=== PATIENT | female | born 1990 | race Caucasian/White ===

== ENCOUNTER → 2017-11-16 14:19 | Outpatient (CLI) | payer OTHER, SELFPAY ==
[2017-11-21 09:52] LABS: HPV Reflexed? NOT INDICATED
== END ==
PROVIDERS: Visit Provider Nurse Practitioner Women's Health
DX: Z12.4 Encounter for screening for malignant neoplasm of cervix (principal)
CPT/HCPCS: 88175; G0145

== ENCOUNTER → 2019-05-29 | Outpatient (CLI) | payer OTHER, SELFPAY ==
[2019-05-29 14:08] VITALS: BMI 25.9
[2019-05-29 20:10] LABS: Chlamydia Trachomatis by PCR Negative (Negative); Neisserai gonorrhoeae by PCR Negative (Negative); Probe Check PASS; Sample Adequacy Control PASS; Specimen Processing Control PASS
== END | disposition home or self-care (01) ==
LOC: LABSPEC 16:34
PROVIDERS: Referring Provider Obstetrics & Gynecology; Visit Provider Obstetrics & Gynecology
DX: Z34.90 Encounter for supervision of normal pregnancy, unspecified, unspecified trimester (principal)
CPT/HCPCS: 87491; 87591

== ENCOUNTER → 2019-06-27 11:08 | Outpatient (CLI) | payer OTHER, SELFPAY ==
[2019-06-27 10:37] VITALS: BMI 25.9
[2019-06-27 11:37] LABS: Absolute Lymphocyte Count 1.61 X10^3/uL (0.83-4.51); Absolute Neutrophil Count 4.5 X10^3/uL (2.0-7.7); Basophil# 0.01 X10^3/uL; Basophil% 0.2 % (0-1); Eosinophil# 0.03 X10^3/uL; Eosinophils% 0.5 % (0-5); Hematocrit 38.3 % (37-47); Hemoglobin 13.2 g/dL (12.0-15.0); Lymphocyte # 1.61 X10^3/ul (4.0); Lymphocyte % 24.3 % (19-41); Mean Corp Hgb Conc 34.5 g/dL (32-36); Mean Corpuscular Volume 95.8 fL (81-99); Mean Platelet Vol. 10.8 fl (6.2-12.0); Monocyte# 0.48 X10^3/uL; Monocyte% 7.2 % (0-10); NRBC Flagged by Analyzer 0 % (0-5); Neutrophil # 4.48 X10^3/uL (2.7-7.7); Neutrophil % 67.5 % (47-70); Platelet Count 212 K/mm3 (150-450); RBC Distribution Width CV 12.3 % (11.6-14.6); RBC Distribution Width SD 43.1 fl (35.1-43.9); White Blood Count 6.6 K/mm3 (4.4-11.0)
[2019-06-27 12:21] LABS: NATERA MAILED SPECIMEN
[2019-06-27 12:32] LABS: HIV - WCH Non-Reactive (Nonreactive); Hepatitis B Surface Antigen Non-Reactive (Nonreactive); Hepatitis C Antibody Non-Reactive (Nonreactive); Rubella IgG 92.7 IU/mL
[2019-07-03 02:09] LABS: Rapid Plasmin Reagin (RPR) NONREACTIVE (NONREACTIVE)
== END ==
PROVIDERS: Referring Provider Obstetrics & Gynecology; Visit Provider Obstetrics & Gynecology
DX: Z34.82 Encounter for supervision of other normal pregnancy, second trimester (principal); Z31.430 Encounter of female for testing for genetic disease carrier status for procreative management
CPT/HCPCS: 36415; 85025; 86592; 86703; 86762; 86803; 86850; 86900; 86901; 87340

== ENCOUNTER → 2019-09-19 08:02 | Outpatient (CLI) | payer OTHER, SELFPAY ==
[2019-08-22 08:29] VITALS: BMI 25.9
[2019-09-19 08:42] LABS: Absolute Lymphocyte Count 1.65 X10^3/uL (0.83-4.51); Absolute Neutrophil Count 6.8 X10^3/uL (2.0-7.7); Basophil# 0.04 X10^3/uL; Basophil% 0.4 % (0-1); Eosinophils% 1.1 % (0-5); Hemoglobin 12.2 g/dL (12.0-15.0); Lymphocyte # 1.65 X10^3/ul (4.0); Lymphocyte % 17.9 % (19-41); Mean Corp Hgb Conc 33.9 g/dL (32-36); Mean Corpuscular Hgb 33.7 pg (27.0-32.0); Mean Corpuscular Volume 99.4 fL (81-99); Mean Platelet Vol. 10.8 fl (6.2-12.0); Monocyte# 0.56 X10^3/uL; Monocyte% 6.1 % (0-10); NRBC Flagged by Analyzer 0 % (0-5); Neutrophil # 6.82 X10^3/uL (2.7-7.7); Neutrophil % 73.8 % (47-70); Platelet Count 214 K/mm3 (150-450); RBC Distribution Width CV 12.4 % (11.6-14.6); RBC Distribution Width SD 45.2 fl (35.1-43.9); Red Blood Count 3.62 M/mm3 (4.2-5.4); White Blood Count 9.2 K/mm3 (4.4-11.0)
[2019-09-19 08:48] LABS: Glucose Challenge Gest 1H 50g 119 mg/dL (70-140)
== END ==
PROVIDERS: Nurse Practitioner Women's Health; Referring Provider Obstetrics & Gynecology; Visit Provider Obstetrics & Gynecology
DX: Z34.90 Encounter for supervision of normal pregnancy, unspecified, unspecified trimester (principal)
CPT/HCPCS: 36415; 82950; 85025

== ENCOUNTER → 2019-12-05 14:00 | Outpatient (CLI) | payer OTHER, SELFPAY ==
[2019-12-05 09:18] VITALS: BMI 29.3
== END ==
PROVIDERS: Referring Provider Obstetrics & Gynecology; Visit Provider Obstetrics & Gynecology
DX: Z34.90 Encounter for supervision of normal pregnancy, unspecified, unspecified trimester (principal)
CPT/HCPCS: 87077; 87081; 87186

== ENCOUNTER → 2019-12-12 17:51 | Outpatient (CLI) | payer OTHER, SELFPAY ==
[2019-12-12 09:14] VITALS: BMI 29.3
== END ==
PROVIDERS: Referring Provider Obstetrics & Gynecology; Visit Provider Obstetrics & Gynecology
DX: Z20.828 Contact with and (suspected) exposure to other viral communicable diseases (principal)
CPT/HCPCS: 87635; 94799; U0003

== ENCOUNTER 2019-12-15 08:25 | Inpatient (IN) | payer OTHER, SELFPAY ==
[2019-12-12 09:14] VITALS: BMI 29.3
[2019-12-15] VITALS (14 sets, daily range): BP systolic 95–134; BP diastolic 60–84; PULSE 68–83; RESP 16; TEMP 36.4–36.9; O2SAT 95–98; BMI 32.8
[2019-12-15] MEDS: Lactated Ringers 1,000 ML 50 ML IV (08:50)
[2019-12-15 09:22] LABS: Absolute Lymphocyte Count 2.14 X10^3/uL (0.83-4.51); Absolute Neutrophil Count 6.3 X10^3/uL (2.0-7.7); Basophil# 0.03 X10^3/uL; Basophil% 0.3 % (0-1); Eosinophil# 0.04 X10^3/uL; Eosinophils% 0.4 % (0-5); Hematocrit 34.4 % (37-47); Hemoglobin 11.9 g/dL (12.0-15.0); Lymphocyte # 2.14 X10^3/ul (4.0); Lymphocyte % 22.3 % (19-41); Mean Corp Hgb Conc 34.6 g/dL (32-36); Mean Corpuscular Hgb 32.8 pg (27.0-32.0); Mean Corpuscular Volume 94.8 fL (81-99); Mean Platelet Vol. 12.5 fl (6.2-12.0); Monocyte% 9.4 % (0-10); NRBC Flagged by Analyzer 0 % (0-5); Neutrophil # 6.33 X10^3/uL (2.7-7.7); Platelet Count 178 K/mm3 (150-450); RBC Distribution Width CV 12.4 % (11.6-14.6); RBC Distribution Width SD 42.5 fl (35.1-43.9); Red Blood Count 3.63 M/mm3 (4.2-5.4); White Blood Count 9.6 K/mm3 (4.4-11.0)
--- NOTE | 2019-12-15 09:26 | HP.PCM_ITS ---
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 She has had contractions increasing in severity but still manageable and is wanting expectant management and minimal intervention. OB Visit ALPHONSO Calculator Estimated Delivery Date Method Current WG Current Estimate 12/24/19 LMP (Certain) 38w 2d Expected Delivery Route/Plan Labor Preferences- CB BF cl labor support person: Benjie pain management options preferred: trying for natural labor, but open to epidural epidural cut cord/dad catch: maybe : yes PP control planned: unsure discussed possible routes of delivery and associated risks: discussed possible delivery modalities and possible indications for each including R/B/A of , VAVD, and CS. questions answered. special requests: none Specific Issue/Plans flu vaccine: yes tdap vaccine: given rhogam: na LARC form signed: yes movement and labor precautions reviewed. Problem list reviewed and updated with the most current plan of care details and appropriate orders placed. Relevant counseling for the gestational age provided. Continue routine care and follow up unless otherwise noted in visit notes/problem list details Initial Weight: 163 lb Date EGA Weight BP Urine Prot Glucose FHR FuHt Pres Dilation Effaced St Visit Note 06/27/19 14w 2d 164 lb 4 oz (+1 lb 4 oz) 116/77 Negative Negative 150 SM- no vb cramping getting blood work today 08/22/19 22w 2d 175 lb (+12 lb) 104/72 Negative Negative 150 SM- no vb lof good fm no regular ctx 09/19/19 26w 2d 179 lb (+16 lb) 114/80 Negative Negative 156 26 Mh-good FM. NO Vb LOF. 28 wk labs and tdap today 10/03/19 28w 2d 180 lb (+17 lb) 124/78 Negative Negative 145 28 SM- no vb lof good fm planning CB and classes 10/20/19 30w 5d 186 lb 4 oz (+23 lb 4 oz) 110/78 Negative Negative 145 31 SM- no vb lof good fm no regular ctx 11/03/19 32w 5d 187 lb (+24 lb) 106/80 Negative Negative 135 33 Sm- no vb lof good fm no regular ctx 11/17/19 34w 5d 190 lb (+27 lb) 122/82 Negative Negative 12/05/19 37w 2d 196 lb 6 oz (+33 lb 6 oz) 98/60 Negative Negative 150 37 GP - no LOF/VB/DFM/Ctx. GBS done today. 12/12/19 38w 2d 199 lb 2 oz (+36 lb 2 oz) 128/88 Negative Negative 150 38 Cephalic 3 70 -1 SM- no vb lof good fm no regular ctx ACOG First Trimester First Trimester: Desire for , Alcohol, Tobacco Cessation, Illicit/Recreational Drug/Substance Use, Intimate Partner Violence, Barriers to care, Unstable Housing, Communication Barriers, Environmental/Work Hazards, Anticipated Course of Care, Toxoplasmosis Precations, Use of Any medications, Sexual activity, Exercise, Dental Care, Sauna/Hot tub use, Seat Belt use, Childbirth classes/Hospital facilities, , Travel, Indications for US and Screening for Aneuploidy Second Trimester Second Trimester: Signs and Symptoms of Labor, Selecting a care provider, Reproductive Life Planning, Care Planning, Tobacco Cessation, Depression/Anxiety and Intimate Partner Violence Third Trimester Third Trimester: Pain Management Plans, Labor support person(s), Immediate Larc, Movement Monitoring and Feeding Yes ; discussed Trial of Labor after Counseling or discussed Circumcision preference Diagnostics Diagnostics Diagnostics Blood Type O POSITIVE 06/27/19 Antibody Screen NEGATIVE 06/27/19 Glucose 1 Hr 50 gm 119 mg/dL (70-140) 09/19/19 HIV 1&2 Antibody Non-Reactive (Nonreactive) 06/27/19 Rubella IgG Antibody 92.7 IU/mL 06/27/19 Hgb 12.2 g/dL (12.0-15.0) 09/19/19 Hct 36.0 % (37-47) L 09/19/19 RPR NONREACTIVE (NONREACTIVE) 06/27/19 Details: HIV: Urine Culture: Sequential Screen: NIPT Screen: ROS Const Reports system reviewed and no additional complaints, except as docu Card Reports system reviewed and no additional complaints, except as docu Resp Reports system reviewed and no additional complaints, except as docu GI Reports system reviewed and no additional complaints, except as docu, Reports nausea Reports system reviewed and no additional complaints, except as docu Musc Reports system reviewed and no additional complaints, except as docu Exam Const General: cooperative, healthy appearing, comfortable, anxious HENMT Head: normal to inspection Nose: external nose normal Face and sinus: normal facial exam Neck Neck: normal visual inspection, full ROM, no lymphadenopathy Thyroid: thyroid normal Chest Chest palpation & inspection: normal inspection of the chest Resp Effort & Inspection: normal respiratory effort GI Inspection: normal to inspection Palpation: soft, other (gravid uterus) Other: vertex and appropriate size for gestational age Other: Cervical Exam: Extrem General: pedal edema Results POC Urinalysis 2 Dip (Clinic) Office Urine Glucose Negative Last Edit by Lalitha Willis on 12/12/19 09:22 Office Urine Protein Negative Last Edit by Lalitha Willis on 12/12/19 09:22 Assessment & Plan Problems 1. 38 weeks gestation of Z3A.38 nipt-low risk, carrier neg and declined ntd screening; normal anatomy 2. Supervision of normal Z34.90 PRR ALPHONSO 12/24/19 surprise Benjie 3. Positive GBS test B95.1 plan pcn in labor 29-year-old G1, P0 at 38 weeks presents in active labor with SROM clear fluid Patient presents IAL, plan expectant management for , Pitocin/AROM if needed. Pain management: First minimal intervention. GBS positive plan IV PCN. Management of any complications: None I have reviewed the [facility] and made any clinically relevant updates. Orders Orders: POC Urinalysis 2 Dip (Clinic) Today Coding Level of Care Code OB Routine Diagnoses 38 weeks gestation of Z3A.38 ??Weeks of gestation: 38 weeks Supervision of normal Z34.90 Positive GBS test B95.1
[2019-12-15] MEDS: 0.9% Saline Lock 10 ML Syringe IV (10:16)
--- NOTE | 2019-12-15 12:45 | PCM.OPRPT ---
Problem List (1) SROM (spontaneous rupture of membranes) Status: Acute (2) Positive GBS test Status: Acute Comment: plan pcn in labor (3) Status: Acute Qualifiers: Comment: nipt-low risk, carrier neg and declined ntd screening; normal anatomy (4) Supervision of normal Status: Acute Qualifiers: Comment: PRR ALPHONSO 12/24/19 surprise Benjie Vaginal Delivery Maternal Presentation: Active Labor 38 weeks Method of Induction: Pitocin Amniotic Membrane Rupture Type: Spontaneous at home Amniotic Fluid Description: Clear Final ALPHONSO: 12/24/19 Gestational age: 38 Weeks and 6 Days Date of Procedure: 12/15/19 Pre-Operative Diagnosis: ial srom Post-Operative Diagnosis: same Surgery/ Procedure Performed: Spontaneous Vaginal Delivery Type of Anesthesia: None Description of Procedure: Patient began pushing and delivered the head in the ADAM presentation. The head was delivered atraumatically. The anterior and posterior shoulders delivered without complication followed by the rest of the and the infant was placed on the maternal abdomen. Delayed cord clamping was employed for approximately 60 seconds. Cord was clamped and cut and gentle traction was applied to the cord and the placenta delivered spontaneously immediately following it was noted to be intact with three-vessel cord. The perineum and vagina were inspected and noted to have a second-degree perineal laceration and a left vaginal first-degree laceration that was injected with 1% lidocaine and repaired in the usual fashion with 3-0 Vicryl Rapide. EBL was 200 cc. Patient and infant tolerated delivery well. Presentation: HARDIK Placental Delivery Description: Spontaneous Placenta Disposition: [facility] Cord Vessel Description: 3 Vessels Cord Entanglement: None Estimated Blood Loss: 200 A gender: Male Episiotomy Description: None Laceration: Perineal Extension/lac, Vaginal Extension/lac, 1st degree, 2nd degree Medications given after delivery: IV Pitocin Complications: None Multi Select Codes - Urinary/Genital Urinary/Genital CPT Codes: 99068 Vaginal Delivery [facility]
[2019-12-15] MEDS: Oxytocin 30 units/NS 500 ml 30 UNITS/500 ML IV.SOLN 334 UNITS IV (13:08)
[2019-12-15] MEDS: Naproxen 250 MG Tablet 500 MG PO (15:54)
[2019-12-15] MEDS: Senna/Docusate Sodium 1 Tablet PO (20:34)
[2019-12-15] MEDS: Acetaminophen 500 MG Tablet 1000 MG PO (20:34)
[2019-12-16 00:16] VITALS: BP 114/63; PULSE 72; RESP 16; TEMP 36.6
[2019-12-16 04:07] VITALS: BP 101/61; PULSE 73; RESP 16; TEMP 36.6
[2019-12-16] MEDS: Naproxen 250 MG Tablet 500 MG PO ×3 (04:11→22:50)
--- NOTE | 2019-12-16 07:40 | PN.OBGYN_ITS ---
Patient Problems: Active and Suspected Problems (Last Reviewed 12/12/19 @ 09:12 by Lalitha Willis) SROM (spontaneous rupture of membranes) (Acute) Subjective: Patient doing well without complaints. Tolerating PO. Ambulating and voiding without difficulty. Feeding well. Denies chest pain, shortness of breath - Physical Exam Vitals/I&O's: Vital Signs Temp Pulse Resp BP Pulse Ox 98 F 73 16 101/61 95 12/16/19 04:07 12/16/19 04:07 12/16/19 04:07 12/16/19 04:07 12/15/19 20:11 Oxygen Delivery Method Room Air Weight: 197 lb 8.547 oz Body Mass Index (BMI) 32.8 Intake and Output for Last 24 Hours 12/14/19 12/15/19 12/16/19 23:59 23:59 23:59 Intake Total 1211.66 / 1211.66 Balance 1211.66 / 1211.66 General: Alert, Oriented x3 Abdomen: Non Tender, Non-Distended, - - FF below U Laboratory Results 12/15/19 08:50: WBC 9.6, RBC 3.63 L, Hgb 11.9 L, Hct 34.4 L, MCV 94.8, MCH 32.8 H, MCHC 34.6, RDW Std Deviation 42.5, RDW Coeff of Victor Manuel 12.4, Plt Count 178, MPV 12.5 H, Immature Gran % (Auto) 1.600 H, Neut % (Auto) 66.0, Lymph % (Auto) 22.3, [place] % (Auto) 9.4, Eos % (Auto) 0.4, Baso % (Auto) 0.3, Absolute Neuts (auto) 6.3, Absolute Lymphs (auto) 2.14, Nucleated RBC % 0 12/15/19 08:50: Blood Type O POSITIVE, Antibody Screen NEGATIVE Current Medications Acetaminophen (Tylenol) 1,000 mg PO Q8H PRN PRN PRN Reason: Pain Score 1-3/10 Last Admin: 12/15/19 20:34 Dose: 1,000 mg Documented by: Bisacodyl (Dulcolax) 10 mg RECTAL UD PRN PRN Reason: If no BM Dibucaine (Dibucaine) 1 applic TOPICAL TID PRN PRN; Protocol PRN Reason: Discomfort Hydrocortisone (Hytone) 1 applic TOPICAL TID PRN PRN; Protocol PRN Reason: Discomfort Methylergonovine Maleate (Methergine) 0.2 mg IM X1 PRN PRN Reason: Excess bleeding/uterine atony Naproxen (Naprosyn) 500 mg PO Q8H PRN PRN PRN Reason: Pain Score 1-3/10 Last Admin: 12/16/19 04:11 Dose: 500 mg Documented by: Ondansetron HCl (Zofran) 4 mg IV Q4H PRN PRN PRN Reason: Nausea Oxycodone HCl (Oxyir) 5 - 10 mg PO Q4H PRN PRN PRN Reason: Pain Score 4-10/10 Senna/Docusate Sodium (Senokot-S, Raquel-Colace) 1 - 2 tablet PO DAILY PRN PRN PRN Reason: Constipation Last Admin: 12/15/19 20:34 Dose: 1 tablet Documented by: Simethicone (Mylicon) 80 mg PO PCHS PRN PRN Reason: Indigestion/Stomach pain Sodium Chloride () 5 - 15 ml IV UD PRN PRN Reason: SALINE FLUSH Medical Necessity - Tobacco Use Smoking Status: Never smoker Assessment/Plan All Active Problems (Last Reviewed 12/12/19 @ 09:12 by Lalitha Willis) SROM (spontaneous rupture of membranes) (Acute) Positive GBS test (Acute) (Acute) Supervision of normal (Acute) s/p PPD # 1 1. routine post delivery care 2. breast feeding- support given 3. rh positive 4. rubella immune
[2019-12-16 08:00] VITALS: BP 107/68; PULSE 75; RESP 16; TEMP 36.7
[2019-12-16] MEDS: Senna/Docusate Sodium 1 Tablet PO (08:17)
[2019-12-16 11:38] VITALS: BP 113/64; PULSE 80; RESP 16; TEMP 36.7
[2019-12-16 16:00] VITALS: BP 119/72; PULSE 123; RESP 16; TEMP 36.8
[2019-12-16 20:20] VITALS: BP 111/74; PULSE 78; RESP 18; TEMP 36.3; O2SAT 96
[2019-12-17 02:00] VITALS: BP 112/67; PULSE 72; RESP 16; TEMP 36.3; O2SAT 95
--- NOTE | 2019-12-17 02:26 | DCINST_ITS ---
Discharge Diet: No Restrictions Discharge Activity: Return to Normal Activity, May not drive while taking narcotic pain medications., May Shower May resume sexual activity in: 4-6 weeks Call your doctor if your incision/area has: Continuous Slow Oozing, Sudden Increased Bleeding, Increased Pain/ Swelling, Increased Redness, Foul Smelling Discharge Additional Instructions: If you experience any of the following, contact your healthcare provider. * Bleeding that soaks a pad every hour for 2 hours * Fever 100.4 or higher * Unrelieved incision or abdominal pain * Swelling, redness, discharge or bleeding from your incision or episiotomy site * Your incision begins to separate * Problems urinating (including inability to urinate or burning while urinating). * Visual changes * Severe headache * Flu-like symptoms * Pain or redness in one of both of your breasts * Pain, warmth, tenderness or swelling in your legs, especially the calf area * Frequent nausea and vomiting * Symptoms of depression or anxiety If you experience any of the following, call 911 or go to the nearest Emergency Room. * Chest pain * Problems breathing * Seizure activity * Partial or complete paralysis of a body part, slurred speech, weakness or drooping of the face, or a sudden inability to walk or hold your balance Allergies/Adverse Reactions: Allergies Sulfa (Sulfonamide Antibiotics) Allergy (Mild, Verified 12/12/19 09:13) Other bees Allergy (Severe, Uncoded 12/05/19 09:10) rash, throat swells Medications to take at Discharge vitamin#30 30 mg iron-10 mg iron-folic acid 1 mg-omg3 capsule 1 cap PO DAILY 05/29/19 Please Follow Up With: Dominique Patten MD - [phone] When: Call to make an appointment with your doctor in 6 weeks. If you had elevated Blood pressure or 4th degree laceration you will need to be seen in 2 weeks. Primary Care Physician: Care Physician,No Primary [Primary Care Provider] - Test Results: Test results from this visit will be discussed in further detail at your follow- up appointment, if applicable.
--- NOTE | 2019-12-17 02:26 | PCM.DCVAG ---
Discharge Diet: No Restrictions Discharge Activity: Return to Normal Activity, May not drive while taking narcotic pain medications., May Shower May resume sexual activity in: 4-6 weeks Call your doctor if your incision/area has: Continuous Slow Oozing, Sudden Increased Bleeding, Increased Pain/ Swelling, Increased Redness, Foul Smelling Discharge Additional Instructions: If you experience any of the following, contact your healthcare provider. Bleeding that soaks a pad every hour for 2 hours Fever 100.4 or higher Unrelieved incision or abdominal pain Swelling, redness, discharge or bleeding from your incision or episiotomy site Your incision begins to separate Problems urinating (including inability to urinate or burning while urinating). Visual changes Severe headache Flu-like symptoms Pain or redness in one of both of your breasts Pain, warmth, tenderness or swelling in your legs, especially the calf area Frequent nausea and vomiting Symptoms of depression or anxiety If you experience any of the following, call 911 or go to the nearest Emergency Room. Chest pain Problems breathing Seizure activity Partial or complete paralysis of a body part, slurred speech, weakness or drooping of the face, or a sudden inability to walk or hold your balance Allergies/Adverse Reactions: Allergies Sulfa (Sulfonamide Antibiotics) Allergy (Mild, Verified 12/12/19 09:13) Other bees Allergy (Severe, Uncoded 12/05/19 09:10) rash, throat swells Medications to take at Discharge vitamin#30 30 mg iron-10 mg iron-folic acid 1 mg-omg3 capsule 1 cap PO DAILY 05/29/19 Please Follow Up With: Dominique Patten MD - [phone] When: Call to make an appointment with your doctor in 6 weeks. If you had elevated Blood pressure or 4th degree laceration you will need to be seen in 2 weeks. Primary Care Physician: Care Physician,No Primary [Primary Care Provider] - Test Results: Test results from this visit will be discussed in further detail at your follow-up appointment, if applicable.
--- NOTE | 2019-12-17 04:43 | PCM.PN.OB ---
Patient Problems: Active and Suspected Problems (Last Reviewed 12/12/19 @ 09:12 by Lalitha Willis) SROM (spontaneous rupture of membranes) (Acute) Subjective: Patient doing well without complaints. Tolerating PO. Ambulating and voiding without difficulty. Passing gas. Feeding without difficulty. Denies chest pain, shortness of breath, calf pain/swelling, fevers, chills, lightheadedness. - Physical Exam Vitals/I&O's: Vital Signs Temp Pulse Resp BP Pulse Ox 97.4 F L 72 16 112/67 95 12/17/19 02:00 12/17/19 02:00 12/17/19 02:00 12/17/19 02:00 12/17/19 02:00 Oxygen Delivery Method Room Air Weight: 197 lb 8.547 oz Body Mass Index (BMI) 32.8 Intake and Output for Last 24 Hours 12/15/19 12/16/19 12/17/19 23:59 23:59 23:59 Intake Total 1211.66 / 1211.66 Balance 1211.66 / 1211.66 General: Alert, Oriented x3 Current Medications Acetaminophen (Tylenol) 1,000 mg PO Q8H PRN PRN PRN Reason: Pain Score 1-3/10 Last Admin: 12/15/19 20:34 Dose: 1,000 mg Documented by: Bisacodyl (Dulcolax) 10 mg RECTAL UD PRN PRN Reason: If no BM Dibucaine (Dibucaine) 1 applic TOPICAL TID PRN PRN; Protocol PRN Reason: Discomfort Hydrocortisone (Hytone) 1 applic TOPICAL TID PRN PRN; Protocol PRN Reason: Discomfort Methylergonovine Maleate (Methergine) 0.2 mg IM X1 PRN PRN Reason: Excess bleeding/uterine atony Naproxen (Naprosyn) 500 mg PO Q8H PRN PRN PRN Reason: Pain Score 1-3/10 Last Admin: 12/16/19 22:50 Dose: 500 mg Documented by: Ondansetron HCl (Zofran) 4 mg IV Q4H PRN PRN PRN Reason: Nausea Oxycodone HCl (Oxyir) 5 - 10 mg PO Q4H PRN PRN PRN Reason: Pain Score 4-10/10 Senna/Docusate Sodium (Senokot-S, Raquel-Colace) 1 - 2 tablet PO DAILY PRN PRN PRN Reason: Constipation Last Admin: 12/16/19 08:17 Dose: 2 tablet Documented by: Simethicone (Mylicon) 80 mg PO PCHS PRN PRN Reason: Indigestion/Stomach pain Sodium Chloride () 5 - 15 ml IV UD PRN PRN Reason: SALINE FLUSH Medical Necessity - Tobacco Use Smoking Status: Never smoker Assessment/Plan All Active Problems (Last Reviewed 12/12/19 @ 09:12 by Lalitha Willis) SROM (spontaneous rupture of membranes) (Acute) Positive GBS test (Acute) (Acute) Supervision of normal (Acute) s/p PPD # 2 1. routine post delivery care 2. breast feeding- support given 3. rh positive 4. rubella immune
[2019-12-17 08:57] VITALS: BP 111/64; PULSE 87; RESP 16; TEMP 36.8
== END 2019-12-17 10:35 | disposition home or self-care (01) | DRG 807 ==
LOC: OBT 08:32 → WP 08:32
PROVIDERS: Admitting Provider Obstetrics & Gynecology; Referring Provider Obstetrics & Gynecology; Visit Provider Obstetrics & Gynecology
DX: O42.92 Full-term premature rupture of membranes, unspecified as to length of time between rupture and onset of labor (principal); Z37.0 Single live birth; O70.1 Second degree perineal laceration during delivery; O99.824 Streptococcus B carrier state complicating childbirth; Z3A.38 38 weeks gestation of pregnancy
CPT/HCPCS: 59050; 85025; 86850; 86900; 86901; 99218; J7120; A4216; G0378

== ENCOUNTER → 2020-01-26 16:51 | Outpatient (CLI) | payer OTHER, SELFPAY ==
[2020-01-26 11:47] VITALS: BMI 29.7
== END ==
PROVIDERS: Referring Provider Obstetrics & Gynecology; Visit Provider Obstetrics & Gynecology
DX: Z12.4 Encounter for screening for malignant neoplasm of cervix (principal)
CPT/HCPCS: 87624; 88175; G0145

== ENCOUNTER → 2021-04-04 14:16 | Outpatient (CLI) | payer OTHER, SELFPAY ==
[2021-04-04 14:37] LABS: Absolute Lymphocyte Count 2.02 X10^3/uL (0.83-4.51); Absolute Neutrophil Count 4.8 X10^3/uL (2.0-7.7); Basophil# 0.04 X10^3/uL; Basophil% 0.5 % (0-1); Eosinophil# 0.06 X10^3/uL; Eosinophils% 0.8 % (0-5); Hematocrit 38.7 % (37-47); Hemoglobin 13.7 g/dL (12.0-15.0); Lymphocyte # 2.02 X10^3/ul (0.83-4.51); Lymphocyte % 27.2 % (19-41); Mean Corp Hgb Conc 35.4 g/dL (32-36); Mean Corpuscular Volume 93.3 fL (81-99); Mean Platelet Vol. 10.7 fl (6.2-12.0); Monocyte# 0.51 X10^3/uL; Monocyte% 6.9 % (0-10); NRBC Flagged by Analyzer 0 % (0-5); Neutrophil # 4.79 X10^3/uL (2.7-7.7); Neutrophil % 64.3 % (47-70); Platelet Count 236 K/mm3 (150-450); RBC Distribution Width CV 12.4 % (11.6-14.6); RBC Distribution Width SD 42.6 fl (35.1-43.9); Red Blood Count 4.15 M/mm3 (4.2-5.4); White Blood Count 7.4 K/mm3 (4.4-11.0)
[2021-04-04 15:32] LABS: NATERA MAILED SPECIMEN
[2021-04-04 15:34] LABS: HIV - WCH Non-Reactive (Nonreactive); Hepatitis B Surface Antigen Non-Reactive (Nonreactive); Hepatitis C Antibody Non-Reactive (Nonreactive); Rubella IgG Reactive (Nonreactive); Syphilis Antibodies Non-reactive
[2021-04-04 17:34] LABS: Amphetamine Urine VISTA NEGATIVE (<1000 ng/mL); Barbiturate Urine VISTA NEGATIVE (< 200 ng/mL); Benzodiazepine Urine VISTA NEGATIVE (< 200 ng/mL); Cocaine Urine VISTA NEGATIVE (< 300 ng/mL); Ecstacy Urine VISTA NEGATIVE (< 500 ng/mL); Methadone Urine VISTA NEGATIVE (< 300 ng/mL); PCP Urine VISTA NEGATIVE (< 25 ng/mL); THC Urine VISTA NEGATIVE (< 50 ng/mL); Vista UDS pH Range 6
[2021-04-07 00:06] LABS: Chlamydia By Nucleic Acid AMP Negative (Negative)
[2021-04-07 07:27] LABS: Gonococcus By Nucleic Acid AMP Negative (Negative)
[2021-04-08 17:27] LABS: HPV APTIMA, High Risk Negative (Negative)
== END ==
PROVIDERS: Referring Provider Obstetrics & Gynecology; Visit Provider Obstetrics & Gynecology
DX: Z34.81 Encounter for supervision of other normal pregnancy, first trimester (principal)
CPT/HCPCS: 36415; 80307; 85025; 86703; 86762; 86780; 86803; 86850; 86900; 86901; 87086; 87340; 87491; 87591; 87624; 88175; G0145

== ENCOUNTER 2021-08-04 08:08 | Outpatient (CLI) | payer OTHER, SELFPAY ==
[2021-08-04 08:35] LABS: Absolute Lymphocyte Count 1.79 X10^3/uL (0.83-4.51); Basophil# 0.02 X10^3/uL; Basophil% 0.3 % (0-1); Eosinophil# 0.01 X10^3/uL; Eosinophils% 0.1 % (0-5); Hematocrit 36.2 % (37-47); Hemoglobin 12.4 g/dL (12.0-15.0); Lymphocyte # 1.79 X10^3/ul (0.83-4.51); Mean Corp Hgb Conc 34.3 g/dL (32-36); Mean Corpuscular Hgb 32.9 pg (27.0-32.0); Mean Platelet Vol. 10.7 fl (6.2-12.0); Monocyte# 0.33 X10^3/uL; Monocyte% 4.6 % (0-10); NRBC Flagged by Analyzer 0 % (0-5); Neutrophil # 4.98 X10^3/uL (2.7-7.7); Neutrophil % 69.4 % (47-70); Platelet Count 213 K/mm3 (150-450); RBC Distribution Width CV 12.8 % (11.6-14.6); RBC Distribution Width SD 45.3 fl (35.1-43.9); Red Blood Count 3.77 M/mm3 (4.2-5.4); White Blood Count 7.2 K/mm3 (4.4-11.0)
[2021-08-04 08:52] LABS: Glucose Challenge Gest 1H 50g 136 mg/dL (70-140)
== END 2021-08-04 23:59 | disposition home or self-care (01) ==
LOC: LAB 08:09
PROVIDERS: Referring Provider Nurse Practitioner Women's Health; Visit Provider Nurse Practitioner Women's Health
DX: Z34.90 Encounter for supervision of normal pregnancy, unspecified, unspecified trimester (principal); Z3A.22 22 weeks gestation of pregnancy
CPT/HCPCS: 36415; 82950; 85025

== ENCOUNTER → 2021-08-12 | Outpatient (CLI) | payer OTHER, SELFPAY ==
[2021-08-12 07:42] LABS: Glucose GTT-Gestation. Fasting 82 mg/dL (<105)
[2021-08-12 08:26] LABS: Glucose GTT-Gestational 1 Hr 140 mg/dL (<190)
[2021-08-12 09:19] LABS: Glucose GTT-Gestational 2 Hr 113 mg/dL (<165)
[2021-08-12 10:38] LABS: Glucose GTT-Gestational 3 Hr 86 L (<145)
== END | disposition home or self-care (01) ==
LOC: LAB 06:48
PROVIDERS: Referring Provider Nurse Practitioner Women's Health; Visit Provider Nurse Practitioner Women's Health
DX: Z13.1 Encounter for screening for diabetes mellitus (principal)
CPT/HCPCS: 36415; 82951; 82952

== ENCOUNTER → 2021-10-07 | Outpatient (CLI) | payer OTHER, SELFPAY | END | disposition home or self-care (01) | LOC: LABSPEC 09:07 | PROVIDERS: Visit Provider Obstetrics & Gynecology | DX: Z34.90 Encounter for supervision of normal pregnancy, unspecified, unspecified trimester (principal) | CPT/HCPCS: 87081 ==

== ENCOUNTER 2021-10-20 11:45 | Inpatient (IN) | payer OTHER, SELFPAY ==
[2021-10-20] VITALS (16 sets, daily range): BP systolic 99–128; BP diastolic 63–91; PULSE 64–86; RESP 16; TEMP 36.5–36.8; O2SAT 94–96; BMI 31.4
[2021-10-20] MEDS: Lactated Ringers 1,000 ML 200 ML IV (12:05)
[2021-10-20 12:16] LABS: Basophil# 0.03 X10^3/uL; Basophil% 0.3 % (0-1); Eosinophil# 0.03 X10^3/uL; Eosinophils% 0.3 % (0-5); Hematocrit 37.4 % (37-47); Hemoglobin 12.8 g/dL (12.0-15.0); Lymphocyte % 17.6 % (19-41); Mean Corp Hgb Conc 34.2 g/dL (32-36); Mean Corpuscular Hgb 32.6 pg (27.0-32.0); Mean Corpuscular Volume 95.2 fL (81-99); Mean Platelet Vol. 12.2 fl (6.2-12.0); Monocyte# 0.71 X10^3/uL; Monocyte% 6.6 % (0-10); NRBC Flagged by Analyzer 0 % (0-5); Neutrophil # 8.04 X10^3/uL (2.7-7.7); Neutrophil % 74.3 % (47-70); Platelet Count 179 K/mm3 (150-450); RBC Distribution Width CV 12.7 % (11.6-14.6); RBC Distribution Width SD 43.7 fl (35.1-43.9); Red Blood Count 3.93 M/mm3 (4.2-5.4); White Blood Count 10.8 K/mm3 (4.4-11.0)
--- NOTE | 2021-10-20 12:59 | HP.PCM.OB_ITS ---
HPI - General General Date of Admission: 10/20/21 HPI Narrative LALITHA MONTERO, is a 30y/o G2P who presents to L&D at 38 weeks 2 days with contractions and nursing reports that she is 5-6 cm upon admission. She denies loss of fluid, vaginal bleeding, or dec fm. Maternal Data Information ALPHONSO Calculator Estimated Delivery Date Method Current WG Current Estimate 11/01/21 LMP (Certain) 38w 2d PFSH PFS Medical History Abnormal glucose affecting COVID-19 vaccine series completed Home Medications vitamin#30 30 mg iron-10 mg iron-folic acid 1 mg-omg3 capsule 1 cap PO DAILY Check with primary doctor 05/29/19 [History Last Taken 10/19/21] Allergy/AdvReac Type Severity Reaction Status Date / Time Sulfa (Sulfonamide Allergy Mild Other Verified 10/14/21 13:18 Antibiotics) bees Allergy Severe rash, Uncoded 09/26/21 13:35 throat swells Family History Grandfather Diabetes Heart disease Surgical History History of tonsillectomy Social History Smoking Status: Never smoker alcohol intake: never substance use type: does not use caffeine: Yes what type of physical activity do you participate in: running and weight training frequency: daily seatbelt use: always do you feel safe at home: Yes 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 Date Name GA/Weeks Outcome Route Bth Weight Gen Labor Lgth Anesthesia Del Locatn Provider FOB 12/15/19 Phong 38 live - full term 7lbs 9oz Male 7 hours none [facility] Visit Details Expected Delivery Route/Plan Labor Preferences- CB/BF classes: no labor support person: Benjie labor intervention preferences: [] pain management options preferred: limited intervention, ok w epidural if needed cut cord/dad catch: cord : yes PP control planned: discussed discussed possible routes of delivery and associated risks: [] special requests: [] Plans Covid status: pfizer vaccine Flu vaccine: given Tdap vaccine: given Rhogam: na LARC form signed: yes Problem list reviewed and updated with the most current plan of care details and appropriate orders placed. Relevant counseling for the gestational age provided. Continue routine care and follow up unless otherwise noted in visit notes/problem list details OB Flowsheet Initial Weight: 170 lb Date -?-?-?-?-?-?-?-?-?-?-?-?- EGA Weight BP Urine Prot -?-?-?-?-?-?-?-?-?-?-?-?- Glucose FHR FuHt Pres Dilation -?-?-?-?-?-?-?-?-?-?-?-?- Effaced St Visit Note 04/04/21 -?-?-?-?-?-?-?-?-?-?-?-?- 9w 6d 172 lb (+2 lb) 128/72 -?-?-?-?-?-?-?-?-?-?-?-?- 170 -?-?-?-?-?-?-?-?-?-?-?-?- SM- CRL cons wit h LMP SM- CRL 3.6 cons with LMP 05/13/21 -?-?-?-?-?-?-?-?-?-?-?-?- 15w 3d 175 lb 4 oz (+5 lb 4 oz) 116/80 Negative -?-?-?-?-?-?-?-?-?-?-?-?- Negative 147 -?-?-?-?-?-?-?-?-?-?-?-?- JV- no lof, vagi nal bleeding, or cramping. Anatomy ultrasound with mfm ordered. 06/09/21 -?-?-?-?-?-?-?-?-?-?-?-?- 19w 2d 179 lb 8 oz (+9 lb 8 oz) 120/80 Negative -?-?-?-?-?--?-?-?-?-?-?-?- Negative 142 -?-?-?-?-?-?-?-?-?-?-?-?- JV- going back t o mfm for rpt scan of stomach. no complaints today 07/04/21 -?-?-?-?-?-?-?-?-?-?-?--?- 22w 6d 292 lb (+122 lb) 181 lb (+11 lb) 110/64 Negative -?-?-?-?-?-?-?-?-?-?-?-?- Negative 140 23 -?-?-?-?-?-?-?-?-?-?-?-?- SM- no vb lof go od fm no regular ctx 08/04/21 -?-?-?-?-?-?-?-?-?-?-?-?- 27w 2d 181 lb (+11 lb) 124/78 Negative -?-?-?-?-?-?-?-?-?-?-?-?- Negative 141 28 -?-?-?-?-?-?-?-?-?-?-?-?- Mh-No Vb, LOF. G ood FM. 28 wk labs, [facility] 08/26/21 -?-?-?-?-?-?--?-?-?-?-?-?- 30w 3d 184 lb (+14 lb) 120/78 Negative -?-?-?-?-?-?-?-?-?-?-?-?- Negative 152 30 -?-?-?-?-?-?-?-?-?-?-?-?- JV- normal 3 hr. Tdap today. 09/09/21 -?-?-?-?-?-?-?-?-?-?-?-?- 32w 3d 182 lb (+12 lb) 98/71 Negative -?-?-?-?-?-?-?-?-?-?-?-?- Negative 150 32 -?-?-?-?-?-?-?-?-?-?-?-?- SM- no vb lof go od fm no regular ctx 09/26/21 -?-?-?-?-?-?-?-?-?-?-?-?- 34w 6d 187 lb 2 oz (+17 lb 2 oz) 114/74 Negative -?-?-?-?-?-?-?-?-?-?-?-?- Negative 161 34 -?-?-?-?-?-?-?-?-?-?-?-?- JV- no lof, vagi nal bleeding, or dec fm. going to [place] a [place] this . pt encouraged to take frequent breaks and wear compression stockings. 10/06/21 -?-?-?-?-?-?-?-?-?-?-?-?- 36w 2d 189 lb (+19 lb) 104/68 Negative -?-?-?-?-?-?-?-?-?-?-?-?- Negative 145 35 Cephalic 3 -?-?-?-?-?-?-?-?-?-?-?-?- 60 -1 SM- n ovb lof good fm no regular ctx 10/14/21 -?-?-?-?-?-?-?-?-?-?-?-?- 37w 3d 192 lb (+22 lb) 102/72 Negative -?-?-?-?-?-?-?-?-?-?-?-?- Negative 150 37 Cephalic 3 -?-?-?-?-?-?-?-?-?-?-?-?- 60 -2 JV- no lof , vaginal bleeding, or dec fm. no complaints. labor precaution discussed. 10/20/21 -?-?-?-?-?-?-?-?-?-?-?-?- 38w 2d 189 lb 2.506 oz (+19 lb 2.506 oz) 114/78 -?-?-?-?-?-?-?-?-?-?-?-?- -?-?-?-?-?-?-?-?-?-?-?-?- ROS Constitutional Constitutional: Denies change in weight, fatigue, fever(s), headache(s), poor appetite or weakness Eyes Eyes: Denies blurry vision, change in vision, seeing flashes or spots in vision ENT HEENT: Denies dizziness, headache(s), loss taste/smell or sore throat Cardiovascular Cardiovascular: Denies chest pain, dizziness, dyspnea, irregular heart rhythm, leg edema, palpitations, rapid heart rate or vomiting Respiratory/Chest Respiratory/Chest: Denies chest tightness, cough, dyspnea or breast pain Gastrointestinal Gastrointestinal: Denies abdominal pain, anorexia, constipation, cramping, diarrhea, hemorrhoids, vomiting or weight changes Genitourinary Genitourinary: Denies dysuria, flank pain, genital lesions, genital pain, urinary frequency or urinary urgency Musculoskeletal Musculoskeletal: Denies back pain, difficulty walking, joint pain, limited range of motion, muscle cramps or numbness Integumentary Integumentary: Denies lesions or unusual bruising Neurologic Neurologic: Denies abnormal movements, abnormal speech, dizziness, numbness, seizure-like activity or syncope Psychiatric Psychiatric: Denies anxiety, behavioral changes, change in appetite, change in libido, cognitive impairment, confusion, depression, difficulty concentrating, hallucinations or suicidal thoughts Endocrine Endocrinology: Denies excessive sweating, polydipsia or polyuria Hematologic/Lymphatic Hematologic/Lymphatic: Denies easy bleeding, easy bruising or lymphadenopathy Allergic/Immunologic Allergic/Immunologic: Denies itchy eyes, lip swelling, seasonal rhinorrhea, rhinitis, throat swelling, tongue swelling, eczemia, wheezing or asthma Vital Signs Vital Signs Vital Signs: 10/20/21 11:48 10/20/21 11:48 10/20/21 11:48 Temperature Temperature Source Pulse Rate 76 Blood Pressure 114/78 BP Systolic 114 BP Diastolic 78 Pulse Ox 94 10/20/21 11:47 10/20/21 11:48 10/20/21 11:48 Temperature Temperature Source Temporal Pulse Rate 82 Blood Pressure BP Systolic BP Diastolic Pulse Ox 96 10/20/21 11:47 Temperature 97.7 F L Temperature Source Pulse Rate Blood Pressure BP Systolic BP Diastolic Pulse Ox Weight Weight: 189 lb 2.506 oz Body Mass Index (BMI) 31.4 Physical Exam Const alert, oriented x3, no apparent distress and healthy appearing General Appearance: cooperative; Negative for anxious HEENT normocephalic Face and Sinus: normal facial exam Eyes EOMs intact bilaterally and no scleral icterus General Eye: normal appearance of both eyes Neck full ROM and supple Lymph Lymphatic: no lymphadenopathy noted Chest Chest: abnormal inspection of the chest Resp normal respiratory effort Effort and Inspection: able to speak in complete sentences Cardio regular rate GI soft to palpation and non-tender Inspection: gravid Palpation: soft; Negative for tender external exam normal Speculum Exam - Cervix: other 8/100/0. Membranes ruptured artificially and clear fluid return. Back/Spine no CVA tenderness Extremity normal to inspection, full ROM and no clubbing, cyanosis or edema General Extremity: Negative for calf tenderness or edema Skin Lesions: no lesions Rashes: no rashes Psych mental status grossly normal Labs Labs Labs: Blood Type O POSITIVE Antibody Screen NEGATIVE Hct 37.4 % (37-47) Hgb 12.8 g/dL (12.0-15.0) Syphilis Total Ab Non-reactive Rubella IgG Antibody Reactive (Nonreactive) Hep Bs Antigen Non-Reactive (Nonreactive) Chlamydia DNA (NICOLAS) Negative (Negative) Neisseria gonorrhoeae DNA (NICOLAS) Negative (Negative) HIV 1&2 Antibody Non-Reactive (Nonreactive) Glucose 1 Hr 50 gm 136 mg/dL (70-140) Rhogam given: No Assessment & Plan (1) Abnormal glucose affecting : COMMENT: normal 3 hr GTT (2) Supervision of other normal : COMMENT: PRR ALPHONSO: 11/01/21, boy, (Jann) PC: Phong Spouse: Benjie (3) : QUALIFIERS: Weeks of gestation: 37 weeks Qualified Code(s): Z3A.37 - 37 weeks gestation of COMMENT: low risk genetics, already had carrier with previous , dec afp screen. nl anatomy, GBS Negative PLAN: Plan Patient presents IAL, plan expectant management for , pitocin PRN if needed. Pain management: plans no pain meds, ok for epidural if she changes her mind. GBS negative. Management of any complications: none I have reviewed the [facility] and made any clinically relevant updates.
[2021-10-20] MEDS: Oxytocin 30 units/NS 500 ml 30 UNITS/500 ML IV.SOLN 334 UNITS IV (13:26)
[2021-10-20] MEDS: Acetaminophen 500 MG Tablet PO (13:57)
--- NOTE | 2021-10-20 16:18 | OP.PCM_ITS ---
Assessment & Plan (1) Abnormal glucose affecting : COMMENT: normal 3 hr GTT (2) Supervision of other normal : COMMENT: PRR ALPHONSO: 11/01/21, boy, (Jann) PC: Phong Spouse: Benjie (3) : QUALIFIERS: Weeks of gestation: 37 weeks Qualified Code(s): Z3A.37 - 37 weeks gestation of COMMENT: low risk genetics, already had carrier with previous , dec afp screen. nl anatomy, GBS Negative Maternal Data Information ALPHONSO Calculator Estimated Delivery Date Method Current WG Current Estimate 11/01/21 LMP (Certain) 38w 2d Final ALPHONSO: 11/01/21 Final ALPHONSO Source: US <20 weeks Gestational age: 38 weeks 2 days Vaginal Delivery Maternal Presentation Maternal Presentation: Active Labor Type of Induction: Amniotomy Operative Information Date of Procedure: 10/20/21 Pre-Operative Diagnosis: @ 38 weeks 2 days active labor Post-Operative Diagnosis: @ 38 weeks 2 days active labor Type of Anesthesia: None Estimated Blood Loss: 300cc Findings Description of Procedure: Patient began pushing and delivered the head in the HARDIK presentation. The head was delivered atraumatically and a loose nuchal cord ?1 was identified and easily reduced over the infant's head. The anterior and posterior shoulders delivered without complication followed by the rest of the infant and the was placed on the maternal abdomen. Delayed cord clamping was employed for approximately 60 seconds. Cord was clamped and cut and gentle traction was applied to the cord and the placenta delivered spontaneously immediately following it was noted to be intact with three-vessel cord. The perineum and vagina were inspected and noted to have a 1st degree laceration repaired with a 3-0 vicryl rapide suture. EBL was 300cc. Patient and tolerated delivery well. Presentation: Vertex Amniotic Membrane Rupture Type: Artificial Amniotic Fluid Description: Clear Placental Delivery Description: Spontaneous Placenta Disposition: [facility] Cord Vessel Description: 3 Vessels Cord Entanglement: Around neck x 1, tight Nuchal Cord Compression: Without compression A Gender: Male (1 minute): 9 (5 minute): 9 Delayed Cord Clamping: Yes Post Vaginal Delivery Medications Given After Delivery: IV Pitocin Episiotomy Description: None Laceration: 1st degree Complication Complications: None Multi Select Codes Urinary/Genital Urinary/Genital CPT Codes: 59465 Vaginal Delivery [facility]
--- NOTE | 2021-10-20 16:21 | DCINST_ITS ---
Discharge Instructions Diet Discharge Diet: No restrictions Activity Discharge Activity: Return to Normal Activity, May Not Drive (while taking narcotic pain medications.) and May Shower May resume sexual activity in: 4-6 weeks Dressing / Incision Call your doctor if your incision/area has: Continuous Slow Oozing, Sudden Increased Bleeding, Increased Pain/ Swelling, Increased Redness and Foul Smelling Discharge Follow Up Care Please Follow Up With: Jenna Hartley DO When: Call [phone] to make an appointment with your doctor in 6 weeks. If you had elevated blood pressure or 4th degree laceration, you will need to be seen in 2 weeks. Test Results: Test results from this visit will be discussed in further detail at your follow- up appointment, if applicable. Discharge Plan Admission Admit Date/Time: 10/20/21 11:45 Primary Reason for Your Visit: vaginal delivery Attending Provider: Jenna Hartley Primary Care Provider: Gilberto Nath,Buffy Primary Discharge Orders/Prescriptions Prescriptions: New ibuprofen 600 mg tablet 600 mg PO Q6H PRN (Reason: pain (scale score 4-6)) 7 Days Qty: 28 0RF Rx Instructions: one tab every 6 hrs as needed for mild to moderate pain Continued vitamin#30 30 mg iron-10 mg iron-folic acid 1 mg-omg3 capsule 30 mg iron-10 mg iron-1 mg capsule 1 cap PO DAILY Referrals / Follow Up: Care Physician,No Primary [Primary Care Provider] - Disposition Disposition (needs filled in before D/C Order can be placed): Home, Self Care
[2021-10-20] MEDS: Ibuprofen 600 MG Tablet PO (18:13)
[2021-10-20] MEDS: Acetaminophen 500 MG Tablet 1000 MG PO (22:38)
[2021-10-21] VITALS (7 sets, daily range): BP systolic 101–116; BP diastolic 55–76; PULSE 68–90; RESP 14–16; TEMP 36.3–36.6; O2SAT 94–99
[2021-10-21] MEDS: Ibuprofen 600 MG Tablet PO (04:25)
--- NOTE | 2021-10-21 08:40 | PN.OBGYN_ITS ---
Subjective Subjective Patient doing well without complaints. Tolerating PO. Ambulating and voiding without difficulty. Feeding well. Denies chest pain, shortness of breath, calf pain/swelling, fevers, chills, lightheadedness. Objective Data Objective Data Vital Signs: Vital Signs Temp Pulse Resp BP Pulse Ox O2 Del Method 97.3 F L 77 16 114/69 97 Room Air 10/21/21 08:37 10/21/21 08:37 10/21/21 08:37 10/21/21 08:37 10/21/21 08:37 10/21/21 08:37 Oxygen Delivery Method Room Air Weight: 189 lb 2.506 oz Body Mass Index (BMI) 31.4 Intake & Output: Intake and Output for Last 24 Hours 10/19/21 10/20/21 10/21/21 23:59 23:59 23:59 Intake Total 970 / 970 Output Total 1000 / 1000 Balance - Lab / Micro Data Result Diagrams: 10/20/21 12:00 Labs: Laboratory Results - last 24 hr 10/20/21 12:00: WBC 10.8, RBC 3.93 L, Hgb 12.8, Hct 37.4, MCV 95.2, MCH 32.6 H, MCHC 34.2, RDW Std Deviation 43.7, RDW Coeff of Victor Manuel 12.7, Plt Count 179, MPV 12.2 H, Immature Gran % (Auto) 0.900, Neut % (Auto) 74.3 H, Lymph % (Auto) 17.6 L, [place] % (Auto) 6.6, Eos % (Auto) 0.3, Baso % (Auto) 0.3, Absolute Neuts (auto) 8.0 H, Absolute Lymphs (auto) 1.90, Nucleated RBC % 0 10/20/21 12:00: Blood Type O POSITIVE, Antibody Screen NEGATIVE Micro: Microbiology 10/20/21 12:05 Nasal Secretion SARS-CoV-2 Antigen (Rapid) - Final ROS Constitutional Constitutional: Denies chills, fatigue, fever(s), poor appetite or weakness Eyes Eyes: Denies blurry vision, change in vision, seeing flashes or spots in vision ENT HEENT: Denies dizziness, headache(s), loss taste/smell or sore throat Cardiovascular Cardiovascular: Denies chest pain, dizziness, dyspnea, irregular heart rhythm, palpitations or rapid heart rate Respiratory/Chest Respiratory/Chest: Denies chest tightness, cough, dyspnea or breast pain Gastrointestinal Gastrointestinal: Denies abdominal pain, constipation or vomiting Genitourinary Genitourinary: Denies dysuria or flank pain Musculoskeletal Musculoskeletal: Denies difficulty walking, joint pain, limited range of motion or numbness Neurologic Neurologic: Denies abnormal movements, abnormal speech, dizziness, numbness, seizure-like activity or syncope Psychiatric Psychiatric: Denies anxiety, behavioral changes, change in appetite, confusion, depression or suicidal thoughts Physical Exam Const alert, oriented x3 and no apparent distress General Appearance: cooperative and comfortable Resp normal respiratory effort Cardio regular rate GI normal to inspection, nondistended, normoactive bowel sounds GI Narrative: uterus is firm below umbilicus Palpation: soft Back/Spine no CVA tenderness and thoraco-lumbar ROM normal Extremity normal to inspection, no clubbing, cyanosis or edema, no calf tenderness and no pedal edema Psych mental status grossly normal, thought process normal, cooperative, affect normal, speech normal, activity/motor behavior normal, denies homicidal ideation and denies suicidal ideation Assessment & Plan (1) Status post vaginal delivery: (2) Supervision of other normal : COMMENT: PRR ALPHONSO: 11/01/21, boy, (Jann) PC: Phong Spouse: Benjie PLAN: Plan s/p PPD # 1 1. routine post delivery care 2. breast feeding- support given 3. rh positive 4. rubella immune 5.dc to home today
--- NOTE | 2021-10-26 15:44 | NURSING ---
follow phone call complete. mother and baby are doing well. No questions or concerns at this time
== END 2021-10-21 14:40 | disposition home or self-care (01) | DRG 807 ==
LOC: WPOUT 11:53 → WP 11:53
PROVIDERS: Admitting Provider Obstetrics & Gynecology; Referring Provider Obstetrics & Gynecology; Visit Provider Obstetrics & Gynecology
DX: O69.81X0 Labor and delivery complicated by cord around neck, without compression, not applicable or unspecified (principal); Z37.0 Single live birth; O70.0 First degree perineal laceration during delivery; Z3A.38 38 weeks gestation of pregnancy
CPT/HCPCS: 59025; 59050; 85025; 86850; 86900; 86901; 87426; 99218; J7120; G0378

== ENCOUNTER → 2023-03-11 | Outpatient (CLI) | payer OTHER, SELFPAY ==
[2023-03-11 10:13] LABS: hCG Titer Quant., Serum 15788 mIU/mL (1-3)
== END | disposition home or self-care (01) ==
LOC: LAB 09:07
PROVIDERS: PCP Registered Nurse; Referring Provider Registered Nurse; Visit Provider Registered Nurse
DX: O20.9 Hemorrhage in early pregnancy, unspecified (principal); Z3A.00 Weeks of gestation of pregnancy not specified
CPT/HCPCS: 36415; 84702

== ENCOUNTER → 2023-03-13 | Outpatient (CLI) | payer OTHER, SELFPAY ==
[2023-03-13 11:44] LABS: hCG Titer Quant., Serum 22394 mIU/mL (1-3)
== END | disposition home or self-care (01) ==
LOC: LAB 10:56
PROVIDERS: PCP Registered Nurse; Referring Provider Registered Nurse; Visit Provider Registered Nurse
DX: O20.9 Hemorrhage in early pregnancy, unspecified (principal); Z3A.00 Weeks of gestation of pregnancy not specified
CPT/HCPCS: 36415; 84702

== ENCOUNTER → 2023-03-19 | Outpatient (CLI) | payer OTHER, SELFPAY ==
--- NOTE | 2023-03-19 14:31 | US_ITS ---
STUDY: FIRST TRIMESTER OBSTETRICAL ULTRASOUND REASON FOR EXAM: Female, 32 years old early dating LMP: January 27, 2023 TECHNIQUE: Transvaginal TECHNICAL QUALITY: Adequate. PRIOR ULTRASOUND: None. FINDINGS: There is visualization of a single gestational sac in a normal intrauterine position. The mean sac diameter (MSD) measures 2.4 cm, indicating an estimated gestational age (EGA) of 7 weeks, 3 days. The gestational sac shape is within normal limits. Complex fluid collection noted adjacent to the gestational sac measuring 1.4 x 2.3 x 1.7 cm. Possible septate uterus. There is a visualized yolk sac. The yolk sac measures 0.4 cm. The placenta is non-visualized. There is visualization of a live embryo. The crown-rump length (CRL) measures 1.2 cm, indicating an estimated gestational age (EGA) of 7 weeks, 3 days. There is demonstrated cardiac activity with a heart rate of 154 bpm. The estimated gestation age (EGA) by LMP is 7 weeks, 2 days. The estimated date of delivery (ALPHONSO) by LMP is November 03, 2023. The estimated gestation age (EGA) by US is 7 weeks, 3 days. The estimated date of delivery (ALPHONSO) by US is November 02, 2023. The uterus measures 10.8 x 7.6 x 5.2 cm. There is no demonstrated uterine fibroid. The cervix is closed. The right ovary measures 3.2 x 2.5 x 2.3 cm. Heterogeneous cyst measures 2.1 x 2.6 x 2.1 cm. There is no visualized right adnexal mass or complex lesion. Left ovary not visualized. Trace fluid in the cul-de-sac. US/Transvaginal w/Preg US IMPRESSION: Probable septate uterus. Centimeters 3 day intrauterine . Possible subchorionic hemorrhage. Other etiologies not excluded. Close surveillance recommended. Electronically Signed: Rosalio Mariee MD at 16:48 EST ,
== END | disposition home or self-care (01) ==
PROVIDERS: PCP Registered Nurse; Referring Provider Registered Nurse; Visit Provider Registered Nurse
DX: O20.9 Hemorrhage in early pregnancy, unspecified (principal); Z3A.00 Weeks of gestation of pregnancy not specified
CPT/HCPCS: 76817

== ENCOUNTER → 2023-03-28 | Outpatient (CLI) | payer OTHER, SELFPAY ==
--- NOTE | 2023-03-28 12:16 | US_ITS ---
STUDY: FIRST TRIMESTER OBSTETRICAL ULTRASOUND REASON FOR EXAM: Female, 32 years old well cheyanne/possible septate uterus LMP: January 26, 2023. TECHNIQUE: Transvaginal TECHNICAL QUALITY: Adequate. PRIOR ULTRASOUND: Comparison is made with prior study March 19, 2023. FINDINGS: There is visualization of a single gestational sac in a normal intrauterine position. There is a visualized yolk sac. The yolk sac measures 3.2 mm. The placenta is non-visualized. There is visualization of a live embryo. The crown-rump length (CRL) measures 2.22 cm, indicating an estimated gestational age (EGA) of 8 weeks, 5 days. There is demonstrated cardiac activity with a heart rate of 173 bpm. The estimated gestation age (EGA) by LMP is 8 weeks, 5 days. The estimated date of delivery (ALPHONSO) by LMP is November 02, 2023. The estimated gestation age (EGA) by US is 8 weeks, 5 days. The estimated date of delivery (ALPHONSO) by US is November 02, 2023. The uterus measures 10.6 cm x 8.5 cm x 5.3 cm. There is no demonstrated uterine fibroid. The cervix is closed. Stable appearance of the septated uterus. Small residual subchorionic bleed although this has decreased in size since prior study. The right ovary measures 3 cm x 2.1 cm x 2.7 cm. There is no right ovarian cyst. There is no visualized right adnexal mass or complex lesion. The left ovary measures 2.1 cm x 1.2 cm x 1.1 cm. There is no left ovarian cyst. There is no visualized left adnexal mass or complex lesion. There is no fluid in the cul de sac. US/Transvaginal w/Preg US IMPRESSION: Single live uterine gestation with a mean gestational age of 8 weeks and 5 days. Small residual subchorionic bleed. Electronically Signed: Adam Clark MD at 13:10 EST ,
== END | disposition home or self-care (01) ==
LOC: OPUS 12:12
PROVIDERS: PCP Registered Nurse; Referring Provider Registered Nurse; Visit Provider Registered Nurse
DX: O20.9 Hemorrhage in early pregnancy, unspecified (principal); Z3A.00 Weeks of gestation of pregnancy not specified
CPT/HCPCS: 76817

== ENCOUNTER → 2023-03-30 | Outpatient (CLI) | payer OTHER, SELFPAY ==
[2023-04-03 10:09] LABS: Chlamydia By Nucleic Acid AMP Negative (Negative); Gonococcus By Nucleic Acid AMP Negative (Negative)
== END | disposition home or self-care (01) ==
LOC: LABSPEC 09:44
PROVIDERS: PCP Registered Nurse; Referring Provider Registered Nurse; Visit Provider Registered Nurse
DX: Z34.90 Encounter for supervision of normal pregnancy, unspecified, unspecified trimester (principal)
CPT/HCPCS: 87086; 87491; 87591

== ENCOUNTER → 2023-04-09 | Outpatient (CLI) | payer OTHER, SELFPAY ==
[2023-04-09 15:26] LABS: Absolute Lymphocyte Count 2.61 X10^3/uL (0.83-4.51); Absolute Neutrophil Count 4.7 X10^3/uL (2.0-7.7); Basophil# 0.03 X10^3/uL; Basophil% 0.4 % (0-1); Eosinophil# 0.04 X10^3/uL; Eosinophils% 0.5 % (0-5); Hematocrit 41.8 % (37-47); Hemoglobin 13.9 g/dL (12.0-15.0); Lymphocyte # 2.61 X10^3/ul (0.83-4.51); Lymphocyte % 32.8 % (19-41); Mean Corp Hgb Conc 33.3 g/dL (32-36); Mean Corpuscular Hgb 31.6 pg (27.0-32.0); Mean Platelet Vol. 10.9 fl (6.2-12.0); Monocyte# 0.53 X10^3/uL; Monocyte% 6.7 % (0-10); NRBC Flagged by Analyzer 0 % (0-5); Neutrophil # 4.72 X10^3/uL (2.7-7.7); Neutrophil % 59.3 % (47-70); Platelet Count 224 K/mm3 (150-450); RBC Distribution Width CV 12.2 % (11.6-14.6); RBC Distribution Width SD 42.9 fl (35.1-43.9)
[2023-04-09 16:09] LABS: NATERA MAILED SPECIMEN
[2023-04-09 16:58] LABS: HIV - WCH Non-Reactive (Nonreactive); Hepatitis B Surface Antigen Non-Reactive (Nonreactive); Hepatitis C Antibody Non-Reactive (Nonreactive); Rubella IgG Reactive (Nonreactive); Syphilis Antibodies Non-reactive
== END | disposition home or self-care (01) ==
LOC: PAVLAB 15:07
PROVIDERS: PCP Registered Nurse; Referring Provider Registered Nurse; Visit Provider Registered Nurse
DX: Z34.81 Encounter for supervision of other normal pregnancy, first trimester (principal)
CPT/HCPCS: 36415; 85025; 86703; 86762; 86780; 86803; 86850; 86900; 86901; 87340

== ENCOUNTER 2023-04-27 12:28 | Day surgery (SDC) | payer OTHER, SELFPAY ==
[2023-04-27] VITALS (7 sets, daily range): BP systolic 94–111; BP diastolic 67–71; PULSE 69–76; RESP 16–18; TEMP 36.7–37.1; O2SAT 92–100; BMI 29.2
--- OUTSIDE RECORDS SUMMARY | 2023-04-27 12:54 | XMS RPT_ITS | CCD ---
Author Name Unknown Address [address] [place] [address] Organization [facility] Care Team Providers Care Director Of Strategic Programs Name Role Phone Saloni ESPITIA.Suzanne TAPIA Primary Care Provider SUZANNE VICENTE Primary Care Unavailable SUZANNE VICENTE Primary Care Unavailable SUZANNE VICENTE Primary Care Unavailable SUZANNE VICENTE Referring Unavailable SUZANNE VICENTE Primary Care Unavailable Allergies Allergy Classification Reported Allergen(s) Allergy Type Date of Onset Reaction(s) Facility (4 sources) Sulfamethoxazole / Trimethoprim; Translations: [SULFAMETHOXAZOLE-TR IMETHOPRIM] Drug Allergy 5 Rash [facility] (4 sources) Bees; Translations: [BEES] Propensity to adverse reactions [facility] Work Phone: Medications Current Medications Medication Drug Class(es) Dates Sig (Normalized) Sig (Original) amoxicillin 500 mg oral capsule (1 source) Penicillin-class Antibacterial Start: 12-26-2022 End: 01-05-2023 take 1 capsule by mouth twice daily amoxicillin (AMOXIL) 500 mg capsule Take 1 capsule by mouth twice daily for 10 days. 20 capsule 0 12/26/2022 01/05/2023 Active Completed/Discontinued Medications Medication Drug Class(es) Dates Sig (Normalized) Sig (Original) [id number] 0.3 ml EPINEPHrine 1 mg/ml auto-injector (3 sources) alpha-Adrenergic Agonist, beta-Adrenergic Agonist, Catecholamine Start: 02-22-2016 EPINEPHrine (EPIPEN) 0.3 mg/0.3 mL auto-injector Indications: Bee sting allergy Give 1 injection into side of thigh for allergic reaction. Repeat dose in 5-15 min if not improving. 2 Each 1 02/22/2016 Active Problems Problem Classification Problem Date Documented Da te Episodic/Chronic Other upper respiratory infections (2 sources) Sore throat symptom; Translations: [Acute pharyngitis, unspecified] 12-26-2022 Episodic Results Test Name Value Interpretation Reference Range Facil ity Vital Signs Date Time Vital Sign Value Performing Clinician Setve conley 12-26-2022 08:35-0400 Body temperature 98.29 [degF] Justina Praisler-Wood ELECTRICAL SIGN WIRER.SYSTEMS ANALYST ENGINEER Work Phone: [facility] 12-26-2022 08:35-0400 Body weight 78.38 kg Justina Praisler-Wood ELECTRICAL SIGN WIRER.SYSTEMS ANALYST ENGINEER Work Phone: [facility] 12-26-2022 08:35-0400 Diastolic blood pressure 64 mm[Hg] Justina Praisler-Wood ELECTRICAL SIGN WIRER.SYSTEMS ANALYST ENGINEER Work Phone: [facility] 12-26-2022 08:35-0400 Heart rate 86 /min Justina Praisler-Wood ELECTRICAL SIGN WIRER.SYSTEMS ANALYST ENGINEER Work Phone: [facility] 12-26-2022 08:35-0400 Respiratory rate 18 /min Justina Praisler-Wood ELECTRICAL SIGN WIRER.SYSTEMS ANALYST ENGINEER Work Phone: [facility] 12-26-2022 08:35-0400 SaO2% (BldA) [Mass fraction] 98 % Justina Praisler-Wood ELECTRICAL SIGN WIRER.SYSTEMS ANALYST ENGINEER Work Phone: [facility] 12-26-2022 08:35-0400 Systolic blood pressure 112 mm[Hg] Justina Praisler-Wood ELECTRICAL SIGN WIRER.SYSTEMS ANALYST ENGINEER Work Phone: [facility] Encounters Encounter Date Encounter Type Care Provider Facility Start: 02-03-2023 End: 02-03-2023 ambulatory Immunization [facility] Nurse [facility] Work Phone: [facility] Start: 12-26-2022 End: 12-26-2022 ambulatory [facility] Facility:[facility] Start: 12-26-2022 End: 12-26-2022 Patient encounter procedure Justina Praisler-Wood ELECTRICAL SIGN WIRER.SYSTEMS ANALYST ENGINEER Work Phone: [facility] Procedures Date Procedure Procedure Detail Performing Clinician Start: 02-03-2023 INFLUENZA VACCINE, A GE 6 MO - 64 YR, QUADRIVALENT (AFLURIA, FLULAVAL, FLUZONE) Jsoe De Jesus Alicia MD Work Phone: Start: 12-26-2022 ANDRIA Hollins MOLECULAR (POC) Niecy Calle PA-C Work Phone: Start: 02-11-2022 INFLUENZA VACCINE QUADRIVALENT 6 MO - 64 YRS IM Mayank Ponce MD Work Phone: Plan of Treatment Date Care Activity Detail Author Start: 02-13-2026 Urine microalbumin profile [facility] Start: 2024 HPV TESTING HPV TESTING [facility] Start: 2024 PAP TESTING PAP TESTING [facility] Start: 12-22-2022 Covid-19 Vaccine ( season) Covid-19 Vaccine ( season) [facility] Start: 12-22-2022 Influenza vaccination INFLUENZA (#1) [facility] Start: 04-23-2022 DEPRESSION ASSESSMENT DEPRESSION ASS ESSMENT [facility] Start: 04-23-2021 DEPRESSION ASSESSMENT DEPRESSION ASS ESSMENT [facility] Start: 03-30-2021 COVID-19 VACCINE (4 - Booster for Pfizer series) COVID-19 VACCINE (4 - Booster for Pfizer series) [facility] Start: 03-30-2021 COVID-19 VACCINE (4 - Pfizer series) COVID-19 VACCINE (4 - Pfizer series) [facility] Immunizations Immunization Date Immunization Notes Care Provider Annamaria garcia 02-03-2023 influenza, injectabl e, quadrivalent, contains preservative Immunization [place] Work Phone: [facility] 02-11-2022 influenza, injectabl e, quadrivalent, contains preservative Immunization [facility] Work Phone: [facility] 02-14-2016 influenza, injectabl e, quadrivalent, contains preservative Immunization [facility] Work Phone: [facility] Work Phone: 02-14-2016 tetanus toxoid, reduced diphtheria toxoid, and acellular pertussis vaccine, adsorbed Immunization [place] Work Phone: [facility] Work Phone: 10-31-2007 hepatitis A vaccine, unspecified formulation Immunization [facility] Work Phone: [facility] Work Phone: 09-26-2007 human papilloma viru s vaccine, quadrivalent Immunization [place] Work Phone: [facility] Work Phone: 05-01-2007 human papilloma viru s vaccine, quadrivalent Immunization [facility] Work Phone: [facility] Work Phone: 02-23-2007 human papilloma viru s vaccine, quadrivalent Immunization [facility] Work Phone: [facility] Work Phone: 10-31-2006 hepatitis A vaccine, unspecified formulation Immunization [place] Work Phone: [facility] 11-02-2004 Meningococcal, MCV4, unspecified conjugate formulation(groups A, C, Y and W-135) Immunization [place] Work Phone: [facility] 10-29-2002 measles, mumps and rubella virus vaccine Immunization [place] Work Phone: [facility] Work Phone: 10-29-2002 tetanus and diphther ia toxoids, adsorbed, preservative free, for adult use (2 Lf of tetanus toxoid and 2 Lf of diphtheria toxoid) Immunization [place] Work Phone: [facility] 06-30-1998 hepatitis B vaccine, pediatric or pediatric/adolescent dosage Immunization [facility] Work Phone: [facility] Work Phone: 01-08-1998 hepatitis B vaccine, pediatric or pediatric/adolescent dosage Immunization [place] Work Phone: [facility] Work Phone: 12-09-1997 hepatitis B vaccine, pediatric or pediatric/adolescent dosage Immunization [facility] Work Phone: [facility] Work Phone: 11-30-1994 diphtheria, tetanus toxoids and acellular pertussis vaccine Immunization [place] Work Phone: [facility] Work Phone: 11-30-1994 trivalent poliovirus vaccine, live, oral Immunization [place] Work Phone: [facility] Work Phone: 05-26-1991 diphtheria, tetanus toxoids and pertussis vaccine Immunization [place] Work Phone: [facility] Work Phone: 05-26-1991 trivalent poliovirus vaccine, live, oral Immunization [place] Work Phone: [facility] Work Phone: 02-26-1991 haemophilus influenz ae type b vaccine, conjugate unspecified formulation Immunization [facility] Work Phone: [facility] Work Phone: 02-26-1991 measles, mumps and rubella virus vaccine Immunization [place] Work Phone: [facility] Work Phone: 05-09-1990 diphtheria, tetanus toxoids and pertussis vaccine Immunization [place] Work Phone: [facility] Work Phone: 05-09-1990 haemophilus influenz ae type b vaccine, conjugate unspecified formulation Immunization [place] Work Phone: [facility] Work Phone: 04-15-1990 Chicken Pox (disease) Immuni zation [facility] Work Phone: [facility] Work Phone: 03-11-1990 diphtheria, tetanus toxoids and pertussis vaccine Immunization [place] Work Phone: [facility] Work Phone: 03-11-1990 haemophilus influenz ae type b vaccine, conjugate unspecified formulation Immunization [place] Work Phone: [facility] Work Phone: 03-11-1990 trivalent poliovirus vaccine, live, oral Immunization [facility] Work Phone: [facility] Work Phone: 01-18-1990 diphtheria, tetanus toxoids and pertussis vaccine Immunization [facility] Work Phone: [facility] Work Phone: 01-18-1990 trivalent poliovirus vaccine, live, oral Immunization [place] Work Phone: [facility] Work Phone: Payers Date Payer Category Payer Private Health Insurance [facility] PLUS [id number] 2018-Present [phone] [address] [place] [address] HMO [id number] 2018 Unknown [id number] Social History Date Type Detail Facility Start: 11-29-2021 Tobacco smoking stat [facility] Never smoked tobacco [facility] Start: 11-29-2021 Tobacco use and exposure Smoke less tobacco non-user [facility] Start: 11-29-2021 End: 12-26-2022 Alcohol intake Current drinker of alcohol (finding) [facility] Start: 11-22-2021 History SDOH Alcohol Frequency 2 [facility] Start: 11-22-2021 History SDOH Alcohol Std Drinks 1 [facility] Start: 11-22-2021 History SDOH Social Connections Phone 5 [facility] Start: 11-22-2021 History SDOH Social Connections Meetings 3 [facility] Start: 02-14-2016 Alcohol Comment [facility] Start: 1989 Sex Assigned At Not on file [facility] Start: 11-22-2021 End: 05-19-2022 [facility] Start: 11-22-2021 End: 05-19-2022 Social connection and isolation panel [facility] Do you belong to any clubs or organizations such as latter-day groups, unions, fraternal or athletic groups, or school groups? Yes [facility] Are you now , , , , never or living with a partner? [facility] How often to you hav e a drink containing alcohol? Monthly or less [facility] How many standard dr inks containing alcohol do you have on a typical day? 1 or 2 [facility] How often do you hav e 6 or more drinks on 1 occasion? Less than monthly [facility] How hard is it for y ou to pay for the very basics like food, housing, medical care, and heating Not hard at all [facility] Do you feel stress - tense, restless, nervous, or anxious, or unable to sleep at night because your mind is troubled all the time - these days [OSQ] Not at all [facility] (I/We) worried wheth er (my/our) food would run out before (I/we) got money to buy more. Never true [facility] In the past 12 month s, was there a time when you were not able to pay the mortgage or rent on time? No [facility] Start: 02-19-2020 Gender identity Identifies as female gender (finding) [facility] Start: 11-22-2021 Sexual orientation Heterosexual (manuel hinds) [facility] Progress note 12-26-2022 Note Date & Type Note Facility 12-26-2022 Note HNO ID: [id number] Author: Justina Beach APRN.SYSTEMS ANALYST ENGINEER Service: ? Author Type: Nurse Practitioner Type: Progress Notes Filed: 12/26/2022 9:03 AM Note Text: This note was created using Viveve. Subjective Lalitha Montero is a 32 year old female. Patient presents with sore throat for three days. Ibuprofen provides relief. Patient denies any associated symptoms such as fever, nausea, headache, cough. She has two children that have URI symptoms at home. The history is provided by the patient. Sore Throat Pertinent negatives include no abdominal pain, congestion, coughing, ear pain, headaches, shortness of breath or vomiting. Review of Systems Constitutional: Negative for chills and fever. HENT: Positive for sore throat. Negative for congestion, ear pain, postnasal drip, rhinorrhea, sinus pressure and sinus pain. Respiratory: Negative for cough and shortness of breath. Cardiovascular: Negative for chest pain. Gastrointestinal: Negative for abdominal pain, nausea and vomiting. Neurological: Negative for headaches. All other systems reviewed and are negative. Objective BP 112/64 Pulse 86 Temp 36.8 ?C (98.3 ?F) (Tympanic) Resp 18 Wt 78.4 kg (172 lb 12.8 oz) LMP 01/25/2021 (Approximate) SpO2 98% BMI 27.94 kg/m? History reviewed. No pertinent past medical history. PAST SURGICAL HISTORY Procedure Laterality Date 2012 REMOVAL OF TONSILS; UNDER AGE 11 age 6 ALLERGIES Bactrim [Sulfamethoxazole-Trimethoprim] and Bees MEDICATIONS EPINEPHrine (EPIPEN) 0.3 mg/0.3 mL auto-injector Give 1 injection into side of thigh for allergic reaction. Repeat dose in 5-15 min if not improving. amoxicillin (AMOXIL) 500 mg capsule Take 1 capsule by mouth twice daily for 10 days. FAMILY HISTORY Problem Relation Age of Onset other (High Cholesterol [Other]) Father Ischemic Heart Disease Father stents No Known Problems Brother other (thyroid disease) Maternal Grandmother had surgery Ischemic Heart Disease Maternal Grandfather triple bypass Diabetes Maternal Grandfather Hypertension Paternal Grandmother Tx with medication Ischemic Heart Disease Paternal Grandmother Hypertension Paternal Grandfather Prostate Cancer Paternal Grandfather Social History Tobacco Use Smoking status: Never Smokeless tobacco: Never Substance Use Topics Alcohol use: Yes Comment: Sometimes Drug use: No Physical Exam Vitals reviewed. Constitutional: General: She is not in acute distress. Appearance: Normal appearance. She is normal weight. She is not ill-appearing or toxic-appearing. HENT: Right Ear: Tympanic membrane, ear canal and external ear normal. No swelling or tenderness. There is no impacted cerumen. Tympanic membrane is not perforated, erythematous, retracted or bulging. Left Ear: Tympanic membrane, ear canal and external ear normal. No swelling or tenderness. There is no impacted cerumen. Tympanic membrane is not perforated, erythematous, retracted or bulging. Nose: Nose normal. Right Sinus: No maxillary sinus tenderness or frontal sinus tenderness. Left Sinus: No maxillary sinus tenderness or frontal sinus tenderness. Mouth/Throat: Mouth: Mucous membranes are moist. Pharynx: Oropharynx is clear. Uvula midline. Posterior oropharyngeal erythema present. No pharyngeal swelling, oropharyngeal exudate or uvula swelling. Cardiovascular: Rate and Rhythm: Normal rate and regular rhythm. Pulmonary: Effort: Pulmonary effort is normal. No respiratory distress. Breath sounds: Normal breath sounds. Neurological: General: No focal deficit present. Mental Status: She is alert and oriented to person, place, and time. Mental status is at baseline. Psychiatric: Mood and Affect: Mood normal. Behavior: Behavior normal. Thought Content: Thought content normal. Judgment: Judgment normal. Office Visit on 12/26/2022 Component Date Value Ref Range Status Strep A (POCT) 12/26/2022 Positive (A) Negative Final Procedural Control 12/26/2022 Valid Final Assessment and Plan ASSESSMENT/PLAN: 1. Strep throat - ICD9: 034.0, ICD10: J02.0 (primary diagnosis) - suspect strep - Rapid Strep positive in the office today - Amoxicillin for 10 days. - Discussed supportive care treatment with fluids, rest and analgesia. - The patient may also use warm salt water gargles, throat lozenges and/or OTC throat spray as needed. - Contagious dz precautions discussed- including considered contagious until on antibiotics for 24 hours - The patient should follow up in 3-5 days if symptoms persist or worsen 2. Sore throat - ICD9: 462, ICD10: J02.9 - see above - STREP A MOLECULAR (POC) - COVID AND INFLUENZA A/B NAAT, ROUTINE E Satya [employer] BOTTLE [employer]ORTER Student TEACHING PROVIDER (Physician/PA/ELECTRICAL SIGN WIRER) NOTE OF PERSONAL INVOLVEMENT IN CARE: I have personally seen and examined the patient and performed the medical decision-making components. I have reviewed the A (more content not included)... [facility] Instructions 12-26-2022 Patient Instructions Note Date & Type Note Facility 12-26-2022 Instructions Justina Beach APRN.SYSTEMS ANALYST ENGINEER - 12/26/2022 9:03 AM EDT ASSESSMENT/PLAN: 1. Strep throat - ICD9: 034.0, ICD10: J02.0 (primary diagnosis) - suspect strep - Rapid Strep positive in the office today - Amoxicillin for 10 days. - Discussed supportive care treatment with fluids, rest and analgesia. - The patient may also use warm salt water gargles, throat lozenges and/or OTC throat spray as needed. - Contagious dz precautions discussed- including considered contagious until on antibiotics for 24 hours - The patient should follow up in 3-5 days if symptoms persist or worsen 2. Sore throat - ICD9: 462, ICD10: J02.9 - see above - STREP A MOLECULAR (POC) - COVID & INFLUENZA A/B NAAT, ROUTINE E Satya [employer] Student TEACHING PROVIDER (Physician/PA/ELECTRICAL SIGN WIRER) NOTE OF PERSONAL INVOLVEMENT IN CARE: I have personally seen and examined the patient and performed the medical decision-making components. I have reviewed the Advanced Practice Registered Nurse (ELECTRICAL SIGN WIRER) Student's documentation and verified the findings in the note as written. Any additions or changes are noted in bold/italics. Signature: Justina Beach Date: 12/26/2022 Time: 9:02 AM STREP INFECTIONS: Streptococcal bacteria can cause a sore throat, ear and sinus infections, and skin diseases. Strep throat is diagnosed by a special throat swab or culture test. These infections require either an antibiotic shot or an oral antibiotic medicine to get rid of all the bacteria and prevent rheumatic fever, a dangerous complication. The symptoms of Strep infection, however, usually get better after just 2-3 days of drug treatment. These infections are very contagious; any close contacts who have a fever, sore throat, or illness symptoms should see their doctor right away. Strep is no longer contagious after 24 hours of antibiotic treatment so you may return to school or work if your fever and pain are better in one day. Strep infections can cause serious complications including throat abscess, rheumatic fever and kidney disease, so be sure to take all your antibiotic medicine. See your doctor or return here if your symptoms worsen or are not improved in 3 days or for difficulty breathing or inability to swallow. documented in this encounter [facility] History of Present illness Narrative 12-26-2022 Justina Beach APRN.SYSTEMS ANALYST ENGINEER - 12/26/2022 8:55 AM EDT Note Date & Type Note Facility 12-26-2022 History of Presen t illness Narrative This note was created using Viveve. Subjective Lalitha Montero is a 32 year old female. Patient presents with sore throat for three days. Ibuprofen provides relief. Patient denies any associated symptoms such as fever, nausea, headache, cough. She has two children that have URI symptoms at home. The history is provided by the patient. Sore Throat Pertinent negatives include no abdominal pain, congestion, coughing, ear pain, headaches, shortness of breath or vomiting. Review of Systems Constitutional: Negative for chills and fever. HENT: Positive for sore throat. Negative for congestion, ear pain, postnasal drip, rhinorrhea, sinus pressure and sinus pain. Respiratory: Negative for cough and shortness of breath. Cardiovascular: Negative for chest pain. Gastrointestinal: Negative for abdominal pain, nausea and vomiting. Neurological: Negative for headaches. All other systems reviewed and are negative. Objective BP 112/64 Pulse 86 Temp 36.8 C (98.3 F) (Tympanic) Resp 18 Wt 78.4 kg (172 lb 12.8 oz) LMP 01/25/2021 (Approximate) SpO2 98% BMI 27.94 kg/m History reviewed. No pertinent past medical history. PAST SURGICAL HISTORY Procedure Laterality Date 2012 REMOVAL OF TONSILS; UNDER AGE 11 age 6 ALLERGIES Bactrim [Sulfamethoxazole-Trimethoprim] and Bees MEDICATIONS EPINEPHrine (EPIPEN) 0.3 mg/0.3 mL auto-injector Give 1 injection into side of thigh for allergic reaction. Repeat dose in 5-15 min if not improving. amoxicillin (AMOXIL) 500 mg capsule Take 1 capsule by mouth twice daily for 10 days. FAMILY HISTORY Problem Relation Age of Onset other (High Cholesterol [Other]) Father Ischemic Heart Disease Father stents No Known Problems Brother other (thyroid disease) Maternal Grandmother had surgery Ischemic Heart Disease Maternal Grandfather triple bypass Diabetes Maternal Grandfather Hypertension Paternal Grandmother Tx with medication Ischemic Heart Disease Paternal Grandmother Hypertension Paternal Grandfather Prostate Cancer Paternal Grandfather Social History Tobacco Use Smoking status: Never Smokeless tobacco: Never Substance Use Topics Alcohol use: Yes Comment: Sometimes Drug use: No Physical Exam Vitals reviewed. Constitutional: General: She is not in acute distress. Appearance: Normal appearance. She is normal weight. She is not ill-appearing or toxic-appearing. HENT: Right Ear: Tympanic membrane, ear canal and external ear normal. No swelling or tenderness. There is no impacted cerumen. Tympanic membrane is not perforated, erythematous, retracted or bulging. Left Ear: Tympanic membrane, ear canal and external ear normal. No swelling or tenderness. There is no impacted cerumen. Tympanic membrane is not perforated, erythematous, retracted or bulging. Nose: Nose normal. Right Sinus: No maxillary sinus tenderness or frontal sinus tenderness. Left Sinus: No maxillary sinus tenderness or frontal sinus tenderness. Mouth/Throat: Mouth: Mucous membranes are moist. Pharynx: Oropharynx is clear. Uvula midline. Posterior oropharyngeal erythema present. No pharyngeal swelling, oropharyngeal exudate or uvula swelling. Cardiovascular: Rate and Rhythm: Normal rate and regular rhythm. Pulmonary: Effort: Pulmonary effort is normal. No respiratory distress. Breath sounds: Normal breath sounds. Neurological: General: No focal deficit present. Mental Status: She is alert and oriented to person, place, and time. Mental status is at baseline. Psychiatric: Mood and Affect: Mood normal. Behavior: Behavior normal. Thought Content: Thought content normal. Judgment: Judgment normal. Office Visit on 12/26/2022 Component Date Value Ref Range Status Strep A (POCT) 12/26/2022 Positive (A) Negative Final Procedural Control 12/26/2022 Valid Final Assessment and Plan ASSESSMENT/PLAN: 1. Strep throat - ICD9: 034.0, ICD10: J02.0 (primary diagnosis) - suspect strep - Rapid Strep positive in the office today - Amoxicillin for 10 days. - Discussed supportive care treatment with fluids, rest and analgesia. - The patient may also use warm salt water gargles, throat lozenges and/or OTC throat spray as needed. - Contagious dz precautions discussed- including considered contagious until on antibiotics for 24 hours - The patient should follow up in 3-5 days if symptoms persist or worsen 2. Sore throat - ICD9: 462, ICD10: J02.9 - see above - STREP A MOLECULAR (POC) - COVID & INFLUENZA A/B NAAT, ROUTINE E Satya [employer] B[employer] Student TEACHING PROVIDER (Physician/PA/ELECTRICAL SIGN WIRER) NOTE OF PERSONAL INVOLVEMENT IN CARE: I have personally seen and examined the patient and performed the medical decision-making components. I have reviewed the Advanced Practice Registered Nurse (ELECTRICAL SIGN WIRER) Student's documentation and verified the findings in the note as written. Any additions or changes are noted in bold/italics. Signature: Justina [place] Date: 12/26/2022 Time: 9:02 AM documented in this encounter [facility] Progress note 10-16-2022 Note Date & Type Note Facility 10-16-2022 Note HNO ID: [id number] Author: Julieth Newell PA-C Service: ? Author Type: Physician Space Operations Officer Type: Progress Notes Filed: 10/16/2022 12:58 PM Note Text: 10/16/2022 Patient presents with: Sore Throat: LIRA x 1 day SUBJECTIVE: This is a 31 year old that is here today for Complaint(s) of sore throat and LIRA x yesterday. Patient's son currently being treated for strep throat. Denies fever/chills, cough, nasal congestion, SOB, wheezing, vomiting, diarrhea, rash. Myah fluid intake. No difficulty swallowing No past medical history on file. ALLERGIES Bactrim [Sulfamethoxazole-Trimethoprim] and Bees MEDICATIONS Current Outpatient Medications Medication Sig EPINEPHrine (EPIPEN) 0.3 mg/0.3 mL auto-injector Give 1 injection into side of thigh for allergic reaction. Repeat dose in 5-15 min if not improving. No current facility-administered medications for this visit. SOCIAL HISTORY Social History Tobacco Use Smoking status: Never Smokeless tobacco: Never Substance Use Topics Alcohol use: Yes Comment: Sometimes Drug use: No REVIEW OF SYSTEMS See HPI OBJECTIVE: BP 98/64 Pulse 75 Temp 36.7 ?C (98.1 ?F) Resp 18 Wt 74.8 kg (165 lb) LMP 01/25/2021 (Approximate) SpO2 98% BMI 26.68 kg/m? APPEARANCE Well appearing, alert, in no acute distress, well-hydrated, well nourished. EYES PERRLA, conjunctiva and sclera normal. EARS External ears normal, canals clear. TMs normal JOSE NOSE/SINUS Nares normal. Septum midline. Mucosa normal. No drainage or sinus tenderness. THROAT + erythema of posterior oropharynx. No exudate.uvula midline. NECK Supple, + JOSE anterior cervicial adenopathy; HEART RRR with normal S1 and S2, LUNG clear to auscultation, No wheezing, rhonchi, rales. ASSESSMENT/PLAN: 1. Sore throat - ICD9: 462, ICD10: J02.9 - Alere Strep Test positive, no culture pending - antibiotic as written - Discussed supportive care treatment with fluids, rest and analgesia. - The patient may also use warm salt water gargles, throat lozenges and/or OTC throat spray as needed and nasal saline gtts and suction prn. - Contagious dz precautions discussed- including considered contagious until on antibiotics for 24 hours - The patient should follow up in 3-5 days if symptoms persist or worsen - Call back if drooling, increased temperature, symptoms of dehydration and/or still sick in one week - STREP A MOLECULAR (POC) The patient indicates understanding of these issues and agrees with the plan. Reviewed red flags and when to seek care sooner. Julieth Newell PA-C [facility] Evaluation note Note Date & Type Note Facility documented in this encounter [facility] Summary Purpose Family History No Family History Records Found Advance Directives No Advanced Directives Records Found Additional Source Comments Source Comments (unrecognize d section and content) In the event this informatio n is protected by the Federal Confidentiality of Alcohol and Drug Abuse Patient Records regulations: The Federal rules restrict any use of the information to criminally investigate or prosecute any alcohol or drug abuse patient.[facility] the event this information is protected by the Federal Confidentiality of Alcohol and Drug Abuse Patient Records regulations: The Federal rules restrict any use of the information to criminally investigate or prosecute any alcohol or drug abuse patient.[facility] the event this information is protected by the Federal Confidentiality of Alcohol and Drug Abuse Patient Records regulations: The Federal rules restrict any use of the information to criminally investigate or prosecute any alcohol or drug abuse patient.[facility] Care Teams (unrecognized sec tion and content) Director Of Strategic Programs Relationship Specialty Start Date End Date Suzanne Vicente, NUPUR.SYSTEMS ANALYST ENGINEER [address] [place] [address] PCP - General Family Medicine 11/29/21 Director Of Strategic Programs Relationship Specialty Start Date End Date Suzanne Vicente, NUPUR.SYSTEMS ANALYST ENGINEER [address] [place] [address] PCP - General Family Medicine 11/29/21 Reason for Visit (unrecogniz ed section and content) INFORMATION SOURCE (unrecogn ized section and content) FOR RECORDS PERTAINING TO PATIENTS WHO ARE OR HAVE BEEN ENROLLED IN A CHEMICAL DEPENDENCY/SUBSTANCEABUSE PROGRAM, SOME INFORMATION MAY BE OMITTED. This clinical summary was aggregated from multiple sources. Caution should be exercised in using it in the provision of clinical care. This summary normalizes information from multiple sources, and as a consequence, information in this document may materially change the coding, format and clinical context of patient data. In addition, data may be omitted in some cases. CLINICAL DECISIONS SHOULD BE BASED ON THE PRIMARY CLINICAL RECORDS. [facility]. provides no warranty or guarantee of the accuracy or completeness of information in this document.
[2023-04-27] MEDS: Doxycycline 100 MG CAPSULE PO (13:09)
[2023-04-27] MEDS: Lactated Ringers 1,000 ML 15 ML IV (13:09)
[2023-04-27 13:22] LABS: Absolute Lymphocyte Count 2.14 X10^3/uL (0.83-4.51); Absolute Neutrophil Count 4.2 X10^3/uL (2.0-7.7); Basophil# 0.05 X10^3/uL; Basophil% 0.7 % (0-1); Eosinophil# 0.04 X10^3/uL; Eosinophils% 0.6 % (0-5); Hematocrit 41.9 % (37-47); Hemoglobin 13.9 g/dL (12.0-15.0); Lymphocyte # 2.14 X10^3/ul (0.83-4.51); Mean Corp Hgb Conc 33.2 g/dL (32-36); Mean Corpuscular Hgb 30.9 pg (27.0-32.0); Mean Corpuscular Volume 93.1 fL (81-99); Mean Platelet Vol. 11.2 fl (6.2-12.0); Monocyte# 0.49 X10^3/uL; Monocyte% 7.1 % (0-10); NRBC Flagged by Analyzer 0 % (0-5); Neutrophil # 4.18 X10^3/uL (2.7-7.7); Neutrophil % 60.5 % (47-70); Platelet Count 234 K/mm3 (150-450); RBC Distribution Width CV 11.9 % (11.6-14.6); RBC Distribution Width SD 40.7 fl (35.1-43.9); White Blood Count 6.9 K/mm3 (4.4-11.0)
[2023-04-27 13:50] LABS: Hemoglobin A1c 5.4 % (3.8-5.6)
--- NOTE | 2023-04-27 14:01 | PCM.HP.BLA ---
History and Physical Date of Admission: 04/27/23 [facility] [address] [place] [address] OFFICE VISIT Date of Service: 04/27/23 MR#: [id number] Acct: [id number] Name: AVIS MONTERO Rep #: [id number] : 1990 Provider: LUISANA Sierra Age/Sex: 32/F Location[place] [facility] [place] [facility] [place] Status: Signed Intake Vital Signs 03/30/2308:28 04/27/2407:33 Height 5 ft 5 in 5 ft 5 in Weight: 177 lb 2 oz BMI 29.5 BP 110/76 Intake Visit Reasons: 12 WK OB Site Safety Manager Required: No Is patient in pain?: No Allergies bee venom protein (honey bee) Allergy (Severe, Verified 04/27/23 08:33) SwellingSulfa (Sulfonamide Antibiotics) Allergy (Mild, Verified 04/27/23 08:33) Other Medications multivitamin no.47-iron fum 27 mg-folate no.1 1 mg-dha 300 mg capsule (PNV-DHA) cap PO 03/23/23 [History Confirmed 04/27/23] Last Menstrual Period: 01/27/23 Zika: Zika virus screening: Negative : No PFSH PFSH Medical History Abnormal glucose affecting COVID-19 vaccine series completed Surgical History History of tonsillectomy [place] teeth extracted Family History Grandfather Diabetes Heart disease Social History adopted: No household members: spouse and children number of children: 2 current occupational status: employed current occupation: [employer] current occupational exposures/hazards: No pets and animals: Yes (not managing litterbox) pets and animals: cat(s) and dog(s) history of recent travel: Yes ([facility]- Feb, [place]-Feb) out of state: Yes out of country: No sexually active: Yes Smoking Status: Never smoker alcohol intake: current alcohol intake frequency: holidays/special occasions only details: Not while substance use type: does not use well-balanced diet: daily or most days caffeine: Yes Type: other Number of servings: 1 eating out: 1-3 times/week during the past year weight has: remained stable what type of physical activity do you participate in: walking and weight training frequency: 3-4 times per week duration: 15-30 minutes/day kesha/protestant: Hinduism seatbelt use: always do you feel safe at home: Yes 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 Date Name GA/Weeks Outcome Route Bth Weight Gen Labor Lgth Anesthesia Del Locatn Provider FOB Unknown 2021 Jann live - full term Male [facility] SM 12/15/19 Phong 38 live - full term 7lbs 9oz Male 7 hours none [facility] Sandor HPI 12 WK OB Details: AVIS MONTERO is a 32 year old who presents for routine OB visit. upon evaluation there was no FHT seen and no color doppler flow, confirmed demise. she denies any bleeding or crmaping. OB Visit ALPHONSO Calculator Estimated Delivery Date Method Current WG Current Estimate 11/03/23 LMP (Certain) 12w 6d Expected Delivery Route/Plan Labor Preferences- CB/BF classes: [] labor support person: [] labor intervention preferences: [] pain management options preferred: [] cut cord/dad catch: [] : [] PP control planned: [] discussed possible routes of delivery and associated risks: [] special requests: [] Specific Issue/Plans Covid status: [] Flu vaccine: [] Tdap vaccine: [] Rhogam: [] LARC form signed: [] Problem list reviewed and updated with the most current plan of care details and appropriate orders placed. Relevant counseling for the gestational age provided. Continue routine care and follow up unless otherwise noted in visit notes/problem list details Initial Weight: 179 lb Date <del>?</del> EGA Weight BP Urine Prot <del>?</del> Glucose FHR FuHt Pres Dilation <del>?</del> Effaced St Visit Note 03/30/23<del>?</del> 8w 6d 179 lb(+0 oz) 114/78 <del>?</del> 175 <del>?</del> LC- CRL con with LMP. desires nipt. 04/27/23<del>?</del> 12w 6d 177 lb 2 oz(-1 lb 14 oz) 110/76 Negative <del>?</del> Negative <del>?</del> KW-no HB or movement seen on handheld. Moved for vaginal US done by Dr Patten. No FHT or color doppler noted. measuring 11.3 week ACOG First Trimester First Trimester: Desire for , Alcohol, Tobacco Cessation, Illicit/Recreational Drug/Substance Use, Intimate Partner Violence, Barriers to care, Unstable Housing, Communication Barriers, Environmental/Work Hazards, Anticipated Course of Care, Toxoplasmosis Precations, Use of Any medications, Sexual activity, Exercise, Dental Care, Sauna/Hot tub use, Seat Belt use, Childbirth classes/Hospital facilities, Travel, Indications for Ultrasound and Screening for Aneuploidy; Discussed Second Trimester Second Trimester: Signs and Symptoms of Labor, Selecting a care provider, Reproductive Life Planning & Contreception, Care Planning, Depression/Anxiety and Intimate Partner Violence; Discussed Tobacco Cessation Third Trimester Third Trimester: Pain Management Plans, Labor support person(s), Immediate Larc, Circumcision preference, Movement Monitoring, Infant Feeding No and Family Medical Leave or Disability Forms; Discussed Trial of Labor after Counseling ROS Const Reports system reviewed and no additional complaints, except as documented Resp Reports system reviewed and no additional complaints, except as documented GI Reports system reviewed and no additional complaints, except as documented, Denies nausea and Denies vomiting Denies dysuria, Denies urinary hesitancy and Denies urinary urgency Psych Reports system reviewed and no additional complaints, except as documented Exam Const General: cooperative, healthy appearing and no acute distress Orientation: alert, awake and oriented x3 Neck Neck: normal visual inspection Resp Effort & Inspection: normal respiratory effort and able to speak in complete sentences GI Inspection: normal to inspection Palpation: soft and other Other: gravid Neuro General: patient alert, patient awake and patient oriented x3 Psych Appearance: grossly normal Mental Status: mental status grossly normal Speech and Movement: speech and movement normal Attitude: cooperative Thought Process: normal Thought Content: normal Judgment: judgment good Results POC Urinalysis 2 Dip (Clinic) Office Urine Glucose Negative Last Edit by Jenni Blanton MA on 04/27/23 08:39 Office Urine Protein Negative Last Edit by Jenni Blanton MA on 04/27/23 08:39 Coding Level of Care Code OB Routine Diagnoses Supervision of high-risk O09.90 12 weeks gestation of Z3A.12 Weeks of gestation: 12 weeks Bleeding in early O20.9 Status post vaginal delivery Miscarriage at 8 to 28 weeks gestation O03.9 Assessment and Plan Assessment and Plan (1) Supervision of high-risk : Status: Acute Comment: PRR,, ALPHONSO 11/03/23, PC Jann Darling, Benjie (2) : Status: Acute Qualifiers: Weeks of gestation: 12 weeks Qualified Code(s): Z3A.12 - 12 weeks gestation of Comment: discussed genetic & carrier testing, accepts (3) Bleeding in early : Status: Acute (4) Status post vaginal delivery: Status: Acute (5) Miscarriage at 8 to 28 weeks gestation: Status: Acute Orders: Orders POC Urinalysis 2 Dip (Clinic) Today Beta-2 Glycoprot IgG, A, M Today N96 - Recurrent loss, O03.9 - Complete or unspecified spontaneous without complication Lupus Anticoagulant Comp Today N96 - Recurrent loss, O03.9 - Complete or unspecified spontaneous without complication Anticardiolipin IgA,G,M Today N96 - Recurrent loss, O03.9 - Complete or unspecified spontaneous without complication Anticardiolipin IgG, IgM Today N96 - Recurrent loss, O03.9 - Complete or unspecified spontaneous without complication CBC W/Diff, Automated Today O03.9 - Complete or unspecified spontaneous without complication Thyroid Stim Hormone (TSH) Today O03.9 - Complete or unspecified spontaneous without complication Plan Details Additional Comments: ACOG trimester education reviewed and updated. see problem list details for updated plan management information and see below for orders placed at this visit. GA appropriate handout given. After discussing the patient's diagnosis and treatment plan options, patient wishes to proceed with surgical management. I have discussed with the patient the risks, benefits, and alternatives of the procedure which include but are not limited to risks of anesthesia, bleeding, infection, possible damage to bowel, bladder, or surrounding vasculature which could lead to additional surgery to evaluate any complications. Patient agrees to procedure and wishes to proceed. ACOG/uptodate references given for additional information regarding procedure. UPDATE- I have seen the patient and performed any clinically relevant updates to the history and physical exam. Dominique Patten MD
[2023-04-27 14:08] LABS: Thyroid Stim Hormone (TSH) 1.07 uIU/mL (0.358-3.74)
--- NOTE | 2023-04-27 14:30 | POC_PTH ---
PATHOLOGY RESULTS PATIENT: AVIS MONTERO LOC: [facility] [place] U#:[id number] AGE/SX: 32/F ROOM: RE04/27/[address]: Dr. Dominique Patten MD : 1990 BED: DIS: 04/27/2023 SPEC #: [id number] RECD: 04/30/23 07:27 STATUS: RUDI KENIA #: [id number] LA: 04/27/23 14:[address]: Dominique Patten DEPT: SURGICAL PATHOLOGY RECD BY: Mae Tamez ENTERED: 04/30/23 07:27 SP TYPE: PROD CONC OTHR DR: FRANKI Moore Tissues: Product of conception, NOS Procedures: Surgery Specimen Level IV HEADER OPERATION: Suction dilation and curettage PRE-OP DIAGNOSIS: Miscarriage at 8-28 weeks gestation TISSUE SUBMITTED: Products of conception MICROSCOPIC DIAGNOSIS Products of conception, dilation and curettage: Immature placental tissue (52 gm). SJ:lore 05/01/2023 MICROSCOPIC DESCRIPTION Slides are reviewed. GROSS DESCRIPTION Received in fixative is one container labeled with the patient's name and designated products of conception. The specimen consists of an irregular piece of placental tissue measuring 6.0 x 4.0 x 1.0 cm and weighing 52 gm. Also present in the container are multiple pieces of hemorrhagic soft tissue and blood clot measuring in aggregate 8.0 x 7.0 x 2.0 cm. Placental tissue does not show any membranes or umbilical cord. No tissue is identified. Sections of placental tissue do not reveal any mass lesion. Dairy Management Specialist tissue is submitted in three cassettes. / ASIF:lore 04/30/2023 TC:5 CPT: 69782
[2023-04-27] MEDS: miSOPROStol 200 MCG Tablet (15:04)
--- NOTE | 2023-04-27 15:10 | PCM.OPRPT ---
Problems Associated Problem List Diagnoses (1) Miscarriage at 8 to 28 weeks gestation: Report of Operation Date of Procedure: 04/27/23 Pre-Operative Diagnosis: see problem list Post-Operative Diagnosis: same Surgery/Procedure Performed:: Suction dilation and curettage Description of Surgical Findings:: no FHT present, Nonviable 12 weeks Surgeon: Dominique Patten advertising production manager: None Type of Anesthesia: Local MAC Special Medications: none Specimen's removed: POC Drains: none Estimated Blood Loss (mL): 50 Fluids Replaced: crystalloid Description of Procedure: Patient was taken to the operating room and placed under MAC local anesthesia. She was prepped and draped in the normal sterile fashion the dorsal lithotomy position. Bladder was drained of clear urine and anterior lip of the cervix was grasped and the uterus sounded to 12cm. Cervix was progressively dilated to allow passage of a 12mm suction curette. Progressive passes were made removing the retained products of conception without complication. Sharp curettage confirmed complete removal of the retained products. All instruments were removed from the vagina and excellent hemostasis was noted and the patient was taken to recovery in stable condition. Grafts/Implants Used: none Complications none Admit VTE Documentation VTE Present on Admission: No VTE Mechan Device Prophylaxis: SCD's Procedures Urinary/Genital 52xxx-59xxx: [id number] Trmt of incomplete Ab, any TM
--- NOTE | 2023-04-27 15:18 | PCM.DC ---
Discharge Instructions Diet Discharge Diet: No restrictions Activity Discharge Activity: Return to Normal Activity, May Shower and May Take a Tub Bath (after 1 week) May resume sexual activity in: 1-2 weeks Weight Bearing Status: Weight bearing as tolerated Lifting Restrictions: none Dressing / Incision Call your doctor if you observe: Fever of 101 or Higher, Using more than 1 pad per hour, Shortness of breath and Uncontrolled pain Follow Up Care Please Follow Up With: Dominique Patten MD When: Call [phone] to schedule appointment. Test Results: Test results from this visit will be discussed in further detail at your follow-up appointment, if applicable. Discharge Plan Admission Attending Provider: Dominique Patten Primary Care Provider: Suzanne Guallpa NP Discharge Orders/Prescriptions Prescriptions: No Action PNV-DHA 27 mg iron-1 mg -300 mg capsule PO Referrals / Follow Up: Suzanne Guallpa NP, [employer]-C [Primary Care Provider] - Disposition Disposition (needs filled in before D/C Order can be placed): Home, Self Care
[2023-05-04 14:09] LABS: Anti-Cardiolipin Ab, IgA, Qn < 9 APL U/mL (0-11); Anti-Cardiolipin Ab, IgG, Qn < 9 GPL U/mL (0-14); Anti-Cardiolipin Ab, IgM, Qn 16 MPL U/mL (0-12); Beta-2-Glycoprotein I IgA <9 (0-25); Beta-2-Glycoprotein I IgG <9 (0-20); Beta-2-Glycoprotein I IgM <9 (0-32); Dilute Prothrombin Time (dPT) 59.8 sec (0.0-47.6); Dilute Russell Viper Venom 48.3 sec (0.0-47.0); Dilute Russell Viper Venom Mix 42.4 sec (0.0-40.4); Hexagonal Phase Phospholipid 2 26 sec (0-11); Interpretation Comment: (.); PTT-LA 57.2 sec (0.0-43.5); PTT-LA Mix 59.3 sec (0.0-40.5); Thrombin Time 17.6 sec (0.0-23.0); dPT Confirm Ratio 1.53 Ratio (0.00-1.34)
== END 2023-04-27 16:52 | disposition home or self-care (01) ==
LOC: SDC 12:29 → AC 12:30
PROVIDERS: Advanced Practice Midwife; PCP Registered Nurse; Referring Provider Obstetrics & Gynecology; Visit Provider Obstetrics & Gynecology
PROC: (CPT 59812; principal; 2023-04-27 14:15)
DX: O03.9 Complete or unspecified spontaneous abortion without complication (principal)
CPT/HCPCS: 59812; 01965; 83036; 84443; 85025; 86146; 86147; 86850; 86900; 86901; 88305; J7120; J2405

== ENCOUNTER → 2023-05-18 | Outpatient (CLI) | payer OTHER, SELFPAY ==
--- NOTE | 2023-05-18 14:29 | US_ITS ---
EXAM: US PELVIS TRANSABDOMINAL AND TRANSVAGINAL, COMPLETE CLINICAL INDICATION: miscarriage TECHNIQUE: Transabdominal and transvaginal pelvic ultrasound was performed with grayscale and color Doppler imaging. Transvaginal imaging was used for better evaluation of the endometrium and adnexa. COMPARISON: No relevant prior studies available. FINDINGS: UTERUS/CERVIX: Presumed right endometrial complex measures 1.3 cm and the left measures up to 1.2 cm. Anteverted retroflexed uterus measuring 8.9 x 7 x 0.3 cm, heterogeneous and appearance. A uterine septation is identified. Cervix is normal. No uterine fibroids. No IUD in place. RIGHT OVARY: Involuting 2.9 cm right ovarian cyst. The right ovary measures about 3.7 x 2.1 x 2.5 cm with normal blood flow to it. No other ovarian or any adnexal masses. LEFT OVARY: Left ovary measures 2.8 x 1.8 x 1.5 cm. FREE FLUID: A small amount of free fluid is in the pelvic cul-de-sac. BLADDER: Urinary bladder has a volume of 770 mL with no wall thickening or intraluminal masses or calculi. US/Pelvic w/ Transvaginal IMPRESSION: 1. Uterine septum identified which can be seen with septate uterus or bicornuate uterus. MRI would be more definitive. 2. Involuting right ovarian cyst suspected, measuring up to 2.9 cm. 3. No ovarian torsion. No other significant abnormality. Electronically Signed: Fortunato Green MD at 1:43 EST ,
--- OUTSIDE RECORDS SUMMARY | 2023-05-18 15:02 | XMS RPT_ITS | CCD ---
Author Name Unknown Address [address] [place] [address] Organization [facility] Care Team Providers Care Traffic Operations Engineer Name Role Phone Saloni ESPITIA.Suzanne TAPIA Primary Care Provider SUZANNE VICENTE Primary Care Unavailable SUZANNE VICENTE Primary Care Unavailable SUZANNE VICENTE Primary Care Unavailable SUZANNE VICENTE Referring Unavailable SUZANNE VICENTE Primary Care Unavailable Allergies Allergy Classification Reported Allergen(s) Allergy Type Date of Onset Reaction(s) Facility (4 sources) Sulfamethoxazole / Trimethoprim; Translations: [SULFAMETHOXAZOLE-TR IMETHOPRIM] Drug Allergy 5 Rash [facility] (4 sources) Bees; Translations: [BEES] Propensity to adverse reactions [facility] Work Phone: Medications Current Medications Medication Drug [...] Drug Class(es) Dates Sig (Normalized) Sig (Original) [id number] 0.3 ml EPINEPHrine 1 mg/ml auto-injector (3 [...] Date Time Vital Sign Value Performing Clinician Steve conley 12-26-2022 08:35-0400 Body temperature 98.29 [degF] Justina Praisler-Wood NURSERYPERSON.MEAT CLERK Work Phone: [facility] 12-26-2022 08:35-0400 Body weight 78.38 kg Justina Praisler-Wood NURSERYPERSON.MEAT CLERK Work Phone: [facility] 12-26-2022 08:35-0400 Diastolic blood pressure 64 mm[Hg] Justina Praisler-Wood NURSERYPERSON.MEAT CLERK Work Phone: [facility] 12-26-2022 08:35-0400 Heart rate 86 /min Justina Praisler-Wood NURSERYPERSON.MEAT CLERK Work Phone: [facility] 12-26-2022 08:35-0400 Respiratory rate 18 /min Justina Praisler-Wood NURSERYPERSON.MEAT CLERK Work Phone: [facility] 12-26-2022 08:35-0400 SaO2% (BldA) [Mass fraction] 98 % Justina Praisler-Wood NURSERYPERSON.MEAT CLERK Work Phone: [facility] 12-26-2022 08:35-0400 Systolic blood pressure 112 mm[Hg] Justina Praisler-Wood NURSERYPERSON.MEAT CLERK Work Phone: [facility] Encounters Encounter Date Encounter Type Care Provider Facility Start: 02-03-2023 End: 02-03-2023 ambulatory Immunization [facility] Nurse [facility] Work Phone: [facility] Start: 12-26-2022 End: 12-26-2022 ambulatory [facility] Facility:[facility] Start: 12-26-2022 End: 12-26-2022 Patient encounter procedure Justina Praisler-Wood NURSERYPERSON.MEAT CLERK Work Phone: [facility] Procedures Date Procedure Procedure Detail Performing Clinician Start: 02-03-2023 INFLUENZA VACCINE, A GE 6 MO - 64 YR, QUADRIVALENT (AFLURIA, FLULAVAL, FLUZONE) Jose De Jesus Alicia MD Work Phone: Start: 12-26-2022 ANDRIA Hollins MOLECULAR (POC) Niecy Calle PA-C Work Phone: Start: 02-11-2022 INFLUENZA VACCINE QUADRIVALENT 6 MO - 64 YRS IM Mayank Ponce MD Work Phone: Plan of Treatment Date Care Activity Detail Author Start: 02-13-2026 Urine microalbumin profile [facility] Start: 2024 HPV TESTING HPV TESTING [facility] Start: 2024 PAP TESTING PAP TESTING [facility] Start: 12-22-2022 Covid-19 Vaccine ( season) Covid-19 Vaccine ( season) [facility] Start: 12-22-2022 Influenza vaccination INFLUENZA (#1) [facility] Start: 04-23-2022 DEPRESSION ASSESSMENT DEPRESSION ASS ESSMENT [facility] Start: 04-23-2021 DEPRESSION ASSESSMENT DEPRESSION ASS ESSMENT [facility] Start: 03-30-2021 COVID-19 VACCINE (4 - Booster for Pfizer series) COVID-19 VACCINE (4 - Booster for Pfizer series) [facility] Start: 03-30-2021 COVID-19 VACCINE (4 - Pfizer series) COVID-19 VACCINE (4 - Pfizer series) [facility] Immunizations Immunization Date Immunization Notes Care Provider Annamaria garcia 02-03-2023 influenza, injectabl e, quadrivalent, contains preservative Immunization Antony Work Phone: [facility] 02-11-2022 influenza, injectabl e, quadrivalent, contains preservative Immunization Morris Work Phone: [facility] 02-14-2016 influenza, injectabl e, quadrivalent, contains preservative Immunization Antony Work Phone: [facility] Work Phone: 02-14-2016 tetanus toxoid, reduced diphtheria toxoid, and acellular pertussis vaccine, adsorbed Immunization Antony Work Phone: [facility] Work Phone: 10-31-2007 hepatitis A vaccine, unspecified formulation Immunization Morris Work Phone: [facility] Work Phone: 09-26-2007 human papilloma viru s vaccine, quadrivalent Immunization Morris Work Phone: [facility] Work Phone: 05-01-2007 human papilloma viru s vaccine, quadrivalent Immunization Antony Work Phone: [facility] Work Phone: 02-23-2007 human papilloma viru s vaccine, quadrivalent Immunization Antony Work Phone: [facility] Work Phone: 10-31-2006 hepatitis A vaccine, unspecified formulation Immunization Morris Work Phone: [facility] 11-02-2004 Meningococcal, MCV4, unspecified conjugate formulation(groups A, C, Y and W-135) Immunization Antony Work Phone: [facility] 10-29-2002 measles, mumps and rubella virus vaccine Immunization Morris Work Phone: [facility] Work Phone: 10-29-2002 tetanus and diphther ia toxoids, adsorbed, preservative free, for adult use (2 Lf of tetanus toxoid and 2 Lf of diphtheria toxoid) Immunization Morris Work Phone: [facility] 06-30-1998 hepatitis B vaccine, pediatric or pediatric/adolescent dosage Immunization Antony Work Phone: [facility] Work Phone: 01-08-1998 hepatitis B vaccine, pediatric or pediatric/adolescent dosage Immunization Morris Work Phone: [facility] Work Phone: 12-09-1997 hepatitis B vaccine, pediatric or pediatric/adolescent dosage Immunization Morris Work Phone: [facility] Work Phone: 11-30-1994 diphtheria, tetanus toxoids and acellular pertussis vaccine Immunization Morris Work Phone: [facility] Work Phone: 11-30-1994 trivalent poliovirus vaccine, live, oral Immunization Morris Work Phone: [facility] Work Phone: 05-26-1991 diphtheria, tetanus toxoids and pertussis vaccine Immunization Antony Work Phone: [facility] Work Phone: 05-26-1991 trivalent poliovirus vaccine, live, oral Immunization Antony Work Phone: [facility] Work Phone: 02-26-1991 haemophilus influenz ae type b vaccine, conjugate unspecified formulation Immunization Morris Work Phone: [facility] Work Phone: 02-26-1991 measles, mumps and rubella virus vaccine Immunization Morris Work Phone: [facility] Work Phone: 05-09-1990 diphtheria, tetanus toxoids and pertussis vaccine Immunization Antony Work Phone: [facility] Work Phone: 05-09-1990 haemophilus influenz ae type b vaccine, conjugate unspecified formulation Immunization Morris Work Phone: [facility] Work Phone: 04-15-1990 Chicken Pox (disease) Immuni zation Antony Work Phone: [facility] Work Phone: 03-11-1990 diphtheria, tetanus toxoids and pertussis vaccine Immunization Morris Work Phone: [facility] Work Phone: 03-11-1990 haemophilus influenz ae type b vaccine, conjugate unspecified formulation Immunization Morris Work Phone: [facility] Work Phone: 03-11-1990 trivalent poliovirus vaccine, live, oral Immunization Antony Work Phone: [facility] Work Phone: 01-18-1990 diphtheria, tetanus toxoids and pertussis vaccine Immunization Antony Work Phone: [facility] Work Phone: 01-18-1990 trivalent poliovirus vaccine, live, oral Immunization Morris Work Phone: [facility] Work Phone: Payers Date Payer Category Payer Private Health Insurance [facility] [employer] [id number] 2018-Present [phone] [address] [place] [address] HMO [id number] 2018 Unknown [id number] Social History Date Type Detail Facility Start: 11-29-2021 Tobacco smoking stat [facility] Never smoked tobacco [facility] Start: 11-29-2021 Tobacco use and exposure Smoke less tobacco non-user [facility] Start: 11-29-2021 End: 12-26-2022 Alcohol intake Current drinker of alcohol (finding) [facility] Start: 11-22-2021 History SDOH Alcohol Frequency 2 [facility] Start: 11-22-2021 History SDOH Alcohol Std Drinks 1 [facility] Start: 11-22-2021 History SDOH Social Connections Phone 5 [facility] Start: 11-22-2021 History SDOH Social Connections Meetings 3 [facility] Start: 02-14-[address] [facility] Start: 1989 Sex Assigned At Not on file [facility] Start: 11-22-2021 End: 05-19-2022 History of Social function [facility] Start: 11-22-2021 End: 05-19-2022 Social connection and isolation panel [facility] Do you belong to any clubs or organizations such as catholic groups, unions, fraternal or athletic groups, or school groups? Yes [facility] Are you now , , , , never or living with a partner? [facility] How often to you hav e a drink containing alcohol? Monthly or less [facility] How many standard dr inks containing alcohol do you have on a typical day? 1 or 2 [facility] How often do you hav e 6 or more drinks on 1 occasion? Less than monthly [facility] How hard is it for y ou to pay for the very basics like food, housing, medical care, and heating Not hard at all [facility] Do you feel stress - tense, restless, nervous, or anxious, or unable to sleep at night because your mind is troubled all the time - these days [OSQ] Not at all [facility] (I/We) worried wheth er (my/our) food would run out before (I/we) got money to buy more. Never true [facility] In the past 12 month s, was there a time when you were not able to pay the mortgage or rent on time? No [facility] Start: 02-19-2020 Gender identity Identifies as female gender (finding) [facility] Start: 11-22-2021 Sexual orientation Heterosexual (manuel hinds) [facility] Progress note 12-26-2022 Note Date & Type Note Facility 12-26-2022 Note HNO ID: [id number] Author: Justina Beach APRN.MEAT CLERK Service: ? Author Type: Nurse Practitioner Type: Progress Notes Filed: 12/26/2022 9:03 AM Note Text: This note was created using [employer]. Subjective Lalitha Montero is a 32 year [...] INFLUENZA A/B NAAT, ROUTINE E Satya [employer] Student TEACHING PROVIDER (Physician/PA/NURSERYPERSON) NOTE OF PERSONAL INVOLVEMENT IN CARE: I have personally seen and examined the patient and performed the medical decision-making components. I have reviewed the A (more content not included)... [facility] Instructions 12-26-2022 Patient Instructions Note Date & Type Note Facility 12-26-2022 Instructions Justina Beach APRN.MEAT CLERK - 12/26/2022 9:03 AM EDT ASSESSMENT/PLAN: 1. [...] INFLUENZA A/B NAAT, ROUTINE E Satya [employer] Student TEACHING PROVIDER (Physician/PA/NURSERYPERSON) NOTE OF PERSONAL INVOLVEMENT IN CARE: I have personally seen and examined the patient and performed the medical decision-making components. I have reviewed the Advanced Practice Registered Nurse (NURSERYPERSON) Student's documentation and verified the findings in [...] inability to swallow. documented in this encounter [facility] History of Present illness Narrative 12-26-2022 Justina Beach APRN.MEAT CLERK - 12/26/2022 8:55 AM EDT Note Date & Type Note Facility 12-26-2022 History of Presen t illness Narrative This note was created using [employer]. Subjective Lalitha Montero is a 32 year [...] INFLUENZA A/B NAAT, ROUTINE E Satya [employer] Student TEACHING PROVIDER (Physician/PA/NURSERYPERSON) NOTE OF PERSONAL INVOLVEMENT IN CARE: I have personally seen and examined the patient and performed the medical decision-making components. I have reviewed the Advanced Practice Registered Nurse (NURSERYPERSON) Student's documentation and verified the findings in the note as written. Any additions or changes are noted in bold/italics. Signature: Justina Beach Date: 12/26/2022 Time: 9:02 AM documented in this encounter [facility] Progress note 10-16-2022 Note Date & Type Note Facility 10-16-2022 Note HNO ID: [id number] Author: Julieth Newell PA-C Service: ? Author Type: Physician [employer] Knock Out Worker Type: Progress Notes Filed: 10/16/2022 12:58 PM [...] to seek care sooner. Julieth Newell PA-C [facility] Evaluation note Note Date & Type Note Facility documented in this encounter [facility] Summary Purpose Family History No Family History [...] or prosecute any alcohol or drug abuse patient.[facility] the event this information is protected by the Federal Confidentiality of Alcohol and Drug Abuse Patient Records regulations: The Federal rules restrict any use of the information to criminally investigate or prosecute any alcohol or drug abuse patient.[facility] the event this information is protected by the Federal Confidentiality of Alcohol and Drug Abuse Patient Records regulations: The Federal rules restrict any use of the information to criminally investigate or prosecute any alcohol or drug abuse patient.[facility] Care Teams (unrecognized sec tion and content) Traffic Operations Engineer Relationship Specialty Start Date End Date Suzanne Vicente, NUPUR.MEAT CLERK [address] [place] [address] PCP - General Family Medicine 11/29/21 Traffic Operations Engineer Relationship Specialty Start Date End Date Suzanne Vicente, NUPUR.MEAT CLERK [address] [place] [address] PCP - General Family Medicine 11/29/21 Reason [...] BE BASED ON THE PRIMARY CLINICAL RECORDS. [facility] [employer] [facility]. provides no warranty or guarantee of the accuracy or completeness of information in this document.
== END | disposition home or self-care (01) ==
PROVIDERS: PCP Registered Nurse; Referring Provider Obstetrics & Gynecology; Visit Provider Obstetrics & Gynecology
DX: O03.9 Complete or unspecified spontaneous abortion without complication (principal)
CPT/HCPCS: 76830; 76856

== ENCOUNTER → 2023-07-30 | Outpatient (CLI) | payer OTHER, SELFPAY ==
--- NOTE | 2023-07-30 12:05 | RAD_ITS ---
INDICATION: workup. Hx 12 week miscarriage. EXAMINATION/TECHNIQUE: Routine hysterosalpingography was performed. Total Fluoroscopic Time: 27 seconds AND number of Fluoroscopic Images: 2 OR Radiation dosage index: 12.58 mGy. COMPARISON: No relevant prior comparison study available FINDINGS: The uterine cavity contour is unremarkable. There are no filling defects or abnormalities. Both fallopian tubes are patent with free peritoneal spillage bilaterally. RAD/Salpingogram IMPRESSION: Negative hysterosalpingogram. Electronically Signed: Adam Clark MD at 15:51 EDT ,
--- NOTE | 2023-07-31 17:46 | OP.PCM_ITS ---
Operative Report Preop diagnosis: Miscarriage Postop diagnosis: Same plus bilateral tubal patency Procedure: Hysterosalpingogram Surgeon: Dominique Patten Implantable devices: None Complications: None Findings: Bilateral tubal patency and normal uterine cavity Operative details: Patient was taken to the x-ray room and was placed on the x- ray table and was in the dorsal lithotomy position. Speculum was placed in the vagina and the cervix prepped with Betadine and the HSG catheter was easily introduced into the uterus and speculum removed. Radiologist was brought in and while pushing radiopaque dye into the uterus via the HSG catheter the radiologist took multiple images and views and confirmed bilateral tubal patency seen. No gross uterine filling defects or abnormalities were seen. All instruments removed from the vagina and the uterus without complication. Patient tolerated the procedure well. Multi Select Codes Urinary/Genital Urinary/Genital CPT Codes: 03702 HSG/SIS
[2023-08-01 17:07] LABS: Anti-Cardiolipin Ab, IgA, Qn < 9 APL U/mL (0-11); Anti-Cardiolipin Ab, IgG, Qn < 9 GPL U/mL (0-14); Anti-Cardiolipin Ab, IgM, Qn < 9 MPL U/mL (0-12); Beta-2-Glycoprotein I IgA <9 (0-25); Beta-2-Glycoprotein I IgG <9 (0-20); Beta-2-Glycoprotein I IgM <9 (0-32); Dilute Prothrombin Time (dPT) 38.7 sec (0.0-47.6); Dilute Russell Viper Venom 35.1 sec (0.0-47.0); Interpretation Comment: (.); Thrombin Time 18.2 sec (0.0-23.0); dPT Confirm Ratio 0.94 Ratio (0.00-1.34)
== END | disposition home or self-care (01) ==
LOC: RAD 11:30
PROVIDERS: PCP Registered Nurse; Referring Provider Obstetrics & Gynecology; Visit Provider Obstetrics & Gynecology
DX: O03.9 Complete or unspecified spontaneous abortion without complication (principal); N96 Recurrent pregnancy loss
CPT/HCPCS: 36415; 58340; 74740; 86146; 86147

== ENCOUNTER → 2024-08-27 | Outpatient (CLI) | payer OTHER, SELFPAY ==
[2024-08-27 11:15] LABS: hCG Titer Quant., Serum 27042 mIU/mL (<9 non-preg)
== END | disposition home or self-care (01) ==
PROVIDERS: PCP Registered Nurse; Referring Provider Nurse Practitioner Family; Visit Provider Nurse Practitioner Family
DX: O26.859 Spotting complicating pregnancy, unspecified trimester (principal); Z3A.00 Weeks of gestation of pregnancy not specified
CPT/HCPCS: 36415; 84702

== ENCOUNTER → 2024-08-29 | Outpatient (CLI) | payer OTHER, SELFPAY ==
[2024-08-29 13:30] LABS: hCG Titer Quant., Serum 38228 mIU/mL (<9 non-preg)
== END | disposition home or self-care (01) ==
PROVIDERS: Nurse Practitioner Family; PCP Registered Nurse; Referring Provider Obstetrics & Gynecology; Visit Provider Obstetrics & Gynecology
DX: O26.859 Spotting complicating pregnancy, unspecified trimester (principal); Z3A.00 Weeks of gestation of pregnancy not specified
CPT/HCPCS: 36415; 84702

== ENCOUNTER → 2024-09-01 | Outpatient (CLI) | payer OTHER, SELFPAY ==
[2024-09-01 12:04] LABS: hCG Titer Quant., Serum 54477 mIU/mL (<9 non-preg)
== END | disposition home or self-care (01) ==
PROVIDERS: PCP Registered Nurse; Referring Provider Advanced Practice Midwife; Visit Provider Advanced Practice Midwife
DX: O26.859 Spotting complicating pregnancy, unspecified trimester (principal); O09.299 Supervision of pregnancy with other poor reproductive or obstetric history, unspecified trimester; Z3A.00 Weeks of gestation of pregnancy not specified
CPT/HCPCS: 36415; 84702

== ENCOUNTER → 2024-09-02 | Outpatient (CLI) | payer OTHER, SELFPAY ==
--- NOTE | 2024-09-02 14:24 | US_ITS ---
PROCEDURE: TRANSVAGINAL W/PREG US 09/02/2024 REASON FOR EXAM: VIABILITY, EARLY SPOTTING IN TECHNIQUE: Transvaginal. COMPARISON: None FINDINGS: Comments: LMP: July 12, 2024 Number of Gestational Sacs: 1 Gestational Sac Shape: Normal Number of Fetuses: 1 Heart Rate: (average) Yolk Sac: Present and unremarkable. Placenta: Presently not well-visualized Amniotic Fluid Volume: Subjectively normal for gestational age. Uterine Abnormalities: Maternal uterus is unremarkable. Ovaries / Adnexa: 2 cm by 2 cm x 1.9 cm corpus luteum cyst in the left ovary. DIMENSIONS: Parameter Measurement / EGA [place] Rump Length: 1 cm/7 weeks and 1 day Gestational Sac: 2.5 cm/7 weeks and 4 days Yolk Sac: 4 mm/ ESTIMATED GESTATIONAL AGE: By Ultrasound: 7 weeks and 3 days By LMP: 7 weeks and 3 days ESTIMATED DATE OF DELIVERY: By Ultrasound: April 18, 2025 By LMP: April 18, 2025. US/Transvaginal w/Preg US IMPRESSION: UNREMARKABLE FIRST TRIMESTER ULTRASOUND. Reading Location: [id number]
== END | disposition home or self-care (01) ==
LOC: US 14:23
PROVIDERS: PCP Registered Nurse; Referring Provider Advanced Practice Midwife; Visit Provider Advanced Practice Midwife
DX: O26.859 Spotting complicating pregnancy, unspecified trimester (principal); Z3A.00 Weeks of gestation of pregnancy not specified
CPT/HCPCS: 76817

== ENCOUNTER → 2024-09-04 | Outpatient (CLI) | payer OTHER, SELFPAY ==
[2024-09-08 22:07] LABS: Chlamydia By Nucleic Acid AMP Negative (Negative); Gonococcus By Nucleic Acid AMP Negative (Negative)
== END | disposition home or self-care (01) ==
LOC: LABSPEC 16:19
PROVIDERS: PCP Registered Nurse; Referring Provider Obstetrics & Gynecology; Visit Provider Obstetrics & Gynecology
DX: O09.90 Supervision of high risk pregnancy, unspecified, unspecified trimester (principal); Z3A.00 Weeks of gestation of pregnancy not specified
CPT/HCPCS: 87086; 87491; 87591

== ENCOUNTER → 2024-10-01 | Outpatient (CLI) | payer OTHER, SELFPAY ==
[2024-10-01 12:12] LABS: Absolute Lymphocyte Count 1.62 X10^3/uL (0.83-4.51); Absolute Neutrophil Count 5.2 X10^3/uL (2.0-7.7); Basophil# 0.03 X10^3/uL; Basophil% 0.4 % (0-1); Eosinophil# 0.04 X10^3/uL; Eosinophils% 0.5 % (0-5); Hematocrit 38.8 % (37-47); Hemoglobin 13.6 g/dL (12.0-15.0); Lymphocyte # 1.62 X10^3/ul (0.83-4.51); Lymphocyte % 21.9 % (19-41); Mean Corp Hgb Conc 35.1 g/dL (32-36); Mean Corpuscular Hgb 33.3 pg (27.0-32.0); Mean Corpuscular Volume 95.1 fL (81-99); Mean Platelet Vol. 11.3 fl (6.2-12.0); Monocyte# 0.45 X10^3/uL; Monocyte% 6.1 % (0-10); NRBC Flagged by Analyzer 0 % (0-5); Neutrophil # 5.24 X10^3/uL (2.7-7.7); Neutrophil % 70.8 % (47-70); Platelet Count 239 K/mm3 (150-450); RBC Distribution Width CV 12.2 % (11.6-14.6); RBC Distribution Width SD 42.5 fl (35.1-43.9); Red Blood Count 4.08 M/mm3 (4.2-5.4); White Blood Count 7.4 K/mm3 (4.4-11.0)
[2024-10-01 13:46] LABS: HIV Nonreactive (Nonreactive); Hepatitis B Surface Antigen Nonreactive (Nonreactive); Hepatitis C Antibody Nonreactive (Nonreactive); Rubella IgG REAC (Nonreactive); Syphilis Antibodies Nonreactive (Nonreactive)
== END | disposition home or self-care (01) ==
PROVIDERS: Obstetrics & Gynecology; PCP Registered Nurse; Referring Provider Obstetrics & Gynecology; Visit Provider Obstetrics & Gynecology
DX: O09.90 Supervision of high risk pregnancy, unspecified, unspecified trimester (principal); Z3A.00 Weeks of gestation of pregnancy not specified
CPT/HCPCS: 36415; 85025; 86703; 86762; 86780; 86803; 86850; 86900; 86901; 87340

== ENCOUNTER → 2025-01-23 | Outpatient (CLI) | payer OTHER, SELFPAY ==
[2025-01-23 12:24] LABS: Hematocrit 34.5 % (37-47); Hemoglobin 11.9 g/dL (12.0-15.0); Immature Granulocytes Count 0.050 X10^3/uL (0.0-0.0); Mean Corp Hgb Conc 34.5 g/dL (32-36); Mean Corpuscular Volume 98.0 fL (81-99); Mean Platelet Vol. 11.2 fl (6.2-12.0); NRBC Flagged by Analyzer 0 % (0-5); Platelet Count 204 K/mm3 (150-450); RBC Distribution Width CV 13.2 % (11.6-14.6); RBC Distribution Width SD 46.8 fl (35.1-43.9); Red Blood Count 3.52 M/mm3 (4.2-5.4); White Blood Count 8.2 K/mm3 (4.4-11.0)
[2025-01-23 13:07] LABS: HIV Nonreactive (Nonreactive); Syphilis Antibodies Nonreactive (Nonreactive)
[2025-01-23 13:18] LABS: Glucose Challenge Gest 1H 50g 95 mg/dL (70-140)
== END | disposition home or self-care (01) ==
PROVIDERS: Referring Provider Obstetrics & Gynecology; Visit Provider Obstetrics & Gynecology
DX: O09.92 Supervision of high risk pregnancy, unspecified, second trimester (principal); Z3A.00 Weeks of gestation of pregnancy not specified; Z13.1 Encounter for screening for diabetes mellitus
CPT/HCPCS: 36415; 82950; 85025; 86703; 86780

== ENCOUNTER → 2025-03-23 | Outpatient (CLI) | payer OTHER, SELFPAY ==
--- NOTE | 2025-03-23 08:56 | US_ITS ---
PROCEDURE: OB LIMITED WITH BIOMETRICS 03/23/2025 REASON FOR EXAM: AMA TECHNIQUE: Procedure Code: [id number] Modality: US Procedure: OB LIMITED WITH BIOMETRICS COMPARISON: 30 March 2023. FINDINGS Number: 1 Position: cephalic Placental Position: anterior Placental grade: 1 DIMENSIONS: Biparietal Diameter: 8.9 cm / 36 weeks and 0 days Head Circumference: 32.2 cm / 36 weeks and 3 days Abdominal Circumference: 32.6 cm / 36 weeks and 4 days Femur Length: 7.2 cm / 36 weeks and 5 days ESTIMATED WEIGHT: 2980 grams ESTIMATED WEIGHT PERCENTILE (24+ weeks): 60th ESTIMATED GESTATIONAL AGE: Baseline: 36 weeks and 2 days By Ultrasound: 36 weeks and 2 days ESTIMATED DATE OF DELIVERY: Baseline: April 18, 2025 By Ultrasound: April 18, 2025 BIOPHYSICAL ASSESSMENT: Amniotic Fluid Volume: Adequate Amniotic Fluid Index: 10 cm (8-24 cm normal range) Cardiac Motion: 127 beats per minute (average) Trunk and Limb Motion: Present. US/OB Limited With Biometrics IMPRESSION: 1. Single living intrauterine gestation at 36 weeks and 2 days in the cephalic presentation. 2. heart rate of 127 bpm. 3. Anterior placenta. 4. Estimated weight of 2980 grams, 60th percentile. Reading Location: [id number]
== END | disposition home or self-care (01) ==
PROVIDERS: PCP Registered Nurse; Referring Provider Nurse Practitioner Women's Health; Visit Provider Nurse Practitioner Women's Health
DX: O09.523 Supervision of elderly multigravida, third trimester (principal); Z3A.36 36 weeks gestation of pregnancy
CPT/HCPCS: 76816

== ENCOUNTER → 2025-03-27 | Outpatient (CLI) | payer OTHER, SELFPAY ==
--- OUTSIDE RECORDS SUMMARY | 2025-03-27 15:57 | XMS RPT_ITS | CCD ---
Author Organization [facility] Providers Care Furniture And Bedding Inspector Name Role Phone Care Physician, No Primary Primary Care Provider Unavailable Care Physician, No Primary Referring Provider Un available Dr. Jenna Hartley Attending Provider [phone] Dr. Dominique Patten Attending Provider [phone] Xiang COMMERCIAL ROOFER, COMMERCIAL ROOFER-C Fidelia Attending Provider [phone] Care Physician, No Primary Primary Care Provider Unavailable Care Physician, No Primary Referring Provider Un available Dr. Jenna Hartley Attending Provider [phone] Dr. Jenna Hartley Admit Provider Dr. Jenna Hartley Referring Provider [phone] Dr. Jenna Hartley Other Provider Haagen SALES PLANNING COORDINATOR.THERMOPLASTIC TECHNICIAN, Suzanne Primary Care Provider Haagen SALES PLANNING COORDINATOR.THERMOPLASTIC TECHNICIAN, Suzanne Primary Care Provider Care Physician, No Primary Referring Provider Un available Dr. Dominique Patten Attending Provider [phone] LUISANA Sexton Attending Provider Haagen COMMERCIAL ROOFER, COMMERCIAL ROOFER-C Suzanne Primary Care Provider Haagen COMMERCIAL ROOFER, COMMERCIAL ROOFER-C Suzanne Referring Provider LUISANA Sierra Attending Provider [phone] Dr. Dominique Patten Attending Provider [phone] Dr. Dominique Patten Referring Provider [phone] Dr. Dominique Patten Other Provider Haagen COMMERCIAL ROOFER, COMMERCIAL ROOFER-C Suzanne Primary Care Provider Haagen COMMERCIAL ROOFER, COMMERCIAL ROOFER-C Suzanne Referring Provider LUISANA Sierra Attending Provider [phone] Dr. Dominique Patten Attending Provider [phone] Dr. Dominique Patten Referring Provider [phone] Dr. Dominique Patten Other Provider Haagen SALES PLANNING COORDINATOR.THERMOPLASTIC TECHNICIAN, [facility] [place] Primary Care Provider Haagen COMMERCIAL ROOFER-C, [facility] [place] Primary Care Provider Mesfin COMMERCIAL ROOFER-C, Jessica Attending Provider [phone] Mesfin COMMERCIAL ROOFER-C, Jessica Referring Provider Dr. Jenna Hartley DO Attending Provider Dr. Jenna Hartley DO Referring Provider Carmita Sierra CNM Attending Provider [phone] Carmita Sierra CNM Referring Provider [phone] Haagen COMMERCIAL ROOFER-C, Suzanne Referring Provider Dr. Dominique Patten MD Attending Provider Dr. Dominique Patten MD Referring Provider [phone] Haagen SALES PLANNING COORDINATOR.THERMOPLASTIC TECHNICIAN, [facility] [place] Primary Care Provider LILLI LEDBETTER Attending Unavailable HAAGEN, SUZANNE Primary Care Unavailable HAAGEN, SUZANNE Primary Care Unavailable HAAGEN, SUZANNE Attending Unavailable HAAGEN, SUZANNE Primary Care Unavailable Xiang COMMERCIAL ROOFER-C, Fidelia Attending Provider [phone] JENNA VARMA Referring Unavailab le HAAGEN, SUZANNE L Primary Care Unavailable AMADA MONTERO Attending Unavailable Haagen COMMERCIAL ROOFER-C, [facility] [place] Primary Care Provider Haagen COMMERCIAL ROOFER-C, [facility] [place] Primary Care Physician Haagen COMMERCIAL ROOFER-C, Suzanne Referring Provider Dr. Jenna Hartley DO Attending Physician Dr. Jenna Hartley DO Referring Provider [place] COMMERCIAL ROOFER-C, Fidelia Attending Physician [phone] Carmita Sierra CNM Attending Physician [phone] Sandor CARL, Dr. Fox Attending Physician Sandor CARL, Dr. Fox Referring Provider [phone] Haagen COMMERCIAL ROOFER-C, Suzanne Primary Care Physician Haagen COMMERCIAL ROOFER-C, Suzanne Referring Provider Dr. Jenna Hartley DO Attending Physician Haagen COMMERCIAL ROOFER, Suzanne Primary Care Unavailable Haagen COMMERCIAL ROOFER, Suzanne Referring Unavailable Dominique Patten Attending Unavailable Haagen COMMERCIAL ROOFER, Suzanne Primary Care Unavailable Haagen COMMERCIAL ROOFER, Suzanne Referring Unavailable Dominique Patten Attending Unavailable Haagen COMMERCIAL ROOFER, Suzanne Referring Unavailable Carmita Sierra Attending Unavailable Haagen COMMERCIAL ROOFER, Suzanne Primary Care Unavailable Haagen COMMERCIAL ROOFER, Suzanne Referring Unavailable Jenna Hartley Attending Unavailabl e Haagen COMMERCIAL ROOFER, Suzanne Primary Care Unavailable Haagen COMMERCIAL ROOFER, Suzanne Referring Unavailable Xiang COMMERCIAL ROOFER, Fidelia Attending Unavailable Haagen COMMERCIAL ROOFER, Suzanne Primary Care Unavailable Haagen COMMERCIAL ROOFER, Suzanne Referring Unavailable Carmita Sierra Attending Unavailable Haagen COMMERCIAL ROOFER, Suzanne Primary Care Unavailable Haagen COMMERCIAL ROOFER, Suzanne Referring Unavailable Dominique Patten Attending Unavailable Jessica Toure Referring Unavailable Jessica Toure Attending Unavailable Haagen COMMERCIAL ROOFER, Suzanne Primary Care Unavailable Jenna Hartley Attending Unavailabl e Haagen COMMERCIAL ROOFER, Suzanne Referring Unavailable Haagen COMMERCIAL ROOFER, Suzanne Primary Care Unavailable Carmita Sierra Attending Unavailable Haagen COMMERCIAL ROOFER, Suzanne Primary Care Unavailable Dominique Patten Referring Unavailable Dominique Patten Attending Unavailable Haagen COMMERCIAL ROOFER, Suzanne Primary Care Unavailable Jenna Hartley Referring Unavailabl Jenna Pulido Attending Unavailabl e Haagen COMMERCIAL ROOFER, Suzanne Primary Care Unavailable Carmita Sierra Referring Unavailable Carmita Sierra Attending Unavailable Jenna Hartley Attending Unavailabl e Haagen COMMERCIAL ROOFER, Suzanne Primary Care Unavailable Jenna Hartley Referring UnavailDominique Reeder Referring Unavailable Dominique Patten Attending Unavailable Haagen COMMERCIAL ROOFER, Suzanne Primary Care Unavailable [place] COMMERCIAL ROOFER, Fidelia Referring Unavailable [place] COMMERCIAL ROOFER, Fidelia Attending Unavailable Suzanne Guallpa NP Primary Care Unavailable Carmita Sierra Referring Unavailable Carmita Sierra Attending Unavailable Fidelia Otoole NP Attending Unavailable Allergies Allergy Classification Reported Allergen(s) Allergy Type Date of Onset Reaction(s) Facility (20 sources) Sulfonamides (Antibiotic); Translations: [Sulfa (Sulfonamide Antibiotics)] Allergy to substance 2 Other, Rash [facility] (12 sources) bees; Translations: [BEES] Allergy to substance 8 Hives [facility] Work Phone: (9 sources) Sulfamethoxazole / Trimethoprim; Translations: [SULFAMETHOXAZOLE-TR IMETHOPRIM] Drug Allergy 5 Rash [facility] (20 sources) bee venom protein (honey bee) Allergy to substance 3 Swelling [facility] Comment on above: THROAT SWELLING AND RASH (1 source) bee venom protein (honey bee) Drug allergy (disorder) 5 [facility] Repository Medications Current Medications Medication Drug Class(es) Dates Sig (Normalized) Sig (Original) amoxicillin 500 mg oral capsule (1 source) Penicillin-class Antibacterial Start: 12-26-2022 End: 01-05-2023 take 1 capsule by mouth twice daily amoxicillin (AMOXIL) 500 mg capsule Take 1 capsule by mouth twice daily for 10 days. 20 capsule 0 12/26/2022 01/05/2023 Active Comment on above: Take 1 capsule by [facility] twice daily for 10 days. [id number] 0.3 ml EPINEPHrine 1 mg/ml auto-injector (9 sources) alpha-Adrenergic Agonist, beta-Adrenergic Agonist, Catecholamine Start: 02-22-2016 End: 11-30-2023 EPINEPHrine (EPIPEN) 0.3 mg/0.3 mL auto-injector Indications: Bee sting allergy Give 1 injection into side of thigh for allergic reaction. Repeat dose in 5-15 min if not improving. 2 Each 1 11/30/2023 Active Comment on above: Give 1 injection int o side of thigh for allergic reaction. Repeat dose in 5-15 min if not improving. famotidine 20 mg oral tablet (4 sources) Histamine-2 Receptor Antagonist Start: 12-26-2024 take 1 tablet by mouth twice daily Famotidine (Pepcid) 20 mg tablet Active 20 mg PO TWICE A DAY 60 6 December 26, 2024 12:00am Complies with drug therapy Multivit 67-Hjcj-Szgili 1-Dha (Pnv-Dha) 27 mg iron-1 mg -300 mg capsule (20 sources) Start: 03-23-2023 Multivit 95-Cdmm-Rfwciy 1-Dha (Pnv-Dha) 27 mg iron-1 mg -300 mg capsule Active NMA PO March 23, 2023 1:00am Complies with drug therapy Start: 03-23-2023 Start: 03-23-2023 Multivit 47-Ir on-Folate 1-Dha (Pnv-Dha) 27 mg iron-1 mg -300 mg capsule Active NMA PO March 23, 2023 1:00am Start: 03-23-2023 Multivit 47-Ir on-Folate 1-Dha (Pnv-Dha) 27 mg iron-1 mg -300 mg capsule Active CAP PO March 23, 2023 1:00am Start: 03-23-2023 Multivit 47-Ir on-Folate 1-Dha (Pnv-Dha) 27 mg iron-1 mg -300 mg capsule Active CAP PO March 23, 2023 12:00am MULTIVITAMIN ORAL (4 sources) MULTIVITAMIN ORA L Take by mouth. Active MULTIVITAMIN ORA L Take by mouth. 0 Active vitamin#30 30 mg iron-10 mg iron-folic acid 1 mg-omg3 capsule (12 sources) Start: 05-29-2019 take 1 capsule by mouth once daily vitamin#30 30 mg iron-10 mg iron-folic acid 1 mg-omg3 capsule Active 1 CAP PO DAILY May 29, 2019 2:56pm Start: 05-29-2019 End: 11-30-2022 take 1 capsule by mouth once daily vitamin#30 30 mg iron-10 mg iron-folic acid 1 mg-omg3 capsule Discontinued 1 CAP PO DAILY May 29, 2019 1:00am November 30, 2022 11:30am Start: 05-29-2019 End: 11-30-2022 take 1 capsule by mouth once daily vitamin#30 30 mg iron-10 mg iron-folic acid 1 mg-omg3 capsule Discontinued 1 CAP PO DAILY May 29, 2019 12:00am November 30, 2022 10:30am Start: 05-29-2019 take 1 capsule by mo [facility] once daily vitamin#30 30 mg iron-10 mg iron-folic acid 1 mg-omg3 capsule Active 1 CAP PO DAILY May 29, 2019 1:00am Completed/Discontinued Medications Medication Drug Class(es) Dates Sig (Normalized) Sig (Original) Desog-E.Estradiol/ E.Estradiol (20 sources) Progestin, Estrogen Start: 11-19-2018 End: 05-29-2019 take 0.15 tablet by mouth once daily Desog-E.Estradiol/E .Estradiol (Kariva (28)) 0.15-0.02 mgx21 /0.01 mg x 5 tablet Discontinued 1 {tbl} PO daily 84 3 November 19, 2018 9:08am May 29, 2019 2:56pm Start: 11-19-2018 End: 05-29-2019 take 0.15 tablet by mouth once daily Desog-E.Estradiol/E.Estradiol (Kariva (2 8)) 0.15-0.02 mgx21 /0.01 mg x 5 tablet Discontinued 1 {tbl} PO daily November 19, 2018 9:08am May 29, 2019 2:56pm Start: 11-19-2018 End: 05-29-2019 take 0.15 tablet by mouth once daily Desog-E.Estradiol/E.Estradiol (Kariva (2 8)) 0.15-0.02 mgx21 /0.01 mg x 5 tablet Discontinued 1 TABLET PO daily November 19, 2018 8:08am May 29, 2019 1:56pm Start: 11-19-2018 End: 05-29-2019 take 0.15 tablet by mouth once daily Desog-E.Estradiol/E.Estradiol (Kariva (2 8)) 0.15-0.02 mgx21 /0.01 mg x 5 tablet Discontinued 1 TABLET PO daily November 19, 2018 9:08am May 29, 2019 2:56pm Start: 09-19-2018 End: 11-19-2018 take 0.15 tablet by mouth once daily Desog-E.Estradiol/E.Estradiol (Kariva (2 8)) 0.15-0.02 mgx21 /0.01 mg x 5 tablet Discontinued 1 {tbl} PO daily 84 September 19, 2018 7:38am November 19, 2018 9:13am Start: 09-19-2018 End: 11-19-2018 take 0.15 tablet by mouth once daily Desog-E.Estradiol/E.Estradiol (Kariva (2 8)) 0.15-0.02 mgx21 /0.01 mg x 5 tablet Discontinued 1 {tbl} PO daily September 19, 2018 7:38am November 19, 2018 9:13am Start: 09-19-2018 End: 11-19-2018 take 0.15 tablet by mouth once daily Desog-E.Estradiol/E.Estradiol (Kariva (2 8)) 0.15-0.02 mgx21 /0.01 mg x 5 tablet Discontinued 1 TABLET PO daily September 19, 2018 6:38am November 19, 2018 8:13am Start: 09-19-2018 End: 11-19-2018 take 0.15 tablet by mouth once daily Desog-E.Estradiol/E.Estradiol (Kariva (2 8)) 0.15-0.02 mgx21 /0.01 mg x 5 tablet Discontinued 1 TABLET PO daily September 19, 2018 7:38am November 19, 2018 9:13am Start: 01-22-2018 End: 09-19-2018 take 0.15 tablet by mouth once daily Desog-E.Estradiol/E.Estradiol (Kariva (2 8)) 0.15-0.02 mgx21 /0.01 mg x 5 tablet Discontinued 1 {tbl} PO daily January 22, 2018 4:21pm September 19, 2018 7:38am Start: 01-22-2018 End: 09-19-2018 take 0.15 tablet by mouth once daily Desog-E.Estradiol/E.Estradiol (Kariva (2 8)) 0.15-0.02 mgx21 /0.01 mg x 5 tablet Discontinued 1 {tbl} PO daily January 22, 2018 4:21pm September 19, 2018 7:38am Start: 01-22-2018 End: 09-19-2018 take 0.15 tablet by mouth once daily Desog-E.Estradiol/E.Estradiol (Kariva (2 8)) 0.15-0.02 mgx21 /0.01 mg x 5 tablet Discontinued 1 TABLET PO daily January 22, 2018 3:21pm September 19, 2018 6:38am Start: 01-22-2018 End: 09-19-2018 take 0.15 tablet by mouth once daily Desog-E.Estradiol/E.Estradiol (Kariva (2 8)) 0.15-0.02 mgx21 /0.01 mg x 5 tablet Discontinued 1 TABLET PO daily January 22, 2018 4:21pm September 19, 2018 7:38am Start: 11-16-2017 End: 01-22-2018 take 0.15 tablet by mouth once daily Desog-E.Estradiol/E.Estradiol (Kariva (2 8)) 0.15-0.02 mgx21 /0.01 mg x 5 tablet Discontinued 1 {tbl} PO daily November 16, 2017 8:31am January 22, 2018 4:22pm Start: 11-16-2017 End: 01-22-2018 take 0.15 tablet by mouth once daily Desog-E.Estradiol/E.Estradiol (Kariva (2 8)) 0.15-0.02 mgx21 /0.01 mg x 5 tablet Discontinued 1 {tbl} PO daily November 16, 2017 8:31am January 22, 2018 4:22pm Start: 11-16-2017 End: 01-22-2018 take 0.15 tablet by mouth once daily Desog-E.Estradiol/E.Estradiol (Kariva (2 8)) 0.15-0.02 mgx21 /0.01 mg x 5 tablet Discontinued 1 TABLET PO daily November 16, 2017 7:31am January 22, 2018 3:22pm Start: 11-16-2017 End: 01-22-2018 take 0.15 tablet by mouth once daily Desog-E.Estradiol/E.Estradiol (Kariva (2 8)) 0.15-0.02 mgx21 /0.01 mg x 5 tablet Discontinued 1 TABLET PO daily November 16, 2017 8:31am January 22, 2018 4:22pm Start: 11-16-2017 End: 11-16-2017 take 0.15 tablet by mouth once daily Desog-E.Estradiol/E.Estradiol (Kariva (2 8)) 0.15-0.02 mgx21 /0.01 mg x 5 tablet Discontinued 1 TABLET PO daily November 16, 2017 8:29am November 16, 2017 8:33am Start: 11-16-2017 End: 11-16-2017 take 0.15 tablet by mouth once daily Desog-E.Estradiol/E.Estradiol (Kariva (2 8)) 0.15-0.02 mgx21 /0.01 mg x 5 tablet Discontinued 1 {tbl} PO daily November 16, 2017 12:00am November 16, 2017 8:33am Start: 11-16-2017 End: 11-16-2017 take 0.15 tablet by mouth once daily Desog-E.Estradiol/E.Estradiol (Kariva (2 8)) 0.15-0.02 mgx21 /0.01 mg x 5 tablet Discontinued 1 {tbl} PO daily November 16, 2017 12:00am November 16, 2017 8:33am Start: 11-16-2017 End: 11-16-2017 take 0.15 tablet by mouth once daily Desog-E.Estradiol/E.Estradiol (Kariva (2 8)) 0.15-0.02 mgx21 /0.01 mg x 5 tablet Discontinued 1 TABLET PO daily November 15, 2017 11:00pm November 16, 2017 7:33am Start: 11-16-2017 End: 11-16-2017 take 0.15 tablet by mouth once daily Desog-E.Estradiol/E.Estradiol (Kariva (2 8)) 0.15-0.02 mgx21 /0.01 mg x 5 tablet Discontinued 1 TABLET PO daily November 16, 2017 12:00am November 16, 2017 8:33am Norethindrone-E.Estradiol-Ir on (20 sources) Estrogen Start: 11-16-2017 End: 11-16-2017 take 1 tablet by mouth once daily Norethindrone-E.Estradiol-Iron (Loestrin Fe 1/20 (28-Day)) 1 mg-20 mcg (21)/75 mg (7) tablet Discontinued 1 TABLET PO daily November 16, 2017 8:20am November 16, 2017 8:29am Start: 11-16-2017 End: 11-16-2017 Norethindrone-E.Estradiol-Ir on (Loestrin Fe 1/20 (28-Day)) 1 mg-20 mcg (21)/75 mg (7) tablet Discontinued 1 {tbl} PO daily November 16, 2017 12:00am November 16, 2017 8:29am Start: 11-16-2017 End: 11-16-2017 take 1 tablet by mouth once daily Norethindrone-E.Estradiol-Iron (Loestrin Fe 1/20 (28-Day)) 1 mg-20 mcg (21)/75 mg (7) tablet Discontinued 1 TABLET PO daily November 15, 2017 11:00pm November 16, 2017 7:29am Start: 11-16-2017 End: 11-16-2017 take 1 tablet by mouth once daily Norethindrone-E.Estradiol-Iron (Loestrin Fe 1/20 (28-Day)) 1 mg-20 mcg (21)/75 mg (7) tablet Discontinued 1 TABLET PO daily November 16, 2017 12:00am November 16, 2017 8:29am Flucelvax Quad [id number] (flu vac qs 2020-(6 ms up) CD) 60 mcg (15 mcg x (1 source) Start: 04-04-2021 End: 04-04-2021 inject 15 ug by intramuscular injection once Flucelvax Quad (flu vac qs 2020-(6 ms up) CD) 60 mcg (15 mcg x Discontinued 60 MCG IM ONCE 0.5 April 04, 2021 2:20pm April 04, 2021 3:22pm ibuprofen 600 mg oral tablet (20 sources) Nonsteroidal Anti-inflammatory Drug Start: 10-20-2021 End: 11-29-2021 take 1 tablet by mouth every six hours as needed for pain Ibuprofen 600 mg tablet Discontinued 600 mg PO EVERY 6 HOURS as needed for pain (scale score 4-6) 28 7 0 October 20, 2021 12:00am November 29, 2021 3:20pm one tab every 6 hrs as needed for mild to moderate pain Lidocaine (2 sources) Antiarrhythmic, Amide Local Anesthetic Start: 09-29-2024 End: 09-29-2024 lidocaine 10 mg/mL (1 %) 30 mg injection (XYLOCAINE) Start: 09-29-2024 End: 09-29-2024 30 mg (3 mL), INTRADERMAL, O NCE, 1 dose, On Sun09/29/24 at 1000 Pnv #99-Iiap-Ohiaq Acid-Omeg a3 30 mg iron-10 mg iron-1 mg capsule (10 sources) Start: 05-29-2019 End: 11-30-2022 Pnv #61-Ldjf-Uiwuv Acid-Omeg a3 30 mg iron-10 mg iron-1 mg capsule Discontinued 1 NMA PO DAILY May 29, 2019 1:00am November 30, 2022 11:30am Check with primary doctor Start: 05-29-2019 End: 11-30-2022 Pnv #27-Obem-Dyxnr Acid-Omeg a3 30 mg iron-10 mg iron-1 mg capsule Discontinued 1 NMA PO DAILY May 29, 2019 1:00am November 30, 2022 11:30am Pnv 53-Yovk-Rksku Acid-Eudora -3 30 mg iron-10 mg iron-1 mg capsule (4 sources) Start: 05-29-2019 End: 11-30-2022 Pnv 27-Vytz-Stvjh Acid-Eudora -3 30 mg iron-10 mg iron-1 mg capsule Discontinued 1 NMA PO DAILY May 29, 2019 1:00am November 30, 2022 11:30am Check with primary doctor Problems Active Problems Problem Classification Problem Date Documented Date Episodic/Chronic Allergic reactions (1 source) Allergy to bee venom; Translations: [Bee allergy status] 11-30-2023 Episodic Bacterial infection; unspecified site (20 sources) Bacteria present; Translations: [Streptococcus, group B, as the cause of diseases classified elsewhere] 01-26-2020 Episodic Comment on above: plan pcn in labor Contraceptive and procreative management (14 sources) Patient encounter status; Translations: [Encounter for contraceptive management, unspecified] 08-29-2024 Episodic Comment on above: discussed if desires may start, doesn't want at present. may call back to start in future. Diabetes or abnormal glucose tolerance complicating ; childbirth; or the puerperium (20 sources) Abnormal glucose level; Translations: [Abnormal glucose complicating ] Episodic Comment on above: normal 3 hr GTT Hemorrhage during ; abruptio placenta; placenta previa (20 sources) Antepartum hemorrhage; Translations: [Hemorrhage in early , unspecified] 03-11-2023 Episodic Immunizations and screening for infectious disease (20 sources) Requires diphtheria, tetanus and pertussis vaccination; Translations: [Encounter for immunization] Onset: 02-16-2025 2 Episodic Comment on above: Given 08/26/21 Rpt labs in 3 months Neoplasms of unspecified nature or uncertain behavior (2 sources) Neoplastic disease; Translations: [Neoplasm of unspecified behavior of bone, soft tissue, and skin] Onset: 09-29-2024 09-29-2024 Episodic Other and unspecified benign neoplasm (2 sources) Benign neoplasm of skin; Translations: [Melanocytic nevi of unspecified upper limb, including shoulder] 09-28-2023 Episodic Other and unspecified benign neoplasm (3 sources) Melanocytic nevi of unspecified part of face; Translations: [Benign neoplasm of skin of other and unspecified parts of face] Onset: 09-29-2024 09-28-2023 Episodic Other and unspecified benign neoplasm (2 sources) Senile angioma; Translations: [Hemangioma of skin and subcutaneous tissue] 09-28-2023 Episodic Other and unspecified benign neoplasm (1 source) Melanocytic nevi of unspecified upper limb, including shoulder; Translations: [Multiple benign nevi of upper extremity, lower extremity, and trunk] Onset: 09-29-2024 Episodic Other and unspecified benign neoplasm (1 source) Melanocytic nevi of trunk; Translations: [Multiple benign nevi of upper extremity, lower extremity, and trunk] Onset: 09-29-2024 Episodic Other and unspecified benign neoplasm (1 source) Melanocytic nevi of unspecified lower limb, including hip; Translations: [Multiple benign nevi of upper extremity, lower extremity, and trunk] Onset: 09-29-2024 Episodic Other and unspecified benign neoplasm (1 source) Hemangioma of skin and subcutaneous tissue; Translations: [Holt angioma] Onset: 09-29-2024 Episodic Other complications of (20 sources) High risk ; Translations: [Supervision of high risk , unspecified, unspecified trimester] 03-23-2023 Episodic Comment on above: , ALPHONSO 04/18/25, Phong Nesbitt, Benjie PRR,, ALPHONSO 4, Jann Melgoza, Benjie [id number], ALPHONSO 5, Phong Nesbitt, Benjie Other complications of (14 sources) Spotting per vagina in ; Translations: [Spotting complicating , unspecified trimester] 08-27-2024 Episodic Comment on above: HCGx2 Other complications of (14 sources) H/O: miscarriage; Translations: [Supervision of with other poor reproductive or obstetric history, unspecified trimester] 08-29-2024 Episodic Other complications of (20 sources) Advanced maternal age ; Translations: [Elderly multigravida, unspecified as to episode of care or not applicable] 08-29-2024 Episodic Comment on above: 36 week growth US an d delivery by 39-40 weeks Other complications of (1 source) Supervision of elderly multigravida, unspecified trimester; Translations: [Supervision of elderly multigravida, unspecified trimester] Onset: 02-18-2025 Episodic Other complications of (1 source) Supervision of high risk , unspecified, second trimester; Translations: [Supervision of high risk , unspecified, second trimester] Onset: 02-06-2025 Episodic Other female genital disorders (20 sources) History of past delivery; Translations: [Status post vaginal delivery] Episodic Other screening for suspected conditions (not mental disorders or infectious disease) (18 sources) Coag./bleeding tests abnormal; Translations: [Abnormal coagulation profile] 05-14-2023 Episodic Comment on above: Repeat in 3 months, repeat bleeding panel sooner if wants to conceive Other skin disorders (2 sources) Lentiginosis; Translations: [Other melanin hyperpigmentation] 09-28-2023 Episodic Other skin disorders (2 sources) Seborrheic keratosis; Translations: [Other seborrheic keratosis] 09-28-2023 Episodic Other skin disorders (1 source) Other melanin hyperpigmentation; Translations: [Lentigines] Onset: 09-29-2024 Episodic Other skin disorders (1 source) Other seborrheic keratosis; Translations: [Seborrheic keratoses] Onset: 09-29-2024 Episodic Other upper respiratory infections (2 sources) Sore throat symptom; Translations: [Acute pharyngitis, unspecified] 12-26-2022 Episodic Polyhydramnios and other problems of amniotic cavity (14 sources) Spontaneous rupture of membranes 01-26-2020 Episodic Residual codes; unclassified (20 sources) History of vaccination; Translations: [Personal history of other drug therapy] 04-04-2021 Episodic Comment on above: Pfizer 05/2020 and b ooster was administered Residual codes; unclassified (1 source) 29 weeks gestation of ; Translations: [29 weeks gestation of ] Onset: 02-06-2025 Episodic Residual codes; unclassified (1 source) 27 weeks gestation of ; Translations: [27 weeks gestation of ] Onset: 01-23-2025 Episodic Residual codes; unclassified (1 source) 23 weeks gestation of ; Translations: [23 weeks gestation of ] Onset: 12-26-2024 Episodic Spontaneous (20 sources) Miscarriage at 8 to 28 weeks; Translations: [Complete or unspecified spontaneous without complication] 04-27-2023 Episodic Comment on above: discussed and plan H SG and pelvic US, pelvis MRI Past or Other Problems Problem Classification Problem Date Documented Da te Episodic/Chronic Other complications of (9 sources) Supervision of high risk , unspecified, unspecified trimester; Translations: [Supervision of unspecified high-risk ] Onset: 10-07-2024 03-30-2023 Episodic Other complications of (1 source) Spotting complicating , unspecified trimester; Translations: [Spotting complicating , unspecified trimester] Onset: 09-11-2024 Episodic Other and delivery including normal (20 sources) Normal ; Translations: [Encounter for supervision of normal , unspecified, unspecified trimester] Onset: 09-04-2024 Episodic Comment on above: PRR ALPHONSO 12/24/19 surprise Benjie PRR ALPHONSO: 2, boy, (Jann) PC: Phong Spouse: Benjie elects NIPT with Gen abimael nipt-low risk, bladimir er neg and declined ntd screening; normal anatomy low risk genetics, a lready had carrier with previous , dec afp screen. nl anatomy, GBS Negative discussed genetic & carrier testing, accepts NIPT low risk,male Residual codes; unclassified (1 source) 19 weeks gestation of ; Translations: [19 weeks gestation of ] Onset: 11-28-2024 Episodic Residual codes; unclassified (1 source) 11 weeks gestation of ; Translations: [11 weeks gestation of ] Onset: 10-01-2024 Episodic Unclassified (12 sources) Spontaneous rupture of membranes; Translations: [Spontaneous rupture of amniotic membranes] 01-26-2020 Results Test Name Value Interpretation Reference Range Facility Laboratory - Chemistry and C hemistry - challengeOrdered By: Fidelia Otoole on 02-16-2025 Glucose Ql (U) Negative [facility] Laboratory - UrinalysisOrder ed By: Fidelia Otoole on 02-16-2025 Protein Ql (U) Negative [facility] Quality Lab Technician Office Visit Reporton 02-16-2025 Quality Lab Technician Office Visit Report [facility]'s [address], [address] [place] [address] OFFICE VISIT Date of Service: 02/16/25 MR#: [id number] Acct: [id number] Name: LALITHA MONTERO Rep #: [id number] : 1990 Provider: FRANKI saldana Age/Sex: 34/F Location: [facility] Status: Signed Intake Vital Signs 12/26/24 13:59 02/06/25 10:12 02/16/25 15:40 Height 5 ft 5 in 5 ft 5 in 5 ft 5 in Weight: 192 lb 2 oz BMI 31.9 BP 109/72 Intake Visit Reasons: 31W 6D OB Margarine Maker Required: No Is patient in pain?: No Allergies bee venom protein (honey bee) Allergy (Severe, Verified 02/16/25 15:40) Swelling Sulfa (Sulfonamide Antibiotics) Allergy (Mild, Verified 02/16/25 15:40) Rash Medications ???Medication ???Instructions ???Recorded ???Confirmed ???Type multivitamin no.47-iron fum 27 cap PO 03/23/23 02/16/25 History mg-folate no.1 1 mg-dha 300 mg capsule (PNV-DHA) famotidine 20 mg tablet (Pepcid) 20 mg PO BID #60 tabs 12/26/24 Rx Last Menstrual Period: 07/12/24 Zika: Zika virus screening: Negative : Yes PFSH PFSH Medical History COVID-19 vaccine series completed Surgical History S/P dilation and curettage [place] teeth extracted History of tonsillectomy Family History Grandfather Diabetes Maternal Heart disease Maternal Dementia Maternal Father Heart disease Social History adopted: No household members: spouse and children housing: house number of children: 2 current occupational status: employed current occupation: [employer] current occupational exposures/hazards: No pets and animals: Yes (not managing litterbox) pets and animals: cat(s) and dog(s) history of recent travel: No sexually active: Yes Smoking Status: Never smoker alcohol intake: current alcohol intake frequency: holidays/special occasions only details: Not while substance use type: does not use well-balanced diet: daily or most days caffeine: Yes Type: other Number of servings: 2 eating out: 1-3 times/week during the past year weight has: remained stable what type of physical activity do you participate in: walking and weight training frequency: 5-6 times per week duration: 15-30 minutes/day kesha/yarsani: Synagogue seatbelt use: always do you feel safe at home: Yes 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 Date Name GA/Weeks Outcome Route Bth Weight Infant Gen Labor Lgth Anesthesia Del Locatn Provider FOB Unknown 2021 Jann 38 live - full term 7#4oz Male none [facility] NONA [place] 12/15/19 Phong 38 live - full term 7lbs 9oz Male 7 hours none [facility] Eddie jeronimo 05/01/23 12 spontaneous Delivery Date: 05/01/23 Last Updated by: Trista Kimble, MED HPI 31W 6D OB Details: LALITHA MONTERO is a 34 year old who presents for routine OB visit. OB Visit ALPHONSO Calculator Estimated Delivery Date Method Current WG Current Estimate 04/18/25 LMP (Certain) 31w 2d Other Estimates 04/20/25 Ultrasound #1 31w 0d Expected Delivery Route/Plan Labor Preferences- CB/BF classes: no labor support person: Benjie labor intervention preferences: [] pain management options preferred: limited cut cord/dad catch: cord : yes PP control planned: discussed discussed possible routes of delivery and associated risks: [] special requests: [] Specific Issue/Plans Covid status: [] Flu vaccine: given Tdap vaccine: given Rhogam: NA LARC form signed: yes Problem list reviewed and updated with the most current plan of care details and appropriate orders placed. Relevant counseling for the gestational age provided. Continue routine care and follow up unless otherwise noted in visit notes/problem list details Initial Weight: Not Recorded Date -???-???-???-???-???-??? -???-???-???-???-???-??? - EGA Weight BP Urine Prot -???-???-???-???-???-??? -???-???-???-???-???-??? - Glucose FHR FuHt Pres Dilation -???-???-???-???-???-??? -???-???-???-???-???-??? - Effaced St Visit Note 09/04/24 -???-???-???-???-???-??? -???-???-???-???-???-??? - 7w 5d 169 lb 115/74 -???-???-???-???-???-??? -???-???-???-???-???-??? - 145 -???-???-???-???-???-??? -???-???-???-???-???-??? - SM- CRL 1.2c m cons with LMP SM (more content not included)... Normal [facility] Laboratory - Chemistry and C hemistry - challengeOrdered By: Jenna Hummel on 02-06-2025 Glucose Ql (U) Negative [facility] Laboratory - UrinalysisOrder ed By: Jenna Hummel on 02-06-2025 Protein Ql (U) Trace [facility] Quality Lab Technician Office Visit Reporton 02-06-2025 Quality Lab Technician Office Visit Report [facility] [address], [address] [place] [address] OFFICE VISIT Date of Service: 02/06/25 MR#: [id number] Acct: [id number] Name: LALITHA MONTERO Rep #: [id number] : 1990 Provider: Dr. Jenna Ulloa, Age/Sex: 34/F Location: [facility] Status: Signed Intake Vital Signs 11/28/24 14:39 01/23/25 08:03 02/06/25 10:12 02/06/25 10:12 Height 5 ft 5 in 5 ft 5 in 5 ft 5 in 5 ft 5 in Weight: 189 lb BMI 31.4 BP 114/75 Intake Visit Reasons: 29wk 6D ob Margarine Maker Required: No Is patient in pain?: No Allergies bee venom protein (honey bee) Allergy (Severe, Verified 02/06/25 10:12) Swelling Sulfa (Sulfonamide Antibiotics) Allergy (Mild, Verified 02/06/25 10:12) Rash Medications ???Medication ???Instructions ???Recorded ???Confirmed ???Type multivitamin no.47-iron fum 27 cap PO 03/23/23 02/06/25 History mg-folate no.1 1 mg-dha 300 mg capsule (PNV-DHA) famotidine 20 mg tablet (Pepcid) 20 mg PO BID #60 tabs 12/26/24 Rx Last Menstrual Period: 07/12/24 Zika: Zika virus screening: Negative : No PFSH PFSH Medical History COVID-19 vaccine series completed Surgical History S/P dilation and curettage [place] teeth extracted History of tonsillectomy Family History Grandfather Diabetes Maternal Heart disease Maternal Dementia Maternal Father Heart disease Social History adopted: No household members: spouse and children housing: house number of children: 2 current occupational status: employed current occupation: [employer] current occupational exposures/hazards: No pets and animals: Yes (not managing litterbox) pets and animals: cat(s) and dog(s) history of recent travel: No sexually active: Yes Smoking Status: Never smoker alcohol intake: current alcohol intake frequency: holidays/special occasions only details: Not while substance use type: does not use well-balanced diet: daily or most days caffeine: Yes Type: other Number of servings: 2 eating out: 1-3 times/week during the past year weight has: remained stable what type of physical activity do you participate in: walking and weight training frequency: 5-6 times per week duration: 15-30 minutes/day kesha/yarsani: Synagogue seatbelt use: always do you feel safe at home: Yes 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 Date Name GA/Weeks Outcome Route Bth Weight Infant Gen Labor Lgth Anesthesia Del Locatn Provider FOB Unknown 2021 Jann 38 live - full term 7#4oz Male none [facility] NONA [place] 12/15/19 Phong 38 live - full term 7lbs 9oz Male 7 hours none [facility] Eddie gauthierhoalexander 05/01/23 12 spontaneous Delivery Date: 05/01/23 Last Updated by: Trista Kimble, SM HPI 29wk 6D ob Details: LALITHA MONTERO is a 34 year old who presents for routine OB visit. OB Visit ALPHONSO Calculator Estimated Delivery Date Method Current WG Current Estimate 04/18/25 LMP (Certain) 29w 6d Other Estimates 04/20/25 Ultrasound #1 29w 4d Expected Delivery Route/Plan Labor Preferences- CB/BF classes: [] labor support person: [] labor intervention preferences: [] pain management options preferred: [] cut cord/dad catch: [] : [] PP control planned: [] discussed possible routes of delivery and associated risks: [] special requests: [] Specific Issue/Plans Covid status: [] Flu vaccine: [] Tdap vaccine: [] Rhogam: [] LARC form signed: [] Problem list reviewed and updated with the most current plan of care details and appropriate orders placed. Relevant counseling for the gestational age provided. Continue routine care and follow up unless otherwise noted in visit notes/problem list details Initial Weight: Not Recorded Date -???-???-???-???-???-??? -???-???-???-???-???-??? - EGA Weight BP Urine Prot -???-???-???-???-???-??? -???-???-???-???-???-??? - Glucose FHR FuHt Pres Dilation -???-???-???-???-???-??? -???-???-???-???-???-??? - Effaced St Visit Note 09/04/24 -???-???-???-???-???-??? -???-???-???-???-???-??? - 7w 5d 169 lb 115/74 -???-???-???-???-???-??? -???-???-???-???-???-??? - 145 -???-???-???-???-???-??? -???-???-???-???-???-??? - SM- CRL 1.2c m cons with LMP (more content not included)... Normal [facility] Absolute lymphocyte countOrd ered By: Dominique Patten on 01-23-2025 Lymphocytes Auto (Unsp spec) [#/Vol] 1.79 10*3/uL 0.83-4.51 [facility] Absolute neutrophil countOrd ered By: Dominique Patten on 01-23-2025 Neutrophils (Bld) [#/Vol] 5.9 10*3/uL 2.0-7.7 [facility] Automated lymphocyte count a s percentage of total leukocytesOrdered By: Dominique Patten on 01-23-2025 Lymphocytes/100 WBC Auto (Unsp spec) 21.8 % 19-41 [facility] Basophil percentageOrdered B y: Dominique Patten on 01-23-2025 Basophils/100 WBC (Bld) 0.4 % 0-1 [facility] CBC W/Diff, Automatedon Absolute Lymph 1.79 X10 3/uL Normal 0.83-4.51 [facility] Comment on above: Performed By: #### L 700.8000 #### [facility] Laboratory [address] [place], [address] Absolute Neut 5.9 X10 3/uL Normal 2.0-7.7 [facility] Comment on above: Performed By: #### L 700.8000 #### [facility] [address] [place], [address] Basophils/100 WBC (Bld) 0.4 % Normal 0-1 [facility] Comment on above: Performed By: #### L 700.8000 #### [facility] [address] [place], [address] Eosinophils/100 WBC (Bld) 0.7 % Normal 0-5 [facility] Comment on above: Performed By: #### L 700.8000 #### [facility] [address] [place], [address] Erythrocyte distribution width (RBC) [Ratio] 13.2 % Normal 11.6-14.6 [facility] Comment on above: Performed By: #### L 700.8000 #### [facility] [address] [place], [address] Hematocrit (Bld) [Volume fraction] 34.5 % Low 37-47 [facility] Comment on above: Performed By: #### L 700.8000 #### [facility] [address] [place], [address] Hemoglobin (Bld) [Mass/Vol] 11.9 g/dL Low 12.0-15.0 [facility] Comment on above: Performed By: #### L 700.8000 #### [facility] [address] [place], [address] IG% 0.600 Normal 0.0-0.9 [facility] Comment on above: Result Comment: IG% - Immature Granulocytes (promyelocytes, myelocytes and metamyelocytes) > 1% indicates that a LEFT SHIFT is Present. Performed By: #### L 700.8000 #### [facility] [address] [place], [address] Lymphocytes/100 WBC (Bld) 21.8 % Normal 19-41 [facility] Comment on above: Performed By: #### L 700.8000 #### [facility] [address] [place], [address] MCH (RBC) [Entitic mass] 33.8 pg High 27.0-32.0 [facility] Comment on above: Performed By: #### L 700.8000 #### [facility] [address] [place], [address] MCHC (RBC) [Mass/Vol] 34.5 g/dL Normal 32-36 [facility] Comment on above: Performed By: #### L 700.8000 #### [facility] [address] [place], [address] MCV (RBC) [Entitic vol] 98.0 fL Normal 81-99 [facility] Comment on above: Performed By: #### L 700.8000 #### [facility] [address] [place], [address] Monocytes/100 WBC (Bld) 5.0 % Normal 0-10 [facility] Comment on above: Performed By: #### L 700.8000 #### [facility] [address] [place], [address] Neutrophils/100 WBC (Bld) 71.5 % High 47-70 [facility] Comment on above: Performed By: #### L 700.8000 #### [facility] [address] [place], [address] Nucleated RBC (Bld) [#/Vol] 0 10*3/uL Normal 0-5 [facility] Comment on above: Performed By: #### L 700.8000 #### [facility] [address] [place], [address] Platelet mean volume (Bld) [Entitic vol] 11.2 fL Normal 6.2-12.0 [facility] Comment on above: Performed By: #### L 700.8000 #### [facility] [address] [place], [address] Platelets (Bld) [#/Vol] 204 10*3/uL Normal 150-450 [facility] Comment on above: Performed By: #### L 700.8000 #### [facility] [address] [place], [address] RBC (Bld) [#/Vol] 3.52 10*6/uL Low 4.2-5.4 [facility] Comment on above: Performed By: #### L 700.8000 #### [facility] [address] [place], [address] RDW SD 46.8 fl High 35.1-43.9 [facility] Comment on above: Performed By: #### L 700.8000 #### [facility] [address] [place], [address] WBC (Bld) [#/Vol] 8.2 10*3/uL Normal 4.4-11.0 [facility] Comment on above: Performed By: #### L 700.8000 #### [facility] [address] [place], [place], [id number] Eosinophil percentageOrdered By: Dominique Patten on 01-23-2025 Eosinophils/100 WBC (Bld) 0.7 % 0-5 [facility] Erythrocyte distribution wid th ratioOrdered By: Dominique Sandor on 01-23-2025 Erythrocyte distribution width (RBC) [Ratio] 13.2 % 11.6-14.6 [facility] Erythrocyte distribution wid th standard deviationOrdered By: Dominiquecesilia Patten on 01-23-2025 Erythrocyte distribution width (RBC) [Ratio] 46.8 fl High 35.1-43.9 [facility] Glucose Challenge Gest 1H 50 caity 01-23-2025 GLU GEST 50g 1H 95 mg/dL Normal 70-140 [facility] Comment on above: Result Comment: AMENDED REPORT 01/23/25 1318 GLU GEST 50g 1H previously reported as: 99 mg/dL Performed By: #### L 700.8000 #### [facility] [address] [facility] [place], [place], [id number] Glucose measurement at 2 karime rs post-dose gestational glucose tolerance testOrdered By: Dominique Patten on 01-23-2025 Glucose [Mass/Vol] 95 mg/dL 70-140 [facility] Comment on above: Previous reported re sult: 99 mg/dLEdited by: AUTOINS on 01/23/25:1318 AMENDED REPORT 01/23/25 1318 GLU GEST 50g 1H previously reported as: 99 mg/dL HIVon 01-23-2025 HIV Non-Reactive Normal Nonreactive [facility] Comment on above: Result Comment: Non- Reactive Reactive Repeatedly reactive samples must be confirmed according to CDC recommended confirmatory algorithms. The subresults for either HIVAG or AHIV can be used as an aid in the selection of the confirmation algorithm for reactive samples. Send out specimens with Reactive results to [facility] for confirmation. Order the HIV antibody detection and differentiation: lc#[id number] Performed By: #### L 700.8000 #### [facility] [address] [place], [address] Hematocrit Auto (Bld) [Volum e fraction]Ordered By: Dominique Patten on 01-23-2025 Hematocrit (Bld) [Volume fraction] 34.5 % Low 37-47 [facility] Hemoglobin measurementOrdere d By: Dominique Patten on 01-23-2025 Hemoglobin (Bld) [Mass/Vol] 11.9 g/dL Low 12.0-15.0 [facility] Immature granulocytes/100 WB C Auto (Bld)Ordered By: Dominique Patten on 01-23-2025 Immature granulocytes/100 WBC (Bld) 0.600 % 0.0-0.9 [facility] Comment on above: IG% - Immature Granu locytes (promyelocytes, myelocytes and metamyelocytes) > 1% indicates that a LEFT SHIFT is Present. Laboratory - Chemistry and C hemistry - challengeOrdered By: Carmita Sierra on 01-23-2025 Glucose Ql (U) Negative [facility] Laboratory - UrinalysisOrder ed By: Carmita Sierra on 01-23-2025 Protein Ql (U) Negative [facility] MCV (mean corpuscular volume ) determinationOrdered By: Dominique Patten on 01-23-2025 MCV (RBC) [Entitic vol] 98.0 fL 81-99 [facility] Mean corpuscular hemoglobin (MCH) determinationOrdered By: Dominique Patten on 01-23-2025 MCH (RBC) [Entitic mass] 33.8 pg High 27.0-32.0 [facility] Mean corpuscular hemoglobin concentration (MCHC) determinationOrdered By: Dominique Patten on 01-23-2025 MCHC (RBC) [Mass/Vol] 34.5 g/dL 32-36 [facility] Mean platelet volume determi nationOrdered By: Dominique Patten on 01-23-2025 Platelet mean volume (Bld) [Entitic vol] 11.2 fL 6.2-12.0 [facility] Monocyte percentageOrdered B y: Dominique Patten on 01-23-2025 Monocytes/100 WBC (Bld) 5.0 % 0-10 [facility] Neutrophil percentageOrdered By: Dominique Patten on 01-23-2025 Neutrophils/100 WBC (Bld) 71.5 % High 47-70 [facility] No Panel InformationOrdered By: Dominique Winchesternikolay on 01-23-2025 HIV (1&2) Antibody Non-Reactive Nonreactive [facility] Comment on above: Non-ReactiveReactive Repeatedly reactive samples must be confirmed according to CDC recommended confirmatory algorithms. The subresults for either HIVAG or AHIV can be used as an aid in the selection of the confirmation algorithm for reactive samples.Send out specimens with Reactive results to [facility] for confirmation.Order the HIV antibody detection and differentiation: #[id number] Nucleated red blood cell per centageOrdered By: Dominique Winchesterjenniferannia on 01-23-2025 Nucleated RBC/100 WBC (Bld) [Ratio] 0 % 0-5 [facility] Quality Lab Technician Office Visit Reporton 01-23-2025 Quality Lab Technician Office Visit Report [facility] [address], [address] [place] [address] OFFICE VISIT Date of Service: 01/23/25 MR#: [id number] Acct: [id number] Name: LALITHA MONTERO Rep #: [id number] : 1990 Provider: LUISANA Rao ams Age/Sex: 34/F Location: [facility] Status: Signed Intake Vital Signs 11/28/24 14:39 12/26/24 13:59 01/23/25 08:03 Height 5 ft 5 in 5 ft 5 in 5 ft 5 in Weight: 182 lb 6 oz BMI 30.3 BP 110/74 Intake Visit Reasons: 27wk 6D ob/glucose Margarine Maker Required: No Is patient in pain?: No Allergies bee venom protein (honey bee) Allergy (Severe, Verified 01/23/25 08:05) Swelling Sulfa (Sulfonamide Antibiotics) Allergy (Mild, Verified 01/23/25 08:05) Rash Medications ???Medication ???Instructions ???Recorded ???Confirmed ???Type multivitamin no.47-iron fum 27 cap PO 03/23/23 01/23/25 History mg-folate no.1 1 mg-dha 300 mg capsule (PNV-DHA) famotidine 20 mg tablet (Pepcid) 20 mg PO BID #60 tabs 12/26/2407/15 Rx Last Menstrual Period: 07/12/24 Zika: Zika virus screening: Negative : No Have you fallen in the past year?: No PFSH PFSH Medical History COVID-19 vaccine series completed Surgical History S/P dilation and curettage [place] teeth extracted History of tonsillectomy Family History Grandfather Diabetes Maternal Heart disease Maternal Dementia Maternal Father Heart disease Social History adopted: No household members: spouse and children housing: house number of children: 2 current occupational status: employed current occupation: [employer] current occupational exposures/hazards: No pets and animals: Yes (not managing litterbox) pets and animals: cat(s) and dog(s) history of recent travel: No sexually active: Yes Smoking Status: Never smoker alcohol intake: current alcohol intake frequency: holidays/special occasions only details: Not while substance use type: does not use well-balanced diet: daily or most days caffeine: Yes Type: other Number of servings: 2 eating out: 1-3 times/week during the past year weight has: remained stable what type of physical activity do you participate in: walking and weight training frequency: 5-6 times per week duration: 15-30 minutes/day kesha/yarsani: Syn[employer] seatbelt use: always do you feel safe at home: Yes 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 Date Name GA/Weeks Outcome Route Bth Weight Gen Labor Lgth Anesthesia Del Locatn Provider FOB Unknown 2021 Jann 38 live - full term 7#4oz Male none [facility]A [place] 12/15/19 Phong 38 live - full term 7lbs 9oz Male 7 hours none [facility] Ma rcanthoalexander 05/01/23 12 spontaneous Delivery Date: 05/01/23 Last Updated by: Trista Kimble, MED HPI 27wk 6D ob/glucose Details: LALITHA MONTERO is a 34 year old who presents for routine OB visit. OB Visit ALPHONSO Calculator Estimated Delivery Date Method Current WG Current Estimate 04/18/25 LMP (Certain) 27w 6d Other Estimates 04/20/25 Ultrasound #1 27w 4d Expected Delivery Route/Plan Labor Preferences- CB/BF classes: [] labor support person: [] labor intervention preferences: [] pain management options preferred: [] cut cord/dad catch: [] : [] PP control planned: [] discussed possible routes of delivery and associated risks: [] special requests: [] Specific Issue/Plans Covid status: [] Flu vaccine: [] Tdap vaccine: [] Rhogam: [] LARC form signed: [] Problem list reviewed and updated with the most current plan of care details and appropriate orders placed. Relevant counseling for the gestational age provided. Continue routine care and follow up unless otherwise noted in visit notes/problem list details Initial Weight: Not Recorded Date -???-???-???-???-???-??? -???-???-???-???-???-??? - EGA Weight BP Urine Prot -???-???-???-???-???-??? -???-???-???-???-???-??? - Glucose FHR FuHt Pres Dilation -???-???-???-???-???-??? -???-???-???-???-???-??? - Effaced St Visit Note 09/04/24 -???-???-???-???-???-??? -???-???-???-???-???-??? - 7w 5d 169 lb 115/74 -???-???-???-???-???-??? -???-???-???-???-???-??? - 145 -???-???-???-???-???-??? -???-???-???-???-???-??? - SM- CRL 1.2c m cons w (more content not included)... Normal [facility] Platelet countOrdered By: Brian Patten on 01-23-2025 Platelets (Bld) [#/Vol] 204 10*3/uL 150-450 [facility] RBC Auto (Bld) [#/Vol]Ordere d By: Dominique Patten on 01-23-2025 RBC (Bld) [#/Vol] 3.52 10*6/uL Low 4.2-5.4 [facility] Syphilis Antibodieson 2024 Syphilis Abs Non-Reactive Normal Nonreactive [facility] Comment on above: Performed By: #### L 700.8000 #### [facility] Laboratory [address] [place], [place], [id number] White blood cell (WBC) count Ordered By: Dominique Patten on 01-23-2025 WBC (Bld) [#/Vol] 8.2 10*3/uL 4.4-11.0 [facility] - Chemistry and C hemistry - challengeOrdered By: Dominique Patten on 12-26-2024 Glucose Ql (U) Negative [facility] Laboratory - UrinalysisOrder ed By: Dominique Patten on 12-26-2024 Protein Ql (U) Negative [facility] Quality Lab Technician Office Visit Reporton 12-26-2024 Quality Lab Technician Office Visit Report [facility], [address] [place] [address] OFFICE VISIT Date of Service: 12/26/24 MR#: [id number] Acct: [id number] Name: LALITHA MONTERON Rep #: [id number] : 1990 Provider: Dr. Dominique pittman MD Age/Sex: 34/F Location: [facility] Status: Signed Intake Vital Signs 10/27/24 08:32 11/28/24 14:39 12/26/24 13:59 Height 5 ft 5 in 5 ft 5 in 5 ft 5 in Weight: 178 lb 9 oz BMI 29.7 BP 106/70 Intake Visit Reasons: 24wk ob Margarine Maker Required: No Is patient in pain?: No Allergies bee venom protein (honey bee) Allergy (Severe, Verified 12/26/24 14:05) Swelling Sulfa (Sulfonamide Antibiotics) Allergy (Mild, Verified 12/26/24 14:05) Rash Medications ???Medication ???Instructions ???Recorded ???Confirmed ???Type multivitamin no.47-iron fum 27 cap PO 03/23/23 12/26/24 History mg-folate no.1 1 mg-dha 300 mg capsule (PNV-DHA) famotidine 20 mg tablet (Pepcid) 20 mg PO BID #60 tabs 12/26/2409/14 Rx Last Menstrual Period: 07/12/24 Zika: Zika virus screening: Negative : No PFSH PFSH Medical History COVID-19 vaccine series completed Surgical History S/P dilation and curettage [place] teeth extracted History of tonsillectomy Family History Grandfather Diabetes Maternal Heart disease Maternal Dementia Maternal Father Heart disease Social History adopted: No household members: spouse and children housing: house number of children: 2 current occupational status: employed current occupation: [employer] current occupational exposures/hazards: No pets and animals: Yes (not managing litterbox) pets and animals: cat(s) and dog(s) history of recent travel: No sexually active: Yes Smoking Status: Never smoker alcohol intake: current alcohol intake frequency: holidays/special occasions only details: Not while substance use type: does not use well-balanced diet: daily or most days caffeine: Yes Type: other Number of servings: 2 eating out: 1-3 times/week during the past year weight has: remained stable what type of physical activity do you participate in: walking and weight training frequency: 5-6 times per week duration: 15-30 minutes/day kesha/yarsani: Syn[employer] seatbelt use: always do you feel safe at home: Yes 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 Date Name GA/Weeks Outcome Route Bth Weight Gen Labor Lgth Anesthesia Del Locatn Provider FOB Unknown 2021 Jann 38 live - full term 7#4oz Male none [facility] NONA [place] 12/15/19 Phong 38 live - full term 7lbs 9oz Male 7 hours none [facility] Eddie jeronimo 05/01/23 12 spontaneous Delivery Date: 05/01/23 Last Updated by: Trista Kimble, SM HPI 24wk ob Details: LALITHA MONTERO is a 34 year old who presents for routine OB visit. OB Visit ALPHONSO Calculator Estimated Delivery Date Method Current WG Current Estimate 04/18/25 LMP (Certain) 23w 6d Other Estimates 04/20/25 Ultrasound #1 23w 4d Expected Delivery Route/Plan Labor Preferences- CB/BF classes: [] labor support person: [] labor intervention preferences: [] pain management options preferred: [] cut cord/dad catch: [] : [] PP control planned: [] discussed possible routes of delivery and associated risks: [] special requests: [] Specific Issue/Plans Covid status: [] Flu vaccine: [] Tdap vaccine: [] Rhogam: [] LARC form signed: [] Problem list reviewed and updated with the most current plan of care details and appropriate orders placed. Relevant counseling for the gestational age provided. Continue routine care and follow up unless otherwise noted in visit notes/problem list details Initial Weight: Not Recorded Date -???-???-???-???-???-??? -???-???-???-???-???-??? - EGA Weight BP Urine Prot -???-???-???-???-???-??? -???-???-???-???-???-??? - Glucose FHR FuHt Pres Dilation -???-???-???-???-???-??? -???-???-???-???-???-??? - Effaced St Visit Note 09/04/24 -???-???-???-???-???-??? -???-???-???-???-???-??? - 7w 5d 169 lb 115/74 -???-???-???-???-???-??? -???-???-???-???-???-??? - 145 -???-???-???-???-???-??? -???-???-???-???-???-??? - SM- CRL 1.2c m cons with LMP SM- CRL 1.2cm cons with LMP 6 mm s (more content not included)... Normal [facility] Laboratory - Chemistry and C hemistry - challengeOrdered By: Carmita Sierra on 11-28-2024 Glucose Ql (U) Negative [facility] Laboratory - UrinalysisOrder ed By: Carmita Sierra on 11-28-2024 Protein Ql (U) Negative [facility] Quality Lab Technician Office Visit Reporton 11-28-2024 Quality Lab Technician Office Visit Report [facility]'s [address], [address] [place] [address] OFFICE VISIT Date of Service: 11/28/24 MR#: [id number] Acct: [id number] Name: LALITHA MONTERO Rep #: [id number] : 1990 Provider: LUISANA Rao ams Age/Sex: 34/F [place] [facility] [place] Status: Signed Intake Vital Signs 09/18/24 08:53 10/01/24 10:20 10/27/24 08:32 11/28/24 14:39 Height 5 ft 5 in 5 ft 5 in 5 ft 5 in 5 ft 5 in Weight: 174 lb 3 oz BMI 29.0 BP 109/71 Intake Visit Reasons: 19wk ob Chief Complaint: 19wk ob Margarine Maker Required: No Is patient in pain?: No Allergies bee venom protein (honey bee) Allergy (Severe, Verified 11/28/24 14:43) Swelling Sulfa (Sulfonamide Antibiotics) Allergy (Mild, Verified 11/28/24 14:43) Rash Medications ???Medication ???Instructions ???Recorded ???Confirmed ???Type multivitamin no.47-iron fum 27 cap PO 03/23/23 11/28/24 History mg-folate no.1 1 mg-dha 300 mg capsule (PNV-DHA) Last Menstrual Period: 07/12/24 : No PFSH PFSH Medical History COVID-19 vaccine series completed Surgical History S/P dilation and curettage [place] teeth extracted History of tonsillectomy Family History Grandfather Diabetes Maternal Heart disease Maternal Dementia Maternal Father Heart disease Social History adopted: No household members: spouse and children housing: house number of children: 2 current occupational status: employed current occupation: [employer] current occupational exposures/hazards: No pets and animals: Yes (not managing litterbox) pets and animals: cat(s) and dog(s) history of recent travel: No sexually active: Yes Smoking Status: Never smoker alcohol intake: current alcohol intake frequency: holidays/special occasions only details: Not while substance use type: does not use well-balanced diet: daily or most days caffeine: Yes Type: other Number of servings: 2 eating out: 1-3 times/week during the past year weight has: remained stable what type of physical activity do you participate in: walking and weight training frequency: 5-6 times per week duration: 15-30 minutes/day kesha/yarsani: Syn[employer] seatbelt use: always do you feel safe at home: Yes 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 Date Name GA/Weeks Outcome Route Bth Weight Gen Labor Lgth Anesthesia Del Locatn Provider FOB Unknown 2021 Jann 38 live - full term 7#4oz Male none [facility] JCaron Benjie 12/15/19 Phong 38 live - full term 7lbs 9oz Male 7 hours none [facility] Eddie gauthiermarilualexander 05/01/23 12 spontaneous Delivery Date: 05/01/23 Last Updated by: Trista Kimble, SM HPI 19wk ob Details: LALITHA MONTERO is a 34 year old who presents for routine OB visit. OB Visit ALPHONSO Calculator Estimated Delivery Date Method Current WG Current Estimate 04/18/25 LMP (Certain) 19w 6d Other Estimates 04/20/25 Ultrasound #1 19w 4d Expected Delivery Route/Plan Labor Preferences- CB/BF classes: [] labor support person: [] labor intervention preferences: [] pain management options preferred: [] cut cord/dad catch: [] : [] PP control planned: [] discussed possible routes of delivery and associated risks: [] special requests: [] Specific Issue/Plans Covid status: [] Flu vaccine: [] Tdap vaccine: [] Rhogam: [] LARC form signed: [] Problem list reviewed and updated with the most current plan of care details and appropriate orders placed. Relevant counseling for the gestational age provided. Continue routine care and follow up unless otherwise noted in visit notes/problem list details Initial Weight: Not Recorded Date -???-???-???-???-???-??? -???-???-???-???-???-??? - EGA Weight BP Urine Prot -???-???-???-???-???-??? -???-???-???-???-???-??? - Glucose FHR FuHt Pres Dilation -???-???-???-???-???-??? -???-???-???-???-???-??? - Effaced St Visit Note 09/04/24 -???-???-???-???-???-??? -???-???-???-???-???-??? - 7w 5d 169 lb 115/74 -???-???-???-???-???-??? -???-???-???-???-???-??? - 145 -???-???-???-???-???-??? -???-???-???-???-???-??? - SM- CRL 1.2c m cons with LMP SM- CRL 1.2cm cons with LMP 6 mm s ubchorionic hematoma 09/18/24 -???-???-???-???-???-??? -???-???-???-???-???-??? - 9w 5d (more content not included)... Normal [facility] Laboratory - Chemistry and C hemistry - challengeOrdered By: Fidelia Otoole on 10-27-2024 Glucose Ql (U) Negative [facility] Laboratory - UrinalysisOrder ed By: Fidelia Otoole on 10-27-2024 Protein Ql (U) Negative [facility] Quality Lab Technician Office Visit Reporton 10-27-2024 Quality Lab Technician Office Visit Report [facility]'s [address], [address] [place] [address] OFFICE VISIT Date of Service: 10/27/24 MR#: [id number] Acct: [id number] Name: LALITHA MONTERO Rep #: [id number] : 1990 Provider: FRANKI saldana Age/Sex: 33/F [place] [facility] [place] Status: Signed Intake Vital Signs 09/18/24 08:53 10/01/24 10:20 10/27/24 08:28 10/27/24 08:32 Height 5 ft 5 in 5 ft 5 in 5 ft 5 in 5 ft 5 in Weight: 168 lb 8 oz BMI 28.0 BP 108/70 Intake Visit Reasons: 15wk ob Chief Complaint: 15 Week OB Margarine Maker Required: No Is patient in pain?: No Allergies bee venom protein (honey bee) Allergy (Severe, Verified 10/27/24 08:28) Swelling Sulfa (Sulfonamide Antibiotics) Allergy (Mild, Verified 10/27/24 08:28) Rash Medications ???Medication ???Instructions ???Recorded ???Confirmed ???Type multivitamin no.47-iron fum 27 cap PO 03/23/23 10/27/24 History mg-folate no.1 1 mg-dha 300 mg capsule (PNV-DHA) Last Menstrual Period: 07/12/24 Zika: Zika virus screening: Negative : No PFSH PFSH Medical History COVID-19 vaccine series completed Surgical History S/P dilation and curettage [place] teeth extracted History of tonsillectomy Family History Grandfather Diabetes Maternal Heart disease Maternal Dementia Maternal Father Heart disease Social History adopted: No household members: spouse and children housing: house number of children: 2 current occupational status: employed current occupation: [employer] current occupational exposures/hazards: No pets and animals: Yes (not managing litterbox) pets and animals: cat(s) and dog(s) history of recent travel: No sexually active: Yes Smoking Status: Never smoker alcohol intake: current alcohol intake frequency: holidays/special occasions only details: Not while substance use type: does not use well-balanced diet: daily or most days caffeine: Yes Type: other Number of servings: 2 eating out: 1-3 times/week during the past year weight has: remained stable what type of physical activity do you participate in: walking and weight training frequency: 5-6 times per week duration: 15-30 minutes/day kesha/yarsani: Synagogue seatbelt use: always do you feel safe at home: Yes 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 Date Name GA/Weeks Outcome Route Bth Weight Infant Gen Labor Lgth Anesthesia Del Locatn Provider FOB Unknown 2021 Jann 38 live - full term 7#4oz Male none [facility] JCaron Benjie 12/15/19 Phong 38 live - full term 7lbs 9oz Male 7 hours none [facility] Eddie jeronimo 05/01/23 12 spontaneous Delivery Date: 05/01/23 Last Updated by: Trista Kimble, SM HPI 15wk ob Details: LALITHA MONTERO is a 33 year old who presents for routine OB visit. OB Visit ALPHONSO Calculator Estimated Delivery Date Method Current WG Current Estimate 04/18/25 LMP (Certain) 15w 2d Other Estimates 04/20/25 Ultrasound #1 15w 0d Expected Delivery Route/Plan Labor Preferences- CB/BF classes: [] labor support person: [] labor intervention preferences: [] pain management options preferred: [] cut cord/dad catch: [] : [] PP control planned: [] discussed possible routes of delivery and associated risks: [] special requests: [] Specific Issue/Plans Covid status: [] Flu vaccine: [] Tdap vaccine: [] Rhogam: [] LARC form signed: [] Problem list reviewed and updated with the most current plan of care details and appropriate orders placed. Relevant counseling for the gestational age provided. Continue routine care and follow up unless otherwise noted in visit notes/problem list details Initial Weight: Not Recorded Date -???-???-???-???-???-??? -???-???-???-???-???-??? - EGA Weight BP Urine Prot -???-???-???-???-???-??? -???-???-???-???-???-??? - Glucose FHR FuHt Pres Dilation -???-???-???-???-???-??? -???-???-???-???-???-??? - Effaced St Visit Note 09/04/24 -???-???-???-???-???-??? -???-???-???-???-???-??? - 7w 5d 169 lb 115/74 -???-???-???-???-???-??? -???-???-???-???-???-??? - 145 -???-???-???-???-???-??? -???-???-???-???-???-??? - SM- CRL 1.2c m cons with LMP SM- CRL 1.2cm cons with LMP 6 mm s ubchorionic hematoma 0 (more content not included)... Normal [facility] Absolute lymphocyte countOrd ered By: Dominique Patten on 10-01-2024 Lymphocytes Auto (Unsp spec) [#/Vol] 1.62 10*3/uL 0.83-4.51 [facility] Absolute neutrophil countOrd ered By: Dominique Patten on 10-01-2024 Neutrophils (Bld) [#/Vol] 5.2 10*3/uL 2.0-7.7 [facility] Automated lymphocyte count a s percentage of total leukocytesOrdered By: Dominique Patten on 10-01-2024 Lymphocytes/100 WBC Auto (Unsp spec) 21.9 % 19-41 [facility] Basophil percentageOrdered B y: Dominique Patten on 10-01-2024 Basophils/100 WBC (Bld) 0.4 % 0-1 [facility] CBC W/Diff, Automatedon 09-21 Absolute Lymph 1.62 X10 3/uL Normal 0.83-4.51 [facility] Comment on above: Performed By: #### L 3890.6006, L509.8002, BTS, L3890.6301, L3890.6102, L509.4006, L100.0100, L900.0098 #### [facility] [address] [place], [address] Absolute Neut 5.2 X10 3/uL Normal 2.0-7.7 [facility] Comment on above: Performed By: #### L 3890.6006, L509.8002, BTS, L3890.6301, L3890.6102, L509.4006, L100.0100, L900.0098 #### [facility] [address] [place], [address] Basophils/100 WBC (Bld) 0.4 % Normal 0-1 [facility] Comment on above: Performed By: #### L 3890.6006, L509.8002, BTS, L3890.6301, L3890.6102, L509.4006, L100.0100, L900.0098 #### [facility] [address] [facility] [place], [address] Eosinophils/100 WBC (Bld) 0.5 % Normal 0-5 [facility] Comment on above: Performed By: #### L 3890.6006, L509.8002, BTS, L3890.6301, L3890.6102, L509.4006, L100.0100, L900.0098 #### [facility] [address] [place], [address] Erythrocyte distribution width (RBC) [Ratio] 12.2 % Normal 11.6-14.6 [facility] Comment on above: Performed By: #### L 3890.6006, L509.8002, BTS, L3890.6301, L3890.6102, L509.4006, L100.0100, L900.0098 #### [facility] [address] [place], [address] Hematocrit (Bld) [Volume fraction] 38.8 % Normal 37-47 [facility] Comment on above: Performed By: #### L 3890.6006, L509.8002, BTS, L3890.6301, L3890.6102, L509.4006, L100.0100, L900.0098 #### [facility] [address] [place], [address] Hemoglobin (Bld) [Mass/Vol] 13.6 g/dL Normal 12.0-15.0 [facility] Comment on above: Performed By: #### L 3890.6006, L509.8002, BTS, L3890.6301, L3890.6102, L509.4006, L100.0100, L900.0098 #### [facility] [address] [place], [address] IG% 0.300 Normal 0.0-0.9 [facility] Comment on above: Result Comment: IG% - Immature Granulocytes (promyelocytes, myelocytes and metamyelocytes) > 1% indicates that a LEFT SHIFT is Present. Performed By: #### L 3890.6006, L509.8002, BTS, L3890.6301, L3890.6102, L509.4006, L100.0100, L900.0098 #### [facility] [address] [place], [address] Lymphocytes/100 WBC (Bld) 21.9 % Normal 19-41 [facility] Comment on above: Performed By: #### L 3890.6006, L509.8002, BTS, L3890.6301, L3890.6102, L509.4006, L100.0100, L900.0098 #### [facility] [address] [place], [address] MCH (RBC) [Entitic mass] 33.3 pg High 27.0-32.0 [facility] Comment on above: Performed By: #### L 3890.6006, L509.8002, BTS, L3890.6301, L3890.6102, L509.4006, L100.0100, L900.0098 #### [facility] [address] [place], [address] MCHC (RBC) [Mass/Vol] 35.1 g/dL Normal 32-36 [facility] Comment on above: Performed By: #### L 3890.6006, L509.8002, BTS, L3890.6301, L3890.6102, L509.4006, L100.0100, L900.0098 #### [facility] [address] [place], [address] MCV (RBC) [Entitic vol] 95.1 fL Normal 81-99 [facility] Comment on above: Performed By: #### L 3890.6006, L509.8002, BTS, L3890.6301, L3890.6102, L509.4006, L100.0100, L900.0098 #### [facility] [address] [place], [address] Monocytes/100 WBC (Bld) 6.1 % Normal 0-10 [facility] Comment on above: Performed By: #### L 3890.6006, L509.8002, BTS, L3890.6301, L3890.6102, L509.4006, L100.0100, L900.0098 #### [facility] [address] [place], [address] Neutrophils/100 WBC (Bld) 70.8 % High 47-70 [facility] Comment on above: Performed By: #### L 3890.6006, L509.8002, BTS, L3890.6301, L3890.6102, L509.4006, L100.0100, L900.0098 #### [facility] [address] [place], [address] Nucleated RBC (Bld) [#/Vol] 0 10*3/uL Normal 0-5 [facility] Comment on above: Performed By: #### L 3890.6006, L509.8002, BTS, L3890.6301, L3890.6102, L509.4006, L100.0100, L900.0098 #### [facility] [address] [place], [address] Platelet mean volume (Bld) [Entitic vol] 11.3 fL Normal 6.2-12.0 [facility] Comment on above: Performed By: #### L 3890.6006, L509.8002, BTS, L3890.6301, L3890.6102, L509.4006, L100.0100, L900.0098 #### [facility] [address] [place], [address] Platelets (Bld) [#/Vol] 239 10*3/uL Normal 150-450 [facility] Comment on above: Performed By: #### L 3890.6006, L509.8002, BTS, L3890.6301, L3890.6102, L509.4006, L100.0100, L900.0098 #### [facility] [address] [place], [address] RBC (Bld) [#/Vol] 4.08 10*6/uL Low 4.2-5.4 [facility] Comment on above: Performed By: #### L 3890.6006, L509.8002, BTS, L3890.6301, L3890.6102, L509.4006, L100.0100, L900.0098 #### [facility] [address] [place], [address] RDW SD 42.5 fl Normal 35.1-43.9 [facility] Comment on above: Performed By: #### L 3890.6006, L509.8002, BTS, L3890.6301, L3890.6102, L509.4006, L100.0100, L900.0098 #### [facility] [address] [place], [address] WBC (Bld) [#/Vol] 7.4 10*3/uL Normal 4.4-11.0 [facility] Comment on above: Performed By: #### L 3890.6006, L509.8002, BTS, L3890.6301, L3890.6102, L509.4006, L100.0100, L900.0098 #### [facility] [address] [place], [address] Eosinophil percentageOrdered By: Dominique Sandor on 10-01-2024 Eosinophils/100 WBC (Bld) 0.5 % 0-5 [facility] Erythrocyte distribution wid th ratioOrdered By: Dominique Patten on 10-01-2024 Erythrocyte distribution width (RBC) [Ratio] 12.2 % 11.6-14.6 [facility] Erythrocyte distribution wid th standard deviationOrdered By: Dominique Patten on 10-01-2024 Erythrocyte distribution width (RBC) [Ratio] 42.5 fl 35.1-43.9 [facility] HIVon 10-01-2024 HIV Non-Reactive Normal Nonreactive [facility] [facility] Comment on above: Result Comment: Non- Reactive Reactive Repeatedly reactive samples must be confirmed according to CDC recommended confirmatory algorithms. The subresults for either HIVAG or AHIV can be used as an aid in the selection of the confirmation algorithm for reactive samples. Send out specimens with Reactive results to [facility] for confirmation. Order the HIV antibody detection and differentiation: lc#[id number] Performed By: #### L 3890.6006, L509.8002, BTS, L3890.6301, L3890.6102, L509.4006, L100.0100, L900.0098 #### [facility] [address] [place], [place], [id number] Hematocrit Auto (Bld) [Volum e fraction]Ordered By: Dominique Patten on 10-01-2024 Hematocrit (Bld) [Volume fraction] 38.8 % 37-47 [facility] Hemoglobin measurementOrdere d By: Dominique Patten on 10-01-2024 Hemoglobin (Bld) [Mass/Vol] 13.6 g/dL 12.0-15.0 [facility] Hepatitis C Antibodyon 10-01 Hepatitis C Ab Non-Reactive Normal Nonreactive [facility] Comment on above: Result Comment: Reac tive: Presumptive evidence of antibodies to HCV. Follow CDC recommendations for supplemental testing. Non-Reactive: Antibodies to HCV were not detected; does not exclude the possibility of exposure to HCV Reactive Results are presumptive evidence of antibodies to HCV. Follow CDC recommendations for supplemental testing. Order confirmation testing: HCV Quant by PCR testing - HCVPCR #[id number] Non Reactive: < 0.8 Equivocal: >/= 0.8 to < 1.0 Reactive: >/= 1.0 The CDC requires that a reactive/equivocal HCV antibody result be sent out for confirmation. HCV Quant by PCR testing. Performed By: #### L 700.8000 #### [facility] [address], [place], [id number] Immature granulocytes/100 WB C Auto (Bld)Ordered By: Dominique Patten on 10-01-2024 Immature granulocytes/100 WBC (Bld) 0.300 % 0.0-0.9 [facility] Comment on above: IG% - Immature Granu locytes (promyelocytes, myelocytes and metamyelocytes) > 1% indicates that a LEFT SHIFT is Present. L3890.6102on 10-01-2024 HEP B Surf Ag Non-Reactive Normal Nonreactive [facility] Comment on above: Result Comment: Reac tive: Presumptive evidence of HBV. Repeatedly reactive samples must be confirmed using a neutralization test ([employer] HBsAg Confirmatory Test) Non-Reactive: HBsAg not detected; does not exclude the possibility of exposure to HBV Performed By: #### L 3890.6006, L509.8002, BTS, L3890.6301, L3890.6102, L509.4006, L100.0100, L900.0098 #### [facility] [address] [place], [address] L509.4006on 10-01-2024 Rubella IgG REAC Normal Nonreactive [facility] Comment on above: Result Comment: Anti body Result: Interpretation Non-Reactive: Non-Immune Reactive: Immune The following results were obtained with the [employer] Rubella IgG assay. Results from assays of other manufacturers cannot be used interchangeably. Performed By: #### L 3890.6006, L509.8002, BTS, L3890.6301, L3890.6102, L509.4006, L100.0100, L900.0098 #### [facility] [address] [place], [place], [address] Laboratory - Microbiology an d Antimicrobial susceptibilityOrdered By: Dominique Patten on 10-01-2024 HBV surface Ag Ql (S) Non-Reactive Nonreactive [facility] Comment on above: Reactive: Presumptiv e evidence of HBV. Repeatedly reactive samples must be confirmed using a neutralization test ([employer] HBsAg Confirmatory Test)Non-Reactive: HBsAg not detected; does not exclude the possibility of exposure to HBV MCV (mean corpuscular volume ) determinationOrdered By: Dominique Patten on 10-01-2024 MCV (RBC) [Entitic vol] 95.1 fL 81-99 [facility] Mean corpuscular hemoglobin (MCH) determinationOrdered By: Dominique Patten on 10-01-2024 MCH (RBC) [Entitic mass] 33.3 pg High 27.0-32.0 [facility] Mean corpuscular hemoglobin concentration (MCHC) determinationOrdered By: Dominique Patten on 10-01-2024 MCHC (RBC) [Mass/Vol] 35.1 g/dL 32-36 [facility] Mean platelet volume determi nationOrdered By: Dominique Montoyaannia on 10-01-2024 Platelet mean volume (Bld) [Entitic vol] 11.3 fL 6.2-12.0 [facility] Monocyte percentageOrdered B y: Dominique Patten on 10-01-2024 Monocytes/100 WBC (Bld) 6.1 % 0-10 [facility] NATERAon 10-01-2024 NATURA SEE SCANNED REPORT Normal [facility] Comment on above: Order Comment: Comme nts: NIPT with Gender Performed By: #### L 3890.6006, L509.8002, BTS, L3890.6301, L3890.6102, L509.4006, L100.0100, L900.0098 #### [facility] [address] [place], [address] Neutrophil percentageOrdered By: Dominique Sandor on 10-01-2024 Neutrophils/100 WBC (Bld) 70.8 % High 47-70 [facility] No Panel InformationOrdered By: Dominique Winchesternikolay on 10-01-2024 HIV (1&2) Antibody Non-Reactive Nonreactive [facility] Comment on above: Non-ReactiveReactive Repeatedly reactive samples must be confirmed according to CDC recommended confirmatory algorithms. The subresults for either HIVAG or AHIV can be used as an aid in the selection of the confirmation algorithm for reactive samples.Send out specimens with Reactive results to [facility] for confirmation.Order the HIV antibody detection and differentiation: #[id number] Nucleated red blood cell per centageOrdered By: Dominique Sandor on 10-01-2024 Nucleated RBC/100 WBC (Bld) [Ratio] 0 % 0-5 [facility] Quality Lab Technician Office Visit Reporton 10-01-2024 Quality Lab Technician Office Visit Report [facility] [address], [address] [place] [address] OFFICE VISIT Date of Service: 10/01/24 MR#: [id number] Acct: [id number] Name: LALITHA MONTERO Rep #: [id number] : 1990 Provider: Dr. Jenna Ulloa, DO Age/Sex: 33/F Location: [facility] Status: Signed Intake Vital Signs 12/03/23 08:53 09/18/24 08:53 10/01/24 10:18 10/01/24 10:20 Height 5 ft 5 in 5 ft 5 in 5 ft 5 in 5 ft 5 in Weight: 167 lb BMI 27.8 BP 110/78 Intake Visit Reasons: 11wk OB Margarine Maker Required: No Is patient in pain?: No Allergies bee venom protein (honey bee) Allergy (Severe, Verified 10/01/24 10:18) Swelling Sulfa (Sulfonamide Antibiotics) Allergy (Mild, Verified 10/01/24 10:18) Rash Medications ???Medication ???Instructions ???Recorded ???Confirmed ???Type multivitamin no.47-iron fum 27 cap PO 03/23/23 10/01/24 History mg-folate no.1 1 mg-dha 300 mg capsule (PNV-DHA) Last Menstrual Period: 07/12/24 Zika: Zika virus screening: Negative : No PFSH PFSH Medical History Contraception management Abnormal glucose affecting COVID-19 vaccine series completed Surgical History S/P dilation and curettage [place] teeth extracted History of tonsillectomy Family History Grandfather Diabetes Maternal Heart disease Maternal Dementia Maternal Father Heart disease Social History adopted: No household members: spouse and children housing: house number of children: 2 current occupational status: employed current occupation: [employer] current occupational exposures/hazards: No pets and animals: Yes (not managing litterbox) pets and animals: cat(s) and dog(s) history of recent travel: No sexually active: Yes Smoking Status: Never smoker alcohol intake: current alcohol intake frequency: holidays/special occasions only details: Not while substance use type: does not use well-balanced diet: daily or most days caffeine: Yes Type: other Number of servings: 2 eating out: 1-3 times/week during the past year weight has: remained stable what type of physical activity do you participate in: walking and weight training frequency: 5-6 times per week duration: 15-30 minutes/day kesha/yarsani: Synagogue seatbelt use: always do you feel safe at home: Yes 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 Date Name GA/Weeks Outcome Route Bth Weight Gen Labor Lgth Anesthesia Del Locatn Provider FOB Unknown 2021 Jann 38 live - full term 7#4oz Male none [facility] JCaron Waldrop 12/15/19 Phong 38 live - full term 7lbs 9oz Male 7 hours none [facility] Eddie jeronimo 05/01/23 12 spontaneous Delivery Date: 05/01/23 Last Updated by: Trista Kimble, SM HPI 11wk OB Details: LALITHA MONTERO is a 33 year old who presents for routine OB visit. OB Visit ALPHONSO Calculator Estimated Delivery Date Method Current WG Current Estimate 04/18/25 LMP (Certain) 11w 4d Other Estimates 04/20/25 Ultrasound #1 11w 2d Expected Delivery Route/Plan Labor Preferences- CB/BF classes: [] labor support person: [] labor intervention preferences: [] pain management options preferred: [] cut cord/dad catch: [] : [] PP control planned: [] discussed possible routes of delivery and associated risks: [] special requests: [] Specific Issue/Plans Covid status: [] Flu vaccine: [] Tdap vaccine: [] Rhogam: [] LARC form signed: [] Problem list reviewed and updated with the most current plan of care details and appropriate orders placed. Relevant counseling for the gestational age provided. Continue routine care and follow up unless otherwise noted in visit notes/problem list details Initial Weight: Not Recorded Date -???-???-???-???-???-??? -???-???-???-???-???-??? - EGA Weight BP Urine Prot -???-???-???-???-???-??? -???-???-???-???-???-??? - Glucose FHR FuHt Pres Dilation -???-???-???-???-???-??? -???-???-???-???-???-??? - Effaced St Visit Note 09/04/24 -???-???-???-???-???-??? -???-???-???-???-???-??? - 7w 5d 169 lb 115/74 -???-???-???-???-???-??? -???-???-???-???-???-??? - 145 -???-???-???-???-???-??? -???-???-???-???-???-??? - SM- CRL 1.2c m cons with LMP SM- CRL 1.2cm cons with LMP (more content not included)... Normal [facility] Platelet countOrdered By: Brian Patten on 10-01-2024 Platelets (Bld) [#/Vol] 239 10*3/uL 150-450 [facility] RBC Auto (Bld) [#/Vol]Ordere d By: Dominique Patten on 10-01-2024 RBC (Bld) [#/Vol] 4.08 10*6/uL Low 4.2-5.4 [facility] Syphilis Antibodieson 2024 Syphilis Abs Non-Reactive Normal Nonreactive [facility] Comment on above: Performed By: #### L 3890.6006, L509.8002, BTS, L3890.6301, L3890.6102, L509.4006, L100.0100, L900.0098 #### [facility] [place], [address] Type AND Screenon 10-01-2024 Ab SCREEN GEL Negative Normal [facility] Comment on above: Order Comment: PN Performed By: #### L 3890.6006, L509.8002, BTS, L3890.6301, L3890.6102, L509.4006, L100.0100, L900.0098 #### [facility] [address] [place], [address] White blood cell (WBC) count Ordered By: Dominique Patten on 10-01-2024 WBC (Bld) [#/Vol] 7.4 10*3/uL 4.4-11.0 [facility] CNOVon 09-29-2024 CNOV Office Visit (DERMTW ) -------- LALITHA MONTERO ([id number]) 1990 F Date Time Provider Department 09/29/24 9:00 AM LILLI LEDBETTER DERMTW During your visit today, we recorded the following information about you: Lilli eLdbetter PA-C 09/29/2024 9:56 AM Signed Lalitha Montero is a 33 year old female who presents today for Patient presents with: Full Body Skin Check Current Treatment: Skin exam Past Treatment: As above History of nonmelanoma skin cancer: denies History of Melanoma: denies Family history of skin cancer: denies Dermatology History: Specialty Problems None Allergies: Bactrim [Sulfamethoxazole-Trimet hoprim] and Bees Past Medical History: No past medical history on file. MEDS: Current Outpatient Medications on File Prior to Visit Medication Sig MULTIVITAMIN ORAL Take by mouth. EPINEPHrine (EPIPEN) 0.3 mg/0.3 mL auto-injector Give 1 injection into side of thigh for allergic reaction. Repeat dose in 5-15 min if not improving. No current facility-administered medications on file prior to visit. Review of systems Yes Has pacemaker / defibrillator No Takes aspirin / anticoagulant daily No Has valve disorders No Other problems elsewhere on skin No Melly Darnell RN The above was entered by the nursing staff. I have reviewed the documentation and I concur. Lilli FELIX HPI: Chief Complaint Skin exam Location Full body Duration 1 years Timing constant Severity mild Quality Skin tag upper left thigh Modifying Factors: Multiple moles Currently Physical Exam - Area(s) Examined: No images are attached to the encounter. The pt is alert and oriented, in NAD. Skin examination of head/scalp, face, neck, chest, back, abdomen, bilateral upper, lower extremities, groin/buttocks, hands, feet, digits, and nails. 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; Exam of feet deferred, shoes in place) was significant for: Items identified on Diagram above Brown stuck on papules and plaques throughout Light [place] macules on sun exposed areas Bright holt red papules throughout Regular and symmetric hyperpigmented macules/papules throughout face, trunk and b/l upper and lower extremities Left Groin A) 1cm skin colored fleshy pedunculated plaque Assessment / Plan: (D22.70, D22.5, D22.60) Multiple benign nevi of upper extremity, lower extremity, and trunk (primary encounter diagnosis) (D22.30) Melanocytic nevi of face Comment: stable, regular and symmetric on exam Plan: Continue to monitor for growth/change Monitor with monthly self-skin exams/serial photography Patient counseled on ABCDEs of melanoma Sunscreen and photoprotection advised, broad spectrum, at least SPF 30 or greater Patient to contact office for any new or changing lesions or other concerns (L81.4) Lentigines Comment:scattered throughout sun exposed surfaces Plan: continue to monitor/observe (D18.01) Holt angioma Comment: scattered throughout Plan: discussed benign nature, continue to monitor/observe (L82.1) Seborrheic keratoses Comment: scattered throughout Plan: discussed benign nature, continue to monitor/observe (D49.2) Neoplasm of unspecified behavior of bone, soft tissue, and skin Comment: exam as above Plan: SURGICAL PATHOLOGY, lidocaine 10 mg/mL (1 %) 30 mg injection (XYLOCAINE), SKIN / NAIL BIOPSY Shave of lesion to establish and confirm diagnosis: Photo taken: Yes Risks, benefits, alternatives and personnel required for shave biopsy reviewed with patient. Patient and provider agree as to site(s) to be biopsied. Patient verbalizes understanding and wishes to proceed. Site(s) prepped with alcohol and anesthetized with 1% lidocaine plain. Shave of lesion(s) performed to the level of the dermis. 1 specimen(s) from see below sent for pathology to r/o see below. Hyfrecator used and bandaging applied. Written and verbal wound care instructions provided to patient, understanding verbalized. OK to call with results. EBL: scant SURGICAL PATHOLOGY Ordered at: 09/29/24 0920 Source of specimen(s): Skin, Shave Biopsy Clinical History: A) left groin r/o FEP vs other UNIVERSAL PROTOCOL / SAFETY CHECKLIST Procedure to be Performed: shave biopsy Sign In: A Moment of CARE was completed. Appropriate PPE (Personal Protective Equipment) worn by all providers involved with the procedure. Special equipment not required. Patient/Surrogate Stated/Verified: Patient name, Date of , Relevant allergies, and The intended procedure Time Out: Relevant labs, photos, and/or imaging studies have been reviewed. Intended patient and procedure match the source document(s) (e.g. consent, HANDP, associated studies [imaging, pathology]) match the intended patient and procedure. Consent obtained and matches the intended procedure. Yes. Correct side/site has been marked an (more content not included)... Normal [facility] Pathology biopsy report Sam (Tiss)on 09-29-2024 AP DISCLAIMER Normal [facility] Comment on above: Order Comment: Speci men Type: TISSUE SPECIMEN Ordering Facility: [facility] Address: [address] [place] [address] Result Comment: Bety conde Developed Test (LDT) Disclaimer: Performance characteristics of immunohistochemical, immunofluorescent, and chromogenic in-situ hybridization tests have been determined by the performing laboratory within [facility]'s [facility] ([facility], [facility], [facility], [facility], [facility], [facility], or [facility]) in a manner consistent with CLIA requirements. One or more of these tests may not have been cleared or approved by the FDA. RT-PLM is regulated under CLIA as qualified to perform high-complexity testing. These tests are used for clinical purposes. These should not be regarded as investigational or for research. Positive and negative controls stain appropriately. Performed By: #### 6 6121-5 #### [facility] CLIA [id number] [address] [place] [address] [place] CASE REPORT Normal [facility] Comment on above: Order Comment: Speci men Type: TISSUE SPECIMEN Ordering Facility: [facility] Address: [address] [place] [address] Result Comment: Surg [facility] Pathology Report Case: [id number] Authorizing Provider: Lilli Ledbetter PA-C Collected: 09/29/2024 09:39 AM Ordering Location: Dermatology Received: 09/29/2024 12:56 PM Pathologist: Guicho Jeff MD Specimen: Skin, Shave Biopsy, A) left groin Performed By: #### 6 6121-5 #### [facility] CLIA [id number] [address] [place] [address] [place] CLINICAL HISTORY A) left groin r/o FE P vs other Normal [facility] Comment on above: Order Comment: Gracei men Type: TISSUE SPECIMEN Ordering Facility: [facility] Address: [address] [place] [address] Performed By: #### 6 6121-5 #### [facility] CLIA [id number] [address] [place] [address] [place] FINAL DIAGNOSIS Normal [facility] Comment on above: Order Comment: Speci men Type: TISSUE SPECIMEN Ordering Facility: [facility] Address: [address] [place] [address] Result Comment: A. S kin, left groin, shave biopsy: - Fibroepithelial polyp. SDB/NS/bs 09/30/2024 at 1551 EDT Performed By: #### 6 6121-5 #### [facility] CLIA [id number] [address] [place] [address] [place] FINAL PERFORMING LAB Normal [facility] Comment on above: Order Comment: Speci men Type: TISSUE SPECIMEN Ordering Facility: [facility] Address: [address] [place] [address] Result Comment: Diag nostic interpretation performed at: [facility], [address] [place] [address] CLIA# [id number] Engineer Systems: Calos Valera MD Performed By: #### 6 6121-5 #### [facility] CLIA [id number] [address] [place] [address] [place] GROSS DESCRIPTION Normal [facility] Comment on above: Order Comment: Speci men Type: TISSUE SPECIMEN Ordering Facility: [facility] Address: [address] [place] [address] Result Comment: A. S kin, Shave Biopsy Received in formalin is an irregular shaped segment of [place]-pink, rubbery and wrinkled skin measuring 1.1 x 0.7 x 0.9 cm. The specimen is bisected. Totally submitted in one cassette. Gross examination performed at [facility], [address] [place] [address] September 29, 2024 5:45 PM Performed By: #### 6 6121-5 #### [facility] CLIA [id number] [address] [place] [address] [place] SKIN / NAIL BIOPSYon 025 Type of biopsy: tangential [facility] - Chemistry and C hemistry - challengeOrdered By: Dominique Patten on 09-18-2024 Glucose Ql (U) Negative [facility] Laboratory - UrinalysisOrder ed By: Dominique Patten on 09-18-2024 Protein Ql (U) Negative [facility] Quality Lab Technician Office Visit Reporton 09-18-2024 Quality Lab Technician Office Visit Report [address], [address] [place] [address] OFFICE VISIT Date of Service: 09/18/24 MR#: [id number] Acct: [id number] Name: LALITHA MONTERO Rep #: [id number] : 1990 Provider: Dr. Dominique pittman MD Age/Sex: 33/F Location: [facility] Status: Signed Intake Vital Signs 09/04/24 13:13 09/18/24 08:53 Height 5 ft 5 in 5 ft 5 in Weight: 169 lb 168 lb BMI 28.1 27.9 BP 115/74 112/68 Intake Visit Reasons: 9 wk ob Margarine Maker Required: No Is patient in pain?: No Allergies bee venom protein (honey bee) Allergy (Severe, Verified 09/18/24 08:54) Swelling Sulfa (Sulfonamide Antibiotics) Allergy (Mild, Verified 09/18/24 08:54) Rash Medications ???Medication ???Instructions ???Recorded ???Confirmed ???Type multivitamin no.47-iron fum 27 cap PO 03/23/23 09/18/24 History mg-folate no.1 1 mg-dha 300 mg capsule (PNV-DHA) Last Menstrual Period: 07/12/24 Zika: Zika virus screening: Negative : No PFSH PFSH Medical History Contraception management Abnormal glucose affecting COVID-19 vaccine series completed Surgical History S/P dilation and curettage [place] teeth extracted History of tonsillectomy Family History Grandfather Diabetes Maternal Heart disease Maternal Dementia Maternal Father Heart disease Social History adopted: No household members: spouse and children housing: house number of children: 2 current occupational status: employed current occupation: [employer] current occupational exposures/hazards: No pets and animals: Yes (not managing litterbox) pets and animals: cat(s) and dog(s) history of recent travel: No sexually active: Yes Smoking Status: Never smoker alcohol intake: current alcohol intake frequency: holidays/special occasions only details: Not while substance use type: does not use well-balanced diet: daily or most days caffeine: Yes Type: other Number of servings: 2 eating out: 1-3 times/week during the past year weight has: remained stable what type of physical activity do you participate in: walking and weight training frequency: 5-6 times per week duration: 15-30 minutes/day kesha/yarsani: Synagogue seatbelt use: always do you feel safe at home: Yes 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 Date Name GA/Weeks Outcome Route Bth Weight Gen Labor Lgth Anesthesia Del Locatn Provider FOB Unknown 2021 Jann 38 live - full term 7#4oz Male none [facility] NONA Waldrop 12/15/19 Phong 38 live - full term 7lbs 9oz Male 7 hours none [facility] Eddie jeronimo 05/01/23 12 spontaneous Delivery Date: 05/01/23 Last Updated by: Trista Kimble, MED HPI 9 wk ob Details: LALITHA MONTERO is a 33 year old who presents for routine OB visit. OB Visit ALPHONSO Calculator Estimated Delivery Date Method Current WG Current Estimate 04/18/25 LMP (Certain) 9w 5d Other Estimates 04/20/25 Ultrasound #1 9w 3d Expected Delivery Route/Plan Labor Preferences- CB/BF classes: [] labor support person: [] labor intervention preferences: [] pain management options preferred: [] cut cord/dad catch: [] : [] PP control planned: [] discussed possible routes of delivery and associated risks: [] special requests: [] Specific Issue/Plans Covid status: [] Flu vaccine: [] Tdap vaccine: [] Rhogam: [] LARC form signed: [] Problem list reviewed and updated with the most current plan of care details and appropriate orders placed. Relevant counseling for the gestational age provided. Continue routine care and follow up unless otherwise noted in visit notes/problem list details Initial Weight: Not Recorded Date -???-???-???-???-???-??? -???-???-???-???-???-??? - EGA Weight BP Urine Prot -???-???-???-???-???-??? -???-???-???-???-???-??? - Glucose FHR FuHt Pres Dilation -???-???-???-???-???-??? -???-???-???-???-???-??? - Effaced St Visit Note 09/04/24 -???-???-???-???-???-??? -???-???-???-???-???-??? - 7w 5d 169 lb 115/74 -???-???-???-???-???-??? -???-???-???-???-???-??? - 145 -???-???-???-???-???-??? -???-???-???-???-???-??? - SM- CRL 1.2c m cons with LMP SM- CRL 1.2cm cons with LMP 6 mm s ubchorionic hematoma 09/18/24 - (more content not included)... Normal [facility] Chlamydia/GC NICOLAS aptimaon CHLAMY,NUC ACID Negative Normal Negative [facility] Comment on above: Performed By: #### L 7000.1800 #### [facility] Laboratory [address] [place], [place], [address] GC BY NUC ACID Negative Normal Negative [facility] Comment on above: Result Comment: Perf ormed at: =G - [facility] [address] [place] [id number] Flag Signalman: Julia Storm MD, Phone: [phone] Performed By: #### L 0620.1800 #### [facility] [address] [place], [place], [id number] Urine Cultureon 09-05-2024 URC Culture exhibits no growth. Normal [facility] Comment on above: Performed By: #### L 7000.1800 #### [facility] Laboratory [address] [place], [address] Chlamydia trachomatis rRNA d etection by probe and target amplification methodOrdered By: Dominique Patten on 09-04-2024 C. trachomatis rRNA NICOLAS+probe Ql (Unsp spec) Negative Negative [facility] Neisseria gonorrhoeae nuclei c acid detection by amplified probe techniqueOrdered By: Dominique Patten on 09-04-2024 N. gonorrhoeae DNA NICOLAS+probe Ql (Unsp spec) Negative Negative [facility] Comment on above: Performed at: =[address] [id number] Director: Julia Storm MD, Phone: [phone] Quality Lab Technician Office Visit Reporton 09-04-2024 Quality Lab Technician Office Visit Report [facility] [address], [address] [place] [address] OFFICE VISIT Date of Service: 09/04/24 MR#: [id number] Acct: [id number] Name: LALITHA MONTERO Rep #: [id number] : 1990 Provider: Dr. Dominique pittman MD Age/Sex: 33/F Location: [facility] Status: Signed Intake Vital Signs 12/03/23 08:53 09/04/24 13:13 Height 5 ft 5 in 5 ft 5 in Weight: 169 lb BMI 28.1 BP 115/74 Intake Visit Reasons: New OB, LMP 07/12, ALPHONSO 04/18 Chief Complaint: NOB Margarine Maker Required: No Is patient in pain?: No Allergies bee venom protein (honey bee) Allergy (Severe, Verified 09/04/24 13:14) Swelling Sulfa (Sulfonamide Antibiotics) Allergy (Mild, Verified 09/04/24 13:14) Rash Medications ???Medication ???Instructions ???Recorded ???Confirmed ???Type multivitamin no.47-iron fum 27 cap PO 03/23/23 08/29/24 History mg-folate no.1 1 mg-dha 300 mg capsule (PNV-DHA) Last Menstrual Period: 07/12/24 Zika: Zika virus screening: Negative : No PFSH [facility] Medical History Contraception management Abnormal glucose affecting COVID-19 vaccine series completed Surgical History S/P dilation and curettage [place] teeth extracted History of tonsillectomy Family History Grandfather Diabetes Maternal Heart disease Maternal Dementia Maternal Father Heart disease Social History adopted: No household members: spouse and children housing: house number of children: 2 current occupational status: employed current occupation: [employer] current occupational exposures/hazards: No pets and animals: Yes (not managing litterbox) pets and animals: cat(s) and dog(s) history of recent travel: No sexually active: Yes Smoking Status: Never smoker alcohol intake: current alcohol intake frequency: holidays/special occasions only details: Not while substance use type: does not use well-balanced diet: daily or most days caffeine: Yes Type: other Number of servings: 2 eating out: 1-3 times/week during the past year weight has: remained stable what type of physical activity do you participate in: walking and weight training frequency: 5-6 times per week duration: 15-30 minutes/day kesha/yarsani: Synagogue seatbelt use: always do you feel safe at home: Yes 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 Date Name GA/Weeks Outcome Route Bth Weight Gen Labor Lgth Anesthesia Del Locatn Provider FOB Unknown 2021 Jann 38 live - full term 7#4oz Male none [facility] NONA [place] 12/15/19 Phong 38 live - full term 7lbs 9oz Male 7 hours none [facility] Eddie jeronimo 05/01/23 12 spontaneous Delivery Date: 05/01/23 Last Updated by: MED Draper HPI New OB, LMP 07/12, ALPHONSO 04/18 Details: LALITHA MONTERO is a 33 year old who presents for New OB visit. OB Visit ALPHONSO Calculator Estimated Delivery Date Method Current WG Current Estimate 04/18/25 LMP (Certain) 7w 5d Other Estimates 04/20/25 Ultrasound #1 7w 3d Comments: HIV: Urine Culture: Sequential Screen: NIPT Screen: Estimated Due Date: 04/18/25 Expected Delivery Route/Plan Labor Preferences- CB/BF classes: [] labor support person: [] labor intervention preferences: [] pain management options preferred: [] cut cord/dad catch: [] : [] PP control planned: [] discussed possible routes of delivery and associated risks: [] special requests: [] Specific Issue/Plans Covid status: [] Flu vaccine: [] Tdap vaccine: [] Rhogam: [] LARC form signed: [] Problem list reviewed and updated with the most current plan of care details and appropriate orders placed. Relevant counseling for the gestational age provided. Continue routine care and follow up unless otherwise noted in visit notes/problem list details Initial Weight: Not Recorded Date -???-???-???-???-???-??? -???-???-???-???-???-??? - EGA Weight BP Urine Prot -???-???-???-???-???-??? -???-???-???-???-???-??? - Glucose FHR FuHt Pres Dilation -???-???-???-???-???-??? -???-???-???-???-???-??? - Effaced St Visit Note 09/04/24 -???-???-???-???-???-??? -???-???-???-???-???-??? - 7w 5d 169 lb 115/74 -???-???-???-???-???-??? -???-???-???-???-???-??? - 145 -? (more content not included)... Normal [facility] Urine cultureOrdered By: Hector Montoyaannia on 09-04-2024 Bacteria identified Cx Nom (U) Culture exhibits no growth. [facility] Transvaginal w/Preg USon Transvaginal w/Preg US [facility] Imaging Services [address] [place], [place] [address] Transvaginal w/Preg US MR#: [id number] Acct: [id number] Name: LALITHA MONTERO Rep #: [id number] : 1990 F 33 From: Adam melgar MD PCP: FRANKI Moore Status: REG CLI Study: Transvaginal w/Preg US Date of Exam: 09/02/24 Exam# [id number] Ordering Dr: Carmita Sierra CNM PROCEDURE: TRANSVAGINAL W/PREG US 09/02/2024 REASON FOR EXAM: VIABILITY, EARLY SPOTTING IN TECHNIQUE: Transvaginal. COMPARISON: None FINDINGS: Comments: LMP: July 12, 2024 Number of Gestational Sacs: 1 Gestational Sac Shape: Normal Number of Fetuses: 1 Heart Rate: (average) Yolk Sac: Present and unremarkable. Placenta: Presently not well-visualized Amniotic Fluid Volume: Subjectively normal for gestational age. Uterine Abnormalities: Maternal uterus is unremarkable. Ovaries / Adnexa: 2 cm by 2 cm x 1.9 cm corpus luteum cyst in the left ovary. DIMENSIONS: Parameter Measurement / EGA [place] Rump Length: 1 cm/7 weeks and 1 day Gestational Sac: 2.5 cm/7 weeks and 4 days Yolk Sac: 4 mm/ ESTIMATED GESTATIONAL AGE: By Ultrasound: 7 weeks and 3 days By LMP: 7 weeks and 3 days ESTIMATED DATE OF DELIVERY: By Ultrasound: April 18, 2025 By LMP: April 18, 2025. US/Transvaginal w/Preg US IMPRESSION: UNREMARKABLE FIRST TRIMESTER ULTRASOUND. Reading Location: [facility] CC: LUISANA Sierra; FRANKI Guallpa Director Of Fundraising: Signed Normal [facility] Serum human chorionic gonado tropin detection for pregnancyOrdered By: Carmita Sierra on 09-01-2024 HCG ( [place]) [place]l [address] mIU/mL High <9 [facility] Comment on above: Gestational Age0.2-1 Week: 5-50 mIU/mL1-2 Weeks: 50-500 mIU/mL2-3 Weeks: 100-5000 mIU/mL3-4 Weeks: 500-10,000 mIU/mL4-5 Weeks:1000-50,000 mIU/mL5-6 Weeks: 10,000-100,000 mIU/mL6-8 Weeks: 15,000-200,000 mIU/mL2-3 Months:10,000-100,000 mIU/mL hCG Titer Quant., Serumon HCG QUANT. 28188 mIU/mL High <9 non-preg [facility] Comment on above: Result Comment: Gest ational Age 0.2-1 Week: 5-50 mIU/mL 1-2 Weeks: 50-500 mIU/mL 2-3 Weeks: 100-5000 mIU/mL 3-4 Weeks: 500-10,000 mIU/mL 4-5 Weeks:1000-50,000 mIU/mL 5-6 Weeks: 10,000-100,000 mIU/mL 6-8 Weeks: 15,000-200,000 mIU/mL 2-3 Months:10,000-100,000 mIU/mL Performed By: #### L 700.8000 #### [facility] Laboratory [address] [place] [address], [id number] Serum human chorionic gonado tropin detection for pregnancyOrdered By: Jessica Toure on 08-29-2024 HCG ( test) Ql [address] mIU/mL High <9 [facility] Comment on above: Gestational Age0.2-1 Week: 5-50 mIU/mL1-2 Weeks: 50-500 mIU/mL2-3 Weeks: 100-5000 mIU/mL3-4 Weeks: 500-10,000 mIU/mL4-5 Weeks:1000-50,000 mIU/mL5-6 Weeks: 10,000-100,000 mIU/mL6-8 Weeks: 15,000-200,000 mIU/mL2-3 Months:10,000-100,000 mIU/mL hCG Titer Quant., Serumon HCG QUANT. 40315 mIU/mL High <9 non-[facility] Comment on above: Result Comment: Gest ational Age 0.2-1 Week: 5-50 mIU/mL 1-2 Weeks: 50-500 mIU/mL 2-3 Weeks: 100-5000 mIU/mL 3-4 Weeks: 500-10,000 mIU/mL 4-5 Weeks:1000-50,000 mIU/mL 5-6 Weeks: 10,000-100,000 mIU/mL 6-8 Weeks: 15,000-200,000 mIU/mL 2-3 Months:10,000-100,000 mIU/mL Performed By: #### L 700.8000 #### [facility] Laboratory [address] [place], [place] [address], [address] Serum human chorionic gonado tropin detection for pregnancyOrdered By: Jessica Toure on 08-27-2024 HCG ( test) Ql [address] mIU/mL High <9 [facility] Comment on above: Gestational Age0.2-1 Week: 5-50 mIU/mL1-2 Weeks: 50-500 mIU/mL2-3 Weeks: 100-5000 mIU/mL3-4 Weeks: 500-10,000 mIU/mL4-5 Weeks:1000-50,000 mIU/mL5-6 Weeks: 10,000-100,000 mIU/mL6-8 Weeks: 15,000-200,000 mIU/mL2-3 Months:10,000-100,000 mIU/mL hCG Titer Quant., Serumon HCG QUANT. 19427 mIU/mL High <9 non-preg [facility] Comment on above: Result Comment: Gest ational Age 0.2-1 Week: 5-50 mIU/mL 1-2 Weeks: 50-500 mIU/mL 2-3 Weeks: 100-5000 mIU/mL 3-4 Weeks: 500-10,000 mIU/mL 4-5 Weeks:1000-50,000 mIU/mL 5-6 Weeks: 10,000-100,000 mIU/mL 6-8 Weeks: 15,000-200,000 mIU/mL 2-3 Months:10,000-100,000 mIU/mL Performed By: #### L 7000.1800 #### [facility] [place], [address] CNOVon 11-30-2023 CNOV Office Visit (FAMPWS ) -------- MANUELA MONTEROЕлена Carter ([id number]) 1990 F Date Time Provider Department 11/30/23 1:00 PM [facility] During your visit today, we recorded the following information about you: Pulse Respiration Blood pressure Weight 72/minute 16/minute 118/74 78.5 kg Height Last Period 1.664 m 11/08/23 Suzanne Guallpa APRN.THERMOPLASTIC TECHNICIAN 11/30/2023 1:31 PM Signed Chief Complaint Patient presents with: Physical HPI Lalitha Carter Álvaro is a 33 year old female who presents here today for Physical Pt presents today for physical exam. No problems/concerns. REVIEW OF SYSTEMS GENERAL: No weight loss, malaise or fevers/chills HEENT: Negative for frequent or significant headaches, No changes in hearing or vision. NECK: Negative for lumps, goiter, pain and significant neck swelling RESPIRATORY: Negative for cough, hemoptysis, wheezing, dyspnea or shortness of breath CARDIOVASCULAR: Negative for chest pain, leg swelling, orthopnea, or palpitations GI: No nausea, vomiting, or diarrhea/constipation. No hematochezia/melena. No heartburn or reflux symptoms. : No history of dysuria, frequency or incontinence. Miscarriage w/ [facility] earlier this year. MUSCULOSKELETAL: Negative for joint pain or swelling. SKIN: Negative for lesions, rash, and itching ENDOCRINE: Negative for cold or heat intolerance, polyuria, polydipsia and goiter NEURO: No history of headaches, syncope, paralysis, seizures or tremors Mood: Denies depression/anxiety. Past medical history, appointments, medications, allergies reviewed. Previous Medical History No past medical history on file. Previous Surgical History PAST SURGICAL HISTORY 2013: LASIK No date: REMOVAL OF TONSILS; UNDER AGE 11 Comment: age 6 Family History FAMILY HISTORY Problem Relation Age of Onset other (High Cholesterol [Other]) Father Ischemic Heart Disease Father stents No Known Problems Brother other (thyroid disease) Maternal Grandmother had surgery Ischemic Heart Disease Maternal Grandfather triple bypass Diabetes Maternal Grandfather Hypertension Paternal Grandmother Tx with medication Ischemic Heart Disease Paternal Grandmother Hypertension Paternal Grandfather Prostate Cancer Paternal Grandfather Patient Allergies ALLERGIES Allergen Reactions Bactrim [Sulfametho* Rash Rash all over Bees Hives Current Medications Current Outpatient Medications on File Prior to Visit Medication Sig EPINEPHrine (EPIPEN) 0.3 mg/0.3 mL auto-injector Give 1 injection into side of thigh for allergic reaction. Repeat dose in 5-15 min if not improving. No current facility-administered medications on file prior to visit. Social History Social History Tobacco Use Smoking status: Never Smokeless tobacco: Never Substance Use Topics Alcohol use: Yes Comment: Sometimes Drug use: No EXAM: BP 118/74 (BP Site: Left Arm, BP Position: Sitting, BP Cuff Size: Regular Adult) Pulse 72 Resp 16 Ht 166.4 cm (5' 5.5) Wt 78.5 kg (173 lb) LMP 11/08/2023 BMI 28.35 kg/m? General Appearance: Well appearing, alert, in no acute distress, well-hydrated, well nourished.. Skin: Skin color, texture, turgor normal, no suspicious rashes or lesions. Head: Normocephalic, no masses, lesions, tenderness or abnormalities. Eyes: Anicteric sclera. Pupils are equally round and reactive to light. Extraocular movements are intact. . Ears: External ears normal, canals clear. Normal TMs bilaterally. Oropharynx: Lips, mucosa, and tongue normal, teeth and gums normal, oropharynx normal. Neck: Supple, no adenopathy; thyroid symmetric, normal size, no bruits. Lungs: Lungs clear to auscultation. No wheezing, rhonchi, rales.. Heart: RRR without murmur, gallop, or rubs. No ectopy. Abdomen: Abdomen soft, non-tender. Bowel sounds normal. No masses, organomegaly. Extremities: No deformities, edema, skin discoloration, clubbing or cyanosis. Good capillary refill. . Neurologic: Gait normal. Reflexes normal and symmetric. Sensation grossly intact.. ASSESSMENT/PLAN: 1. Wellness examination - ICD9: V70.0, ICD10: Z00.00 (primary diagnosis) - Follow up for annual exam in one year Health Promotion: - Eat healthy -- go to [employer] to get started - Have a yearly physical - Mammogram yearly after age 40 - Get at least 30 minutes of physical activity daily - Get at least 7 to 8 hours of sleep each night - Reach and maintain a healthy weight - Get help to quit or don't start smoking - Limit alcohol use to one drink or less - Do not use illegal drugs or misuse prescription drugs - Wear a helmet when riding a bike and wear protective gear for sports - Wear a seatbelt in cars and not text and drive - Wear sunscreen 2. 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 Normal [facility] Dilute Arnold's viper venom timeOrdered By: Dominique Patten on 07-30-2023 dRVVT Coag (PPP) [Time] 35.1 s 0.0-47.0 [facility] No Panel InformationOrdered By: Dominique Patten on 07-30-2023 Anti-Cardiolipin IgM Antibody < 9 MPL U/mL 0-12 [facility] Comment on above: Negative: <13 Indete rminate: 13 - 20 Low-Med Positive: >20 - 80 High Positive: >80 Serum beta 2 glycoprotein 1 IgA antibody detectionOrdered By: Dominique Patten on 07-30-2023 Beta 2 glycoprotein 1 IgA Ql (S) <9 0-25 [facility] Comment on above: Result Units: GPI Ig A unitsThe reference interval reflects a 3SD or 99th percentileinterval, which is thought to represent a potentiallyclinically significant result in accordance with theInternational Consensus Statement on the classificationcriteria for definitive antiphospholipid syndrome (APS). JThromb Haem 2006;4:295-306. Serum beta 2 glycoprotein 1 IgG antibody detectionOrdered By: Dominique Patten on 07-30-2023 Beta 2 glycoprotein 1 IgG Ql (S) <9 0-20 [facility] Comment on above: Result Units: GPI Ig G unitsThe reference interval reflects a 3SD or 99th percentileinterval, which is thought to represent a potentiallyclinically significant result in accordance with theInternational Consensus Statement on the classificationcriteria for definitive antiphospholipid syndrome (APS). JThromb Haem 2006;4:295-306. Serum beta 2 glycoprotein 1 IgM antibody detectionOrdered By: Dominique Patten on 07-30-2023 Beta 2 glycoprotein 1 IgM Ql (S) <9 0-32 [facility] Comment on above: Result Units: GPI Ig M unitsThe reference interval reflects a 3SD or 99th percentileinterval, which is thought to represent a potentiallyclinically significant result in accordance with theInternational Consensus Statement on the classificationcriteria for definitive antiphospholipid syndrome (APS). JThromb Haem 2006;4:295-306.Performed at: - [facility] [id number] Director: Anuradha Davsi MD, Phone: [phone] at: [facility] [id number] Director: Adin Jeffers PhD, Phone: [phone] Serum cardiolipin IgG antibo dy assay by immunoassay (units/volume)Ordered By: Dominique Patten on 07-30-2023 Cardiolipin IgG IA Qn (S) < 9 GPL U/mL 0-14 [facility] Comment on above: Negative: <15 Indete rminate: 15 - 20 Low-Med Positive: >20 - 80 High Positive: >80 Serum or plasma cardiolipin IgA antibody assay (units/volume)Ordered By: Dominique Patten on 07-30-2023 Cardiolipin IgA Qn < 9 APL U/mL 0-11 [facility] Comment on above: Negative: <12 Indete rminate: 12 - 20 Low-Med Positive: >20 - 80 High Positive: >80 Thin prep Papanicolaou smear with manual screeningOrdered By: Dominique Patten on 07-30-2023 Thin prep Papanicolaou smear with manual screening 38.7 sec 0.0-47.6 [facility] Thin prep Papanicolaou smear with manual screening 0.94 Ratio 0.00-1.34 [facility] Thin prep Papanicolaou smear with manual screening 39.0 sec 0.0-43.5 [facility] Thin prep Papanicolaou smear with manual screening Comment: . [facility] Comment on above: No lupus anticoagula nt was detected. Thrombin time in platelet po or plasmaOrdered By: Dominique Patten on 07-30-2023 Thrombin time Coag (PPP) [Time] 18.2 sec 0.0-23.0 [facility] Absolute lymphocyte countOrd ered By: Carmita Sierra on 04-27-2023 Lymphocytes Auto (Unsp spec) [#/Vol] 2.14 10*3/uL 0.83-4.51 [facility] Basophil percentageOrdered B y: Carmita Sierra on 04-27-2023 Basophils/100 WBC (Bld) 0.7 % 0-1 [facility] Eosinophils/100 WBC (Bld) 0.6 % 0-5 [facility] Neutrophils (Bld) [#/Vol] 4.2 10*3/uL 2.0-7.7 [facility] Neutrophils/100 WBC (Bld) 60.5 % 47-70 [facility] WBC (Bld) [#/Vol] 6.9 10*3/uL 4.4-11.0 [facility] Blood erythrocytes count (nu mber/volume)Ordered By: Carmita Sierra on 04-27-2023 RBC (Bld) [#/Vol] 4.50 10*6/uL 4.2-5.4 [facility] Blood hemoglobin measurement (mass/volume)Ordered By: Carmita Sierra on 04-27-2023 Hemoglobin (Bld) [Mass/Vol] 13.9 g/dL 12.0-15.0 [facility] Blood lymphocytes/100 leukoc ytesOrdered By: Carmita Sierra on 04-27-2023 Lymphocytes/100 WBC (Bld) 31.0 % 19-41 [facility] Blood monocytes/100 leukocyt esOrdered By: Carmita Sierra on 04-27-2023 Monocytes/100 WBC (Bld) 7.1 % 0-10 [facility] Blood platelet mean volumeOr dered By: Carmita Sierra on 04-27-2023 Platelet mean volume (Bld) [Entitic vol] 11.2 fL 6.2-12.0 [facility] Confirmatory dilute Arnold' s viper venom time (DRVVT) testOrdered By: Carmita Sierra on 04-27-2023 dRVVT actual/normal Coag (PPP) [Relative time] 1.4 ratio 0.8-1.2 [facility] Determination of erythrocyte mean corpuscular volume (MCV)Ordered By: Carmita Sierra on 04-27-2023 MCV (RBC) [Entitic vol] 93.1 fL 81-99 [facility] Dilute Arnold's viper venom timeOrdered By: Carmita Sierra on 04-27-2023 dRVVT Coag (PPP) [Time] 48.3 s 0.0-47.0 [facility] dRVVT Coag (PPP) [Time] 42.4 s 0.0-40.4 [facility] Hematocrit Auto (Bld) [Volum e fraction]Ordered By: Carmita Sierra on 04-27-2023 Hematocrit (Bld) [Volume fraction] 41.9 % 37-47 [facility] Laboratory - Chemistry and C hemistry - challengeon 04-27-2023 Glucose Ql (U) Negative [facility] Laboratory - Hematology and Cell countsOrdered By: Carmita Sierra on 04-27-2023 Erythrocyte distribution width (RBC) [Entitic vol] 40.7 fL 35.1-43.9 [facility] Erythrocyte distribution width (RBC) [Ratio] 11.9 % 11.6-14.6 [facility] Immature granulocytes/100 WBC (Bld) 0.100 % 0.0-0.9 [facility] Comment on above: IG% - Immature Granu locytes (promyelocytes, myelocytes and metamyelocytes) > 1% indicates that a LEFT SHIFT is Present. MCH (RBC) [Entitic mass] 30.9 pg 27.0-32.0 [facility] Nucleated RBC/100 WBC (Bld) [Ratio] 0 % 0-5 [facility] Laboratory - Urinalysison Protein Ql (U) Negative [facility] MCHC Auto (RBC) [Mass/Vol]Or dered By: Carmita Sierra on 04-27-2023 MCHC (RBC) [Mass/Vol] 33.2 g/dL 32-36 [facility] No Panel InformationOrdered By: Carmita Sierra on 04-27-2023 Anti-Cardiolipin IgM Antibody 16 MPL U/mL 0-12 [facility] Comment on above: Please Note: Specime n is hemolyzed. Negative: <13 Indeterminate: 13 - 20 Low-Med Positive: >20 - 80 High Positive: >80 Hexagonal Phase Phospholipid 26 sec 0-11 [facility] - [place] Thyroid Stimulating Hormone (TSH) 1.07 uIU/mL 0.358-3.74 [facility] [place] Platelets bldOrdered By: Rinku Sierra on 04-27-2023 Platelets (Bld) [#/Vol] 234 10*3/uL 150-450 [facility] [place] Serum beta 2 glycoprotein 1 IgA antibody detectionOrdered By: Carmita Sierra on 04-27-2023 Beta 2 glycoprotein 1 IgA Ql (S) <9 0-25 [facility] [place] Comment on above: Result Units: GPI Ig A unitsThe reference interval reflects a 3SD or 99th percentileinterval, which is thought to represent a potentiallyclinically significant result in accordance with theInternational Consensus Statement on the classificationcriteria for definitive antiphospholipid syndrome (APS). JThromb Haem 2006;4:295-306. Serum beta 2 glycoprotein 1 IgG antibody detectionOrdered By: Carmita Sierra on 04-27-2023 Beta 2 glycoprotein 1 IgG Ql (S) <9 0-20 [facility] [place] Comment on above: Result Units: GPI Ig G unitsThe reference interval reflects a 3SD or 99th percentileinterval, which is thought to represent a potentiallyclinically significant result in accordance with theInternational Consensus Statement on the classificationcriteria for definitive antiphospholipid syndrome (APS). JThromb Haem 2006;4:295-306. Serum beta 2 glycoprotein 1 IgM antibody detectionOrdered By: Carmita Sierra on 04-27-2023 Beta 2 glycoprotein 1 IgM Ql (S) <9 0-32 [facility] [place] Comment on above: Result Units: GPI Ig M unitsThe reference interval reflects a 3SD or 99th percentileinterval, which is thought to represent a potentiallyclinically significant result in accordance with theInternational Consensus Statement on the classificationcriteria for definitive antiphospholipid syndrome (APS). JThromb Haem 2006;4:295-306.Performed at: - [facility] [id number] Director: Anuradha Davis MD, Phone: [phone] at: [facility] [id number] Director: Adin Jeffers PhD, Phone: [phone] Serum cardiolipin IgG antibo dy assay by immunoassay (units/volume)Ordered By: Carmita Sierra on 04-27-2023 Cardiolipin IgG IA Qn (S) < 9 GPL U/mL 0-14 [facility] [place] Comment on above: Please Note: Specime n is hemolyzed. Negative: <15 Indeterminate: 15 - 20 Low-Med Positive: >20 - 80 High Positive: >80 Serum or plasma cardiolipin IgA antibody assay (units/volume)Ordered By: Carmita Sierra on 04-27-2023 Cardiolipin IgA Qn < 9 APL U/mL 0-11 [facility] Comment on above: Please Note: Specime n is hemolyzed. Negative: <12 Indeterminate: 12 - 20 Low-Med Positive: >20 - 80 High Positive: >80 Thin prep Papanicolaou smear with manual screeningOrdered By: Carmita Sierra on 04-27-2023 Thin prep Papanicolaou smear with manual screening 59.8 sec 0.0-47.6 [facility] [place] Thin prep Papanicolaou smear with manual screening 1.53 Ratio 0.00-1.34 [facility] [place] Thin prep Papanicolaou smear with manual screening 57.2 sec 0.0-43.5 [facility] [place] Thin prep Papanicolaou smear with manual screening 59.3 sec 0.0-40.5 [facility] [place] Thin prep Papanicolaou smear with manual screening Comment: . [facility] [place] Comment on above: Results are consiste nt with the presence of a lupus anticoagulant. As onlypersistent lupus anticoagulant (LA) positivity meets laboratory diagnosticcriteria for antiphospholipid syndrome, repeat testing in 12 or more weeksis recommended, ideally in the absence of anticoagulant therapy.Important Note: The results of LA testing are not valid for patientsreceiving heparin, direct Xa inhibitor (e.g., rivaroxaban, apixaban) ordirect thrombin inhibitor (e.g., dabigatran) therapy. These drugs may causefalse positive LA results but will not interfere with anticardiolipin andbeta-2 glycoprotein 1 antibody testing. Thrombin time in platelet po or plasmaOrdered By: Carmita Sierra on 04-27-2023 Thrombin time Coag (PPP) [Time] 17.6 sec 0.0-23.0 [facility] [place] Whole blood hemoglobin A1c/t otal hemoglobin ratio (mass fraction)Ordered By: Carmita Sierra on 04-27-2023 HbA1c (Bld) [Mass fraction] 5.4 % 3.8-5.6 [facility] [place] Comment on above: Normal < 5.7 % Predi abetic 5.7 - 6.4 % Diabetic >or= 6.5 % Please note range changes. Absolute lymphocyte countOrd ered By: Noelle Sexton on 04-09-2023 Lymphocytes Auto (Unsp spec) [#/Vol] 2.61 10*3/uL 0.83-4.51 [facility] [place] Basophil percentageOrdered B y: Noelle Sexton on 04-09-2023 Basophils/100 WBC (Bld) 0.4 % 0-1 [facility] Eosinophils/100 WBC (Bld) 0.5 % 0-5 [facility] [place] Neutrophils (Bld) [#/Vol] 4.7 10*3/uL 2.0-7.7 [facility] [place] Neutrophils/100 WBC (Bld) 59.3 % 47-70 [facility] [place] WBC (Bld) [#/Vol] 8.0 10*3/uL 4.4-11.0 [facility] Blood erythrocytes count (nu mber/volume)Ordered By: Noelle Sexton on 04-09-2023 RBC (Bld) [#/Vol] 4.40 10*6/uL 4.2-5.4 [facility] Blood hemoglobin measurement (mass/volume)Ordered By: Noelle Sexton on 04-09-2023 Hemoglobin (Bld) [Mass/Vol] 13.9 g/dL 12.0-15.0 [facility] [place] Blood lymphocytes/100 leukoc ytesOrdered By: Noelle Sexton on 04-09-2023 Lymphocytes/100 WBC (Bld) 32.8 % 19-41 [facility] [place] Blood monocytes/100 leukocyt esOrdered By: Noelle Sexton on 04-09-2023 Monocytes/100 WBC (Bld) 6.7 % 0-10 [facility] Blood platelet mean volumeOr dered By: Noelle Sexton on 04-09-2023 Platelet mean volume (Bld) [Entitic vol] 10.9 fL 6.2-12.0 [facility] [place] Determination of erythrocyte mean corpuscular volume (MCV)Ordered By: Noelle Sexton on 04-09-2023 MCV (RBC) [Entitic vol] 95.0 fL 81-99 [facility] HIV 1 and HIV-2 antibody ass ay with HIV-1 p24 antigen detectionOrdered By: Noelle Sexton on 04-09-2023 HIV 1+2 Ab+HIV1 p24 Ag IA Ql Non-Reactive Nonreactive [facility] [place] Hematocrit Auto (Bld) [Volum e fraction]Ordered By: Noelle Sexton on 04-09-2023 Hematocrit (Bld) [Volume fraction] 41.8 % 37-47 [facility] [place] Laboratory - Hematology and Cell countsOrdered By: Noelle Sexton on 04-09-2023 Erythrocyte distribution width (RBC) [Entitic vol] 42.9 fL 35.1-43.9 [facility] [place] Erythrocyte distribution width (RBC) [Ratio] 12.2 % 11.6-14.6 [facility] [place] Immature granulocytes/100 WBC (Bld) 0.300 % 0.0-0.9 [facility] [place] Comment on above: IG% - Immature Granu locytes (promyelocytes, myelocytes and metamyelocytes) > 1% indicates that a LEFT SHIFT is Present. MCH (RBC) [Entitic mass] 31.6 pg 27.0-32.0 [facility] [place] Nucleated RBC/100 WBC (Bld) [Ratio] 0 % 0-5 [facility] [place] MCHC Auto (RBC) [Mass/Vol]Or dered By: Noelle Sexton on 04-09-2023 MCHC (RBC) [Mass/Vol] 33.3 g/dL 32-36 [facility] No Panel InformationOrdered By: Noelle Sexton on 04-09-2023 Hepatitis B Surface Antigen Non-Reactive Nonreactive [facility] [place] Hepatitis C Antibody Non-Reactive Nonreactive [facility] Comment on above: Non Reactive: < 0.8 Equivocal: >/= 0.8 to < 1.0 Reactive: >/= 1.0The CDC recommends that a reactive/equivocal HCV antibody result be followed up by the HCV Nucleic Acid Amplificationtest (233237) Rubella IgG Antibody Reactive Nonreactive [facility] Comment on above: Antibody Results Int erpretation of Immune Status Non Reactive Presumed Non-Immune Equivocal Equivocal Reactive Presumed Immune Miscellaneous Test Comment MAILED SPECIMEN [facility] [place] Platelets bldOrdered By: Shayy Sexton on 04-09-2023 Platelets (Bld) [#/Vol] 224 10*3/uL 150-450 [facility] [place] Serum Treponema species anti body detectionOrdered By: Noelle Sexton on 04-09-2023 Treponema sp Ab Ql (S) Non-Reactive [facility] [place] Chlamydia trachomatis rRNA d etection by probe and target amplification methodOrdered By: Noelle Sexton on 03-30-2023 C. trachomatis rRNA NICOLAS+probe Ql (Unsp spec) Negative Negative [facility] [place] Culture, urineOrdered By: Carlie Sexton on 03-30-2023 Bacteria identified Cx Nom (U) Culture exhibits no growth. [facility] [place] Laboratory - Microbiology an d Antimicrobial susceptibilityOrdered By: Noelle Sexton on 03-30-2023 N. gonorrhoeae DNA NICOLAS+probe Ql (Unsp spec) Negative Negative [facility] [place] Comment on above: Performed at: =[address], [place] [id number] Director: Julia Storm MD, Phone: [phone] Serum or plasma choriogonado tropin detectionOrdered By: Noelle Sexton on 03-13-2023 HCG ( [place] [address] mIU/mL <4 [facility] [place] Comment on above: hCG levels with Gest ational AgeGestational Age hCG mIU/mL (IU/L)0.2 - 1 week 5 - 501-2 weeks 50 - 5002-3 weeks 100 - 35036-3 weeks 500 - 229950-6 weeks 1000 - 847002-9 weeks 81502 - 100,0006-8 weeks 61331 - 200,0002-3 months 85908 - 100,000 Serum or plasma choriogonado tropin detectionOrdered By: Noelle Sexton on 03-11-2023 HCG ( [place]) [place] [address] mIU/mL <4 [facility] [place] Comment on above: hCG levels with Gest ational AgeGestational Age hCG mIU/mL (IU/L)0.2 - 1 week 5 - 501-2 weeks 50 - 5002-3 weeks 100 - 73607-2 weeks 500 - 503828-7 weeks 1000 - 454035-8 weeks 84173 - 100,0006-8 weeks 21633 - 200,0002-3 months 85436 - 100,000 STREP A MOLECULAR (POC)on Procedural Control Valid [facility] Strep A (POCT) Positive Abnormal Negative [facility] Absolute lymphocyte counton 10-20-2021 Lymphocytes Auto (Unsp spec) [#/Vol] 1.90 10*3/uL 0.83-4.51 [facility] [place] Work Phone: Basophil percentageon 2021 Basophils/100 WBC (Bld) 0.3 % 0-1 [facility] Work Phone: Eosinophils/100 WBC (Bld) 0.3 % 0-5 [facility] [place] Work Phone: Neutrophils (Bld) [#/Vol] 8.0 10*3/uL 2.0-7.7 [facility] [place] Work Phone: Neutrophils/100 WBC (Bld) 74.3 % 47-70 [facility] [place] Work Phone: WBC (Bld) [#/Vol] 10.8 10*3/uL 4.4-11.0 [facility] Work Phone: Blood erythrocytes count (nu mber/volume)on 10-20-2021 RBC (Bld) [#/Vol] 3.93 10*6/uL 4.2-5.4 [facility] Work Phone: [phone] Blood hemoglobin measurement (mass/volume)on 10-20-2021 Hemoglobin (Bld) [Mass/Vol] 12.8 g/dL 12.0-15.0 [facility] [place] Work Phone: Blood lymphocytes/100 leukoc yteson 10-20-2021 Lymphocytes/100 WBC (Bld) 17.6 % 19-41 [facility] [place] Work Phone: Blood monocytes/100 leukocyt eson 10-20-2021 Monocytes/100 WBC (Bld) 6.6 % 0-10 [facility] Work Phone: Blood platelet mean volumeon 10-20-2021 Platelet mean volume (Bld) [Entitic vol] 12.2 fL 6.2-12.0 [facility] [place] Work Phone: [phone] Determination of erythrocyte mean corpuscular volume (MCV)on 10-20-2021 MCV (RBC) [Entitic vol] 95.2 fL 81-99 [facility] Work Phone: Hematocrit Auto (Bld) [Volum e fraction]on 10-20-2021 Hematocrit (Bld) [Volume fraction] 37.4 % 37-47 [facility] [place] Work Phone: Laboratory - Hematology and Cell countson 10-20-2021 Erythrocyte distribution width (RBC) [Entitic vol] 43.7 fL 35.1-43.9 [facility] [place] Work Phone: [phone] Erythrocyte distribution width (RBC) [Ratio] 12.7 % 11.6-14.6 [facility] [place] Work Phone: Immature granulocytes/100 WBC (Bld) 0.900 % 0.0-0.9 [facility] [place] Work Phone: [phone] Comment on above: IG% - Immature Granu locytes (promyelocytes, myelocytes and metamyelocytes) > 1% indicates that a LEFT SHIFT is Present. MCH (RBC) [Entitic mass] 32.6 pg 27.0-32.0 [facility] [place] Work Phone: Nucleated RBC/100 WBC (Bld) [Ratio] 0 % 0-5 [facility] [place] Work Phone: [phone] MCHC Auto (RBC) [Mass/Vol]on 10-20-2021 MCHC (RBC) [Mass/Vol] 34.2 g/dL 32-36 [facility] Work Phone: [phone] Platelets bldon 10-20-2021 Platelets (Bld) [#/Vol] 179 10*3/uL 150-450 [facility] [place] Work Phone: Laboratory - Chemistry and C hemistry - challengeon 10-14-2021 Glucose Ql (U) Negative [facility] [place] Work Phone: [phone] Laboratory - Urinalysison Protein Ql (U) Negative [facility] [place] Work Phone: [phone] Laboratory - Chemistry and C hemistry - challengeon 10-06-2021 Glucose Ql (U) Negative [facility] [place] Work Phone: [phone] Laboratory - Urinalysison Protein Ql (U) Negative [facility] [place] Work Phone: [phone] Laboratory - Chemistry and C hemistry - challengeon 09-26-2021 Glucose Ql (U) Negative [facility] [place] Work Phone: [phone] Laboratory - Urinalysison Protein Ql (U) Negative [facility] [place] Work Phone: [phone] Laboratory - Chemistry and C hemistry - challengeon 09-09-2021 Glucose Ql (U) Negative [facility] [place] Work Phone: [phone] Laboratory - Urinalysison Protein Ql (U) Negative [facility] [place] Work Phone: [phone] Laboratory - Chemistry and C hemistry - challengeon 08-26-2021 Glucose Ql (U) Negative [facility] [place] Work Phone: [phone] Laboratory - Urinalysison Protein Ql (U) Negative [facility] [place] Work Phone: [phone] Quantitative serum or plasma 3 hour gestational glucose tolerance panelon 08-12-2021 Glucose tolerance 3 hours gestational panel See comment [facility] [place] Work Phone: [phone] Comment on above: FASTING 82 Col: 07/23 06/14 0650GLUCOSE TOLERANCE TEST FOR Reference Interval GESTATIONAL DIABETES Fasting <105 mg/dL 1 hour <190 mg/dl 2 hour <165 mg/dl 3 hour <145 mg/dl 1 HR GLU 140 Col: 08/12/21 0755 2 HR GLU 113 Col: 08/12/21 0854 3 HR GLU 86 Col: 08/12/21 0955 Absolute lymphocyte counton 08-04-2021 Lymphocytes Auto (Unsp spec) [#/Vol] 1.79 10*3/uL 0.83-4.51 [facility] [place] Work Phone: Basophil percentageon 2021 Basophils/100 WBC (Bld) 0.3 % 0-1 [facility] Work Phone: Eosinophils/100 WBC (Bld) 0.1 % 0-5 [facility] [place] Work Phone: Neutrophils (Bld) [#/Vol] 5.0 10*3/uL 2.0-7.7 [facility] [place] Work Phone: Neutrophils/100 WBC (Bld) 69.4 % 47-70 [facility] [place] Work Phone: WBC (Bld) [#/Vol] 7.2 10*3/uL 4.4-11.0 [facility] Work Phone: Blood erythrocytes count (nu mber/volume)on 08-04-2021 RBC (Bld) [#/Vol] 3.77 10*6/uL 4.2-5.4 [facility] Work Phone: Blood hemoglobin measurement (mass/volume)on 08-04-2021 Hemoglobin (Bld) [Mass/Vol] 12.4 g/dL 12.0-15.0 [facility] [place] Work Phone: Blood lymphocytes/100 leukoc yteson 08-04-2021 Lymphocytes/100 WBC (Bld) 25.0 % 19-41 [facility] [place] Work Phone: Blood monocytes/100 leukocyt eson 08-04-2021 Monocytes/100 WBC (Bld) 4.6 % 0-10 [facility] Work Phone: [phone] Blood platelet mean volumeon 08-04-2021 Platelet mean volume (Bld) [Entitic vol] 10.7 fL 6.2-12.0 [facility] [place] Work Phone: Determination of erythrocyte mean corpuscular volume (MCV)on 08-04-2021 MCV (RBC) [Entitic vol] 96.0 fL 81-99 [facility] Work Phone: [phone] Gestational diabetes screen 1-hour screen with 50g oral glucose loadon 08-04-2021 Glucose 1 Hr post 50 g glucose PO [Mass/Vol] 136 mg/dL 70-140 [facility] [place] Work Phone: Hematocrit Auto (Bld) [Volum e fraction]on 08-04-2021 Hematocrit (Bld) [Volume fraction] 36.2 % 37-47 [facility] [place] Work Phone: Laboratory - Chemistry and C hemistry - challengeon 08-04-2021 Glucose Ql (U) Negative [facility] [place] Work Phone: Laboratory - Hematology and Cell countson 08-04-2021 Erythrocyte distribution width (RBC) [Entitic vol] 45.3 fL 35.1-43.9 [facility] [place] Work Phone: Erythrocyte distribution width (RBC) [Ratio] 12.8 % 11.6-14.6 [facility] [place] Work Phone: [phone] Immature granulocytes/100 WBC (Bld) 0.600 % 0.0-0.9 [facility] [place] Work Phone: Comment on above: IG% - Immature Granu locytes (promyelocytes, myelocytes and metamyelocytes) > 1% indicates that a LEFT SHIFT is Present. MCH (RBC) [Entitic mass] 32.9 pg 27.0-32.0 [facility] [place] Work Phone: [phone] Nucleated RBC/100 WBC (Bld) [Ratio] 0 % 0-5 [facility] [place] Work Phone: Laboratory - Urinalysison Protein Ql (U) Negative [facility] [place] Work Phone: MCHC Auto (RBC) [Mass/Vol]on 08-04-2021 MCHC (RBC) [Mass/Vol] 34.3 g/dL 32-36 [facility] Work Phone: Platelets bldon 08-04-2021 Platelets (Bld) [#/Vol] 213 10*3/uL 150-450 [facility] [place] Work Phone: Laboratory - Chemistry and C hemistry - challengeon 07-04-2021 Glucose Ql (U) Negative [facility] [place] Work Phone: Laboratory - Urinalysison Protein Ql (U) Negative [facility] [place] Work Phone: Laboratory - Chemistry and C hemistry - challengeon 06-09-2021 Glucose Ql (U) Negative [facility] [place] Work Phone: Laboratory - Urinalysison Protein Ql (U) Negative [facility] [place] Work Phone: Laboratory - Chemistry and C hemistry - challengeon 05-13-2021 Glucose Ql (U) Negative [facility] [place] Work Phone: Laboratory - Urinalysison Protein Ql (U) Negative [facility] [place] Work Phone: No Panel Information Group B Streptococcus Culture Group B Beta Streptococcus is not isolated. [facility] [place] Work Phone: Vital Signs Date Time Vital Sign Value Performing Clinician Facility 02-16-2025 15:40-0400 Body height 165.1 cm Suzanne DOAN Work Phone: [facility] [place] 02-16-2025 15:40-0400 Body mass index (BMI) [Ratio] 31.9 kg/m2 Suzanne DOAN Work Phone: [facility] [place] 02-16-2025 15:40-0400 Body weight 87.14 kg Suzanne Haagen [employer] Work Phone: [phone] [place] [address] 02-16-2025 15:40-0400 Diastolic blood pressure 72 mm[Hg] Suzanne Haagen [employer] Work Phone: [phone] [place] [address] 02-16-2025 15:40-0400 Systolic blood pressure 109 mm[Hg] Suzanne Haagen [employer] Work Phone: [phone] [place] [address] 02-06-2025 10:12-0400 Body mass index (BMI) [Ratio] 31.4 kg/m2 Suzanne Haagen [employer] Work Phone: [phone] [place] [address] 02-06-2025 10:12-0400 Body weight 85.72 kg Suzanne Haagen [employer] Work Phone: [phone] [place] [address] 02-06-2025 10:12-0400 Diastolic blood pressure 75 mm[Hg] Suzanne Haagen [employer] Work Phone: [phone] [place] [address] 02-06-2025 10:12-0400 Systolic blood pressure 114 mm[Hg] Suzanne Haagen [employer] Work Phone: [phone] [place] [address] 01-23-2025 08:03-0400 Body height 165.1 cm Suzanne Haagen [employer] Work Phone: [phone] [place] [address] 01-23-2025 08:03-0400 Body mass index (BMI) [Ratio] 30.3 kg/m2 Suzanne Haagen [employer] Work Phone: [phone] [place] [address] 01-23-2025 08:03-0400 Body weight 82.72 kg Suzanne Haagen [employer] Work Phone: [phone] [place] [address] 01-23-2025 08:03-0400 Diastolic blood pressure 74 mm[Hg] Suzanne Haagen [employer] Work Phone: [phone] [place] [address] 01-23-2025 08:03-0400 Systolic blood pressure 110 mm[Hg] Suzanne Haagen [employer] Work Phone: [phone] [place] [address] 12-26-2024 13:59-0400 Body height 165.1 cm Suzanne Haagen [employer] Work Phone: [phone] [place] [address] 12-26-2024 13:59-0400 Body mass index (BMI) [Ratio] 29.7 kg/m2 Suzanne Haagen [employer] Work Phone: [phone] [place] [address] 12-26-2024 13:59-0400 Body weight 80.99 kg Suzanne Haagen [employer] Work Phone: [phone] [place] [address] 12-26-2024 13:59-0400 Diastolic blood pressure 70 mm[Hg] Suzanne Haagen [employer] Work Phone: [phone] [place] [address] 12-26-2024 13:59-0400 Systolic blood pressure 106 mm[Hg] Suzanne Haagen [employer] Work Phone: [phone] [place] [address] 11-28-2024 14:39-0400 Body height 165.1 cm Suzanne Haagen [employer] Work Phone: [phone] [place] [address] 11-28-2024 14:39-0400 Body mass index (BMI) [Ratio] 29 kg/m2 Suzanne Haagen [employer] Work Phone: [phone] [place] [address] 11-28-2024 14:39-0400 Body weight 79.01 kg Suzanne Haagen [employer] Work Phone: [phone] [place] [address] 11-28-2024 14:39-0400 Diastolic blood pressure 71 mm[Hg] Suzanne Haagen [employer] Work Phone: [phone] [place] [address] 11-28-2024 14:39-0400 Systolic blood pressure 109 mm[Hg] Suzanne Haagen [employer] Work Phone: [phone] [place] [address] 10-27-2024 08:32-0400 Body height 165.1 cm Suzanne Haagen [employer] Work Phone: [phone] [place] [address] 10-27-2024 08:28-0400 Body mass index (BMI) [Ratio] 28 kg/m2 Suzanne Haagen [employer] Work Phone: [phone] [place] [address] 10-27-2024 08:28-0400 Body weight 76.43 kg Suzanne Haagen [employer] Work Phone: [phone] [place] [address] 10-27-2024 08:28-0400 Diastolic blood pressure 70 mm[Hg] Suzanne Haagen [employer] Work Phone: [phone] [place] [address] 10-27-2024 08:28-0400 Systolic blood pressure 108 mm[Hg] Suzanne Haagen [employer] Work Phone: [phone] [place] [address] 10-01-2024 10:20-0400 Body height 165.1 cm Suzanne Haagen [employer] Work Phone: [phone] [place] [address] 10-01-2024 10:18-0400 Body mass index (BMI) [Ratio] 27.8 kg/m2 Suzanne Haagen [employer] Work Phone: [phone])312-075772 [place] [address] 10-01-2024 10:18-0400 Body weight 75.74 kg Suznane Haagen [employer] Work Phone: [phone] [address] [place] [place] [address] 10-01-2024 10:18-0400 Diastolic blood pressure 78 mm[Hg] Suzanne Haagen COMMERCIAL ROOFER-C Work Phone: 5(574)384-518872 [place] [address] 10-01-2024 10:18-0400 Systolic blood pressure 110 mm[Hg] Suzanne Haagen COMMERCIAL ROOFER-C Work Phone: 3(223)[phone] [place] [address] 09-18-2024 08:53-0400 Body height 165.1 cm Suzanne Haagen [employer]ERCIAL [employer]OOFER-C Work Phone: 0(833)626-899372 [place] [address] 09-18-2024 08:53-0400 Body mass index (BMI) [Ratio] 27.9 kg/m2 Suzanne Haagen COMMERCIAL ROOFER-C Work Phone: 4(661)666-259072 [place] [address] 09-18-2024 08:53-0400 Body weight 76.2 kg Suzanne Haagen [employer]ERCIAL [employer]OOFER-C Work Phone: 5(701)920-962772 [place] [address] 09-18-2024 08:53-0400 Diastolic blood pressure 68 mm[Hg] Suzanne Haagen COMMERCIAL ROOFER-C Work Phone: [facility] 09-18-2024 08:53-0400 Systolic blood pressure 112 mm[Hg] Suzanne Haagen COMMERCIAL ROOFER-C Work Phone: [facility] 09-04-2024 13:13-0400 Body height 165.1 cm Suzanne Haagen COMMERCIAL ROOFER-C Work Phone: [facility] 09-04-2024 13:13-0400 Body mass index (BMI) [Ratio] 28.1 kg/m2 Suzanne Haagen COMMERCIAL ROOFER-C Work Phone: 7(296)233-971823 [place] [address] 09-04-2024 13:13-0400 Body weight 76.65 kg Suzanne Haagen COMMERCIAL ROOFER-C Work Phone: 9(765)753-130772 [place] [address] 09-04-2024 13:13-0400 Diastolic blood pressure 74 mm[Hg] Suzanne Haagen COMMERCIAL ROOFER-C Work Phone: 8(353)996-119572 [place] [address] 09-04-2024 13:13-0400 Systolic blood pressure 115 mm[Hg] Suzanne Haagen COMMERCIAL ROOFER-C Work Phone: [facility] 11-30-2023 13:00-0400 Body height 166.4 cm Suzanne Haagen SALES PLANNING COORDINATOR.THERMOPLASTIC TECHNICIAN Work Phone: [facility] 11-30-2023 13:00-0400 Body mass index (BMI) [Ratio] 28.35 kg/m2 Suzanne Haagen SALES PLANNING COORDINATOR.THERMOPLASTIC TECHNICIAN Work Phone: [facility] 11-30-2023 13:00-0400 Body weight 78.47 kg Suzanne Haagen SALES PLANNING COORDINATOR.THERMOPLASTIC TECHNICIAN Work Phone: [facility] 11-30-2023 13:00-0400 Diastolic blood pressure 74 mm[Hg] Suzanne Haagen SALES PLANNING COORDINATOR.THERMOPLASTIC TECHNICIAN Work Phone: [facility] 11-30-2023 13:00-0400 Heart rate 72 /min Suzanne Haagen SALES PLANNING COORDINATOR.THERMOPLASTIC TECHNICIAN Work Phone: [facility] 11-30-2023 13:00-0400 Respiratory rate 16 /min Suzanne Haagen SALES PLANNING COORDINATOR.THERMOPLASTIC TECHNICIAN Work Phone: [facility] 11-30-2023 13:00-0400 Systolic blood pressure 118 mm[Hg] Suzanne Guallpa SALES PLANNING COORDINATOR.THERMOPLASTIC TECHNICIAN Work Phone: [facility] 05-14-2023 16:00-0500 Body height 165.1 cm [employer]CIAL [employer] Suzanne Guallpa COMMERCIAL ROOFER Work Phone: 4(049)739-484372 [place] [address] 05-14-2023 16:00-0500 Body mass index (BMI) [Ratio] 29.1 kg/m2 [employer]CIAL [employer]C Suzanne Guallpa COMMERCIAL ROOFER Work Phone: 8(285)676-090172 [place] [address] 05-14-2023 16:00-0500 Body weight 79.37 kg COMMERCIAL ROOFER-C Suzanne Guallpa COMMERCIAL ROOFER Work Phone: 6(451)580-381872 [place] [address] 05-14-2023 16:00-0500 Diastolic blood pressure 81 mm[Hg] COMMERCIAL [employer]OOFER-C Suzanne Guallpa COMMERCIAL ROOFER Work Phone: 0(323)822-902372 [place] [address] 05-14-2023 16:00-0500 Systolic blood pressure 137 mm[Hg] COMMERCIAL ROOFER-C Suzanne Guallpa COMMERCIAL ROOFER Work Phone: 5(780)546-568872 [place] [address] 04-27-2023 15:40-0500 Body temperature 98.5 [degF] COMM[employer]CIAL [employer]OO[employer]-C Suzanne Guallpa COMMERCIAL ROOFER Work Phone: 0(407)729-710772 [place] [address] 04-27-2023 15:40-0500 Diastolic blood pressure 69 mm[Hg] COMMERCIAL [employer]OOFER-C Suzanne Guallpa COMMERCIAL ROOFER Work Phone: 1(473)302-781772 [place] [address] 04-27-2023 15:40-0500 Heart rate 72 /min [employer]CIAL [employer]OOFER-C Suzanne Guallpa COMMERCIAL ROOFER Work Phone: 8(828)425-793472 [place] [address] 04-27-2023 15:40-0500 Respiratory rate 16 /min [employer]ERCIAL [employer]OOFER-C Suzanne Guallpa COMMERCIAL ROOFER Work Phone: 2(085)088-752372 [place] [address] 04-27-2023 15:40-0500 SaO2% (BldA) [Mass fraction] 96 % [employer]CIAL [employer]OO[employer]-C Suzanne Guallpa COMMERCIAL ROOFER Work Phone: 5(794)738-041272 [place] [address] 04-27-2023 15:40-0500 Systolic blood pressure 97 mm[Hg] COMMERCIAL ROOFER-C Suzanne Guerreroagen COMMERCIAL ROOFER Work Phone: 6(267)053-610272 [place] [address] 04-27-2023 12:56-0500 Body height 165.1 cm COMMERCIAL [employer]OOFER-C Suzanne Haagen COMMERCIAL ROOFER Work Phone: 5(194)803-356872 [place] [address] 04-27-2023 12:56-0500 Body mass index (BMI) [Ratio] 29.2 kg/m2 [employer]C Suzanne Guerreroagen COMMERCIAL ROOFER Work Phone: 0(636)535-205072 [place] [address] 04-27-2023 12:56-0500 Body weight 79.7 kg [employer]ERCIAL [employer]OOFER-C Suzanne Haagen COMMERCIAL ROOFER Work Phone: 3(989)383-559772 [place] [address] 04-27-2023 08:33-0500 Body mass index (BMI) [Ratio] 29.5 kg/m2 [employer]CIAL [employer] Suzanne Guerreroagen COMMERCIAL ROOFER Work Phone: 7(036)366-256072 [place] [address] 04-27-2023 08:33-0500 Body weight 80.34 kg COMMERCIAL [employer]OOFER-C Suzanne Guerreroagen COMMERCIAL ROOFER Work Phone: 0(032)325-394772 [place] [address] 04-27-2023 08:33-0500 Diastolic blood pressure 76 mm[Hg] COMMERCIAL ROOFER-C Suzanne Haagen COMMERCIAL ROOFER Work Phone: 1(689)064-989372 [place] [address] 04-27-2023 08:33-0500 Systolic blood pressure 110 mm[Hg] COMMERCIAL ROOFER-C Suzanne Guerreroagen COMMERCIAL ROOFER Work Phone: 0(232)956-032672 [place] [address] 03-30-2023 08:28-0500 Body height 165.1 cm COMMERCIAL [employer]OOFER-C Suzanne Haagen COMMERCIAL ROOFER Work Phone: 9(594)550-242972 [place] [address] 03-30-2023 08:25-0500 Body mass index (BMI) [Ratio] 29.7 kg/m2 [employer]ERCIAL [employer]-C Suzanne Haagen COMMERCIAL ROOFER Work Phone: 9(153)935-730472 [place] [address] 03-30-2023 08:25-0500 Body weight 81.19 kg COMMERCIAL ROOFER-C Suzanne Haagen COMMERCIAL ROOFER Work Phone: 2(090)189-443272 [place] [address] 03-30-2023 08:25-0500 Diastolic blood pressure 78 mm[Hg] COMMERCIAL ROOFER-C Suzanne Haagen COMMERCIAL ROOFER Work Phone: [facility] 03-30-2023 08:25-0500 Systolic blood pressure 114 mm[Hg] FRANKI Guallpa COMMERCIAL ROOFER Work Phone: [facility] 12-26-2022 08:35-0400 Body temperature 98.29 [degF] Justina Praisler-Wood SALES PLANNING COORDINATOR.THERMOPLASTIC TECHNICIAN Work Phone: [facility] 12-26-2022 08:35-0400 Body weight 78.38 kg Justina Praisler-Wood SALES PLANNING COORDINATOR.THERMOPLASTIC TECHNICIAN Work Phone: [facility] 12-26-2022 08:35-0400 Diastolic blood pressure 64 mm[Hg] Justina Praisler-Wood SALES PLANNING COORDINATOR.THERMOPLASTIC TECHNICIAN Work Phone: [facility] 12-26-2022 08:35-0400 Heart rate 86 /min Justina Praisler-Wood SALES PLANNING COORDINATOR.THERMOPLASTIC TECHNICIAN Work Phone: [facility] 12-26-2022 08:35-0400 Respiratory rate 18 /min Justina Praisler-Wood SALES PLANNING COORDINATOR.THERMOPLASTIC TECHNICIAN Work Phone: [facility] 12-26-2022 08:35-0400 SaO2% (BldA) [Mass fraction] 98 % Justina Praisler-Wood SALES PLANNING COORDINATOR.THERMOPLASTIC TECHNICIAN Work Phone: [facility] 12-26-2022 08:35-0400 Systolic blood pressure 112 mm[Hg] Justina Praisler-Wood SALES PLANNING COORDINATOR.THERMOPLASTIC TECHNICIAN Work Phone: [facility] 11-30-2022 11:31-0400 Body height 165.1 cm No Primary Care Physician [facility] 11-30-2022 11:28-0400 Body mass index (BMI) [Ratio] 28.5 kg/m2 No Primary Care Physician [facility] 11-30-2022 11:28-0400 Body weight 77.62 kg No Primary Care Physician [facility] 11-30-2022 11:28-0400 Diastolic blood pressure 87 mm[Hg] No Primary Care Physician [facility] 11-30-2022 11:28-0400 Systolic blood pressure 125 mm[Hg] No Primary Care Physician [facility] 10-21-2021 12:58-0400 Diastolic blood pressure 76 mm[Hg] No Primary Care Physician [facility] Work Phone: 10-21-2021 12:58-0400 Heart rate 73 /min No Primary Care Physician [facility] Work Phone: 10-21-2021 12:58-0400 SaO2% (BldA) [Mass fraction] 98 % No Primary Care Physician [facility] Work Phone: 10-21-2021 12:58-0400 Systolic blood pressure 112 mm[Hg] No Primary Care Physician [facility] Work Phone: 10-21-2021 12:57-0400 Body temperature 97.3 [degF] No Primary Care Physician [facility] Work Phone: 10-21-2021 12:57-0400 Respiratory rate 14 /min No Primary Care Physician [facility] Work Phone: 10-20-2021 11:51-0400 Body height 165.1 cm No Primary Care Physician [facility] Work Phone: 10-20-2021 11:51-0400 Body mass index (BMI) [Ratio] 31.4 kg/m2 No Primary Care Physician [facility] Work Phone: 10-20-2021 11:51-0400 Body weight 85.8 kg No Primary Care Physician [facility] Work Phone: 10-14-2021 13:18-0400 Body mass index (BMI) [Ratio] 31.9 kg/m2 No Primary Care Physician [facility] Work Phone: 10-14-2021 13:18-0400 Body weight 87.08 kg No Primary Care Physician [facility] Work Phone: 10-14-2021 13:18-0400 Diastolic blood pressure 72 mm[Hg] No Primary Care Physician [facility] Work Phone: 10-14-2021 13:18-0400 Systolic blood pressure 102 mm[Hg] No Primary Care Physician [facility] Work Phone: 10-06-2021 09:18-0400 Body height 165.1 cm No Primary Care Physician [facility] Work Phone: 10-06-2021 09:18-0400 Body mass index (BMI) [Ratio] 31.4 kg/m2 No Primary Care Physician [facility] Work Phone: 10-06-2021 09:18-0400 Body weight 85.72 kg No Primary Care Physician [facility] Work Phone: 10-06-2021 09:18-0400 Diastolic blood pressure 68 mm[Hg] No Primary Care Physician [facility] Work Phone: 10-06-2021 09:18-0400 Systolic blood pressure 104 mm[Hg] No Primary Care Physician [facility] Work Phone: 09-26-2021 13:35-0400 Body mass index (BMI) [Ratio] 31.1 kg/m2 No Primary Care Physician [facility] Work Phone: 09-26-2021 13:35-0400 Body weight 84.87 kg No Primary Care Physician [facility] Work Phone: 09-26-2021 13:35-0400 Diastolic blood pressure 74 mm[Hg] No Primary Care Physician [facility] Work Phone: 09-26-2021 13:35-0400 Systolic blood pressure 114 mm[Hg] No Primary Care Physician [facility] Work Phone: 09-09-2021 10:41-0400 Body mass index (BMI) [Ratio] 30.2 kg/m2 No Primary Care Physician [facility] Work Phone: 09-09-2021 10:41-0400 Body weight 82.55 kg No Primary Care Physician [facility] Work Phone: 09-09-2021 10:41-0400 Diastolic blood pressure 71 mm[Hg] No Primary Care Physician [facility] Work Phone: 09-09-2021 10:41-0400 Systolic blood pressure 98 mm[Hg] No Primary Care Physician [facility] Work Phone: 08-26-2021 09:04-0400 Body mass index (BMI) [Ratio] 30.1 kg/m2 No Primary Care Physician [facility] Work Phone: 08-26-2021 09:04-0400 Body weight 83.46 kg No Primary Care Physician [facility] Work Phone: 08-26-2021 09:04-0400 Diastolic blood pressure 78 mm[Hg] No Primary Care Physician [facility] Work Phone: 08-26-2021 09:04-0400 Systolic blood pressure 120 mm[Hg] No Primary Care Physician [facility] Work Phone: 08-04-2021 08:27-0400 Body mass index (BMI) [Ratio] 29.6 kg/m2 No Primary Care Physician [facility] Work Phone: 08-04-2021 08:27-0400 Body weight 82.1 kg No Primary Care Physician [facility] Work Phone: 08-04-2021 08:27-0400 Diastolic blood pressure 78 mm[Hg] No Primary Care Physician [facility] Work Phone: 08-04-2021 08:27-0400 Systolic blood pressure 124 mm[Hg] No Primary Care Physician [facility] Work Phone: 08-04-2021 08:27-0400 Body height 166.37 cm No Primary Care Physician [facility] Work Phone: 08-04-2021 08:27-0400 Body mass index (BMI) [Ratio] 29.6 kg/m2 No Primary Care Physician [facility] Work Phone: 08-04-2021 08:27-0400 Body weight 82.1 kg No Primary Care Physician [facility] Work Phone: 08-04-2021 08:27-0400 Diastolic blood pressure 78 mm[Hg] No Primary Care Physician [facility] Work Phone: 08-04-2021 08:27-0400 Systolic blood pressure 124 mm[Hg] No Primary Care Physician [facility] Work Phone: 07-04-2021 10:21-0400 Body weight 82.1 kg No Primary Care Physician [facility] Work Phone: 07-04-2021 10:21-0400 Body weight 82.1 kg No Primary Care Physician [facility] Work Phone: 07-04-2021 09:42-0400 Body mass index (BMI) [Ratio] 47.8 kg/m2 No Primary Care Physician [facility] Work Phone: 07-04-2021 09:42-0400 Diastolic blood pressure 64 mm[Hg] No Primary Care Physician [facility] Work Phone: 07-04-2021 09:42-0400 Systolic blood pressure 110 mm[Hg] No Primary Care Physician [facility] Work Phone: 07-04-2021 09:42-0400 Body mass index (BMI) [Ratio] 47.8 kg/m2 No Primary Care Physician [facility] Work Phone: 07-04-2021 09:42-0400 Diastolic blood pressure 64 mm[Hg] No Primary Care Physician [facility] Work Phone: 07-04-2021 09:42-0400 Systolic blood pressure 110 mm[Hg] No Primary Care Physician [facility] Work Phone: 06-09-2021 08:02-0500 Body mass index (BMI) [Ratio] 29.4 kg/m2 No Primary Care Physician [facility] Work Phone: 06-09-2021 08:02-0500 Body weight 81.41 kg No Primary Care Physician [facility] Work Phone: 06-09-2021 08:02-0500 Diastolic blood pressure 80 mm[Hg] No Primary Care Physician [facility] Work Phone: 06-09-2021 08:02-0500 Systolic blood pressure 120 mm[Hg] No Primary Care Physician [facility] Work Phone: 05-13-2021 08:42-0500 Body mass index (BMI) [Ratio] 28.7 kg/m2 No Primary Care Physician [facility] Work Phone: 05-13-2021 08:42-0500 Body weight 79.49 kg No Primary Care Physician [facility] Work Phone: 05-13-2021 08:42-0500 Diastolic blood pressure 80 mm[Hg] No Primary Care Physician [facility] Work Phone: 05-13-2021 08:42-0500 Systolic blood pressure 116 mm[Hg] No Primary Care Physician [facility] Work Phone: Encounters Encounter Date Encounter Type Care Provider Facility Start: 03-23-2025 ambulatory Suzanne Guallpa NP Facil ity:[facility] Start: 03-06-2025 ambulatory Suzanne Guallpa COMMERCIAL ROOFER Facil ity:[facility] Start: 02-16-2025 End: 02-16-2025 ambulatory Fidelia Otoole [place] [place] Start: 02-06-2025 End: 02-06-[address] Jenna Hartley DO -[facility] Work Phone: Start: 02-06-2025 End: 02-06-2025 ambulatory Suzanne Guallpa COMMERCIAL ROOFER-C Work Phone: -[facility] Start: 01-23-2025 End: 01-23-2025 Patient encounter procedure Carmita Sierra CNM -[facility] Work Phone: Start: 01-23-2025 End: 01-23-2025 ambulatory Suzanne Guallpa COMMERCIAL ROOFER-C Work Phone: -[facility] Start: 01-23-2025 End: 01-23-2025 ambulatory Dominique Patten Facility:[facility] Start: 12-26-2024 End: 12-26-[address] Dominique Patten MD -[facility] Work Phone: Start: 12-26-2024 End: 12-26-2024 ambulatory Suzanne Guallpa COMMERCIAL ROOFER-C Work Phone: -[facility] Start: 11-28-2024 End: 11-28-2024 Patient encounter procedure Carmita Sierra CNM -[facility] Work Phone: Start: 11-28-2024 End: 11-28-2024 ambulatory Suzanne Guallpa COMMERCIAL ROOFER-C Work Phone: -[facility] Start: 11-24-2024 End: 11-24-2024 ambulatory JENNA VARMA [facility] Start: 10-27-2024 End: 10-27-2024 Patient encounter procedure Fidelia Otoole COMMERCIAL ROOFER-C -[facility] Work Phone: Start: 10-27-2024 End: 10-27-2024 ambulatory Suzanne Guallpa COMMERCIAL ROOFER-C Work Phone: [facility] Start: 10-02-2024 End: 12-02-2024 Follow-up encounter Lilli Ledbetter PA-C Work Phone: Dermatology Start: 10-01-2024 End: 10-01-[address] Jenna Hartley DO -[facility] Work Phone: Start: 10-01-2024 End: 10-01-2024 ambulatory Suzanne Guallpa COMMERCIAL ROOFER-C Work Phone: [facility] Work Phone: Start: 10-01-2024 End: 10-01-2024 ambulatory Jenna Hartley Facility:[facility] Start: 09-29-2024 End: 09-29-2024 Patient encounter procedure Lilli FELIX-Lamin Work Phone: Dermatology Comment on above: Multiple benign nevi of upper extremity, lower extremity, and trunk (Primary Dx); Melanocytic nevi of face; Lentigines; Holt angioma; Seborrheic keratoses; Neoplasm of unspecified behavior of bone, soft tissue, and skin Start: 09-29-2024 End: 09-29-2024 ambulatory [facility] Facility:[facility] Start: 09-18-2024 End: 09-18-[address] Dominique Patten MD -[facility] Work Phone: Start: 09-18-2024 End: 09-18-2024 ambulatory Suzanne Guallpa COMMERCIAL ROOFER-C Work Phone: [facility] Work Phone: Start: 09-04-2024 End: 09-04-2024 ambulatory Suzanne Guallpa COMMERCIAL ROOFER-C Work Phone: [facility] Work Phone: Start: 09-04-2024 End: 09-04-[address] Dominique Patten MD -Laboratory Specimen Work Phone: Start: 09-04-2024 End: 09-04-[address] Dominique Patten MD -[facility] Work Phone: Start: 09-04-2024 End: 09-04-2024 ambulatory Suzanne Hakayla COMMERCIAL ROOFER-C Work Phone: [facility] Work Phone: Start: 09-04-2024 End: 09-04-2024 ambulatory Suzanne Guallpa COMMERCIAL ROOFER Facility:[facility] Start: 09-02-2024 End: 09-02-2024 Patient encounter procedure Carmita Sierra CNM -Ultrasound, [facility] Work Phone: Start: 09-01-2024 End: 09-02-2024 ambulatory Suzanne Guallpa COMMERCIAL ROOFER-C Work Phone: [facility] Work Phone: Start: 09-01-2024 End: 09-01-2024 Patient encounter procedure Carmita Sierra CNM -Lab, [facility] Start: 09-01-2024 End: 09-01-2024 ambulatory Suzanne Guallpa COMMERCIAL ROOFER Facility:[facility] Start: 08-29-2024 End: 08-29-2024 ambulatory Suzanne Guallpa COMMERCIAL ROOFER-C Work Phone: [facility] Work Phone: Start: 08-29-2024 End: 08-29-[address] Jenna Hartley DO -Lab, [facility] Start: 08-29-2024 End: 08-29-2024 ambulatory Suzanne Guallpa COMMERCIAL ROOFER Facility:[facility] Start: 08-27-2024 End: 08-27-2024 ambulatory Suzanne Guallpa COMMERCIAL ROOFER-C Work Phone: [facility] Work Phone: Start: 08-27-2024 End: 08-27-2024 Patient encounter procedure Jessica Toure COMMERCIAL ROOFER-C -Laboratory, [place] Start: 08-27-2024 End: 08-27-2024 ambulatory Jessica Toure Facility:[facility] Start: 02-02-2024 End: 02-02-2024 Patient encounter procedure [facility] Nurse Antony Work Phone: [facility] Start: 02-02-2024 End: 02-02-2024 ambulatory [facility]ization [facility] Nurse Antony Work Phone: [facility] [place] Start: 11-30-2023 End: 11-30-2023 ambulatory SUZANNE GUALLPA Facility:[facility] Start: 11-30-2023 End: 11-30-2023 Patient encounter procedure Suzanne Guallpa SALES PLANNING COORDINATOR.THERMOPLASTIC TECHNICIAN Work Phone: [facility] Comment on above: Wellness examination (Primary Dx); Bee sting allergy Start: 11-30-2023 End: 11-30-2023 Patient encounter status Suzanne Guallpa APRN.THERMOPLASTIC TECHNICIAN Work Phone: [facility] Start: 09-28-2023 End: 09-28-2023 Patient encounter procedure Lilli Ledbetter PA-C Work Phone: Dermatology Comment on above: Multiple benign nevi of upper extremity, lower extremity, and trunk (Primary Dx); Melanocytic nevi of face; Lentigines; Holt angioma; Seborrheic keratoses Start: 07-31-2023 Non-patient / Non-visit COMM[employer]CIAL ROOFER-Lamin Guallpa COMMERCIAL ROOFER Work Phone: [facility] Start: 07-30-2023 End: 07-30-2023 ambulatory COMMERCIAL ROOFER-Lamin Guallpa COMMERCIAL ROOFER Work Phone: [facility] Work Phone: Start: 07-30-2023 End: 07-30-2023 Patient encounter procedure COMMERCIAL ROOFER-Lamin Guallpa COMMERCIAL ROOFER Work Phone: [facility] Work Phone: Start: 05-18-2023 End: 05-18-2023 ambulatory COMMERCIAL ROOFER-Lamin Guallpa COMMERCIAL ROOFER Work Phone: [facility] Work Phone: Start: 05-18-2023 End: 05-18-2023 Patient encounter procedure COMMERCIAL ROOFER-Lamin Guallpa COMMERCIAL ROOFER Work Phone: [facility]-Ultrasound, [facility] Work Phone: Start: 05-14-2023 End: 05-14-2023 Patient encounter procedure COMMERCIAL ROOFER-Lamin Guallpa COMMERCIAL ROOFER Work Phone: [facility] Work Phone: Start: 04-27-2023 Non-patient / Non-visit COMMERCIAL ROOFER-Lamin Guallpa COMMERCIAL ROOFER Work Phone: [facility] Start: 04-27-2023 End: 04-27-2023 Admission to same day surgery center COMMERCIAL ROOFER-Lamin Guallpa COMMERCIAL ROOFER Work Phone: [facility] [facility] Start: 04-27-2023 End: 04-27-2023 ambulatory COMMERCIAL ROOFER-Lamin Guallpa COMMERCIAL ROOFER Work Phone: [facility] Work Phone: Start: 04-27-2023 End: 04-27-2023 Patient encounter procedure COMMERCIAL ROOFER-C Suzanne Guallpa COMMERCIAL ROOFER Work Phone: [facility] Work Phone: Start: 04-09-2023 End: 04-09-2023 ambulatory COMMERCIAL ROOFER-C Suzanne Guallpa COMMERCIAL ROOFER Work Phone: [facility] Work Phone: Start: 04-09-2023 End: 04-09-2023 Patient encounter procedure COMMERCIAL ROOFER-C Suzanne Guallpa COMMERCIAL ROOFER Work Phone: [facility] Start: 03-30-2023 End: 03-30-2023 ambulatory COMMERCIAL ROOFER-C Suzanne Guallpa COMMERCIAL ROOFER Work Phone: [facility] Work Phone: Start: 03-30-2023 End: 03-30-2023 Patient encounter procedure COMMERCIAL ROOFER-C Suzanne Guallpa COMMERCIAL ROOFER Work Phone: [facility] Specimen Work Phone: Start: 03-30-2023 End: 03-30-2023 Patient encounter procedure COMMERCIAL ROOFER-C Suzanne Guallpa COMMERCIAL ROOFER Work Phone: [facility] Work Phone: Start: 03-28-2023 End: 03-28-2023 ambulatory COMMERCIAL ROOFER-C Suzanne Guallpa COMMERCIAL ROOFER Work Phone: [facility] Work Phone: Start: 03-28-2023 End: 03-28-2023 Patient encounter procedure COMMERCIAL ROOFER-C Suzanne Guallpa COMMERCIAL ROOFER Work Phone: [facility] Ultrasound Work Phone: Start: 03-19-2023 End: 03-19-2023 ambulatory No Primary Care Physician [facility] Work Phone: Start: 03-19-2023 End: 03-19-2023 Patient encounter procedure No Primary Care Physician [facility] Ultrasound Work Phone: Start: 03-13-2023 End: 03-13-2023 ambulatory No Primary Care Physician [facility] Work Phone: Start: 03-13-2023 End: 03-13-2023 Patient encounter procedure No Primary Care Physician [facility] Work Phone: Start: 03-11-2023 End: 03-11-2023 ambulatory No Primary Care Physician [facility] Work Phone: Start: 03-11-2023 End: 03-11-2023 Patient encounter procedure No Primary Care Physician [facility] Work Phone: Start: 02-03-2023 End: 02-03-2023 ambulatory Immunization [facility] Nurse [place] Work Phone: [facility] Start: 12-26-2022 End: 12-26-2022 Patient encounter procedure Justina [place] APRN.CNP Work Phone: [facility] Comment on above: Strep throat (Primar y Dx); Sore throat Start: 11-30-2022 End: 11-30-2022 Patient encounter procedure No Primary Care Physician [facility] Work Phone: Start: 02-11-2022 End: 02-11-2022 ambulatory Immunization Clinic Nurse [place] Work Phone: [facility] Comment on above: Arrived Start: 10-21-2021 Non-patient / Non-visit No Primary Care Physician [place] Start: 10-20-2021 Non-patient / Non-visit No Primary Care Physician [place] Start: 10-20-2021 End: 10-21-2021 Evaluation and management of inpatient No Primary Care Physician [facility] Start: 10-14-2021 End: 10-14-2021 Patient encounter procedure No Primary Care Physician [facility] Start: 10-07-2021 End: 10-07-2021 Patient encounter procedure No Primary Care Physician [facility] Specimen Start: 10-06-2021 End: 10-06-2021 Patient encounter procedure No Primary Care Physician [facility] Start: 09-26-2021 End: 09-26-2021 Patient encounter procedure No Primary Care Physician [facility] Start: 09-09-2021 End: 09-09-2021 Patient encounter procedure No Primary Care Physician [facility] Start: 08-26-2021 End: 08-26-2021 Patient encounter procedure No Primary Care Physician [facility] Start: 08-12-2021 End: 08-12-2021 Patient encounter procedure No Primary Care Physician [facility] Start: 08-04-2021 End: 08-04-2021 Patient encounter procedure No Primary Care Physician [facility] Start: 07-04-2021 End: 07-04-2021 Patient encounter procedure No Primary Care Physician [facility] Start: 06-09-2021 End: 06-09-2021 Patient encounter procedure No Primary Care Physician [facility] Start: 05-13-2021 End: 05-13-2021 Patient encounter procedure No Primary Care Physician [facility] Procedures Date Procedure Procedure Detail Performing Clinician Start: 01-23-2025 Serologic test for syphilis Suzanne Guallpa COMMERCIAL ROOFER-C Work Phone: Start: 10-01-2024 Hepatitis C antibody measurement Suzanne [employer] COMMERCIAL ROOFER-C Work Phone: Comment on above: Reactive: Presumptiv e evidence of antibodies to HCV. Follow CDC recommendations for supplemental testing.Non-Reactive: Antibodies to HCV were not detected; does not exclude the possibility of exposure to HCVReactive Results are presumptive evidence of antibodies to HCV. Follow CDC recommendations for supplemental testing.Order confirmation testing: HCV Quant by PCR testing - HCVPCR #[id number] Non Reactive: < 0.8 Equivocal: >/= 0.8 to < 1.0 Reactive: >/= 1.0The CDC requires that a reactive/equivocal HCV antibody result be sent out for confirmation. HCV Quant by PCR testing. Start: 10-01-2024 Procedure Suzanne garza COMMERCIAL ROOFER-C Work Phone: Start: 10-01-2024 Rubella IgG measurement Suzanne Guallpa COMMERCIAL ROOFER-C Work Phone: Comment on above: Antibody Result: Int erpretationNon-Reactive: Non- ImmuneReactive: ImmuneThe following results were obtained with the [employer] Rubella IgG assay. Results from assays of other manufacturers cannot be used interchangeably. Start: 10-01-2024 Serologic test for syphilis Suzanne Guallpa COMMERCIAL ROOFER-C Work Phone: Start: 09-29-2024 SKIN / NAIL BIOPSY Lilli Ledbetter PA-C Work Phone: Start: 09-04-2024 Urine culture Suzanne conn COMMERCIAL ROOFER-C Work Phone: Start: 09-02-2024 Transvaginal obstetr ic ultrasonography Suzanne Guallpa COMMERCIAL ROOFER-C Work Phone: Start: 07-30-2023 Salpingography COMMERCIAL ROOFER-C Chr isty Saloni COMMERCIAL ROOFER Work Phone: Start: 05-18-2023 Pelvic echography COMMERCIAL ROOFER-C Suzanne Guallpa COMMERCIAL ROOFER Work Phone: Start: 04-27-2023 Dilation and curetta ge of uterus COMMERCIAL ROOFER-C Suzanne Guallpa COMMERCIAL ROOFER Work Phone: Start: 03-30-2023 Urine culture COMMERCIAL ROOFER-C Chri starmida Guallpa COMMERCIAL ROOFER Work Phone: Start: 03-28-2023 Transvaginal obstetr ic ultrasonography COMMERCIAL ROOFER-C Suzanne Guallpa COMMERCIAL ROOFER Work Phone: Start: 03-19-2023 Transvaginal obstetr ic ultrasonography No Primary Care Physician Start: 02-03-2023 INFLUENZA VACCINE, A GE 6 MO - 64 YR, QUADRIVALENT (AFLURIA, FLULAVAL, FLUZONE) Jose De Jesus Alicia MD Work Phone: Start: 12-26-2022 STREP A MOLECULAR (POC) Niecy Calle PA-C Work Phone: Start: 02-11-2022 INFLUENZA VACCINE QUADRIVALENT 6 MO - 64 YRS IM Mayank Ponce MD Work Phone: [facility] Streptococcu s Culture No Primary Care Physician H/O: surgery S/P dilation and curettage LADONNA-C Suzanne Guallpa NP Work Phone: Comment on above: SM 12 weeks Viral antigen assay No Prima ry Care Physician Plan of Treatment Date Care Activity Detail Author Start: 08-27-2031 Urine microalbumin profile DTa P,Tdap,Td Vaccine (11 - Td or Tdap) [facility] Start: 02-13-2026 Urine microalbumin profile [facility] Start: 10-02-2025 End: 10-02-2025 Patient encounter procedure 10/02/2025 8:15 AM EDT Office Visit Dermatology [address] [place] [address] Lilli Ledbetter PA-C [id number] [place] [address] Annual FBSE Dermatology Comment on above: Annual FBSE Start: 02-16-2025 End: 02-16-2025 Patient encounter procedure Advanced maternal age (AMA) in -[facility] Work Phone: Start: 01-23-2025 CBC W Auto Different ial panel - Blood [facility] Start: 01-23-2025 Measurement of gluco se 2 hours after glucose challenge for glucose tolerance test [facility] Start: 01-23-2025 Serologic test for syphilis [facility] Start: 01-23-2025 [facility] Start: 12-22-2024 Influenza vaccination Influenz a Vaccine (#1) [facility] Start: 11-29-2024 Anxiety Screening Anxiety Screening [facility] Comment on above: Postponed from 11/23 (Declined at this time) Start: 11-29-2024 Covid-19 Vaccine () Covid-19 Vaccine () [facility] Comment on above: Postponed from 12/22 (Declined at this time) Start: 2024 HPV TESTING HPV TESTING [facility] Start: 2024 PAP TESTING PAP TESTING [facility] Start: 2024 Screening for malign ant neoplasm of cervix [facility] Start: 11-21-2024 Screening for malign ant neoplasm of cervix Cervical Cancer Screening [facility] Comment on above: Postponed from 11/23 (Currently Scheduled) Start: 10-01-2024 CBC W Auto Different ial panel - Blood [facility] Start: 10-01-2024 Hepatitis C antibody measurement [facility] Start: 10-01-2024 Procedure [facility] Start: 10-01-2024 Rubella IgG measurement [facility] Start: 10-01-2024 Serologic test for syphilis [facility] Start: 10-01-2024 End: 10-01-2024 [facility] Start: 09-29-2024 End: 09-29-2024 Patient encounter procedure 09/29/2024 9:00 AM EDT Office Visit Dermatology [address] [place], [place] [id number] Lilli Ledbetter PA-C [id number] [place] [address] yearly full body skin check Dermatology Comment on above: yearly full body ski n check Start: 09-04-2024 Bacteria identified in Urine by Culture Urine Culture [facility] Start: 09-04-2024 Chlamydia deoxyribon ucleic acid detection [facility] Start: 09-04-2024 [facility] Start: 12-23-2023 Covid-19 Vaccine ( season) Covid-19 Vaccine ( season) [facility] Start: 12-23-2023 Influenza vaccination Influenz a Vaccine (#1) [facility] Start: 11-30-2023 Depression Screening Depression Scre ening [facility] Comment on above: Postponed from 11/23 (Declined at this time) Start: 04-27-2023 Patient discharge [facility] Start: 04-27-2023 Ambulation without limitation [facility] Start: 04-27-2023 Medical regimen orde rs management [facility] Start: 04-27-2023 Medication education [facility] Start: 04-27-2023 Procedure discontinued [facility] Start: 04-27-2023 Taking patient vital signs [facility] Start: 04-27-2023 Vital signs measurements [facility] Start: 04-27-2023 [facility] Start: 04-27-2023 Anesthesia incomplete/missed ANES INCOMPL/MISSED AB PX [facility] Start: 04-27-2023 Tx incomplete aborti on any trimester surgical TREATMENT OF MISCARRIAGE [facility] Start: 04-27-2023 Beta 2 glycoprotein 1 Ab IgA and IgG and IgM panel - Serum [facility] Start: 04-27-2023 Cardiolipin IgA and IgG and IgM panel - Serum [facility] Start: 04-27-2023 Cardiolipin IgG and IgM panel - Serum [facility] Start: 04-27-2023 Lupus anticoagulant assay [facility] Start: 04-23-2023 Behavioral Health Screening Behavioral Health Screening [facility] Start: 03-30-2023 Chlamydia deoxyribon ucleic acid detection [facility] Start: 12-22-2022 Covid-19 Vaccine ( season) Covid-19 Vaccine () [facility] Start: 12-22-2022 Influenza vaccination INFLUENZA (#1) [facility] Start: 2022 Screening for malign ant neoplasm of cervix Cervical Cancer Screening [facility] Start: 04-23-2022 DEPRESSION ASSESSMENT DEPRESSION ASS ESSMENT [facility] Start: 10-21-2021 Patient discharge [facility] Work Phone: Start: 10-20-2021 Administration of medication [facility] Work Phone: Start: 10-20-2021 Application of ice c ollar, cap or bag [facility] Work Phone: Start: 10-20-2021 Catheterization of vein [facility] Work Phone: Start: 10-20-2021 Introduction of urin chuck catheter [facility] Work Phone: Start: 10-20-2021 Measuring intake and output [facility] Work Phone: Start: 10-20-2021 Notification of physician [facility] Work Phone: Start: 10-20-2021 Procedure discontinued [facility] Work Phone: Start: 10-20-2021 Provision of activit y privileges [facility] Work Phone: Start: 10-20-2021 Vital signs measurements [facility] Work Phone: Start: 10-20-2021 [facility] Work Phone: Start: 10-20-2021 [facility] Work [facility]: Start: 10-20-2021 Verification routine [facility] Work Phone: Start: 04-23-2021 DEPRESSION ASSESSMENT DEPRESSION ASS ESSMENT [facility] Start: 03-30-2021 COVID-19 VACCINE (4 - Booster for Pfizer series) COVID-19 VACCINE (4 - Booster for Pfizer series) [facility] Start: 03-30-2021 COVID-19 VACCINE (4 - Pfizer series) COVID-19 VACCINE (4 - Pfizer series) [facility] Start: 11-24-2007 Anxiety Screening Anxiety Screening [facility] Start: 11-24-2007 Depression Screening Depression Scre ening [facility] Beta 2 glycoprotein 1 Ab IgA and IgG and IgM panel - Serum [facility] Beta 2 glycoprotein 1 IgA Ab [Presence] in Serum [facility] Beta 2 glycoprotein 1 IgG Ab [Presence] in Serum [facility] Beta 2 glycoprotein 1 IgM Ab [Presence] in Serum [facility] Cardiolipin IgA Ab [Units/volume] in Serum by Immunoassay [facility] Cardiolipin IgA and IgG and IgM panel - Serum [facility] Cardiolipin IgG Ab [Units/volume] in Serum or Plasma [facility] Cardiolipin IgG and IgM panel - Serum [facility] Cardiolipin IgM Ab [Units/volume] in Serum or Plasma [facility] CBC W Auto Different ial panel - Blood [facility] CBC W Auto Different ial panel - Blood [facility] CBC W Auto Different ial panel - Blood [facility] Chlamydia deoxyribon ucleic acid detection [facility] Erythrocyte mean corpuscular volume determination [facility] Erythrocyte mean corpuscular volume determination [facility] Hematocrit [Volume Fraction] of Blood [facility] Hematocrit [Volume Fraction] of Blood [facility] Hemoglobin [Mass/vol ume] in Blood [facility] Hemoglobin [Mass/vol ume] in Blood [facility] Hepatitis B surface antigen measurement [facility] Hepatitis B virus tenorio rface Ag [Presence] in Serum [facility] Hepatitis C antibody measurement [facility] Hepatitis C antibody measurement [facility] HIV 1+2 Ab+HIV1 p24 Ag [Presence] in Serum or Plasma by Immunoassay [facility] Leukocytes [#/volume ] in Blood [facility] Leukocytes [#/volume ] in Blood [facility] Lupus anticoagulant assay [facility] Lupus anticoagulant neutralization platelet [Time] in Platelet poor plasma by Coagulation assay [facility] Mean corpuscular hemoglobin concentration determination [facility] Mean corpuscular hemoglobin concentration determination [facility] Mean corpuscular hemoglobin determination [facility] Mean corpuscular hemoglobin determination [facility] Measurement of gluco se 2 hours after glucose challenge for glucose tolerance test [facility] Neisseria gonorrhoea e rRNA [Presence] in Unspecified specimen by NICOLAS with probe detection [facility] Neisseria gonorrhoea e rRNA [Presence] in Unspecified specimen by NICOLAS with probe detection [facility] Neutrophil count [facility] Neutrophil count [facility] Neutrophil percent differential count [facility] Neutrophil percent differential count [facility] Partial thromboplast in time ratio [facility] Patient Education After a Vaginal [facility] Work Phone: Patient referral [facility] Work Phone: PCR test for Chlamyd ia trachomatis [facility] PCR test for Chlamyd ia trachomatis [facility] Platelets [#/volume] in Blood [facility] Platelets [#/volume] in Blood [facility] Procedure [facility] Red blood cell count [facility] Red blood cell count [facility] Red cell distributio n width determination [facility] Red cell distributio n width determination [facility] Rubella IgG measurement [facility] Rubella IgG measurement [facility] Serologic test for syphilis [facility] Serologic test for syphilis [facility] Thrombin time [facility] Tissue Pathology bio psy report SURGICAL PATHOLOGY Lab Routine Neoplasm of unspecified behavior of bone, soft tissue, and skin 09/29/2024 9:39 AM EDT [facility] Work Phone: Treponema sp Ab [Pre sence] in Serum [facility] Ultrasound scan for growth [facility] Urine culture [facility] Immunizations Immunization Date Immunization Notes Care Provider Annamaria garcia 02-16-2025 influenza, injectabl e, madin austin canine kidney, preservative free Suzanne Haagen COMMERCIAL ROOFER-C Work Phone: [facility] 02-16-2025 tetanus toxoid, reduced diphtheria toxoid, and acellular pertussis vaccine, adsorbed Suzanne Haagen COMMERCIAL ROOFER-C Work Phone: [facility] 02-02-2024 influenza, seasonal, injectable Immunization [place] Work Phone: [facility] 02-02-2024 influenza virus vaccine, unspecified formulation Lilli Ledbetter PA-C Work Phone: [facility] 02-03-2023 influenza, injectabl e, quadrivalent, contains preservative Immunization [place] Work Phone: [facility] 02-03-2023 influenza virus vaccine, unspecified formulation Suzanne Haagen SALES PLANNING COORDINATOR.THERMOPLASTIC TECHNICIAN Work Phone: [facility] 02-11-2022 influenza, injectabl e, quadrivalent, contains preservative Immunization [place] Work Phone: [facility] 08-26-2021 tetanus toxoid, reduced diphtheria toxoid, and acellular pertussis vaccine, adsorbed No Primary Care Physician [facility] 06-06-2020 Covid (Pfizer) No Primary Ca re Physician [facility] 09-19-2019 tetanus toxoid, reduced diphtheria toxoid, and acellular pertussis vaccine, adsorbed No Primary Care Physician [facility] 09-19-2019 diphtheria, tetanus toxoids and acellular pertussis vaccine, unspecified formulation No Primary Care Physician [facility] Work Phone: 05-29-2019 Flucelvax Quad [id number] (PF) (flu vac qs 2019(4 yr up)CD(PF)) 60 mcg (15 mcg x No Primary Care Physician [facility] Work Phone: 02-14-2016 influenza, injectabl e, quadrivalent, contains preservative Immunization [place] Work Phone: [facility] Work Phone: 02-14-2016 tetanus toxoid, reduced diphtheria toxoid, and acellular pertussis vaccine, adsorbed Immunization [place] Work Phone: [facility] Work Phone: 10-31-2007 hepatitis A vaccine, unspecified formulation Immunization [place] Work Phone: [facility] Work Phone: 09-26-2007 human papilloma viru s vaccine, quadrivalent Immunization [place] Work Phone: [facility] Work Phone: 05-01-2007 human papilloma viru s vaccine, quadrivalent Immunization [place] Work Phone: [facility] Work Phone: 02-23-2007 human papilloma viru s vaccine, quadrivalent Immunization [place] Work Phone: [facility] Work Phone: 10-31-2006 hepatitis A vaccine, unspecified formulation Immunization [place] Work Phone: [facility] 11-02-2004 Meningococcal, MCV4, unspecified conjugate formulation(groups A, C, Y and W-135) Immunization [place] Work Phone: [facility] 10-29-2002 measles, mumps and rubella virus vaccine Immunization [place] Work Phone: [facility] Work Phone: 10-29-2002 tetanus and diphther ia toxoids, adsorbed, preservative free, for adult use (2 Lf of tetanus toxoid and 2 Lf of diphtheria toxoid) Immunization [place] Work Phone: [facility] 06-30-1998 hepatitis B vaccine, pediatric or pediatric/adolescent dosage Immunization [place] Work Phone: [facility] Work Phone: 01-08-1998 hepatitis B vaccine, pediatric or pediatric/adolescent dosage Immunization [place] Work Phone: [facility] Work Phone: 12-09-1997 hepatitis B vaccine, pediatric or pediatric/adolescent dosage Immunization [place] Work Phone: [facility] Work Phone: 06-23-1995 tuberculin skin test ; purified protein derivative solution, intradermal Immunization [place] Work Phone: [facility] 11-30-1994 diphtheria, tetanus toxoids and acellular pertussis vaccine Immunization [place] Work Phone: [facility] Work Phone: 11-30-1994 trivalent poliovirus vaccine, live, oral Immunization [place] Work Phone: [facility] Work Phone: 05-26-1991 diphtheria, tetanus toxoids and pertussis vaccine Immunization [place] Work Phone: [facility] Work Phone: 05-26-1991 trivalent poliovirus vaccine, live, oral Immunization [place] Work Phone: [facility] Work Phone: 02-26-1991 haemophilus influenz ae type b vaccine, conjugate unspecified formulation Immunization [place] Work Phone: [facility] Work Phone: 02-26-1991 measles, mumps and rubella virus vaccine Immunization [place] Work Phone: [facility] Work Phone: 11-27-1990 tuberculin skin test ; purified protein derivative solution, intradermal Immunization [place] Work Phone: [facility] 05-09-1990 diphtheria, tetanus toxoids and pertussis vaccine Immunization [place] Work Phone: [facility] Work Phone: 05-09-1990 haemophilus influenz ae type b vaccine, conjugate unspecified formulation Immunization [place] Work Phone: [facility] Work Phone: 04-15-1990 Chicken Pox (disease) Immuni zation [place] Work Phone: [facility] Work Phone: 03-11-1990 diphtheria, tetanus toxoids and pertussis vaccine Immunization [place] Work Phone: [facility] Work Phone: 03-11-1990 haemophilus influenz ae type b vaccine, conjugate unspecified formulation Immunization [place] Work Phone: [facility] Work Phone: 03-11-1990 trivalent poliovirus vaccine, live, oral Immunization [place] Work Phone: [facility] Work Phone: 01-18-1990 diphtheria, tetanus toxoids and pertussis vaccine Immunization [place] Work Phone: [facility] Work Phone: 01-18-1990 trivalent poliovirus vaccine, live, oral Immunization [place] Work Phone: [facility] Work Phone: Payers Date Payer Category Payer Self-pay [id number] 2018 Private Health Insurance [id number] 2018 Private Health Insurance [id number] 1989 Unknown [id number] Unknown [id number] Unknown [facility] PACKAGE PLAN [id number] Unknown [id number] Unknown [id number] Unknown [id number] Unknown [id number] Unknown [id number] Unknown [id number] Unknown [id number] Unknown [id number] Unknown [id number] Unknown [id number] Unknown [id number] Unknown [id number] Unknown [id number] Unknown [id number] Unknown [id number] .[id number] Unknown [id number] Unknown [id number] Unknown [id number] Social History Date Type Detail Facility Start: 08-04-2021 End: 05-14-2023 Tobacco smoking status NHIS Unknown if ever smoked [facility] Start: 1990 Sex Assigned At Female [facility] Start: 11-29-2021 End: 08-29-2024 Tobacco smoking status NHIS Never smoked tobacco [facility] Start: 11-29-2021 Tobacco use and exposure Smokeless tobacco non-user [facility] Start: 11-29-2021 End: 11-30-2023 Alcohol intake Current drinker of alcohol (finding) [facility] Start: 11-22-2021 History SDOH Alcohol Frequency 2 [facility] Start: 11-22-2021 History SDOH Alcohol Std Drinks 1 [facility] Start: 11-22-2021 History SDOH Social Connections Phone 5 [facility] Start: 11-22-2021 History SDOH Social Connections Meetings 3 [facility] Start: 02-14-2016 Alcohol Comment Sometimes [facility] Start: 1990 Sex Assigned At Not on file [facility] Start: 11-22-2021 End: 02-02-2024 History of Social function [facility] Start: 11-22-2021 End: 02-02-2024 Social connection and isolation panel [facility] Do you belong to any clubs or organizations such as bahai groups, unions, fraternal or athletic groups, or school groups? Yes [facility] Are you now , , , , never or living with a partner? [facility] How often to you hav e a drink containing alcohol? Monthly or less [facility] How many standard dr inks containing alcohol do you have on a typical day? 1 or 2 [facility] How often do you hav e 6 or more drinks on 1 occasion? Less than monthly [facility] Start: 03-24-2012 How hard is it for you to pay for the very basics like food, housing, medical care, and heating Not hard at all [facility] Do you feel stress - tense, restless, nervous, or anxious, or unable to sleep at night because your mind is troubled all the time - these days [OSQ] Not at all [facility] (I/We) worried mario er (my/our) food would run out before (I/we) got money to buy more. Never true [facility] In the past 12 month s, was there a time when you were not able to pay the mortgage or rent on time? No [facility] Start: 02-19-2020 Gender identity Identifies as female gender (finding) [facility] Start: 11-22-2021 Sexual orientation Heterosexual (finding) [facility] Goals Date Patient Goal Desired Activity /State Functional Status Date Assessment Result Facility 10-19-2014 Are you deaf, or do you have serious difficulty hearing No 10/19/2014 3:38 PM EDT Camilo Das LPN No [facility] 10-19-2014 Are you blind, or do you have serious difficulty seeing, even when wearing glasses No 10/19/2014 3:38 PM ARACELIST Camilo Das LPN No [facility] 10-19-2014 Do you have serious difficulty walking or climbing stairs No 10/19/2014 3:38 PM EDT Camilo Das LPN No [facility] 10-19-2014 Do you have difficul ty dressing or bathing No 10/19/2014 3:38 PM EDT Camilo Das LPN No [facility] 10-19-2014 Because of a physica l, mental, or emotional condition, do you have difficulty doing errands alone such as visiting a physician's office or shopping No 10/19/2014 3:38 PM EDT Camilo Das LPN No [facility] Mental Status Date Assessment Result Facility 04-27-2023 Cognitive function Voice/Name;[facility]Elyssa newell [facility] Work Phone: 10-19-2014 Because of a physica l, mental, or emotional condition, do you have serious difficulty concentrating, remembering, or making decisions No 10/19/2014 3:38 PM EDT Camilo Das LPN No [facility] Clinical Notes 12-26-2022 to 02-06-2025 Note Date & Type Note Facility 02-06-[address] [facility] 01-23-[address] [facility] 12-26-[address] [facility] 12-26-2024 Progress note Note Date/Time December 26, 2024 2:23pm [facility] [address], [address] [place] [address] OFFICE VISIT Date of Service: 12/26/24 MR#: [id number] Acct: [id number] Name: LALITHA MONTERO Rep #: [id number] : 1990 Provider: Dr. Damaso Patten MD Age/Sex: 34/F Location: [facility] Status: Signed Intake Vital Signs 10/27/24 08:32 11/28/24 14:39 12/26/24 13:59 Height 5 ft 5 in 5 ft 5 in 5 ft 5 in Weight: 178 lb 9 oz BMI 29.7 BP 106/70 Intake Visit Reasons: 24wk ob Margarine Maker Required: No Is patient in pain?: No Allergies bee venom protein (honey bee) Allergy (Severe, Verified 12/26/24 14:05) Swelling Sulfa (Sulfonamide Antibiotics) Allergy (Mild, Verified 12/26/24 14:05) Rash Medications ?Medication ?Instructions ?Recorded ?Confirmed ?Type multivitamin no.47-iron fum 27 cap PO 03/23/23 5 History mg-folate no.1 1 mg-dha 300 mg capsule (PNV-DHA) famotidine 20 mg tablet (Pepcid) 20 mg PO BID #60 tabs 12/26/24 12/26/24 Rx Last Menstrual Period: 07/12/24 Zika: Zika virus screening: Negative : No PFSH PFSH Medical History COVID-19 vaccine series completed Surgical History S/P dilation and curettage [place] teeth extracted History of tonsillectomy Family History Grandfather Diabetes Maternal Heart disease Maternal Dementia Maternal Father Heart disease Social History adopted: No household members: spouse and children housing: house number of children: 2 current occupational status: employed current occupation: [employer] current occupational exposures/hazards: No pets and animals: Yes (not managing litterbox) pets and animals: cat(s) and dog(s) history of recent travel: No sexually active: Yes Smoking Status: Never smoker alcohol intake: current alcohol intake frequency: holidays/special occasions only details: Not while substance use type: does not use well-balanced diet: daily or most days caffeine: Yes Type: other Number of servings: 2 eating out: 1-3 times/week during the past year weight has: remained stable what type of physical activity do you participate in: walking and weight training frequency: 5-6 times per week duration: 15-30 minutes/day kesha/yarsani: Syn[employer] seatbelt use: always do you feel safe at home: Yes 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 Date Name GA/Weeks Outcome Route Bth Weight Infant Gen Labor Lgth Anesthesia Del Locatn Provider FOB Unknown 2021 Jann 38 live - full term 7#4oz Male non e [facility] NONA [place] 12/15/19 Phong 38 live - full term 7lbs 9oz Male 7 hours none [facility] Sandor 05/01/23 12 spontaneous Delivery Date: 05/01/23 Last Updated by: Trista Gudino D&C, HPI 24wk ob Details: LALITHA MONTERO is a 34 year old who presents for routine OB visit. OB Visit ALPHONSO Calculator Estimated Delivery Date Method Current WG Current Estimate 04/18/25 LMP (Certain) 23w 6d Other Estimates 04/20/25 Ultrasound #1 23w 4d Expected Delivery Route/Plan Labor Preferences- CB/BF classes: [] labor support person: [] labor intervention preferences: [] pain management options preferred: [] cut cord/dad catch: [] : [] PP control planned: [] discussed possible routes of delivery and associated risks: [] special requests: [] Specific Issue/Plans Covid status: [] Flu vaccine: [] Tdap vaccine: [] Rhogam: [] LARC form signed: [] Problem list reviewed and updated with the most current plan of care details and appropriate orders placed. Relevant counseling for the gestational age provided. Continue routine care and follow up unless otherwise noted in visit notes/problem list details Initial Weight: Not Recorded Date -?-?-?-?-?-?-?-?-?-?-?-?- EGA Weight BP Urine Prot -?-?-?-?-?-?-?-?-?-?-?-?- Glucose FHR FuHt Pres Dilation -?-?-?-?-?-?-?-?-?-?-?-?- Effaced St Visit Note 09/04/24 -?-?-?-?-?-?-?-?-?-?-?-?- 7w 5d 169 lb 115/74 -?-?-?-?-?-?-?-?-?-?-?-?- 145 -?-?-?-?-?-?-?-?-?-?-?-?- SM- CRL 1.2cm co ns with LMP SM- CRL 1.2cm cons with LMP 6 mm subchorionic hematoma 09/18/24 -?-?-?-?-?-?-?-?-?-?-?-?- 9w 5d 168 lb 112/68 Negative -?-?-?-?-?-?-?-?-?-?-?-?- Negative 160 -?-?-?-?-?-?-?-?-?-?-?-?- SM- had brown lyssa story sunday, no clots. no cramping fatigue improving some nausea. 10/01/24 -?-?-?-?-?-?-?-?-?-?-?-?- 11w 4d 167 lb 110/78 -?-?-?-?-?-?-?-?-?-?-?-?- 160 -?-?-?-?-?-?-?-?-?-?-?-?- JV- CRL measurin g appropriately. desires NIPT today. no complaints. small JI seen vs placental goodson. 10/27/24 -?-?-?-?-?-?-?-?-?-?-?-?- 15w 2d 168 lb 8 oz 108/70 Nega tive -?-?-?-?-?-?-?-?-?-?-?-?- Negative 150 -?-?-?-?-?-?-?-?-?-?-?-?- MH-No VB. Brief US confirm FHT. Nausea resolved. 11/28/24 -?-?-?-?-?-?-?-?-?-?-?-?- 19w 6d 174 lb 3 oz 109/71 Nega tive -?-?-?-?-?-?-?-?-?-?-?-?- Negative 145 -?-?-?-?-?-?-?-?-?-?-?-?- KW- no vb/crampi ng. +flutters. had US on sunday. 12/26/24 -?-?-?-?-?-?-?-?-?-?--?-?- 23w 6d 178 lb 9 oz 106/70 Nega tive -?-?-?-?-?-?-?-?-?-?-?-?- Negative 140 -?-?-?-?-?-?-?-?-?-?-?-?- Sm- no vb lof go od fm no reuglar ctx ACOG First Trimester First Trimester: Desire for , Alcohol, Tobacco Cessation, Illicit/Recreational Drug/Substance Use, Intimate Partner Violence, Barriers to care, Unstable Housing, Communication Barriers, Environmental/Work Hazards, Anticipated Course of Care, Toxoplasmosis Precations, Use of Any medications, Sexual activity, Exercise, Dental Care, Sauna/Hot tub use, Seat Belt use, Childbirth classes/Hospital facilities, Travel, Indications for Ultrasound and Screening for Aneuploidy; Discussed Second Trimester Second Trimester: Signs and Symptoms of Labor, Selecting a care provider, Reproductive Life Planning & Contreception, Care Planning, Depression/Anxiety and Intimate Partner Violence; Discussed Tobacco Cessation Third Trimester Third Trimester: Pain Management Plans, Labor support person(s), Immediate Larc, Circumcision preference, Movement Monitoring, Feeding No and Family Medical Leave or Disability Forms; Discussed Trial of Labor after Counseling Results POC Urinalysis 2 Dip (Clinic) Office Urine Glucose Negative Last Edit by Fidelia Ventura on 12/26/24 14:08 Office Urine Protein Negative Last Edit by Fidelia Ventura on 12/26/24 14:08 Coding Level of Care Code OB Routine Diagnoses Advanced maternal age (AMA) in Supervision of high risk in second trimester O09. Trimester: second trimester 23 weeks gestation of Z3A.23 Weeks of gestation: 23 weeks Assessment and Plan Assessment and Plan (1) Advanced maternal age (AMA) in : Status: Acute Comment: 36 week growth US and delivery by 39-40 weeks (2) Supervision of high-risk : Status: Acute Qualifiers: Trimester: second trimester Qualified Code(s): O09.92 - Supervision of high risk , unspecified, second trimester Comment: [id number], ALPHONSO 04/18/25, Phong Nesbitt, Benjie (3) : Status: Acute Qualifiers: Weeks of gestation: 23 weeks Qualified Code(s): Z3A.23 - 23 weeks gestation of Comment: NIPT low risk,male Orders: Orders POC Urinalysis 2 Dip (Clinic) Today CBC W/Diff, Automated Today O09.92 - Supervision of high risk , unspecified, second trimester Glucose Challenge Gest 1H 50g Today O09.92 - Supervision of high risk , unspecified, second trimester, Z13.1 - Encounter for screening for diabetes mellitus HIV Today O09.92 - Supervision of high risk , unspecified, second trimester Syphilis Antibodies Today O09.92 - Supervision of high risk , unspecified, second trimester Medications: New famotidine (Pepcid) 20 mg PO BID 60 tabs 6RF 12/26/24 5533 <Electronically signed by Dominique freeman MD> Date _ Dominique Patten MD [facility] Signature: Date (if applicable) CC: ~ [employer] Work Phone: [phone]) 678-419708-08-2025 [facility] [address] [place] [address], [address] [place] [id number] OFFICE VISIT Date of Service: 11/28/24 MR#: [id number] Acct: [id number] Name: LALITHA MONTERO Rep #: [id number] : 1990 Provider: LUISANA Sierra Age/Sex: 34/F Location: [facility] Status: Signed Intake Vital Signs 09/18/24 08:53 10/01/24 10:20 10/27/24 08:32 11/28/24 14:39 Height 5 ft 5 in 5 ft 5 in 5 ft 5 in 5 ft 5 in Weight: 174 lb 3 oz BMI 29.0 BP 109/71 Intake Visit Reasons: 19wk ob Chief Complaint: 19wk ob Margarine Maker Required: No Is patient in pain?: No Allergies bee venom protein (honey bee) Allergy (Severe, Verified 11/28/24 14:43) Swelling Sulfa (Sulfonamide Antibiotics) Allergy (Mild, Verified 11/28/24 14:43) Rash Medications ?Medication ?Instructions ?Recorded ?Confirmed ?Type multivitamin no.47-iron fum 27 cap PO 03/23/23 5 History mg-folate no.1 1 mg-dha 300 mg capsule (PNV-DHA) Last Menstrual Period: 07/12/24 : No PFSH PFSH Medical History COVID-19 vaccine series completed Surgical History S/P dilation and curettage [place] teeth extracted History of tonsillectomy Family History Grandfather Diabetes Maternal Heart disease Maternal Dementia Maternal Father Heart disease Social History adopted: No household members: spouse and children housing: house number of children: 2 current occupational status: employed current occupation: [employer] current occupational exposures/hazards: No pets and animals: Yes (not managing litterbox) pets and animals: cat(s) and dog(s) history of recent travel: No sexually active: Yes Smoking Status: Never smoker alcohol intake: current alcohol intake frequency: holidays/special occasions only details: Not while substance use type: does not use well-balanced diet: daily or most days caffeine: Yes Type: other Number of servings: 2 eating out: 1-3 times/week during the past year weight has: remained stable what type of physical activity do you participate in: walking and weight training frequency: 5-6 times per week duration: 15-30 minutes/day kesha/yarsani: Synagogue seatbelt use: always do you feel safe at home: Yes 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 Date Name GA/Weeks Outcome Route Bth Weight Infant Gen Labor Lgth Anesthesia Del Locatn Provider FOB Unknown 2021 Jann 38 live - full term 7#4oz Male non e [facility] NONA [place] 12/15/19 Phong 38 live - full term 7lbs 9oz Male 7 hours none [facility] Sandor 05/01/23 12 spontaneous Delivery Date: 05/01/23 Last Updated by: Trista Gudino D&Lamin, HPI 19wk ob Details: LALITHA MONTERO is a 34 year old who presents for routine OB visit. OB Visit ALPHONSO Calculator Estimated Delivery Date Method Current WG Current Estimate 04/18/25 LMP (Certain) 19w 6d Other Estimates 04/20/25 Ultrasound #1 19w 4d Expected Delivery Route/Plan Labor Preferences- CB/BF classes: [] labor support person: [] labor intervention preferences: [] pain management options preferred: [] cut cord/dad catch: [] : [] PP control planned: [] discussed possible routes of delivery and associated risks: [] special requests: [] Specific Issue/Plans Covid status: [] Flu vaccine: [] Tdap vaccine: [] Rhogam: [] LARC form signed: [] Problem list reviewed and updated with the most current plan of care details and appropriate ordersplaced. Relevant counseling for the gestational age provided. Continue routine care and follow up unless otherwise noted in visit notes/problem list details Initial Weight: Not Recorded Date -?-?-?-?-?-?-?-?-?-?-?-?- EGA Weight BP Urine Prot -?-?-?--?-?-?-?-?-?-?-?-?- Glucose FHR FuHt Pres Dilation -?-?-?-?-?-?-?-?-?--?-?-?- Effaced St Visit Note 09/04/24 -?-?-?-?-?-?-?-?-?-?-?-?- 7w 5d 169 lb 115/74 -?-?-?-?-?-?-?-?-?-?-?-?- 145 -?-?-?-?-?-?-?-?-?-?-?-?- SM- CRL 1.2cm co ns with LMP SM- CRL 1.2cm cons with LMP 6 mm subchorionic hematoma 09/18/24 -?-?-?-?-?-?-?-?-?-?-?-?- 9w 5d 168 lb 112/68 Negative -?-?-?-?-?-?-?-?-?-?-?-?- Negative 160 -?-?-?-?-?-?-?-?-?-?-?-?- SM- had brown lyssa story sunday, no clots. no cramping fatigue improving some nausea. 10/01/24 -?-?-?-?-?-?-?-?-?-?-?-?- 11w 4d 167 lb 110/78 -?-?-?-?-?-?-?-?-?-?-?-?- 160 -?-?-?-?-?-?-?-?-?-?-?-?- JV- CRL measurin g appropriately. desires NIPT today. no complaints. small JI seen vs placental goodson. 10/27/24 -?-?--?-?-?-?-?-?-?-?-?-?- 15w 2d 168 lb 8 oz 108/70 Nega tive -?-?-?-?-?-?-?-?-?-?-?-?- Negative 150 -?-?-?-?-?-?-?-?-?-?-?-?- MH-No VB. Brief US confirm FHT. Nausea resolved. 11/28/24 -?-?-?-?-?-?-?-?-?-?-?-?- 19w 6d 174 lb 3 oz 109/71 Nega tive -?-?-?-?-?-?-?-?-?-?-?-?- Negative 145 -?-?-?-?-?-?-?-?-?-?-?-?- KW- no vb/crampi ng. +flutters. had US on sunday. ACOG First Trimester First Trimester: Desire for , Alcohol, Tobacco Cessation, Illicit/Recreational Drug/Substance Use, Intimate Partner Violence, Barriers to care, Unstable Housing, Communication Barriers, Environmental/Work Hazards, Anticipated Course of Care, Toxoplasmosis Precations, Use of Any med ications, Sexual activity, Exercise, Dental Care, Sauna/Hot tub use, Seat Belt use, Childbirth classes/Hospital facilities, Travel, Indications for Ultrasound and Screening for Aneuploidy; Discussed Second Trimester Second Trimester: Signs and Symptoms of Labor, Selecting a care provider, Reproductive Life Planning & Contreception, Care Planning, Depression/Anxiety and Intimate Partner Violence; Discussed Tobacco Cessation Third Trimester Third Trimester: Pain Management Plans, Labor support person(s), Immediate Larc, Circumcision preference, Movement Monitoring, Infant Feeding No and Family Medical Leave or Disability Forms; Discussed Trial of Labor after Counseling ROS Const Reports system reviewed and no additional complaints, except as documented Eyes Reports system reviewed and no additional complaints, except as documented ENT Reports system reviewed and no additional complaints, except as documented Card Reports system reviewed and no additional complaints, except as documented Resp Reports system reviewed and no additional complaints, except as documented GI Reports system reviewed and no additional complaints, except as documented, Denies nausea and Denies vomiting Reports system reviewed and no additional complaints, except as documented Musc Reports system reviewed and no additional complaints, except as documented Skin/Breast Reports system reviewed and no additional complaints, except as documented Neuro Yes system reviewed and no additional complaints, except as documented Psych Reports system reviewed and no additional complaints, except as documented Endo Reports system reviewed and no additional complaints, except as documented Siddhartha/Lymph Reports system reviewed and no additional complaints, except as documented Aller/Immun Reports system reviewed and no additional complaints, except as documented Exam Const General: cooperative, healthy appearing and no acute distress Orientation: alert, awake and oriented x3 Neck Neck: normal visual inspection and full ROM Resp Effort & Inspection: normal respiratory effort, able to speak in complete sentences and symmetric chest movement GI Inspection: normal to inspection Palpation: soft and other Other: gravid Skin General: no rashes or lesions noted Neuro General: patient alert, patient awake and patient oriented x3 Cognition: normal cognition Speech: speech normal Gait: normal gait Motor: muscle tone normal throughout Extrem General: normal to inspection and full ROM Psych Appearance: grossly normal Mental Status: mental status grossly normal Mood: congruent mood Affect: normal affect Speech and Movement: speech and movement normal Attitude: cooperative Thought Process: normal Thought Content: normal Judgment: judgment good Results POC Urinalysis 2 Dip (Clinic) Office Urine Glucose Negative Last Edit by Latonia Johnson on 11/28/24 14:45 Office Urine Protein Negative Last Edit by Latonia Johnson on 11/28/24 14:45 Coding Level of Care Code OB Routine Diagnoses Advanced maternal age (AMA) in Supervision of high risk in second trimester O09.92 Trimester: second trimester 19 weeks gestation of Z3A.19 Weeks of gestation: 19 weeks Assessment and Plan Assessment and Plan (1) Advanced maternal age (AMA) in : Status: Acute Comment: 36 week growth US and delivery by 39-40 weeks (2) Supervision of high-risk : Status: Acute Qualifiers: Trimester: second trimester Qualified Code(s): O09.92 - Supervision of high risk , unspecified, second trimester Comment: [id number], ALPHONSO 04/18/25, Phong Nesbitt, Benjie (3) : Status: Acute Qualifiers: Weeks of gestation: 19 weeks Qualified Code(s): Z3A.19 - 19 weeks gestation of Comment: NIPT low risk,male Orders: Orders POC Urinalysis 2 Dip (Clinic) Today Plan Details Additional Comments: ACOG trimester education reviewed and updated. see problem list details for updated plan management information and see below for orders placed atthis visit. GA appropriate handout given. 11/28/24 1457 s CNM> Date _ Carmita Sierra CNM Cosigner Signature: Date (if applicable) CC: ~ [facility]08-08-2025 Progress note Author Carmita Sierra [facility] Note Date/Time November 28, 2024 2:5 7pm [facility] [address] [place] [address], [address] [place] [address] OFFICE VISIT Date of Service: 11/28/24 MR#: [id number] Acct: [id number] Name: LALITHA MONTERO Rep #: [id number] : 1990 Provider: LUISANA Sierra Age/Sex: 34/F Location: [facility] Status: Signed Intake Vital Signs 09/18/24 08:53 10/01/24 10:20 10/27/24 08:32 11/28/24 14:39 Height 5 ft 5 in 5 ft 5 in 5 ft 5 in 5 ft 5 in Weight: 174 lb 3 oz BMI 29.0 BP 109/71 Intake Visit Reasons: 19wk ob Chief Complaint: 19wk ob Margarine Maker Required: No Is patient in pain?: No Allergies bee venom protein (honey bee) Allergy (Severe, Verified 11/28/24 14:43) Swelling Sulfa (Sulfonamide Antibiotics) Allergy (Mild, Verified 11/28/24 14:43) Rash Medications ?Medication ?Instructions ?Recorded ?Confirmed ?Type multivitamin no.47-iron fum 27 cap PO 03/23/23 5 History mg-folate no.1 1 mg-dha 300 mg capsule (PNV-DHA) Last Menstrual Period: 07/12/24 : No PFSH PFSH Medical History COVID-19 vaccine series completed Surgical History S/P dilation and curettage [place] teeth extracted History of tonsillectomy Family History Grandfather Diabetes Maternal Heart disease Maternal Dementia Maternal Father Heart disease Social History adopted: No household members: spouse and children housing: house number of children: 2 current occupational status: employed current occupation: [employer] current occupational exposures/hazards: No pets and animals: Yes (not managing litterbox) pets and animals: cat(s) and dog(s) history of recent travel: No sexually active: Yes Smoking Status: Never smoker alcohol intake: current alcohol intake frequency: holidays/special occasions only details: Not while substance use type: does not use well-balanced diet: daily or most days caffeine: Yes Type: other Number of servings: 2 eating out: 1-3 times/week during the past year weight has: remained stable what type of physical activity do you participate in: walking and weight training frequency: 5-6 times per week duration: 15-30 minutes/day kesha/yarsani: Synagogue seatbelt use: always do you feel safe at home: Yes 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 Date Name GA/Weeks Outcome Route Bth Weight Infant Gen Labor Lgth Anesthesia Del Locatn Provider FOB Unknown 2021 Jann 38 live - full term 7#4oz Male non e [facility] NONA [place] 12/15/19 Phong 38 live - full term 7lbs 9oz Male 7 hours none [facility] Sandor 05/01/23 12 spontaneous Delivery Date: 05/01/23 Last Updated by: Trista Gudino D&Lamin, HPI 19wk ob Details: LALITHA MONTERO is a 34 year old who presents for routine OB visit. OB Visit ALPHONSO Calculator Estimated Delivery Date Method Current WG Current Estimate 04/18/25 LMP (Certain) 19w 6d Other Estimates 04/20/25 Ultrasound #1 19w 4d Expected Delivery Route/Plan Labor Preferences- CB/BF classes: [] labor support person: [] labor intervention preferences: [] pain management options preferred: [] cut cord/dad catch: [] : [] PP control planned: [] discussed possible routes of delivery and associated risks: [] special requests: [] Specific Issue/Plans Covid status: [] Flu vaccine: [] Tdap vaccine: [] Rhogam: [] LARC form signed: [] Problem list reviewed and updated with the most current plan of care details and appropriate orders placed. Relevant counseling for the gestational age provided. Continue routine care and follow up unless otherwise noted in visit notes/problem list details Initial Weight: Not Recorded Date -?-?-?-?-?-?-?-?-?-?-?-?- EGA Weight BP Urine Prot -?-?-?--?-?-?-?-?-?-?-?-?- Glucose FHR FuHt Pres Dilation -?-?-?-?-?-?-?-?-?--?-?-?- Effaced St Visit Note 09/04/24 -?-?-?-?-?-?-?-?-?-?-?-?- 7w 5d 169 lb 115/74 -?-?-?-?-?-?-?-?-?-?-?-?- 145 -?-?-?-?-?-?-?-?-?-?-?-?- SM- CRL 1.2cm co ns with LMP SM- CRL 1.2cm cons with LMP 6 mm subchorionic hematoma 09/18/24 -?-?-?-?-?-?-?-?-?-?-?-?- 9w 5d 168 lb 112/68 Negative -?-?-?-?-?-?-?-?-?-?-?-?- Negative 160 -?-?-?-?-?-?-?-?-?-?-?-?- SM- had roderick galeana sunday, no clots. no cramping fatigue improving some nausea. 10/01/24 -?-?-?-?-?-?-?-?-?-?-?-?- 11w 4d 167 lb 110/78 -?-?-?-?-?-?-?-?-?-?-?-?- 160 -?-?-?-?-?-?-?-?-?-?-?-?- JV- CRL measurin g appropriately. desires NIPT today. no complaints. small JI seen vs placental goodson. 10/27/24 -?-?--?-?-?-?-?-?-?-?-?-?- 15w 2d 168 lb 8 oz 108/70 Nega tive -?-?-?-?-?-?-?-?-?-?-?-?- Negative 150 -?-?-?-?-?-?-?-?-?-?-?-?- MH-No VB. Brief US confirm FHT. Nausea resolved. 11/28/24 -?-?-?-?-?-?-?-?-?-?-?-?- 19w 6d 174 lb 3 oz 109/71 Nega tive -?-?-?-?-?-?-?-?-?-?-?-?- Negative 145 -?-?-?-?-?-?-?-?-?-?-?-?- KW- no vb/crampi ng. +flutters. had US on sunday. ACOG First Trimester First Trimester: Desire for , Alcohol, Tobacco Cessation, Illicit/Recreational Drug/Substance Use, Intimate Partner Violence, Barriers to care, Unstable Housing, Communication Barriers, Environmental/Work Hazards, Anticipated Course of Care, Toxoplasmosis Precations, Use of Any medications, Sexual activity, Exercise, Dental Care, Sauna/Hot tub use, Seat Belt use, Childbirth classes/Hospital facilities, Travel, Indications for Ultrasound and Screening for Aneuploidy; Discussed Second Trimester Second Trimester: Signs and Symptoms of Labor, Selecting a care provider, Reproductive Life Planning & Contreception, Care Planning, Depression/Anxiety and Intimate Partner Violence; Discussed Tobacco Cessation Third Trimester Third Trimester: Pain Management Plans, Labor support person(s), Immediate Larc, Circumcision preference, Movement Monitoring, Infant Feeding No and Family Medical Leave or Disability Forms; Discussed Trial of Labor after Counseling ROS Const Reports system reviewed and no additional complaints, except as documented Eyes Reports system reviewed and no additional complaints, except as documented ENT Reports system reviewed and no additional complaints, except as documented Card Reports system reviewed and no additional complaints, except as documented Resp Reports system reviewed and no additional complaints, except as documented GI Reports system reviewed and no additional complaints, except as documented, Denies nausea and Denies vomiting Reports system reviewed and no additional complaints, except as documented Musc Reports system reviewed and no additional complaints, except as documented Skin/Breast Reports system reviewed and no additional complaints, except as documented Neuro Yes system reviewed and no additional complaints, except as documented Psych Reports system reviewed and no additional complaints, except as documented Endo Reports system reviewed and no additional complaints, except as documented Siddhartha/Lymph Reports system reviewed and no additional complaints, except as documented Aller/Immun Reports system reviewed and no additional complaints, except as documented Exam Const General: cooperative, healthy appearing and no acute distress Orientation: alert, awake and oriented x3 Neck Neck: normal visual inspection and full ROM Resp Effort & Inspection: normal respiratory effort, able to speak in complete sentences and symmetric chest movement GI Inspection: normal to inspection Palpation: soft and other Other: gravid Skin General: no rashes or lesions noted Neuro General: patient alert, patient awake and patient oriented x3 Cognition: normal cognition Speech: speech normal Gait: normal gait Motor: muscle tone normal throughout Extrem General: normal to inspection and full ROM Psych Appearance: grossly normal Mental Status: mental status grossly normal Mood: congruent mood Affect: normal affect Speech and Movement: speech and movement normal Attitude: cooperative Thought Process: normal Thought Content: normal Judgment: judgment good Results POC Urinalysis 2 Dip (Clinic) Office Urine Glucose Negative Last Edit by Latonia Johnson on 11/28/24 14:45 Office Urine Protein Negative Last Edit by Latonia Johnson on 11/28/24 14:45 Coding Level of Care Code OB Routine Diagnoses Advanced maternal age (AMA) in Supervision of high risk in second trimester O09. Trimester: second trimester 19 weeks gestation of Z3A.19 Weeks of gestation: 19 weeks Assessment and Plan Assessment and Plan (1) Advanced maternal age (AMA) in : Status: Acute Comment: 36 week growth US and delivery by 39-40 weeks (2) Supervision of high-risk : Status: Acute Qualifiers: Trimester: second trimester Qualified Code(s): O09.92 - Supervision of high risk , unspecified, second trimester Comment: [id number], ALPHONSO 04/18/25, Phong Nesbitt, Benjie (3) : Status: Acute Qualifiers: Weeks of gestation: 19 weeks Qualified Code(s): Z3A.19 - 19 weeks gestation of Comment: NIPT low risk,male Orders: Orders POC Urinalysis 2 Dip (Clinic) Today Plan Details Additional Comments: ACOG trimester education reviewed and updated. see problem list details for updated plan management information and see below for orders placed at this visit. [place] appropriate handout given. 11/28/24 2298 <Electronically signed by Carmita block CNM> Date _ Carmita Sierra CNM Cosigner Signature: Date (if applicable) CC: ~ [facility] Work Phone: 1(116) 713-380207-07-2025 Evaluation note* Diagnosis Onset Date Resolution Status Admit Date Advanced maternal age (AMA) in acute October 27, 2024 8 :24am acute October 27, 2024 8:24am Supervision of high-risk acute October 27, 2024 8 :24am Advanced maternal age (AMA) in acute November 28, 2024 2:37pm acute November 28 2:37pm Supervision of high-risk acute November 28, 2024 2:37pm Advanced maternal age (AMA) in acute December 26, 2 025 1:56pm acute December 26, 2024 1:56pm Supervision of high-risk acute December 26, 2 025 1:56pm Advanced maternal age (AMA) in acute January 23 8:01am acute January 23, 2 025 8:01am Supervision of high-risk acute January 23 8:01am [facility] Work Phone: 1(377) 837-786407-07-2025 Evaluation note* Diagnosis Onset Date Resolution Status Admit Date Advanced maternal age (AMA) in acute October 27, 2024 8 :24am acute October 27, 2024 8:24am Supervision of high-risk acute October 27, 2024 8 :24am Advanced maternal age (AMA) in acute November 28, 2024 2:37pm acute November 28 2:37pm Supervision of high-risk acute November 28, 2024 2:37pm Advanced maternal age (AMA) in acute December 26, 025 1:56pm acute December 26, 2024 1:56pm Supervision of high-risk acute December 26, 2 025 1:56pm Advanced maternal age (AMA) in acute January 23 8:01am acute January 23, 025 8:01am Supervision of high-risk acute January 23 8:01am Advanced maternal age (AMA) in acute February 06 10:10am acute February 06, 2025 10:10am Supervision of high-risk acute February 06 10:10am Advanced maternal age (AMA) in acute February 16 3:37pm acute February 16, 2025 3:37pm Supervision of high-risk acute February 16 3:37pm [facility] Work Phone: 1(907) 103-949906-11-2025 Evaluation note* Diagnosis Onset Date Resolution Status Admit Date Advanced maternal age (AMA) in acute October 01, 2024 10:06am acute October 01 10:06am Supervision of high-risk acute October 01, 2024 10:06am Advanced maternal age (AMA) in acute October 27, 2024 8 :24am acute October 27, 2024 8:24am Supervision of high-risk acute October 27, 2024 8 :24am Advanced maternal age (AMA) in acute November 28, 2024 2:37pm acute November 28 2:37pm Supervision of high-risk acute November 28, 2024 2:37pm Advanced maternal age (AMA) in acute December 26, 025 1:56pm acute December 26, 2024 1:56pm Supervision of high-risk acute December 26, 2 025 1:56pm Advanced maternal age (AMA) in acute January 23 8:01am acute January 23, 2 025 8:01am Supervision of high-risk acute January 23 8:01am [facility] Work Phone: 1(154) 270-451706-11-2025 [facility] [address], [address] [place] [id number] OFFICE VISIT Date of Service: 10/01/24 MR#: [id number] Acct: [id number] Name: LALITHA MONTERO Rep #: [id number] : 1990 Provider: Dr. Ivelisse Hartley DO Age/Sex: 33/F Location: [facility] Status: Signed Intake Vital Signs 12/03/23 08:53 09/18/24 08:53 10/01/24 10:18 10/01/24 10:20 Height 5 ft 5 in 5 ft 5 in 5 ft 5 in 5 ft 5 in Weight: 167 lb BMI 27.8 BP 110/78 Intake Visit Reasons: 11wk OB Margarine Maker Required: No Is patient in pain?: No Allergies bee venom protein (honey bee) Allergy (Severe, Verified 10/01/24 10:18) Swelling Sulfa (Sulfonamide Antibiotics) Allergy (Mild, Verified 10/01/24 10:18) Rash Medications ?Medication ?Instructions ?Recorded ?Confirmed ?Type multivitamin no.47-iron fum 27 cap PO 03/23/23 5 History mg-folate no.1 1 mg-dha 300 mg capsule (PNV-DHA) Last Menstrual Period: 07/12/24 Zika: Zika virus screening: Negative : No PFSH PFSH Medical History Contraception management Abnormal glucose affecting COVID-19 vaccine series completed Surgical History S/P dilation and curettage [place] teeth extracted History of tonsillectomy Family History Grandfather Diabetes Maternal Heart disease Maternal Dementia Maternal Father Heart disease Social History adopted: No household members: spouse and children housing: house number of children: 2 current occupational status: employed current occupation: [employer] current occupational exposures/hazards: No pets and animals: Yes (not managing litterbox) pets and animals: cat(s) and dog(s) history of recent travel: No sexually active: Yes Smoking Status: Never smoker alcohol intake: current alcohol intake frequency: holidays/special occasions only details: Not while substance use type: does not use well-balanced diet: daily or most days caffeine: Yes Type: other Number of servings: 2 eating out: 1-3 times/week during the past year weight has: remained stable what type of physical activity do you participate in: walking and weight training frequency: 5-6 times per week duration: 15-30 minutes/day kesha/yarsani: Synagogue seatbelt use: always do you feel safe at home: Yes 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 Date Name GA/Weeks Outcome Route Bth Weight Gen Labor Lgth Anesthesia Del Locatn Provider FOB Unknown 2021 Jann 38 live - full term 7#4oz Male non e [facility] NONA [place] 12/15/19 Phong 38 live - full term 7lbs 9oz Male 7 hours none [facility] aSndor 05/01/23 12 spontaneous Delivery Date: 05/01/23 Last Updated by: Trista Willis&Lamin, HPI 11wk OB Details: LALITHA MONTERO is a 33 year old who presents for routine OB visit. OB Visit ALPHONSO Calculator Estimated Delivery Date Method Current WG Current Estimate 04/18/25 LMP (Certain) 11w 4d Other Estimates 04/20/25 Ultrasound #1 11w 2d Expected Delivery Route/Plan Labor Preferences- CB/BF classes: [] labor support person: [] labor intervention preferences: [] pain management options preferred: [] cut cord/dad catch: [] : [] PP control planned: [] discussed possible routes of delivery and associated risks: [] special requests: [] Specific Issue/Plans Covid status: [] Flu vaccine: [] Tdap vaccine: [] Rhogam: [] LARC form signed: [] Problem list reviewed and updated with the most current plan of care details and appropriate ordersplaced. Relevant counseling for the gestational age provided. Continue routine care and follow up unless otherwise noted in visit notes/problem list details Initial Weight: Not Recorded Date -?-?-?-?-?-?-?-?-?-?-?-?- EGA Weight BP Urine Prot -?-?-?-?-?-?-?-?-?-?-?-?- Glucose FHR FuHt Pres Dilation -?-?-?-?-?-?-?-?-?-?-?-?- Effaced St Visit Note 09/04/24 -?-?-?-?-?-?-?-?-?-?-?-?- 7w 5d 169 lb 115/74 -?-?-?-?-?-?-?-?-?-?-?-?- 145 -?-?-?-?-?-?-?-?-?-?-?-?- SM- CRL 1.2cm co ns with LMP SM- CRL 1.2cm cons with LMP 6 mm subchorionic hematoma 09/18/24 -?-?-?-?-?-?-?-?-?-?-?-?- 9w 5d 168 lb 112/68 Negative -?-?-?-?-?-?-?-?--?-?-?-?- Negative 160 -?-?-?-?-?-?-?-?-?-?-?-?- SM- had brown lyssa porsha sunday, no clots. no cramping fatigue improving some nausea. 10/01/24 -?-?-?-?-?-?-?-?-?-?-?-?- 11w 4d 167 lb 110/78 -?-?-?-?-?-?-?-?-?-?-?-?- 160 -?-?-?-?-?-?-?-?-?-?-?-?- JV- CRL measurin g appropriately. desires NIPT today. no complaints. small JI seen vs placental goodson. ACOG First Trimester First Trimester: Desire for , Alcohol, Tobacco Cessation, Illicit/Recreational Drug/Substance Use, Intimate Partner Violence, Barriers to care, Unstable Housing, Communication Barriers, Environmental/Work Hazards, Anticipated Course of Care, Toxoplasmosis Precations, Use of Any med ications, Sexual activity, Exercise, Dental Care, Sauna/Hot tub use, Seat Belt use, Childbirth classes/Hospital facilities, Travel, Indications for Ultrasound and Screening for Aneuploidy; Discussed Second Trimester Second Trimester: Signs and Symptoms of Labor, Selecting a care provider, Reproductive Life Planning & Contreception, Care Planning, Depression/Anxiety and Intimate Partner Violence; Discussed Tobacco Cessation Third Trimester Third Trimester: Pain Management Plans, Labor support person(s), Immediate Larc, Circumcision preference, Movement Monitoring, Infant Feeding No and Family Medical Leave or Disability Forms; Discussed Trial of Labor after Counseling Coding Level of Care Code OB Routine Diagnoses Advanced maternal age (AMA) in Supervision of high-risk O09.90 11 weeks gestation of Z3A.11 Weeks of gestation: 11 weeks Assessment and Plan Assessment and Plan (1) Advanced maternal age (AMA) in : Status: Acute Comment: 36 week growth US and delivery by 39-40 weeks (2) Supervision of high-risk : Status: Acute Comment: , ALPHONSO 04/18/25, Phong Nesbitt, Benjie (3) : Status: Acute Qualifiers: Weeks of gestation: 11 weeks Qualified Code(s): Z3A.11 - 11 weeks gestation of Comment: elects NIPT with Gender Orders: Orders POC Urinalysis 2 Dip (Clinic) Today 10/01/24 1052 e Shaheed DO> Date _ Jenna Hartley DO [facility] Signature: Date (if applicable) CC: ~ [facility]06-09-2025 NoteHNO ID: [id number] Author: MELLY DARNELL RN Service: ? Author Type: Registered Nurse Type: Progress Notes Filed: 09/29/2024 09:56 Note Text: DERMATOLOGY AMBULATORY PATIENT EDUCATION TOPIC: Wound Care READINESS TO LEARN COGNITIVE ABILITY: AANDOx3 MOTIVATION TO LEARN: Eager and Interested FAMILY SUPPORT: None- unavailable/ disinterested INSTRUCTION PROVIDED TO: Patient PATIENT LEARNS BEST BY: Verbal instruction and Written instruction FACTORS AFFECTING LEARNING: None PHYSICAL LIMITATIONS AFFECTING LEARNING: None RESPONSE TO EDUCATION DIAGNOSIS: N/A PROCEDURE: Shave biopsy METHOD OF INSTRUCTION: Written instruction and Verbal instruction PATIENT / FAMILY RESPONSE: Patient verbalizes understanding. SUPPLEMENTAL MATERIAL: General wound care FOLLOW-UP PLAN: Pt instructed to call with any further questions or concerns. Contact information provided to patient. Melly Darnell [facility] History of Present illness Narrative* Melly Darnell RN - 09/29/2024 9:20 AM EDT DERMATOLOGY AMBULATORY PATIENT EDUCATION TOPIC: Wound Care READINESS TO LEARN COGNITIVE ABILITY: A&Ox3 MOTIVATION TO LEARN: Eager and Interested FAMILY SUPPORT: None- unavailable/ disinterested INSTRUCTION PROVIDED TO: Patient PATIENT LEARNS BEST BY: Verbal instruction and Written instruction FACTORS AFFECTING LEARNING: None PHYSICAL LIMITATIONS AFFECTING LEARNING: None RESPONSE TO EDUCATION DIAGNOSIS: N/A PROCEDURE: Shave biopsy METHOD OF INSTRUCTION: Written instruction and Verbal instruction PATIENT / FAMILY RESPONSE: Patient verbalizes understanding. SUPPLEMENTAL MATERIAL: General wound care FOLLOW-UP PLAN: Pt instructed to call with any further questions or concerns. Contact information provided to patient. Melly Darnell RN * Lilli Ledbetter PA-C - 09/29/2024 8:57 AM EDT Lalitha Montero is a 33 year old female who presents today for Patient presents with: Full Body Skin Check Current Treatment: Skin exam Past Treatment: As above History of nonmelanoma skin cancer: denies History of Melanoma: denies Family history of skin cancer: denies Dermatology History: Specialty Problems None Allergies: Bactrim [Sulfamethoxazole-Trimethoprim] and Bees Past Medical History: No past medical history on file. MEDS: Current Outpatient Medications on File Prior to Visit Medication Sig MULTIVITAMIN ORAL Take by mouth. EPINEPHrine (EPIPEN) 0.3 mg/0.3 mL auto-injector Give 1 injection into side of thigh for allergic reaction. Repeat dose in 5-15 min if not improving. No current facility-administered medications on file prior to visit. Review of systems Yes Has pacemaker / defibrillator No Takes aspirin / anticoagulant daily No Has valve disorders No Other problems elsewhere on skin No Melly Darnell RN The above was entered by the nursing staff. I have reviewed the documentation and I concur. Lilli FELIX HPI: Chief Complaint Skin exam Location Full body Duration 1 years Timing constant Severity mild Quality Skin tag upper left thigh Modifying Factors: Multiple moles Currently Physical Exam - Area(s) Examined: No images are attached to the encounter. The pt is alert and oriented, in NAD. Skin examination of head/scalp, face, neck, chest, back, abdomen, bilateral upper, lower extremities, groin/buttocks, hands, feet, digits, and nails. 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; Exam offeet deferred, shoes in place) was significant for: Items identified on Diagram above Brown stuck on papules and plaques throughout Light [place] macules on sun exposed areas Bright holt red papules throughout Regular and symmetric hyperpigmented macules/papules throughout face, trunk and b/l upper and lowerextremities Left Groin A) 1cm skin colored fleshy pedunculated plaque Assessment / Plan: (D22.70, D22.5, D22.60) Multiple benign nevi of upper extremity, lower extremity, and trunk (primary encounter diagnosis) (D22.30) Melanocytic nevi of face Comment: stable, regular and symmetric on exam Plan: Continue to monitor for growth/change Monitor with monthly self-skin exams/serial photography Patient counseled on ABCDEs of melanoma Sunscreen and photoprotection advised, broad spectrum, at least SPF 30 or greater Patient to contact office for any new or changing lesions or other concerns (L81.4) Lentigines Comment:scattered throughout sun exposed surfaces Plan: continue to monitor/observe (D18.01) Holt angioma Comment: scattered throughout Plan: discussed benign nature, continue to monitor/observe (L82.1) Seborrheic keratoses Comment: scattered throughout Plan: discussed benign nature, continue to monitor/observe (D49.2) Neoplasm of unspecified behavior of bone, soft tissue, and skin Comment: exam as above Plan: SURGICAL PATHOLOGY, lidocaine 10 mg/mL (1 %) 30 mg injection (XYLOCAINE), SKIN / NAIL BIOPSY Shave of lesion to establish and confirm diagnosis: Photo taken: Yes Risks, benefits, alternatives and personnel required for shave biopsy reviewed with patient. Patient and provider agree as to site(s) to be biopsied. Patient verbalizes understanding and wishes to proceed. Site(s) prepped with alcohol and anesthetized with 1% lidocaine plain. Shave of lesion(s) performed to the level of the dermis. 1 specimen(s) from see below sent for pathology to r/o see below. Hyfrecator used and bandaging applied. Written and verbal wound care instructions provided to patient, understanding verbalized. OK to call with results. EBL: scant SURGICAL PATHOLOGY Ordered at: 09/29/24 0920 Source of specimen(s): Skin, Shave Biopsy Clinical History: A) left groin r/o FEP vs other UNIVERSAL PROTOCOL / SAFETY CHECKLIST Procedure to be Performed: shave biopsy Sign In: A Moment of CARE was completed. Appropriate PPE (Personal Protective Equipment) worn by all providers involved with the procedure. Special equipment not required. Patient/Surrogate Stated/Verified: Patient name, Date of , Relevant allergies, and The intended procedure Time Out: Relevant labs, photos, and/or imaging studies have been reviewed. Intended patient and procedure match the source document(s) (e.g. consent, H&P, associated studies [imaging, pathology]) match the intended patient and procedure. Consent obtained and matches the intended procedure. Yes. Correct side/site has been marked and visible. Medications required for this procedure are verified. Fire risk assessed and interventions discussed. Implants: are not applicable. Sign Out: Specimens are all correctly labeled and sent. All instruments, equipment, possible retained foreign bodies are accounted for. Yes. The post-procedure plan of care has been communicated to the patient or surrogate. By signing my name below, I, Melly Darnell RN, attest that this documentation has been preparedunder the direction and in the presence of Lilli FELIX. Electronically Signed: Melly Darnell RN, Scribe. September 29, 2024 8:57 AM. I, Lilli Ledbetter PA-C, personally performed the services described in this documentation. All medical record entries made by the scribe were at my direction and in my presence. I have reviewed the chartand discharge instructions (if applicable) and agree that the record reflects my personal performance and is accurate and complete. Electronically Signed: Lilli Ledbetter PA-C September 29, 2024 9:56 AM. Patient to return to clinic in 1 year for follow-up re-evaluation/FBSE Patient to contact office as needed with questions/concerns, unimproved or worsening of symptoms Lilli Ledbetter PA-C documented in this encounterUniversity [facility]06-[facility] Instructions* Patient Instructions* Melly Darnell RN - 09/29/2024 9:19 AM EDT Shave biopsy A shave biopsy was completed today in the office. Vaseline and a bandage(unless the biopsy took place in an area with hair, for example the scalp) have been applied. Wound care instructions are below. 1. Leave Vaseline and bandage in place for 24 hours. 2. After 24 hours, remove the bandage. 3. Wash site with soap (antimicrobial) and warm water. 4. Allow site to air dry. 5. Apply Vaseline and a clean bandage. 6. Continue the above process 2 times a day for the next 7 to 14 days (or until completely healed),starting tomorrow with the first bandage change. What to watch for: 1. Redness spreading away from the biopsy site(it is normal for redness to appear directly around the biopsy site edges). 2. Thick yellow/green drainage. Note: Clear yellow drainage on the bandage is expected. If any of the above symptoms occur, please call the office at [phone]. documented in this encounterUniversity Hospitals [facility]06-09-2025 NoteHNO ID: [id number] Author: LILLI LEDBETTER PA-C Service: ? Author Type: Physician Care Nurse Rn Type: Progress Notes Filed: 09/29/2024 09:56 Note Text: Lalitha Montero is a 33 year old female who presents today for Patient presents with: Full Body Skin Check Current Treatment: Skin exam Past Treatment: As above History of nonmelanoma skin cancer: denies History of Melanoma: denies Family history of skin cancer: denies Dermatology History: Specialty Problems None Allergies: Bactrim [Sulfamethoxazole-Trimethoprim] and Bees Past Medical History: No past medical history on file. MEDS: Current Outpatient Medications on File Prior to Visit Medication Sig MULTIVITAMIN ORAL Take by mouth. EPINEPHrine (EPIPEN) 0.3 mg/0.3 mL auto-injector Give 1 injection into side of thigh for allergic reaction. Repeat dose in 5-15 min if not improving. No current facility-administered medications on file prior to visit. Review of systems Yes Has pacemaker / defibrillator No Takes aspirin / anticoagulant daily No Has valve disorders No Other problems elsewhere on skin No Melly Darnell RN The above was entered by the nursing staff. I have reviewed the documentation and I concur. Lilli FELIX HPI: Chief Complaint Skin exam Location Full body Duration 1 years Timing constant Severity mild Quality Skin tag upper left thigh Modifying Factors: Multiple moles Currently Physical Exam - Area(s) Examined: No images are attached to the encounter. The pt is alert and oriented, in NAD. Skin examination of head/scalp, face, neck, chest, back, abdomen, bilateral upper, lower extremities, groin/buttocks, hands, feet, digits, and nails. 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; Exam of feet deferred, shoes in place) was significant for: Items identified on Diagram above Brown stuck on papules and plaques throughout Light [place] macules on sun exposed areas Bright holt red papules throughout Regular and symmetric hyperpigmented macules/papules throughout face, trunk and b/l upper and lower extremities Left Groin A) 1cm skin colored fleshy pedunculated plaque Assessment / Plan: (D22.70, D22.5, D22.60) Multiple benign nevi of upper extremity, lower extremity, and trunk (primary encounter diagnosis) (D22.30) Melanocytic nevi of face Comment: stable, regular and symmetric on exam Plan: Continue to monitor for growth/change Monitor with monthly self-skin exams/serial photography Patient counseled on ABCDEs of melanoma Sunscreen and photoprotection advised, broad spectrum, at least SPF 30 or greater Patient to contact office for any new or changing lesions or other concerns (L81.4) Lentigines Comment:scattered throughout sun exposed surfaces Plan: continue to monitor/observe (D18.01) Holt angioma Comment: scattered throughout Plan: discussed benign nature, continue to monitor/observe (L82.1) Seborrheic keratoses Comment: scattered throughout Plan: discussed benign nature, continue to monitor/observe (D49.2) Neoplasm of unspecified behavior of bone, soft tissue, and skin Comment: exam as above Plan: SURGICAL PATHOLOGY, lidocaine 10 mg/mL (1 %) 30 mg injection (XYLOCAINE), SKIN / NAIL BIOPSY Shave of lesion to establish and confirm diagnosis: Photo taken: Yes Risks, benefits, alternatives and personnel required for shave biopsy reviewed with patient. Patient and provider agree as to site(s) to be biopsied. Patient verbalizes understanding and wishes to proceed. Site(s) prepped with alcohol and anesthetized with 1% lidocaine plain. Shave of lesion(s) performed to the level of the dermis. 1 specimen(s) from see below sent for pathology to r/o see below. Hyfrecator used and bandaging applied. Written and verbal wound care instructions provided to patient, understanding verbalized. OK to call with results. EBL: scant SURGICAL PATHOLOGY Ordered at: 09/29/24 0920 Source of specimen(s): Skin, Shave Biopsy Clinical History: A) left groin r/o FEP vs other UNIVERSAL PROTOCOL / SAFETY CHECKLIST Procedure to be Performed: shave biopsy Sign In: A Moment of CARE was completed. Appropriate PPE (Personal Protective Equipment) worn by all providers involved with the procedure. Special equipment not required. Patient/Surrogate Stated/Verified: Patient name, Date of , Relevant allergies, and The intended procedure Time Out: Relevant labs, photos, and/or imaging studies have been reviewed. Intended patient and procedure match the source document(s) (e.g. consent, HANDP, associated studies [imaging, pathology]) match the intended patient and procedure. Consent obtained and matches the intended procedure. Yes. Correct side/site has been marked and visible. Medications required for this procedure are verified. Fire risk assessed and interventions discussed. Implants: are not applicable. Sign Out: Specimens ar (more content not included)...[facility]05-15-2025 Evaluation note* Diagnosis Onset Date Resolution Status Admit Date Advanced maternal age (AMA) in acute September 04, 2024 1 :06pm acute September 04, 2024 1:06pm Supervision of high-risk a cute September 04, 2024 1:06pm [facility] Work Phone: 1(878) 494-909005-15-2025 Evaluation note* Diagnosis Onset Date Resolution Status Admit Date Advanced maternal age (AMA) in acute September 04, 2024 1 :06pm acute September 04, 2024 1:06pm Supervision of high-risk a cute September 04, 2024 1:06pm Advanced maternal age (AMA) in acute September 18, 2024 8 :47am acute September 18, 2024 8:47am Supervision of high-risk a cute September 18, 2024 8:[address] [facility] Work Phone: 1(804) 221-925605-15-2025 Evaluation note* Diagnosis Onset Date Resolution Status Admit Date Advanced maternal age (AMA) in acute September 04, 2024 1 :06pm acute September 04, 2024 1:06pm Supervision of high-risk acute September 04, 2024 1 :06pm Advanced maternal age (AMA) in acute September 18, 2024 8 :47am acute September 18, 2024 8:47am Supervision of high-risk acute September 18, 2024 8 :47am Advanced maternal age (AMA) in acute October 01, 2024 10:06am acute October 01 10:06am Supervision of high-risk acute October 01, 2024 10:06am [facility] Work Phone: 1([phone]) 819-394405-15-2025 Evaluation note* Diagnosis Onset Date Resolution Status Admit Date Advanced maternal age (AMA) in acute September 04, 2024 1 :06pm acute September 04, 2024 1:06pm Supervision of high-risk acute September 04, 2024 1 :06pm Advanced maternal age (AMA) in acute September 18, 2024 8 :47am acute September 18, 2024 8:47am Supervision of high-risk acute September 18, 2024 8 :47am Advanced maternal age (AMA) in acute October 01, 2024 10:06am acute October 01 10:06am Supervision of high-risk acute October 01, 2024 10:06am Advanced maternal age (AMA) in acute October 27, 2024 8 :24am acute October 27, 2024 8:24am Supervision of high-risk acute October 27, 2024 8 :24am [facility] Work Phone: 1([phone]) 251-158105-15-2025 Evaluation note* Diagnosis Onset Date Resolution Status Admit Date Advanced maternal age (AMA) in acute September 04, 2024 1 :06pm acute September 04, 2024 1:06pm Supervision of high-risk acute September 04, 2024 1 :06pm Advanced maternal age (AMA) in acute September 18, 2024 8 :47am acute September 18, 2024 8:47am Supervision of high-risk acute September 18, 2024 8 :47am Advanced maternal age (AMA) in acute October 01, 2024 10:06am acute October 01 10:06am Supervision of high-risk acute October 01, 2024 10:06am Advanced maternal age (AMA) in acute October 27, 2024 8 :24am acute October 27, 2024 8:24am Supervision of high-risk acute October 27, 2024 8 :24am Advanced maternal age (AMA) in acute November 28, 2024 2:37pm acute November 28 2:37pm Supervision of high-risk acute November 28, 2024 2:37pm [facility] Work Phone: 1([phone]) 879-114705-15-2025 Evaluation note* Diagnosis Onset Date Resolution Status Admit Date Advanced maternal age (AMA) in acute September 04, 2024 1 :06pm acute September 04, 2024 1:06pm Supervision of high-risk acute September 04, 2024 1 :06pm Advanced maternal age (AMA) in acute September 18, 2024 8 :47am acute September 18, 2024 8:47am Supervision of high-risk acute September 18, 2024 8 :47am Advanced maternal age (AMA) in acute October 01, 2024 10:06am acute October 01 10:06am Supervision of high-risk acute October 01, 2024 10:06am Advanced maternal age (AMA) in acute October 27, 2024 8 :24am acute October 27, 2024 8:24am Supervision of high-risk acute October 27, 2024 8 :24am Advanced maternal age (AMA) in acute November 28, 2024 2:37pm acute November 28 2:37pm Supervision of high-risk acute November 28, 2024 2:37pm Advanced maternal age (AMA) in acute December 26, 025 1:56pm acute December 26, 2024 1:56pm Supervision of high-risk acute December 26 025 1:56pm [facility] Work Phone: 1(569) 314-155505-15-2025 [facility] [address] [place] [address], [address] [place] [address] OFFICE VISIT Date of Service: 09/04/24 MR#: [id number] Acct: [id number] Name: LALITHA MONTERO Rep #: [id number] : 1990 Provider: Dr. Damaso Patten MD Age/Sex: 33/F Location: [facility] Status: Signed Intake Vital Signs 12/03/23 08:53 09/04/24 13:13 Height 5 ft 5 in 5 ft 5 in Weight: 169 lb BMI 28.1 BP 115/74 Intake Visit Reasons: New OB, LMP 07/12, ALPHONSO 04/18 Chief Complaint: NOB Margarine Maker Required: No Is patient in pain?: No Allergies bee venom protein (honey bee) Allergy (Severe, Verified 09/04/24 13:14) Swelling Sulfa (Sulfonamide Antibiotics) Allergy (Mild, Verified 09/04/24 13:14) Rash Medications ?Medication ?Instructions ?Recorded ?Confirmed ?Type multivitamin no.47-iron fum 27 cap PO 03/23/23 5 History mg-folate no.1 1 mg-dha 300 mg capsule (PNV-DHA) Last Menstrual Period: 07/12/24 Zika: Zika virus screening: Negative : No PFSH PFSH Medical History Contraception management Abnormal glucose affecting COVID-19 vaccine series completed Surgical History S/P dilation and curettage [place] teeth extracted History of tonsillectomy Family History Grandfather Diabetes Maternal Heart disease Maternal Dementia Maternal Father Heart disease Social History adopted: No household members: spouse and children housing: house number of children: 2 current occupational status: employed current occupation: [employer] current occupational exposures/hazards: No pets and animals: Yes (not managing litterbox) pets and animals: cat(s) and dog(s) history of recent travel: No sexually active: Yes Smoking Status: Never smoker alcohol intake: current alcohol intake frequency: holidays/special occasions only details: Not while substance use type: does not use well-balanced diet: daily or most days caffeine: Yes Type: other Number of servings: 2 eating out: 1-3 times/week during the past year weight has: remained stable what type of physical activity do you participate in: walking and weight training frequency: 5-6 times per week duration: 15-30 minutes/day kesha/yarsani: Synagogue seatbelt use: always do you feel safe at home: Yes 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 Date Name GA/Weeks Outcome Route Bth Weight Infant Gen Labor Lgth Anesthesia Del Locatn Provider FOB Unknown 2021 Jann 38 live - full term 7#4oz Male non e [facility] NONA [place] 12/15/19 Phong 38 live - full term 7lbs 9oz Male 7 hours none [facility] Sand[place] 05/01/23 12 spontaneous Delivery Date: 05/01/23 Last Updated by: Trista Gudino D&C, SM HPI New OB, LMP 07/12, ALPHONSO 04/18 Details: LALITHA MONTERO is a 33 year old who presents for New OB visit. OB Visit ALPHONSO Calculator Estimated Delivery Date Method Current WG Current Estimate 04/18/25 LMP (Certain) 7w 5d Other Estimates 04/20/25 Ultrasound #1 7w 3d Comments: HIV: Urine Culture: Sequential Screen: NIPT Screen: Estimated Due Date: 04/18/25 Expected Delivery Route/Plan Labor Preferences- CB/BF classes: [] labor support person: [] labor intervention preferences: [] pain management options preferred: [] cut cord/dad catch: [] : [] PP control planned: [] discussed possible routes of delivery and associated risks: [] special requests: [] Specific Issue/Plans Covid status: [] Flu vaccine: [] Tdap vaccine: [] Rhogam: [] LARC form signed: [] Problem list reviewed and updated with the most current plan of care details and appropriate ordersplaced. Relevant counseling for the gestational age provided. Continue routine care and follow up unless otherwise noted in visit notes/problem list details Initial Weight: Not Recorded Date -?-?-?-?-?-?-?-?-?-?-?-?- EGA Weight BP Urine Prot -?-?-?-?-?-?-?-?-?-?-?-?- Glucose FHR FuHt Pres Dilation -?-?-?-?-?-?-?-?-?-?-?-?- Effaced St Visit Note 09/04/24 -?-?-?-?-?-?-?-?-?-?-?-?- 7w 5d 169 lb 115/74 -?-?-?-?-?-?-?-?-?-?-?-?- 145 -?-?-?-?-?-?-?-?-?-?-?-?- SM- CRL 1.2cm co ns with LMP SM- CRL 1.2cm cons with LMP 6 mm subchorionic hematoma Menstrual History Last Menstrual Period: 07/12/24 Reported LMP: definite Normal amount/duration: Yes Frequency in days: 25-30 On hormonal BC at conception: No hCG+: 08/12/24 Antepartum Record Genetic Screening: Congenital Heart Defect: Other, Neural Tube Defect: Other, Hemoglobinopathy Or Carrier: Other, Cystic Fibrosis: Other, Chromosome Abnormality: Other, Juan-Sachs: Other, Hemophilia: Other, Intellectual Disability/Autism: Other, Recurrent Loss/Stillbirth: Other, Other Structural Defect: Other, Other Genetic Disease: Other and Maternal Metabolic Disorder: Other Infection History: Live with someone with TB or Exposed to TB: No, Patient or Partner has history of Genital Herpes: No, Rash or Viral illness since last mentrual period: No, Prior GBS-Infected child: Yes (1st only), History of STD: No, HIV Infection: No, History of Hepatitis: No, Recent travel outside of [place]: No, Concern for hepatitis exposure: No, Varicella immune: Yes (immune- virus) and Covid Vaccinated: Yes (2020 Pfizer, 1 Booster) Medical History Medical History: Positive: Drug/latex allergies/reactions (Sulfa, Bee venom), 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)and Uterine anomaly/kosta (heart shaped uterus) and Negative: Diabetes, Hypertension, Heart disease, Auto-immune disorder, Kidney disease/UTI, Neurologic/epilepsy, Psychiatric, Depression/ depression, Hepatitis/liver disease, Varicosities/phlebitis, Thyroid dysfunction, Trauma/domestic violence, History of blood transfusions, D (Rh) Sensitized, Pulmonary (e.g.,TB,Asthma), Seasonal allergies, Breast, Operations/hospitalizations (Nothing to add see PFSH), Anesthetic complications, History of abnormal pap, Infertility, Anti-retroviral treatment, Relevant family history and Other ACOG First Trimester First Trimester: Desire for , Alcohol, Tobacco Cessation, Illicit/Recreational Drug/Substance Use, Intimate Partner Violence, Barriers to care, Unstable Housing, Communication Barriers, Environmental/Work Hazards, Anticipated Course of Care, Toxoplasmosis Precations, Use of Any med ications, Sexual activity, Exercise, Dental Care, Sauna/Hot tub use, Seat Belt use, Childbirth classes/Hospital facilities, Travel, Indications for Ultrasound and Screening for Aneuploidy; Discussed Second Trimester Second Trimester: Signs and Symptoms of Labor, Selecting a care provider, Reproductive Life Planning & Contreception, Care Planning, Depression/Anxiety and Intimate Partner Violence; Discussed Tobacco Cessation Third Trimester Third Trimester: Pain Management Plans, Labor support person(s), Immediate Larc, Circumcision preference, Movement Monitoring, Infant Feeding No and Family Medical Leave or Disability Forms; Discussed Trial of Labor after Counseling ROS Const Reports system reviewed and no additional complaints, except as documented, Reports fatigue and Denies fever(s) Eyes Reports system reviewed and no additional complaints, except as documented ENT Reports system reviewed and no additional complaints, except as documented Card Denies chest pain and Denies dyspnea Resp Reports system reviewed and no additional complaints, except as documented, Denies cough and Deniesdyspnea GI Denies abdominal pain and Reports nausea Reports system reviewed and no additional complaints, except as documented Musc Reports system reviewed and no additional complaints, except as documented Skin/Breast Reports system reviewed and no additional complaints, except as documented Neuro Yes system reviewed and no additional complaints, except as documented Psych Reports system reviewed and no additional complaints, except as documented Endo Reports system reviewed and no additional complaints, except as documented and Reports fatigue Exam Const General: healthy appearing, comfortable and no acute distress Orientation: alert HENNV Head: normal to inspection, normocephalic and atraumatic Ears: hearing grossly normal bilaterally and external ears normal Nose: external nose normal and nares normal Mouth: oral mucosae normal Teeth and gingiva: dentition normal Eyes General: appearance normal, both eyes and all related structures Neck Neck: normal visual inspection, no lymphadenopathy and supple Thyroid: thyroid normal Chest Chest palpation & inspection: normal inspection of the chest Breast inspection: normal inspection of the breasts and normal inspection of the axillae Breast palpation: normal palpation of the breasts and normal palpation of the axillae Resp Effort & Inspection: normal respiratory effort GI Inspection: normal to inspection Palpation: soft and no hepatosplenomegaly General: bladder normal to palpation External Female Exam: normal external appearance and normal appearance of the urethra Urethra: normal appearance of the urethra Speculum Exam - Vagina: normal appearance of the vagina and normal vaginal discharge Speculum Exam - Cervix: normal appearance of the cervix Bimanual Exam- Vagina & Uterus: normal bimanual exam, bladder normal to palpation, non-tender and other Bimanual Exam- Adnexa, other: non-tender Skin General: no rashes or lesions noted Neuro Motor: muscle tone normal throughout and no movement abnormalities noted Extrem General: normal to inspection and full ROM Supplemental Info ACOG book given and patient encouraged to read about nutrition, exercise, weight gain, and food avoidance in . Coding Level of Care Code OB Routine Diagnoses Advanced maternal age (AMA) in Supervision of high-risk O09.90 Z34.90 Assessment and Plan Assessment and Plan (1) Advanced maternal age (AMA) in : Status: Acute Comment: 36 week growth US and delivery by 39-40 weeks (2) Supervision of high-risk : Status: Acute Comment: , ALPHONSO 04/18/25, Phong Nesbitt, Benjie (3) : Status: Acute Comment: elects NIPT with Gender Orders: Orders CBC W/Diff, Automated 08/29/24 O09.90 - Supervision of high risk , unspecified, unspecified trimester Type & Screen 08/29/24 O.90 - Supervision of high risk , unspecified, unspecified trimester Rubella IgG 08/29/24 O09.90 - Supervision of high risk , unspecified, unspecified trimester Hepatitis C Antibody 08/29/24 O.90 - Supervision of high risk , unspecified, unspecifiedtrimester Hepatitis B Surface Antigen 08/29/24 O.90 - Supervision of high risk , unspecified, unspecified trimester Culture, Urine 08/29/24 O.90 - Supervision of high risk , unspecified, unspecified trimester Syphilis Antibodies 08/29/24 O09.90 - Supervision of high risk , unspecified, unspecified trimester Chlamydia/GC NICOLAS aptima 08/29/24 O09.90 - Supervision of high risk , unspecified, unspecified trimester HIV 08/29/24 O09.90 - Supervision of high risk , unspecified, unspecified trimester ISREAL 08/29/24 O09.90 - Supervision of high risk , unspecified, unspecified trimester Plan Patient oriented to practice and discussed care expectations and screenings. ACOG book offered to patient. Discussed routine and specially indicated labs if needed- patient consents to testing. See problem list details for plan information. Optional screening including maternal carrier screenings, neural tube defect screening, genetic screening options including quad screen, nuchal translucency, sequential screening, and NIPT screening offered to patient and patient chose: nipt 09/04/24 1411 lydia CARL> Date _ Dominique Patten MD Cosigner Signature: Date (if applicable) CC: ~ [facility]05-15-2025 Progress note Author Dominique Patten [facility] Note Date/Time September 04, 2024 2:11p [facility] [address] [place] [address], [address] [place] [address] OFFICE VISIT Date of Service: 09/04/24 MR#: [id number] Acct: [id number] Name: LALITHA MONTERO Rep #: [id number] : 1990 Provider: Dr. Damaso Patten MD Age/Sex: 33/F Location: [facility] Status: Signed Intake Vital Signs 12/03/23 08:53 09/04/24 13:13 Height 5 ft 5 in 5 ft 5 in Weight: 169 lb BMI 28.1 BP 115/74 Intake Visit Reasons: New OB, LMP 07/12, ALPHONSO 04/18 Chief Complaint: NOB Margarine Maker Required: No Is patient in pain?: No Allergies bee venom protein (honey bee) Allergy (Severe, Verified 09/04/24 13:14) Swelling Sulfa (Sulfonamide Antibiotics) Allergy (Mild, Verified 09/04/24 13:14) Rash Medications ?Medication ?Instructions ?Recorded ?Confirmed ?Type multivitamin no.47-iron fum 27 cap PO 03/23/23 5 History mg-folate no.1 1 mg-dha 300 mg capsule (PNV-DHA) Last Menstrual Period: 07/12/24 Zika: Zika virus screening: Negative : No PFSH PFSH Medical History Contraception management Abnormal glucose affecting COVID-19 vaccine series completed Surgical History S/P dilation and curettage [place] teeth extracted History of tonsillectomy Family History Grandfather Diabetes Maternal Heart disease Maternal Dementia Maternal Father Heart disease Social History adopted: No household members: spouse and children housing: house number of children: 2 current occupational status: employed current occupation: [employer] current occupational exposures/hazards: No pets and animals: Yes (not managing litterbox) pets and animals: cat(s) and dog(s) history of recent travel: No sexually active: Yes Smoking Status: Never smoker alcohol intake: current alcohol intake frequency: holidays/special occasions only details: Not while substance use type: does not use well-balanced diet: daily or most days caffeine: Yes Type: other Number of servings: 2 eating out: 1-3 times/week during the past year weight has: remained stable what type of physical activity do you participate in: walking and weight training frequency: 5-6 times per week duration: 15-30 minutes/day kesha/yarsani: Syn[employer] seatbelt use: always do you feel safe at home: Yes 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 Date Name GA/Weeks Outcome Route Bth Weight Infant Gen Labor Lgth Anesthesia Del Locatn Provider FOB Unknown 2021 Jann 38 live - full term 7#4oz Male non e [facility] NONA [place] 12/15/19 Phong 38 live - full term 7lbs 9oz Male 7 hours none [facility] Sandor 05/01/23 12 spontaneous Delivery Date: 05/01/23 Last Updated by: Trista Gudino DOdilon, HPI New OB, LMP 07/12, ALPHONSO 04/18 Details: LALITHA MONTERO is a 33 year old who presents for New OB visit. OB Visit ALPHONSO Calculator Estimated Delivery Date Method Current WG Current Estimate 04/18/25 LMP (Certain) 7w 5d Other Estimates 04/20/25 Ultrasound #1 7w 3d Comments: HIV: Urine Culture: Sequential Screen: NIPT Screen: Estimated Due Date: 04/18/25 Expected Delivery Route/Plan Labor Preferences- CB/BF classes: [] labor support person: [] labor intervention preferences: [] pain management options preferred: [] cut cord/dad catch: [] : [] PP control planned: [] discussed possible routes of delivery and associated risks: [] special requests: [] Specific Issue/Plans Covid status: [] Flu vaccine: [] Tdap vaccine: [] Rhogam: [] LARC form signed: [] Problem list reviewed and updated with the most current plan of care details and appropriate orders placed. Relevant counseling for the gestational age provided. Continue routine care and follow up unless otherwise noted in visit notes/problem list details Initial Weight: Not Recorded Date -?-?-?-?-?-?-?-?-?-?-?-?- EGA Weight BP Urine Prot -?-?-?-?-?-?-?-?-?-?-?-?- Glucose FHR FuHt Pres Dilation -?-?-?-?-?-?-?-?-?-?-?-?- Effaced St Visit Note 09/04/24 -?-?-?-?-?-?-?-?-?-?-?-?- 7w 5d 169 lb 115/74 -?-?-?-?-?-?-?-?-?-?-?-?- 145 -?-?-?-?-?-?-?-?-?-?-?-?- SM- CRL 1.2cm co ns with LMP SM- CRL 1.2cm cons with LMP 6 mm subchorionic hematoma Menstrual History Last Menstrual Period: 07/12/24 Reported LMP: definite Normal amount/duration: Yes Frequency in days: 25-30 On hormonal BC at conception: No hCG+: 08/12/24 Antepartum Record Genetic Screening: Congenital Heart Defect: Other, Neural Tube Defect: Other, Hemoglobinopathy Or Carrier: Other, Cystic Fibrosis: Other, Chromosome Abnormality: Other, Juan-Sachs: Other, Hemophilia: Other, Intellectual Disability/Autism: Other, Recurrent Loss/Stillbirth: Other, Other Structural Defect: Other, Other Genetic Disease: Other and Maternal Metabolic Disorder: Other Infection History: Live with someone with TB or Exposed to TB: No, Patient or Partner has history of Genital Herpes: No, Rash or Viral illness since last mentrual period: No, Prior GBS-Infected child: Yes (1st only), History of STD: No, HIV Infection: No, History of Hepatitis: No, Recent travel outside of [place]: No, Concern for hepatitis exposure: No, Varicella immune: Yes (immune-virus) and Covid Vaccinated: Yes (2020 Pfizer, 1 Booster) Medical History Medical History: Positive: Drug/latex allergies/reactions (Sulfa, Bee venom), 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) and Uterine anomaly/kosta (heart shaped uterus) and Negative: Diabetes, Hypertension, Heart disease, Auto-immune disorder, Kidney disease/UTI, Neurologic/epilepsy, Psychiatric, Depression/ depression, Hepatitis/liver disease, Varicosities/phlebitis, Thyroid dysfunction, Trauma/domestic violence, History of blood transfusions, D (Rh) Sensitized, Pulmonary (e.g.,TB,Asthma), Seasonal allergies, Breast, Operations/hospitalizations (Nothing to add see PFSH), Anesthetic complications, History of abnormal pap, Infertility, Anti-retroviral treatment, Relevant family history and Other ACOG First Trimester First Trimester: Desire for , Alcohol, Tobacco Cessation, Illicit/Recreational Drug/Substance Use, Intimate Partner Violence, Barriers to care, Unstable Housing, Communication Barriers, Environmental/Work Hazards, Anticipated Course of Care, Toxoplasmosis Precations, Use of Any medications, Sexual activity, Exercise, Dental Care, Sauna/Hot tub use, Seat Belt use, Childbirth classes/Hospital facilities, Travel, Indications for Ultrasound and Screening for Aneuploidy; Discussed Second Trimester Second Trimester: Signs and Symptoms of Labor, Selecting a care provider, Reproductive Life Planning & Contreception, Care Planning, Depression/Anxiety and Intimate Partner Violence; Discussed Tobacco Cessation Third Trimester Third Trimester: Pain Management Plans, Labor support person(s), Immediate Larc, Circumcision preference, Movement Monitoring, Feeding No and Family Medical Leave or Disability Forms; Discussed Trial of Labor after Counseling ROS Const Reports system reviewed and no additional complaints, except as documented, Reports fatigue and Denies fever(s) Eyes Reports system reviewed and no additional complaints, except as documented ENT Reports system reviewed and no additional complaints, except as documented Card Denies chest pain and Denies dyspnea Resp Reports system reviewed and no additional complaints, except as documented, Denies cough and Denies dyspnea GI Denies abdominal pain and Reports nausea Reports system reviewed and no additional complaints, except as documented Musc Reports system reviewed and no additional complaints, except as documented Skin/Breast Reports system reviewed and no additional complaints, except as documented Neuro Yes system reviewed and no additional complaints, except as documented Psych Reports system reviewed and no additional complaints, except as documented Endo Reports system reviewed and no additional complaints, except as documented and Reports fatigue Exam Const General: healthy appearing, comfortable and no acute distress Orientation: alert [facility] Head: normal to inspection, normocephalic and atraumatic Ears: hearing grossly normal bilaterally and external ears normal Nose: external nose normal and nares normal Mouth: oral mucosae normal Teeth and gingiva: dentition normal Eyes General: appearance normal, both eyes and all related structures Neck Neck: normal visual inspection, no lymphadenopathy and supple Thyroid: thyroid normal Chest Chest palpation & inspection: normal inspection of the chest Breast inspection: normal inspection of the breasts and normal inspection of the axillae Breast palpation: normal palpation of the breasts and normal palpation of the axillae Resp Effort & Inspection: normal respiratory effort GI Inspection: normal to inspection Palpation: soft and no hepatosplenomegaly General: bladder normal to palpation External Female Exam: normal external appearance and normal appearance of the urethra Urethra: normal appearance of the urethra Speculum Exam - Vagina: normal appearance of the vagina and normal vaginal discharge Speculum Exam - Cervix: normal appearance of the cervix Bimanual Exam- Vagina & Uterus: normal bimanual exam, bladder normal to palpation, non-tender and other Bimanual Exam- Adnexa, other: non-tender Skin General: no rashes or lesions noted Neuro Motor: muscle tone normal throughout and no movement abnormalities noted Extrem General: normal to inspection and full ROM Supplemental Info ACOG book given and patient encouraged to read about nutrition, exercise, weight gain, and food avoidance in . Coding Level of Care Code OB Routine Diagnoses Advanced maternal age (AMA) in Supervision of high-risk O09.90 Z34.90 Assessment and Plan Assessment and Plan (1) Advanced maternal age (AMA) in : Status: Acute Comment: 36 week growth US and delivery by 39-40 weeks (2) Supervision of high-risk : Status: Acute Comment: , ALPHONSO 04/18/25, Phong Nesbitt, Benjie (3) : Status: Acute Comment: elects NIPT with Gender Orders: Orders CBC W/Diff, Automated 08/29/24 O09.90 - Supervision of high risk , unspecified, unspecified trimester Type & Screen 08/29/24 O09.90 - Supervision of high risk , unspecified, unspecified trimester Rubella IgG 08/29/24 O. - Supervision of high risk , unspecified, unspecified trimester Hepatitis C Antibody 08/29/24 O - Supervision of high risk , unspecified, unspecified trimester Hepatitis B Surface Antigen 08/29/24 O - Supervision of high risk , unspecified, unspecified trimester Culture, Urine 08/29/24 O - Supervision of high risk , unspecified, unspecified trimester Syphilis Antibodies 08/29/24 O. - Supervision of high risk , unspecified, unspecified trimester Chlamydia/GC NICOLAS aptima 08/29/24 O - Supervision of high risk , unspecified, unspecified trimester HIV 08/29/24 O - Supervision of high risk , unspecified, unspecified trimester ISREAL 08/29/24 O - Supervision of high risk , unspecified, unspecified trimester Plan Patient oriented to practice and discussed care expectations and screenings. ACOG book offered to patient. Discussed routine and specially indicated labs if needed- patient consents to testing. See problem list details for plan information. Optional screening including maternal carrier screenings, neural tube defect screening, genetic screening options including quad screen, nuchal translucency, sequential screening, and NIPT screening offered to patient and patient chose: nipt 09/04/24 1411 <Electronically signed by Dominique freeman MD> Date _ Dominique Patten MD Cosigner Signature: Date (if applicable) CC: ~ [facility] Work Phone: 1(771) 237-532008-09-2024 Instructions* Patient Instructions* Suzanne Guallpa APRN.[facility] - 11/30/2023 1:22 PM EDT Health Promotion: - Eat healthy -- go to [employer]gov to get started - Have a yearly physical - Mammogram yearly after age 40 - Get at least 30 minutes of physical activity daily - Get at least 7 to 8 hours of sleep each night - Reach and maintain a healthy weight - Get help to quit or don't start smoking - Limit alcohol use to one drink or less - Do not use illegal drugs or misuse prescription drugs - Wear a helmet when riding a bike and wear protective gear for sports - Wear a seatbelt in cars and not text and drive - Wear sunscreen documented in this encounterUniversity [facility]als [facility]08-09-2024 NoteHNO ID: [id number] Author: SUZANNE GUALLPA APRN.[facility]ILLIE Service: ? Author Type: Nurse Practitioner Type: Progress Notes Filed: 11/30/2023 13:31 Note Text: Chief Complaint Patient presents with: Physical HPI Lalitha Montero is a 33 year old female who presents here today for Physical Pt presents today for physical exam. No problems/concerns. REVIEW OF SYSTEMS GENERAL: No weight loss, malaise or fevers/chills HEENT: Negative for frequent or significant headaches, No changes in hearing or vision. NECK: Negative for lumps, goiter, pain and significant neck swelling RESPIRATORY: Negative for cough, hemoptysis, wheezing, dyspnea or shortness of breath CARDIOVASCULAR: Negative for chest pain, leg swelling, orthopnea, or palpitations GI: No nausea, vomiting, or diarrhea/constipation. No hematochezia/melena. No heartburn or reflux symptoms. : No history of dysuria, frequency or incontinence. Miscarriage w/ DANDC earlier this year. MUSCULOSKELETAL: Negative for joint pain or swelling. SKIN: Negative for lesions, rash, and itching ENDOCRINE: Negative for cold or heat intolerance, polyuria, polydipsia and goiter NEURO: No history of headaches, syncope, paralysis, seizures or tremors Mood: Denies depression/anxiety. Past medical history, appointments, medications, allergies reviewed. Previous Medical History No past medical history on file. Previous Surgical History PAST SURGICAL HISTORY 2013: LASIK No date: REMOVAL OF TONSILS; UNDER AGE 11 Comment: age 6 Family History FAMILY HISTORY Problem Relation Age of Onset other (High Cholesterol [Other]) Father Ischemic Heart Disease Father stents No Known Problems Brother other (thyroid disease) Maternal Grandmother had surgery Ischemic Heart Disease Maternal Grandfather triple bypass Diabetes Maternal Grandfather Hypertension Paternal Grandmother Tx with medication Ischemic Heart Disease Paternal Grandmother Hypertension Paternal Grandfather Prostate Cancer Paternal Grandfather Patient Allergies ALLERGIES Allergen Reactions Bactrim [Sulfametho* Rash Rash all over Bees Hives Current Medications Current Outpatient Medications on File Prior to Visit Medication Sig EPINEPHrine (EPIPEN) 0.3 mg/0.3 mL auto-injector Give 1 injection into side of thigh for allergic reaction. Repeat dose in 5-15 min if not improving. No current facility-administered medications on file prior to visit. Social History Social History Tobacco Use Smoking status: Never Smokeless tobacco: Never Substance Use Topics Alcohol use: Yes Comment: Sometimes Drug use: No EXAM: BP 118/74 (BP Site: Left Arm, BP Position: Sitting, BP Cuff Size: Regular Adult) Pulse 72 Resp 16 Ht 166.4 cm (5' 5.5) Wt 78.5 kg (173 lb) LMP 11/08/2023 BMI 28.35 kg/m? General Appearance: Well appearing, alert, in no acute distress, well-hydrated, well nourished.. Skin: Skin color, texture, turgor normal, no suspicious rashes or lesions. Head: Normocephalic, no masses, lesions, tenderness or abnormalities. Eyes: Anicteric sclera. Pupils are equally round and reactive to light. Extraocular movements are intact. . Ears: External ears normal, canals clear. Normal TMs bilaterally. Oropharynx: Lips, mucosa, and tongue normal, teeth and gums normal, oropharynx normal. Neck: Supple, no adenopathy; thyroid symmetric, normal size, no bruits. Lungs: Lungs clear to auscultation. No wheezing, rhonchi, rales.. Heart: RRR without murmur, gallop, or rubs. No ectopy. Abdomen: Abdomen soft, non-tender. Bowel sounds normal. No masses, organomegaly. Extremities: No deformities, edema, skin discoloration, clubbing or cyanosis. Good capillary refill. . Neurologic: Gait normal. Reflexes normal and symmetric. Sensation grossly intact.. ASSESSMENT/PLAN: 1. Wellness examination - ICD9: V70.0, ICD10: Z00.00 (primary diagnosis) - Follow up for annual exam in one year Health Promotion: - Eat healthy -- go to [employer]gov to get started - Have a yearly physical - Mammogram yearly after age 40 - Get at least 30 minutes of physical activity daily - Get at least 7 to 8 hours of sleep each night - Reach and maintain a healthy weight - Get help to quit or don't start smoking - Limit alcohol use to one drink or less - Do not use illegal drugs or misuse prescription drugs - Wear a helmet when riding a bike and wear protective gear for sports - Wear a seatbelt in cars and not text and drive - Wear sunscreen 2. 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 Patient's questions answered appropriately. Medications and potential side effects were discussed and patient voices understanding. Return to the office as scheduled or as needed for worsening/no improvement. Suzanne Guallpa APRN.[facility]08-09-2024 History of Present illness Narrative* Suzanne Guallpa APRN.[facility] - 11/30/2023 12:49 PM EDT Chief Complaint Patient presents with: Physical HPI Lalitha Montero is a 33 year old female who presents here today for Physical Pt presents today for physical exam. No problems/concerns. REVIEW OF SYSTEMS GENERAL: No weight loss, malaise or fevers/chills HEENT: Negative for frequent or significant headaches, No changes in hearing or vision. NECK: Negative for lumps, goiter, pain and significant neck swelling RESPIRATORY: Negative for cough, hemoptysis, wheezing, dyspnea or shortness of breath CARDIOVASCULAR: Negative for chest pain, leg swelling, orthopnea, or palpitations GI: No nausea, vomiting, or diarrhea/constipation. No hematochezia/melena. No heartburn or reflux symptoms. : No history of dysuria, frequency or incontinence. Miscarriage w/ D&C earlier this year. MUSCULOSKELETAL: Negative for joint pain or swelling. SKIN: Negative for lesions, rash, and itching ENDOCRINE: Negative for cold or heat intolerance, polyuria, polydipsia and goiter NEURO: No history of headaches, syncope, paralysis, seizures or tremors Mood: Denies depression/anxiety. Past medical history, appointments, medications, allergies reviewed. Previous Medical History No past medical history on file. Previous Surgical History PAST SURGICAL HISTORY 2013: MARY No date: REMOVAL OF TONSILS; UNDER AGE 11 Comment: age 6 Family History FAMILY HISTORY Problem Relation Age of Onset other (High Cholesterol [Other]) Father Ischemic Heart Disease Father stents No Known Problems Brother other (thyroid disease) Maternal Grandmother had surgery Ischemic Heart Disease Maternal Grandfather triple bypass Diabetes Maternal Grandfather Hypertension Paternal Grandmother Tx with medication Ischemic Heart Disease Paternal Grandmother Hypertension Paternal Grandfather Prostate Cancer Paternal Grandfather Patient Allergies ALLERGIES Allergen Reactions Bactrim [Sulfametho* Rash Rash all over Bees Hives Current Medications Current Outpatient Medications on File Prior to Visit Medication Sig EPINEPHrine (EPIPEN) 0.3 mg/0.3 mL auto-injector Give 1 injection into side of thigh for allergic reaction. Repeat dose in 5-15 min if not improving. No current facility-administered medications on file prior to visit. Social History Social History Tobacco Use Smoking status: Never Smokeless tobacco: Never Substance Use Topics Alcohol use: Yes Comment: Sometimes Drug use: No EXAM: BP 118/74 (BP Site: Left Arm, BP Position: Sitting, BP Cuff Size: Regular Adult) Pulse 72 Resp 16 Ht 166.4 cm (5' 5.5) Wt 78.5 kg (173 lb) LMP 11/08/2023 BMI 28.35 kg/m General Appearance: Well appearing, alert, in no acute distress, well-hydrated, well nourished.. Skin: Skin color, texture, turgor normal, no suspicious rashes or lesions. Head: Normocephalic, no masses, lesions, tenderness or abnormalities. Eyes: Anicteric sclera. Pupils are equally round and reactive to light. Extraocular movements are intact. . Ears: External ears normal, canals clear. Normal TMs bilaterally. Oropharynx: Lips, mucosa, and tongue normal, teeth and gums normal, oropharynx normal. Neck: Supple, no adenopathy; thyroid symmetric, normal size, no bruits. Lungs: Lungs clear to auscultation. No wheezing, rhonchi, rales.. Heart: RRR without murmur, gallop, or rubs. No ectopy. Abdomen: Abdomen soft, non-tender. Bowel sounds normal. No masses, organomegaly. Extremities: No deformities, edema, skin discoloration, clubbing or cyanosis. Good capillary refill. . Neurologic: Gait normal. Reflexes normal and symmetric. Sensation grossly intact.. ASSESSMENT/PLAN: 1. Wellness examination - ICD9: V70.0, ICD10: Z00.00 (primary diagnosis) - Follow up for annual exam in one year Health Promotion: - Eat healthy -- go to [employer] to get started - Have a yearly physical - Mammogram yearly after age 40 - Get at least 30 minutes of physical activity daily - Get at least 7 to 8 hours of sleep each night - Reach and maintain a healthy weight - Get help to quit or don't start smoking - Limit alcohol use to one drink or less - Do not use illegal drugs or misuse prescription drugs - Wear a helmet when riding a bike and wear protective gear for sports - Wear a seatbelt in cars and not text and drive - Wear sunscreen 2. 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 Patient's questions answered appropriately. Medications and potential side effects were discussed and patient voices understanding. Return to the office as scheduled or as needed for worsening/no improvement. Suzanne Guallpa APRN.THERMOPLASTIC TECHNICIAN documented in this encounterUniversity [facility]als [facility]06-07-2024 Instructions* Patient Instructions* Lilli Ledbetter PA-C - 09/28/2023 11:33 AM EDT ABCDEs of Melanoma A = Asymmetry One half is unlike the other half. B = Border An irregular, scalloped or poorly defined border. C = Color Is varied from one area to another; has shades of [place], brown or black, or is sometimes white, red, or blue. D = Diameter Melanomas are usually greater than 6mm (the size of a pencil eraser) when diagnosed, but they can be smaller. E = Evolving A mole or skin lesion that looks different from the rest or is changing in size, shape or color. documented in this encounterUniversity Hospitals [facility]06-07-2024 History of Present illness Narrative* Lilli Ledbetter PA-C - 09/28/2023 11:05 AM EDT Lalitha Montero is a 32 year old female who presents today for Patient presents with: Full Body Skin Check Current Treatment: Skin exam Past Treatment: As above History of nonmelanoma skin cancer: none History of Melanoma: none Family history of skin cancer: none Dermatology History: Specialty Problems None Allergies: Bactrim [Sulfamethoxazole-Trimethoprim] and Bees Past Medical History: No past medical history on file. MEDS: Current Outpatient Medications on File Prior to Visit Medication Sig EPINEPHrine (EPIPEN) 0.3 mg/0.3 mL auto-injector Give 1 injection into side of thigh for allergic reaction. Repeat dose in 5-15 min if not improving. No current facility-administered medications on file prior to visit. Review of systems Has trouble healing No Bleeds excessively No Has tendency to form hypertropic scars and keloids No Develops contact dermatitis to bandages and tapes No Develops contact dermatitis to antibiotic ointments No Enlarged lymph nodes No Is immunosuppressed No Has difficulty with systemic antibiotics No Has prosthetic joint replacement No Has pacemaker / defibrillator No Takes aspirin / anticoagulant daily No Has valve disorders No Other problems elsewhere on skin No Jenna Monzon MA The above was entered by the nursing staff. I have reviewed the documentation and I concur. Lilli FELIX HPI: Chief Complaint Skin exam Location Full body Duration 5 years Timing constant Severity mild Quality Multiple moles Modifying Factors: H/O sun exposure, tanning bed Physical Exam - Area(s) Examined: No images are attached to the encounter. The pt is alert and oriented, in NAD. Skin examination of head/scalp, face, neck, chest, back, abdomen, bilateral upper, lower extremities, groin/buttocks, hands, feet, digits, and nails. 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) was significant for: Items identified on Diagram above Brown stuck on papules and plaques throughout Light [place] macules on sun exposed areas Bright holt red papules throughout Regular and symmetric hyperpigmented macules/papules throughout face, trunk and b/l upper and lowerextremities Assessment / Plan: (D22.70, D22.5, D22.60) Multiple benign nevi of upper extremity, lower extremity, and trunk (primary encounter diagnosis) (D22.30) Melanocytic nevi of face Comment: stable, regular and symmetric on exam Plan: Continue to monitor for growth/change Monitor with monthly self-skin exams/serial photography Patient counseled on ABCDEs of melanoma Sunscreen and photoprotection advised, broad spectrum, at least SPF 15 or greater Patient to contact office for any new or changing lesions or other concerns (L81.4) Lentigines Comment:scattered throughout sun exposed surfaces Plan: continue to monitor/observe (D18.01) Holt angioma Comment: scattered throughout Plan: discussed benign nature, continue to monitor/observe (L82.1) Seborrheic keratoses Comment: scattered throughout Plan: discussed benign nature, continue to monitor/observe By signing my name below, I, Jenna Monzon MA, attest that this documentation has been prepared under the direction and in the presence of Lilli FELIX. Electronically Signed: Jenna Monzon MA, Scribe. September 28, 2023 11:05 AM. I, Lilli Ledbetter PA-C, personally performed the services described in this documentation. All medical record entries made by the scribe were at my direction and in my presence. I have reviewed the chartand discharge instructions (if applicable) and agree that the record reflects my personal performance and is accurate and complete. Electronically Signed: Lilli Ledbetter PA-C September 28, 2023 11:33 AM. Patient to return to clinic in 1 year for follow-up re-evaluation Patient to contact office as needed with questions/concerns, unimproved or worsening of symptoms Lilli Ledbetter PA-C documented in this encounterUniversity Hospitals [facility] Center04-12-2024 Evaluation note* Diagnosis Onset Date Resolution Status Miscarriage at 8 to 28 weeks gestation acute Bleeding in early resolved resolved Status post vaginal delivery resolved Supervision of high-risk resolved Miscarriage at 8 to 28 weeks gestation acute Abnormal coagulation profile acute Anticardiolipin antibody positive acute Miscarriage at 8 to 28 weeks gestation acute [facility] Work Phone: 1(180) 702-657804-09-2024 Procedure [facility] 05-23-2023 Evaluation note* Diagnosis Onset Date Resolution Status Bleeding in early resolved resolved Supervision of high-risk resolved Miscarriage at 8 to 28 weeks gestation acute Bleeding in early resolved resolved Status post vaginal delivery resolved Supervision of high-risk resolved Miscarriage at 8 to 28 weeks gestation acute Abnormal coagulation profile acute Anticardiolipin antibody positive acute Miscarriage at 8 to 28 weeks gestation [facility] Work Phone: 1(959) 134-863901-05-2024 History and physical note Author Dominique Patten [facility] April 27, 2023 2:07pm Note Date/Time April 27, 2023 2: 03pm [facility] Medical Records Department [address] [place] [address] History & Physical Exam 04/27/23 1401 MR#: [id number] Acct: [id number] Name: LALITHA MONTERO Rep #:[id number] : 1990 32 From: Dominique milner MD PCP: FRANKI Moore Status:[facility] Location: [place] [address] History and Physical Date of Admission: 04/27/23 [facility] [address] [place] [address] OFFICE VISIT Date of Service: 04/27/23 MR#: [id number] Acct: [id number] Name: LALITHA MONTERO Rep #: [id number] : 1990 Provider: LUISANA Sierra Age/Sex: 32/F Location: [facility] Status: Signed Intake Vital Signs 03/30/2308:28 04/27/2407:33 Height 5 ft 5 in 5 ft 5 in Weight: 177 lb 2 oz BMI 29.5 BP 110/76 Intake Visit Reasons: 12 WK OB Margarine Maker Required: No Is patient in pain?: No Allergies bee venom protein (honey bee) Allergy (Severe, Verified 04/27/23 08:33) SwellingSulfa (Sulfonamide Antibiotics) Allergy (Mild, Verified 04/27/23 08:33) Other Medications multivitamin no.47-iron fum 27 mg-folate no.1 1 mg-dha 300 mg capsule (PNV- DHA)cap PO 03/23/23 [History Confirmed 04/27/23] Last Menstrual Period: 01/27/23 Zika: Zika virus screening: Negative : No PFSH PFSH Medical History Abnormal glucose affecting COVID-19 vaccine series completed Surgical History History of tonsillectomy [place] teeth extracted Family History Grandfather Diabetes Heart disease Social History adopted: No household members: spouse and children number of children: 2 current occupational status: employed current occupation: [employer] current occupational exposures/hazards: No pets and animals: Yes (not managing litterbox) pets and animals: cat(s) and dog(s) history of recent travel: Yes ([facility]- Feb, [place]-Feb) out of state: Yes out of country: No sexually active: Yes Smoking Status: Never smoker alcohol intake: current alcohol intake frequency: holidays/special occasions only details: Not while substance use type: does not use well-balanced diet: daily or most days caffeine: Yes Type: other Number of servings: 1 eating out: 1-3 times/week during the past year weight has: remained stable what type of physical activity do you participate in: walking and weight training frequency: 3-4 times per week duration: 15-30 minutes/day kesha/yarsani: Synagogue seatbelt use: always do you feel safe at home: Yes 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 Date Name GA/Weeks Outcome Route Bth Weight Gen Labor Lgth Anesthesia Del Locatn Provider FOB Unknown 2021 Jann live - full term Male [facility] 12/15/19 Phong 38 live - full term 7lbs 9oz Male 7 hours none [facility] Sandor HPI 12 WK OB Details: LALITHA MONTERO is a 32 year old who presents for routine OB visit. upon evaluationthere was no FHT seen and no color doppler flow, confirmed demise. she denies any bleeding or crmaping. OB Visit ALPHONSO Calculator Estimated Delivery Date Method Current WG Current Estimate 11/03/23 LMP (Certain) 12w 6d Expected Delivery Route/Plan Labor Preferences- CB/BF classes: [] labor support person: [] labor intervention preferences: [] pain management options preferred: [] cut cord/dad catch: [] : [] PP control planned: [] discussed possible routes of delivery and associated risks: [] special requests: [] Specific Issue/Plans Covid status: [] Flu vaccine: [] Tdap vaccine: [] Rhogam: [] LARC form signed: [] Problem list reviewed and updated with the most current plan of care details and appropriate orders placed. Relevant counseling for the gestational age provided. Continue routine care and follow up unless otherwise noted in visit notes/problem list details Initial Weight: 179 lb Date -?-?-?-?-?-?-?-?-?-?-?-?- EGA Weight BP Urine Prot -?-?-?-?-?-?-?-?-?-?-?-?- Glucose FHR FuHt Pres Dilation -?-?-?-?-?-?-?-?-?-?-?-?- Effaced St Visit Note 03/30/23-?-?-?-?-?-?-?-?-?-?-?-?- 8w 6d 179 lb(+0 oz) 114/78 -?-?-?-?-?-?-?-?-?-?-?-?- 175 -?-?-?-?-?-?-?-?-?-?-?-?- LC- CRL con with LMP. desires nipt. 04/27/23-?-?-?-?-?-?-?-?-?-?-?-?- 12w 6d 177 lb 2 oz(-1 lb 14 oz) 110/76 Negative -?-?-?-?-?-?-?-?-?-?-?-?- Negative -?--?-?-?-?-?-?-?-?-?-?-?- KW-no HB or movement seen on handheld. Moved for vaginal US done by Dr Patten. No FHT or color doppler noted. measuring 11.3 week ACOG First Trimester First Trimester: Desire for , Alcohol, Tobacco Cessation, Illicit/Recreational Drug/Substance Use, Intimate Partner Violence, Barriers to care, Unstable Housing, Communication Barriers, Environmental/Work Hazards, Anticipated Course of Care, Toxoplasmosis Precations, Use of Any medications, Sexual activity, Exercise, Dental Care, Sauna/Hot tub use, Seat Belt use, Childbirth classes/Hospital facilities, Travel, Indications for Ultrasound and Screening for Aneuploidy; Discussed Second Trimester Second Trimester: Signs and Symptoms of Labor, Selecting a care provider, Reproductive Life Planning & Contreception, Care Planning, Depression/Anxiety and Intimate Partner Violence; Discussed Tobacco Cessation Third Trimester Third Trimester: Pain Management Plans, Labor support person(s), Immediate Larc, Circumcision preference, Movement Monitoring, Feeding No and Family Medical Leave or Disability Forms; Discussed Trial of Labor after Counseling ROS Const Reports system reviewed and no additional complaints, except as documented Resp Reports system reviewed and no additional complaints, except as documented GI Reports system reviewed and no additional complaints, except as documented, Denies nausea and Denies vomiting Denies dysuria, Denies urinary hesitancy and Denies urinary urgency Psych Reports system reviewed and no additional complaints, except as documented Exam Const General: cooperative, healthy appearing and no acute distress Orientation: alert, awake and oriented x3 Neck Neck: normal visual inspection Resp Effort & Inspection: normal respiratory effort and able to speak in complete sentences GI Inspection: normal to inspection Palpation: soft and other Other: gravid Neuro General: patient alert, patient awake and patient oriented x3 Psych Appearance: grossly normal Mental Status: mental status grossly normal Speech and Movement: speech and movement normal Attitude: cooperative Thought Process: normal Thought Content: normal Judgment: judgment good Results POC Urinalysis 2 Dip (Clinic) Office Urine Glucose Negative Last Edit by Jenni Blanton MA on 04/27/23 08:39 Office Urine Protein Negative Last Edit by Jenni Blanton MA on 04/27/23 08:39 Coding Level of Care Code OB Routine Diagnoses Supervision of high-risk O09.90 12 weeks gestation of Z3A.12 Weeks of gestation: 12 weeks Bleeding in early O20.9 Status post vaginal delivery Miscarriage at 8 to 28 weeks gestation O03.9 Assessment and Plan Assessment and Plan (1) Supervision of high-risk : Status: Acute Comment: PRR,, ALPHONSO 11/03/23, PC Jann Darling, Benjie (2) : Status: Acute Qualifiers: Weeks of gestation: 12 weeks Qualified Code(s): Z3A.12 - 12 weeks gestation of Comment: discussed genetic & carrier testing, accepts (3) Bleeding in early : Status: Acute (4) Status post vaginal delivery: Status: Acute (5) Miscarriage at 8 to 28 weeks gestation: Status: Acute Orders: Orders POC Urinalysis 2 Dip (Clinic) Today Beta-2 Glycoprot IgG, A, M Today N96 - Recurrent loss, O03.9 - Complete or unspecified spontaneous without complication Lupus Anticoagulant Comp Today N96 - Recurrent loss, O03.9 - Complete or unspecified spontaneous without complication Anticardiolipin IgA,G,M Today N96 - Recurrent loss, O03.9 - Complete or unspecified spontaneous without complication Anticardiolipin IgG, IgM Today N96 - Recurrent loss, O03.9 - Complete or unspecified spontaneous without complication CBC W/Diff, Automated Today O03.9 - Complete or unspecified spontaneous without complication Thyroid Stim Hormone (TSH) Today O03.9 - Complete or unspecified spontaneous without complication Plan Details Additional Comments: ACOG trimester education reviewed and updated. see problem list details for updated plan management information and see below for orders placed at this visit. GA appropriate handout given. After discussing the patient's diagnosis and treatment plan options, patient wishes to proceed with surgical management. I have discussed with the patient the risks, benefits, and alternatives of the procedure which include but are not limited to risks of anesthesia, bleeding, infection, possible damage to bowel, bladder, or surrounding vasculature which could lead to additional surgery to evaluate any complications. Patient agrees to procedure and wishes to proceed. ACOG/uptodate references given for additional information regarding procedure. UPDATE- I have seen the patient and performed any clinically relevant updates to the history and physical exam. Dominique Patten MD 04/27/23 1407 <Electronically signed by Dominique Patten MD> Cosigner Signature (if applicable): CC: FRANKI Guallpa; Dr. Dominique Patten MD~ Signed [facility] Work Phone: 1(553) 633-471301-05-2024 Procedure noteWUniversity [facility] 04-27-2023 Evaluation note* Diagnosis Onset Date Resolution Status Bleeding in early resolved resolved Supervision of high-risk resolved Miscarriage at 8 to 28 weeks gestation acute Bleeding in early resolved resolved Status post vaginal delivery resolved Supervision of high-risk resolved Miscarriage at 8 to 28 weeks gestation acute [facility] Work Phone: [phone]) 904-522609-05-2023 Instructions* Patient Instructions* Justina Beach APRN.THERMOPLASTIC TECHNICIAN - 12/26/2022 9:03 AM EDT ASSESSMENT/PLAN: 1. [...] INFLUENZA A/B NAAT, ROUTINE E Satya [employer] ANIMAL CARE GIVER Student TEACHING PROVIDER (Physician/PA/SALES PLANNING COORDINATOR) NOTE OF PERSONAL INVOLVEMENT IN CARE: I have personally seen and examined the patient and performed the medical decision-making components. I have reviewed the Advanced Practice Registered Nurse (SALES PLANNING COORDINATOR) Student's documentation and verified the findings in [...] or inability to swallow. documented in this encounterUniversity Hospitals Geneva [facility] Center09-05-2023 History of Present illness Narrative* Justina Beach APRN.WILLIE - 12/26/2022 8:55 AM EDT This note was created using [employer]. Subjective Lalitha Montero is a 32 year old female. Patient presents with sore throat for three days. Ibuprofen provides relief. Patient denies any associated symptoms such as fever, nausea, headache, cough. She has two children that have URI symptomsat home. The history is provided by the patient. Sore Throat Pertinent negatives include no abdominal pain, congestion, coughing, ear pain, headaches, shortnessof breath or vomiting. Review of Systems Constitutional: [...] ear normal. No swelling or tenderness. There isno impacted cerumen. Tympanic membrane is not perforated, [...] INFLUENZA A/B NAAT, ROUTINE E Satya [employer] ANIMAL CARE GIVER Student TEACHING PROVIDER (Physician/PA/SALES PLANNING COORDINATOR) NOTE OF PERSONAL INVOLVEMENT IN CARE: I have personally seen and examined the patient and performed the medical decision-making components. I have reviewed the Advanced Practice Registered Nurse (SALES PLANNING COORDINATOR) Student's documentation and verified the findings in the note as written. Any additions or changes are noted in bold/italics. Signature: Justina Beach Date: 12/26/2022 Time: 9:02 AM documented in this encounterUniversity Hospitals Geneva Medical CenterDischar summary Author Dominique Patten [facility] April 27, 2023 3:19pm Note Date/Time April 27, 2023 3: 19pm [facility] Medical Records Department [address] [place] [address] Instructions for Home/Discharge Instructions 04/27/23 1518 MR#: [id number] Acct: [id number] Name: LALITHA MONTERO Rep #:[id number] : 1990 32 From: Dominiqeu milner MD PCP: FRANKI Moore Status:REG S DC Discharge Instructions Diet Discharge Diet: No restrictions Activity Discharge Activity: Return to Normal Activity, May Shower and May Take a Tub Bath (after 1 week) May resume sexual activity in: 1-2 weeks Weight Bearing Status: Weight bearing as tolerated Lifting Restrictions: none Dressing / Incision Call your doctor if you observe: Fever of 101 or Higher, Using more than 1 pad per hour, Shortness of breath and Uncontrolled pain Follow Up Care Please Follow Up With: Dominique Patten MD When: Call [phone] to schedule appointment. Test Results: Test results from this visit will be discussed in further detail at your follow- up appointment, if applicable. Discharge Plan Admission Attending Provider: Dominique Patten Primary Care Provider: Suzanne Guallpa NP Discharge Orders/Prescriptions Prescriptions: No Action PNV-DHA 27 mg iron-1 mg -300 mg capsule PO Referrals / Follow Up: Suzanne Guallpa NP, LADONNA-C [Primary Care Provider] - Disposition Disposition (needs filled in before D/C Order can be placed): Home, Self Care 04/27/23 7073<Electronically signed by Dominique Patten MD>Dominique Patten MD CC: COMMERCIAL ROOFER-C Suzanne Guallpa ~ Signed [facility] Work Phone: evaluation note* Diagnosis Onset Date Resolution Status acute Supervision of other normal acute acute Supervision of other normal acute acute Supervision of other normal [facility] Work Phone: evaluation note* Diagnosis Onset Date Resolution Status acute Supervision of other normal acute acute Supervision of other normal acute Abnormal glucose affecting acute acute Supervision of other normal acute Abnormal glucose affecting acute acute Supervision of other normal acute Abnormal glucose affecting acute acute Supervision of other normal acute Abnormal glucose affecting acute acute Supervision of other normal [facility] Work Phone: Evaluation note* Diagnosis Onset Date Resolution Status acute Supervision of other normal acute acute Supervision of other normal acute Abnormal glucose affecting acute acute Supervision of other normal acute Abnormal glucose affecting acute acute Supervision of other normal acute Abnormal glucose affecting acute acute Supervision of other normal acute Abnormal glucose affecting acute acute Supervision of other normal acute Abnormal glucose affecting acute acute Supervision of other normal acute Abnormal glucose affecting acute acute Status post vaginal delivery acute Supervision of other normal [facility] Work Phone: Evaluation note* Diagnosis Strep throat- Primary Streptococcal sore throat Sore throat Acute pharyngitis documented in this encounter [facility] Center[facility] note* Diagnosis Onset Date Resolution Status Encounter for routine gynecological examination noneactive [facility] Work Phone: Evaluation note* Diagnosis Onset Date Resolution Status Bleeding in early acute acute Supervision of high-risk acute [facility] Work Phone: Evaluation note* Diagnosis Multiple benign nevi of upper extremity, lower extremity, and trunk- Primary Melanocytic nevi of face Benign neoplasm of skin of other and unspecified parts of face Lentigines Other dyschromia Holt angioma Nevus, non-neoplastic Seborrheic keratoses Other seborrheic keratosis documented in this encounter [facility] note* Diagnosis Wellness examination- Primary 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 documented in this encounter [facility] CenterEvalubayhealth medical center noteNo assessment information availableWUniversity Hospitals [facility] Work Phone: Evaluation note* Diagnosis Onset Date Resolution Status Admit Date Advanced maternal age (AMA) in acute September 04, 2024 1 :06pm acute September 04, 2024 1:06pm Supervision of high-risk a cute September 04, 2024 1:06pm [facility] Work Phone: Evaluation note* Diagnosis Multiple benign nevi of upper extremity, lower extremity, and trunk- Primary Melanocytic nevi of face Benign neoplasm of skin of other and unspecified parts of face Lentigines Other dyschromia Holt angioma Nevus, non-neoplastic Seborrheic keratoses Other seborrheic keratosis Neoplasm of unspecified behavior of bone, soft tissue, and skin documented in this encounter [facility] CenterProgress note Author Jenna Hummel [facility] Note Date/Time October 01, 2024 10:5 2am [facility]'s [address], [address] [place] [address] OFFICE VISIT Date of Service: 10/01/24 MR#: [id number] Acct: [id number] Name: LALITHA MONTERO Rep #: [id number] : 1990 Provider: Dr. Ivelisse Hartley DO Age/Sex: 33/F Location: [facility] Status: Signed Intake Vital Signs 12/03/23 08:53 09/18/24 08:53 10/01/24 10:18 10/01/24 10:20 Height 5 ft 5 in 5 ft 5 in 5 ft 5 in 5 ft 5 in Weight: 167 lb BMI 27.8 BP 110/78 Intake Visit Reasons: 11wk OB Margarine Maker Required: No Is patient in pain?: No Allergies bee venom protein (honey bee) Allergy (Severe, Verified 10/01/24 10:18) Swelling Sulfa (Sulfonamide Antibiotics) Allergy (Mild, Verified 10/01/24 10:18) Rash Medications ?Medication ?Instructions ?Recorded ?Confirmed ?Type multivitamin no.47-iron fum 27 cap PO 03/23/23 5 History mg-folate no.1 1 mg-dha 300 mg capsule (PNV-DHA) Last Menstrual Period: 07/12/24 Zika: Zika virus screening: Negative : No PFSH PFSH Medical History Contraception management Abnormal glucose affecting COVID-19 vaccine series completed Surgical History S/P dilation and curettage [place] teeth extracted History of tonsillectomy Family History Grandfather Diabetes Maternal Heart disease Maternal Dementia Maternal Father Heart disease Social History adopted: No household members: spouse and children housing: house number of children: 2 current occupational status: employed current occupation: [employer] current occupational exposures/hazards: No pets and animals: Yes (not managing litterbox) pets and animals: cat(s) and dog(s) history of recent travel: No sexually active: Yes Smoking Status: Never smoker alcohol intake: current alcohol intake frequency: holidays/special occasions only details: Not while substance use type: does not use well-balanced diet: daily or most days caffeine: Yes Type: other Number of servings: 2 eating out: 1-3 times/week during the past year weight has: remained stable what type of physical activity do you participate in: walking and weight training frequency: 5-6 times per week duration: 15-30 minutes/day kesha/yarsani: Synagogue seatbelt use: always do you feel safe at home: Yes 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 Date Name GA/Weeks Outcome Route Bth Weight Infant Gen Labor Lgth Anesthesia Del Locatn Provider FOB Unknown 2021 Jann 38 live - full term 7#4oz Male non e [facility] NONA [place] 12/15/19 Phong 38 live - full term 7lbs 9oz Male 7 hours none [facility] Sandor 05/01/23 12 spontaneous Delivery Date: 05/01/23 Last Updated by: Trista Gudino D&Lamin, HPI 11wk OB Details: LALITHA MONTERO is a 33 year old who presents for routine OB visit. OB Visit ALPHONSO Calculator Estimated Delivery Date Method Current WG Current Estimate 04/18/25 LMP (Certain) 11w 4d Other Estimates 04/20/25 Ultrasound #1 11w 2d Expected Delivery Route/Plan Labor Preferences- CB/BF classes: [] labor support person: [] labor intervention preferences: [] pain management options preferred: [] cut cord/dad catch: [] : [] PP control planned: [] discussed possible routes of delivery and associated risks: [] special requests: [] Specific Issue/Plans Covid status: [] Flu vaccine: [] Tdap vaccine: [] Rhogam: [] LARC form signed: [] Problem list reviewed and updated with the most current plan of care details and appropriate orders placed. Relevant counseling for the gestational age provided. Continue routine care and follow up unless otherwise noted in visit notes/problem list details Initial Weight: Not Recorded Date -?-?-?-?-?-?-?-?-?-?-?-?- EGA Weight BP Urine Prot -?-?-?-?-?-?-?-?-?-?-?-?- Glucose FHR FuHt Pres Dilation -?-?-?-?-?-?-?-?-?-?-?-?- Effaced St Visit Note 09/04/24 -?-?-?-?-?-?-?-?-?-?-?-?- 7w 5d 169 lb 115/74 -?-?-?-?-?-?-?-?-?-?-?-?- 145 -?-?-?-?-?-?-?-?-?-?-?-?- SM- CRL 1.2cm co ns with LMP SM- CRL 1.2cm cons with LMP 6 mm subchorionic hematoma 09/18/24 -?-?-?-?-?-?-?-?-?-?-?-?- 9w 5d 168 lb 112/68 Negative -?-?-?-?-?-?-?-?--?-?-?-?- Negative 160 -?-?-?-?-?-?-?-?-?-?-?-?- SM- had brown lyssa story sunday, no clots. no cramping fatigue improving some nausea. 10/01/24 -?-?-?-?-?-?-?-?-?-?-?-?- 11w 4d 167 lb 110/78 -?-?-?-?-?-?-?-?-?-?-?-?- 160 -?-?-?-?-?-?-?-?-?-?-?-?- JV- CRL measurin g appropriately. desires NIPT today. no complaints. small JI seen vs placental goodson. ACOG First Trimester First Trimester: Desire for , Alcohol, Tobacco Cessation, Illicit/Recreational Drug/Substance Use, Intimate Partner Violence, Barriers to care, Unstable Housing, Communication Barriers, Environmental/Work Hazards, Anticipated Course of Care, Toxoplasmosis Precations, Use of Any medications, Sexual activity, Exercise, Dental Care, Sauna/Hot tub use, Seat Belt use, Childbirth classes/Hospital facilities, Travel, Indications for Ultrasound and Screening for Aneuploidy; Discussed Second Trimester Second Trimester: Signs and Symptoms of Labor, Selecting a care provider, Reproductive Life Planning & Contreception, Care Planning, Depression/Anxiety and Intimate Partner Violence; Discussed Tobacco Cessation Third Trimester Third Trimester: Pain Management Plans, Labor support person(s), Immediate Larc, Circumcision preference, Movement Monitoring, Infant Feeding No and Family Medical Leave or Disability Forms; Discussed Trial of Labor after Counseling Coding Level of Care Code OB Routine Diagnoses Advanced maternal age (AMA) in Supervision of high-risk O09.90 11 weeks gestation of Z3A.11 Weeks of gestation: 11 weeks Assessment and Plan Assessment and Plan (1) Advanced maternal age (AMA) in : Status: Acute Comment: 36 week growth US and delivery by 39-40 weeks (2) Supervision of high-risk : Status: Acute Comment: , ALPHONSO 04/18/25, Phong Nesbitt, Benjie (3) : Status: Acute Qualifiers: Weeks of gestation: 11 weeks Qualified Code(s): Z3A.11 - 11 weeks gestation of Comment: elects NIPT with Gender Orders: Orders POC Urinalysis 2 Dip (Clinic) Today 10/01/24 1052 <Electronically signed by Jenna Diggs DO> Date _ Jenna Hartley DO Cosigner Signature: Date (if applicable) CC: ~ [facility] Work Phone: Progress note Author Carmita Sirera [facility] Note Date/Time January 23, 2025 8: 20am [facility] [address] [place] [address], [address] [place] [address] OFFICE VISIT Date of Service: 01/23/25 MR#: [id number] Acct: [id number] Name: LALITHA MONTERO Rep #: [id number] : 1990 Provider: LUISANA Sierra Age/Sex: 34/F Location: [facility] Status: Signed Intake Vital Signs 11/28/24 14:39 12/26/24 13:59 01/23/25 08:03 Height 5 ft 5 in 5 ft 5 in 5 ft 5 in Weight: 182 lb 6 oz BMI 30.3 BP 110/74 Intake Visit Reasons: 27wk 6D ob/glucose Margarine Maker Required: No Is patient in pain?: No Allergies bee venom protein (honey bee) Allergy (Severe, Verified 01/23/25 08:05) Swelling Sulfa (Sulfonamide Antibiotics) Allergy (Mild, Verified 01/23/25 08:05) Rash Medications ?Medication ?Instructions ?Recorded ?Confirmed ?Type multivitamin no.47-iron fum 27 cap PO 03/23/23 5 History mg-folate no.1 1 mg-dha 300 mg capsule (PNV-DHA) famotidine 20 mg tablet (Pepcid) 20 mg PO BID #60 tabs 12/26/24 01/23/25 Rx Last Menstrual Period: 07/12/24 Zika: Zika virus screening: Negative : No Have you fallen in the past year?: No PFSH PFSH Medical History COVID-19 vaccine series completed Surgical History S/P dilation and curettage [place] teeth extracted History of tonsillectomy Family History Grandfather Diabetes Maternal Heart disease Maternal Dementia Maternal Father Heart disease Social History adopted: No household members: spouse and children housing: house number of children: 2 current occupational status: employed current occupation: [employer] current occupational exposures/hazards: No pets and animals: Yes (not managing litterbox) pets and animals: cat(s) and dog(s) history of recent travel: No sexually active: Yes Smoking Status: Never smoker alcohol intake: current alcohol intake frequency: holidays/special occasions only details: Not while substance use type: does not use well-balanced diet: daily or most days caffeine: Yes Type: other Number of servings: 2 eating out: 1-3 times/week during the past year weight has: remained stable what type of physical activity do you participate in: walking and weight training frequency: 5-6 times per week duration: 15-30 minutes/day kesha/yarsani: [employer] seatbelt use: always do you feel safe at home: Yes 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 Date Name GA/Weeks Outcome Route Bth Weight Infant Gen Labor Lgth Anesthesia Del Locatn Provider FOB Unknown 2021 Jann 38 live - full term 7#4oz Male non e [facility] NONA Waldrop 12/15/19 Phong 38 live - full term 7lbs 9oz Male 7 hours none [facility] Sandor 05/01/23 12 spontaneous Delivery Date: 05/01/23 Last Updated by: Trista Gudino D&C, HPI 27wk 6D ob/glucose Details: LALITHA MONTERO is a 34 year old who presents for routine OB visit. OB Visit ALPHONSO Calculator Estimated Delivery Date Method Current WG Current Estimate 04/18/25 LMP (Certain) 27w 6d Other Estimates 04/20/25 Ultrasound #1 27w 4d Expected Delivery Route/Plan Labor Preferences- CB/BF classes: [] labor support person: [] labor intervention preferences: [] pain management options preferred: [] cut cord/dad catch: [] : [] PP control planned: [] discussed possible routes of delivery and associated risks: [] special requests: [] Specific Issue/Plans Covid status: [] Flu vaccine: [] Tdap vaccine: [] Rhogam: [] LARC form signed: [] Problem list reviewed and updated with the most current plan of care details and appropriate orders placed. Relevant counseling for the gestational age provided. Continue routine care and follow up unless otherwise noted in visit notes/problem list details Initial Weight: Not Recorded Date -?-?-?-?-?-?-?-?-?-?-?-?- EGA Weight BP Urine Prot -?-?-?-?-?-?-?-?-?-?-?-?- Glucose FHR FuHt Pres Dilation -?-?-?-?-?-?-?-?-?-?-?-?- Effaced St Visit Note 09/04/24 -?-?-?-?-?-?-?-?-?-?-?-?- 7w 5d 169 lb 115/74 -?-?-?-?-?-?-?-?-?-?-?-?- 145 -?-?-?-?-?-?-?-?-?-?-?-?- SM- CRL 1.2cm co ns with LMP SM- CRL 1.2cm cons with LMP 6 mm subchorionic hematoma 09/18/24 -?-?-?-?-?-?-?-?-?-?-?-?- 9w 5d 168 lb 112/68 Negative -?-?-?-?-?-?-?-?-?-?-?-?- Negative 160 -?-?-?-?-?-?-?-?-?-?-?-?- SM- had brown lyssa story sunday, no clots. no cramping fatigue improving some nausea. 10/01/24 -?-?-?-?-?-?-?-?-?-?-?-?- 11w 4d 167 lb 110/78 -?-?-?-?-?-?-?-?-?-?-?-?- 160 -?-?-?-?-?-?-?-?-?-?-?-?- JV- CRL measurin g appropriately. desires NIPT today. no complaints. small JI seen vs placental goodson. 10/27/24 -?-?-?-?-?-?-?-?-?-?-?-?- 15w 2d 168 lb 8 oz 108/70 Nega tive -?-?-?-?-?-?-?-?-?-?-?-?- Negative 150 -?-?-?-?-?-?-?-?-?-?-?-?- MH-No VB. Brief US confirm FHT. Nausea resolved. 11/28/24 -?-?--?-?-?-?-?-?-?-?-?-?- 19w 6d 174 lb 3 oz 109/71 Nega tive -?-?-?-?-?-?-?-?-?-?-?-?- Negative 145 -?-?-?-?-?-?-?-?-?-?-?-?- KW- no vb/crampi ng. +flutters. had US on sunday. 12/26/24 -?-?-?-?-?-?-?-?-?-?-?-?- 23w 6d 178 lb 9 oz 106/70 Nega tive -?-?-?-?-?-?-?-?-?-?-?-?- Negative 140 -?-?-?-?-?-?-?-?-?-?-?-?- Sm- no vb lof go od fm no reuglar ctx 01/23/25 -?-?-?-?-?-?-?-?-?-?-?-?- 27w 6d 182 lb 6 oz 110/74 Nega tive -?-?-?-?-?-?-?-?-?-?-?--?- Negative 145 28 -?-?-?-?-?-?-?-?-?-?-?-?- KW- no vb/ctx/lo f. good fm. glucose today. ACOG First Trimester First Trimester: Desire for , Alcohol, Tobacco Cessation, Illicit/Recreational Drug/Substance Use, Intimate Partner Violence, Barriers to care, Unstable Housing, Communication Barriers, Environmental/Work Hazards, Anticipated Course of Care, Toxoplasmosis Precations, Use of Any medications, Sexual activity, Exercise, Dental Care, Sauna/Hot tub use, Seat Belt use, Childbirth classes/Hospital facilities, Travel, Indications for Ultrasound and Screening for Aneuploidy; Discussed Second Trimester Second Trimester: Signs and Symptoms of Labor, Selecting a care provider, Reproductive Life Planning & Contreception, Care Planning, Depression/Anxiety and Intimate Partner Violence; Discussed Tobacco Cessation Third Trimester Third Trimester: Pain Management Plans, Labor support person(s), Immediate Larc, Circumcision preference, Movement Monitoring, Feeding No and Family Medical Leave or Disability Forms; Discussed Trial of Labor after Counseling ROS Const Reports system reviewed and no additional complaints, except as documented Eyes Reports system reviewed and no additional complaints, except as documented ENT Reports system reviewed and no additional complaints, except as documented Card Reports system reviewed and no additional complaints, except as documented Resp Reports system reviewed and no additional complaints, except as documented GI Reports system reviewed and no additional complaints, except as documented, Denies nausea and Denies vomiting Reports system reviewed and no additional complaints, except as documented Musc Reports system reviewed and no additional complaints, except as documented Skin/Breast Reports system reviewed and no additional complaints, except as documented Neuro Yes system reviewed and no additional complaints, except as documented Psych Reports system reviewed and no additional complaints, except as documented Endo Reports system reviewed and no additional complaints, except as documented Siddhartha/Lymph Reports system reviewed and no additional complaints, except as documented Aller/Immun Reports system reviewed and no additional complaints, except as documented Exam Const General: cooperative, healthy appearing and no acute distress Orientation: alert, awake and oriented x3 Neck Neck: normal visual inspection and full ROM Resp Effort & Inspection: normal respiratory effort, able to speak in complete sentences and symmetric chest movement GI Inspection: normal to inspection Palpation: soft and other Other: gravid Skin General: no rashes or lesions noted Neuro General: patient alert, patient awake and patient oriented x3 Cognition: normal cognition Speech: speech normal Gait: normal gait Motor: muscle tone normal throughout Extrem General: normal to inspection and full ROM Psych Appearance: grossly normal Mental Status: mental status grossly normal Mood: congruent mood Affect: normal affect Speech and Movement: speech and movement normal Attitude: cooperative Thought Process: normal Thought Content: normal Judgment: judgment good Results POC Urinalysis 2 Dip (Clinic) Office Urine Glucose Negative Last Edit by Sophia Caldwell on 01/23/25 08:07 Office Urine Protein Negative Last Edit by Sophia Caldwell on 01/23/25 08:07 Coding Level of Care Code OB Routine Diagnoses Advanced maternal age (AMA) in Supervision of high risk in second trimester O09.92 Trimester: second trimester 27 weeks gestation of Z3A.27 Weeks of gestation: 27 weeks Assessment and Plan Assessment and Plan (1) Advanced maternal age (AMA) in : Status: Acute Comment: 36 week growth US and delivery by 39-40 weeks (2) Supervision of high-risk : Status: Acute Qualifiers: Trimester: second trimester Qualified Code(s): O09.92 - Supervision of high risk , unspecified, second trimester Comment: [id number], ALPHONSO 04/18/25, Phong Nesbitt, Benjie (3) : Status: Acute Qualifiers: Weeks of gestation: 27 weeks Qualified Code(s): Z3A.27 - 27 weeks gestation of Comment: NIPT low risk,male Orders: Orders POC Urinalysis 2 Dip (Clinic) Today Plan Details Additional Comments: ACOG trimester education reviewed and updated. see problem list details for updated plan management information and see below for orders placed at this visit. GA appropriate handout given. Clinical Quality Measures Falls Risk Screening/Assistive Devices Have you fallen in the past year?: No 01/23/25819 <Electronically signed by Carmita block CNM> Date _ Carmita Sierra CNM Cosigner Signature: Date (if applicable) CC: ~ [facility] Work Phone: Progrjjm note Author Jenna Hummel [facility] Note Date/Time February 06, 2025 1 0:24am [facility] [address] [place] [address], [address] [place] [address] OFFICE VISIT Date of Service: 02/06/25 MR#: [id number] Acct: [id number] Name: LALITHA MONTERO Rep #: [id number] : 1990 Provider: Dr. Ivelisse Hartley DO Age/Sex: 34/F Location: [facility] Status: Signed Intake Vital Signs 11/28/24 14:39 01/23/25 08:03 02/06/25 10:12 02/06/25 10:12 Height 5 ft 5 in 5 ft 5 in 5 ft 5 in 5 ft 5 in Weight: 189 lb BMI 31.4 BP 114/75 Intake Visit Reasons: 29wk 6D ob Margarine Maker Required: No Is patient in pain?: No Allergies bee venom protein (honey bee) Allergy (Severe, Verified 02/06/25 10:12) Swelling Sulfa (Sulfonamide Antibiotics) Allergy (Mild, Verified 02/06/25 10:12) Rash Medications ?Medication ?Instructions ?Recorded ?Confirmed ?Type multivitamin no.47-iron fum 27 cap PO 03/23/23 5 History mg-folate no.1 1 mg-dha 300 mg capsule (PNV-DHA) famotidine 20 mg tablet (Pepcid) 20 mg PO BID #60 tabs 12/26/24 02/06/25 Rx Last Menstrual Period: 07/12/24 Zika: Zika virus screening: Negative : No PFSH PFSH Medical History COVID-19 vaccine series completed Surgical History S/P dilation and curettage [place] teeth extracted History of tonsillectomy Family History Grandfather Diabetes Maternal Heart disease Maternal Dementia Maternal Father Heart disease Social History adopted: No household members: spouse and children housing: house number of children: 2 current occupational status: employed current occupation: [employer] current occupational exposures/hazards: No pets and animals: Yes (not managing litterbox) pets and animals: cat(s) and dog(s) history of recent travel: No sexually active: Yes Smoking Status: Never smoker alcohol intake: current alcohol intake frequency: holidays/special occasions only details: Not while substance use type: does not use well-balanced diet: daily or most days caffeine: Yes Type: other Number of servings: 2 eating out: 1-3 times/week during the past year weight has: remained stable what type of physical activity do you participate in: walking and weight training frequency: 5-6 times per week duration: 15-30 minutes/day kesha/yarsani: Syn[employer] seatbelt use: always do you feel safe at home: Yes 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 Date Name GA/Weeks Outcome Route Bth Weight Gen Labor Lgth Anesthesia Del Locatn Provider FOB Unknown 2021 Jann 38 live - full term 7#4oz Male non e [facility] JCaron Waldrop 12/15/19 Phong 38 live - full term 7lbs 9oz Male 7 hours none [facility] Sandor 05/01/23 12 spontaneous Delivery Date: 05/01/23 Last Updated by: Trista Gudino D&C, HPI 29wk 6D ob Details: LALITHA MONTERO is a 34 year old who presents for routine OB visit. OB Visit ALPHONSO Calculator Estimated Delivery Date Method Current WG Current Estimate 04/18/25 LMP (Certain) 29w 6d Other Estimates 04/20/25 Ultrasound #1 29w 4d Expected Delivery Route/Plan Labor Preferences- CB/BF classes: [] labor support person: [] labor intervention preferences: [] pain management options preferred: [] cut cord/dad catch: [] : [] PP control planned: [] discussed possible routes of delivery and associated risks: [] special requests: [] Specific Issue/Plans Covid status: [] Flu vaccine: [] Tdap vaccine: [] Rhogam: [] LARC form signed: [] Problem list reviewed and updated with the most current plan of care details and appropriate orders placed. Relevant counseling for the gestational age provided. Continue routine care and follow up unless otherwise noted in visit notes/problem list details Initial Weight: Not Recorded Date -?-?-?-?-?-?-?-?-?-?-?-?- EGA Weight BP Urine Prot -?-?-?-?-?-?-?-?-?-?-?-?- Glucose FHR FuHt Pres Dilation -?-?-?-?-?-?-?-?-?-?-?-?- Effaced St Visit Note 09/04/24 -?-?-?-?-?-?-?-?-?-?-?-?- 7w 5d 169 lb 115/74 -?-?-?-?-?-?-?-?-?-?-?-?- 145 -?-?-?-?--?-?-?-?-?-?-?-?- SM- CRL 1.2cm co ns with LMP SM- CRL 1.2cm cons with LMP 6 mm subchorionic hematoma 09/18/24 -?-?-?-?-?-?-?-?-?-?-?-?- 9w 5d 168 lb 112/68 Negative -?-?-?-?-?-?-?-?-?-?-?-?- Negative 160 -?-?-?-?-?-?-?-?-?-?-?-?- SM- had roderick lyssa story sunday, no clots. no cramping fatigue improving some nausea. 10/01/24 -?-?-?-?-?-?-?-?-?-?-?-?- 11w 4d 167 lb 110/78 -?-?-?-?-?-?-?-?-?-?-?-?- 160 -?-?-?-?-?-?-?-?-?-?-?-?- JV- CRL measurin g appropriately. desires NIPT today. no complaints. small JI seen vs placental goodson. 10/27/24 -?-?-?-?-?-?-?-?-?-?-?-?- 15w 2d 168 lb 8 oz 108/70 Nega tive -?-?-?-?-?-?-?-?-?-?-?-?- Negative 150 -?-?-?-?-?-?-?-?-?-?-?-?- MH-No VB. Brief US confirm FHT. Nausea resolved. 11/28/24 -?-?-?-?-?-?-?-?-?-?-?-?- 19w 6d 174 lb 3 oz 109/71 Nega tive -?-?-?-?-?-?-?-?-?-?-?-?- Negative 145 -?-?-?-?-?-?-?-?-?-?-?-?- KW- no vb/crampi ng. +flutters. had US on sunday. 12/26/24 -?-?-?-?-?-?-?-?-?-?-?-?- 23w 6d 178 lb 9 oz 106/70 Nega tive -?-?-?-?-?-?-?-?-?-?-?-?- Negative 140 -?-?-?-?-?-?--?-?-?-?-?-?- Sm- no vb lof go od fm no reuglar ctx 01/23/25 -?-?-?-?-?-?-?-?-?-?-?-?- 27w 6d 182 lb 6 oz 110/74 Nega tive -?-?-?-?-?-?-?-?-?-?-?-?- Negative 145 28 -?-?-?-?-?-?-?-?-?-?-?-?- KW- no vb/ctx/lo f. good fm. glucose today. 02/06/25 -?-?-?-?-?-?-?-?-?-?-?-?- 29w 6d 189 lb 114/75 Trace -?-?-?-?-?-?-?-?-?-?-?-?- Negative 140 29 -?-?-?-?-?-?-?-?-?-?-?-?- JV- wants to do flu and tdap next visit. no lof, vaginal bleeding, or dec fm. ACOG First Trimester First Trimester: Desire for , Alcohol, Tobacco Cessation, Illicit/Recreational Drug/Substance Use, Intimate Partner Violence, Barriers to care, Unstable Housing, Communication Barriers, Environmental/Work Hazards, Anticipated Course of Care, Toxoplasmosis Precations, Use of Any medications, Sexual activity, Exercise, Dental Care, Sauna/Hot tub use, Seat Belt use, Childbirth classes/Hospital facilities, Travel, Indications for Ultrasound and Screening for Aneuploidy; Discussed Second Trimester Second Trimester: Signs and Symptoms of Labor, Selecting a care provider, Reproductive Life Planning & Contreception, Care Planning, Depression/Anxiety and Intimate Partner Violence; Discussed Tobacco Cessation Third Trimester Third Trimester: Pain Management Plans, Labor support person(s), Immediate Larc, Circumcision preference, Movement Monitoring, Feeding No and Family Medical Leave or Disability Forms; Discussed Trial of Labor after Counseling Results POC Urinalysis 2 Dip (Clinic) Office Urine Glucose Negative Last Edit by Lalitha Willis on 02/06/25 10: 20 Office Urine Protein Trace Last Edit by Lalitha Willis on 02/06/25 10:20 Coding Level of Care Code OB Routine Diagnoses Advanced maternal age (AMA) in Supervision of high risk in second trimester O09.92 Trimester: second trimester 29 weeks gestation of Z3A.29 Weeks of gestation: 29 weeks Assessment and Plan Assessment and Plan (1) Advanced maternal age (AMA) in : Status: Acute Comment: 36 week growth US and delivery by 39-40 weeks (2) Supervision of high-risk : Status: Acute Qualifiers: Trimester: second trimester Qualified Code(s): O09.92 - Supervision of high risk , unspecified, second trimester Comment: [id number], ALPHONSO 04/18/25, Phong Nesbitt, Benjie (3) : Status: Acute Qualifiers: Weeks of gestation: 29 weeks Qualified Code(s): Z3A.29 - 29 weeks gestation of Comment: NIPT low risk,male Orders: Orders POC Urinalysis 2 Dip (Clinic) Today 02/06/25 1024 <Electronically signed by Jenna Diggs DO> Date _ Jenna Catalanign Signature: Date (if applicable) CC: ~ [facility] Work Phone: Reason for referral (narrative)No reason for referral information availableWUniversity [facility] Work Phone: Chief Complaint and Reason for Visit Chief Complaint 15 WK OB 19 WK OB 23 WK OB 27WK OB / GLUCOSE Reason for Visit Supervision of other normal Supervision of other normal Supervision of other normal Chief Complaint 23 WK OB 27WK OB / GLUCOSE 30 WK OB 32 WK OB 35 WK OB 36 WK OB Reason for Visit Supervision of other normal Supervision of other normal Abnormal glucose affecting Supervision of other normal Abnormal glucose affecting Supervision of other normal Abnormal glucose affecting Supervision of other normal Abnormal glucose affecting Supervision of other normal Chief Complaint 23 WK OB 27WK OB / GLUCOSE 30 WK OB 32 WK OB 35 WK OB 36 WK OB 37 WK OB VAG DELIVERY LABOR AND DELIVERY VAG DELIVERY Reason for Visit Supervision of other normal Supervision of other normal Abnormal glucose affecting Supervision of other normal Abnormal glucose affecting Supervision of other normal Abnormal glucose affecting Supervision of other normal Abnormal glucose affecting Supervision of other normal Abnormal glucose affecting Supervision of other normal Abnormal glucose affecting Status post vaginal delivery Supervision of other normal Chief Complaint Annual (BONE TENDER) E ORDER E-ORDER Reason for Visit Encounter for routin e gynecological examination Chief Complaint Annual (BONE TENDER) E ORDER E-ORDER HEMORRHAGE IN Reason for Visit Encounter for routin e gynecological examination Chief Complaint E ORDER E-ORDER HEMORRHAGE IN WELLBEING, POSS SEPTATE UTERUS New OB LMP 10-7-23 Reason for Visit Bleeding in early pr egnancy Supervision of high-risk Chief Complaint E ORDER E-ORDER HEMORRHAGE IN WELLBEING, POSS SEPTATE UTERUS New OB LMP 10-7-23 12 WK OB Reason for Visit Bleeding in early pr egnancy Supervision of high-risk Miscarriage at 8 to 28 weeks gestation Bleeding in early Status post vaginal delivery Supervision of high-risk Miscarriage at 8 to 28 weeks gestation Chief Complaint E ORDER E-ORDER HEMORRHAGE IN WELLBEING, POSS SEPTATE UTERUS New OB LMP 10-7-23 12 WK OB 2 weeks post op Complete or unspecified spontaneous witho Reason for Visit Bleeding in early pr egnancy Supervision of high-risk Miscarriage at 8 to 28 weeks gestation Bleeding in early Status post vaginal delivery Supervision of high-risk Miscarriage at 8 to 28 weeks gestation Abnormal coagulation profile Anticardiolipin antibody positive Miscarriage at 8 to 28 weeks gestation Chief Complaint 12 WK OB 2 weeks post op Complete or unspecified spontaneous witho WORKUP, 12 WK DEMISE WORKUP, 12 WK DEMISE Reason for Visit Miscarriage at 8 to 28 weeks gestation Bleeding in early Status post vaginal delivery Supervision of high-risk Miscarriage at 8 to 28 weeks gestation Abnormal coagulation profile Anticardiolipin antibody positive Miscarriage at 8 to 28 weeks gestation Chief Complaint Admit Date Supervision of with other poor reproduct September 02, 2024 2:21pm Chief Complaint Admit Date Supervision of with other poor reproduct September 02, 2024 2:21pm New OB, LMP 3, ALPHONSO 04/18September 04 1:06pm Reason for Visit Admit Date Advanced maternal age (AMA) in September 04, 2024 1:06pm September 04, 2024 1:06p m Supervision of high-risk August 212024 1:06pm Chief Complaint Admit Date Supervision of with other poor reproduct September 02, 2024 2:21pm New OB, LMP 07/12, ALPHONSO 04/18September 04 1:06pm 9 wk ob September 18, 2024 8:47a m Reason for Visit Admit Date Advanced maternal age (AMA) in September 04, 2024 1:06pm September 04, 2024 1:06p m Supervision of high-risk August 212024 1:06pm Advanced maternal age (AMA) in September 18, 2024 8:47am September 18, 2024 8:47a m Supervision of high-risk August 222024 8:47am Chief Complaint Admit Date Supervision of with other poor reproduct September 02, 2024 2:21pm New OB, LMP 3, ALPHONSO 04/18September 04 1:06pm 9 wk ob September 18, 2024 8:47a m 11wk OB October 01, 2024 10:0 6am Reason for Visit Admit Date Advanced maternal age (AMA) in September 04, 2024 1:06pm September 04, 2024 1:06p m Supervision of high-risk August 212024 1:06pm Advanced maternal age (AMA) in September 18, 2024 8:47am September 18, 2024 8:47a m Supervision of high-risk August 222024 8:47am Advanced maternal age (AMA) in October 01, 2024 10:06am October 01, 2024 10:0 6am Supervision of high-risk October 01, 2024 10:06am Chief Complaint Admit Date Supervision of with other poor reproduct September 02, 2024 2:21pm New OB, LMP 07/12, ALPHONSO 04/18September 04 1:06pm 9 wk ob September 18, 2024 8:47a m 11wk OB October 01, 2024 10:0 6am 15wk ob October 27, 2024 8:24a m Reason for Visit Admit Date Advanced maternal age (AMA) in September 04, 2024 1:06pm September 04, 2024 1:06p m Supervision of high-risk August 212024 1:06pm Advanced maternal age (AMA) in September 18, 2024 8:47am September 18, 2024 8:47a m Supervision of high-risk August 222024 8:47am Advanced maternal age (AMA) in October 01, 2024 10:06am October 01, 2024 10:0 6am Supervision of high-risk October 01, 2024 10:06am Advanced maternal age (AMA) in October 27, 2024 8:24am October 27, 2024 8:24a m Supervision of high-risk October 27, 2024 8:24am Chief Complaint Admit Date Supervision of with other poor reproduct September 02, 2024 2:21pm New OB, LMP 07/12, ALPHONSO 04/18September 04 1:06pm 9 wk ob September 18, 2024 8:47a m 11wk OB October 01, 2024 10:0 6am 15wk ob October 27, 2024 8:24a m 19wk ob November 28, 2024 2:3 7pm Reason for Visit Admit Date Advanced maternal age (AMA) in September 04, 2024 1:06pm September 04, 2024 1:06p m Supervision of high-risk August 212024 1:06pm Advanced maternal age (AMA) in September 18, 2024 8:47am September 18, 2024 8:47a m Supervision of high-risk August 222024 8:47am Advanced maternal age (AMA) in October 01, 2024 10:06am October 01, 2024 10:0 6am Supervision of high-risk October 01, 2024 10:06am Advanced maternal age (AMA) in October 27, 2024 8:24am October 27, 2024 8:24a m Supervision of high-risk October 27, 2024 8:24am Advanced maternal age (AMA) in November 28, 2024 2:37pm November 28, 2024 2:3 7pm Supervision of high-risk Augus t 2024 2:37pm Chief Complaint Admit Date Supervision of with other poor reproduct September 02, 2024 2:21pm New OB, LMP 07/12, ALPHONSO 04/18September 04 1:06pm 9 wk ob September 18, 2024 8:47a m 11wk OB October 01, 2024 10:0 6am 15wk ob October 27, 2024 8:24a m 20wk ob November 28, 2024 2:3 7pm 24wk ob December 26, 2024 1:56pm Reason for Visit Admit Date Advanced maternal age (AMA) in September 04, 2024 1:06pm September 04, 2024 1:06p m Supervision of high-risk August 212024 1:06pm Advanced maternal age (AMA) in September 18, 2024 8:47am September 18, 2024 8:47a m Supervision of high-risk August 222024 8:47am Advanced maternal age (AMA) in October 01, 2024 10:06am October 01, 2024 10:0 6am Supervision of high-risk October 01, 2024 10:06am Advanced maternal age (AMA) in October 27, 2024 8:24am October 27, 2024 8:24a m Supervision of high-risk October 27, 2024 8:24am Advanced maternal age (AMA) in November 28, 2024 2:37pm November 28, 2024 2:3 7pm Supervision of high-risk Augus t 2024 2:37pm Advanced maternal age (AMA) in December 26, 2024 1:56pm December 26, 2024 1:56pm Supervision of high-risk Septe [id number] 1:56pm Chief Complaint Admit Date 11wk OB October 01, 2024 10:0 6am 15wk ob October 27, 2024 8:24a m 20wk ob November 28, 2024 2:3 7pm 23W 6D ob December 26, 2024 1:56pm 27wk 6D ob/glucose January 23, 2025 8: 01am Reason for Visit Admit Date Advanced maternal age (AMA) in October 01, 2024 10:06am October 01, 2024 10:0 6am Supervision of high-risk October 01, 2024 10:06am Advanced maternal age (AMA) in October 27, 2024 8:24am October 27, 2024 8:24a m Supervision of high-risk October 27, 2024 8:24am Advanced maternal age (AMA) in November 28, 2024 2:37pm November 28, 2024 2:3 7pm Supervision of high-risk Novus t 2024 2:37pm Advanced maternal age (AMA) in December 26, 2024 1:56pm December 26, 2024 1:56pm Supervision of high-risk Septe mber 2024 1:56pm Advanced maternal age (AMA) in January 23, 2025 8:01am January 23, 2025 8: 01am Supervision of high-risk Octob 2024 8:01am Chief Complaint Admit Date 15wk ob October 27, 2024 8:24a m 20wk ob November 28, 2024 2:3 7pm 23W 6D ob December 26, 2024 1:56pm 27wk 6D ob/glucose January 23, 2025 8: 01am Reason for Visit Admit Date Advanced maternal age (AMA) in October 27, 2024 8:24am October 27, 2024 8:24a m Supervision of high-risk October 27, 2024 8:24am Advanced maternal age (AMA) in November 28, 2024 2:37pm November 28, 2024 2:3 7pm Supervision of high-risk Augus t 2024 2:37pm Advanced maternal age (AMA) in December 26, 2024 1:56pm December 26, 2024 1:56pm Supervision of high-risk Septe mber 2024 1:56pm Advanced maternal age (AMA) in January 23, 2025 8:01am January 23, 2025 8: 01am Supervision of high-risk Octob er 2024 8:01am Chief Complaint Admit Date 15wk ob October 27, 2024 8:24a m 20wk ob November 28, 2024 2:3 7pm 23W 6D ob December 26, 2024 1:56pm 27wk 6D ob/glucose January 23, 2025 8: 01am 29wk 6D ob February 06, 2025 1 0:10am 31W 6D OB February 16, 2025 3 :37pm Reason for Visit Admit Date Advanced maternal age (AMA) in October 27, 2024 8:24am October 27, 2024 8:24a m Supervision of high-risk October 27, 2024 8:24am Advanced maternal age (AMA) in November 28, 2024 2:37pm November 28, 2024 2:3 7pm Supervision of high-risk Augus t 2024 2:37pm Advanced maternal age (AMA) in December 26, 2024 1:56pm December 26, 2024 1:56pm Supervision of high-risk Septe mber 2024 1:56pm Advanced maternal age (AMA) in January 23, 2025 8:01am January 23, 2025 8: 01am Supervision of high-risk Octob er 2024 8:01am Advanced maternal age (AMA) in February 06, 2025 10:10am February 06, 2025 1 0:10am Supervision of high-risk Octob er 2024 10:10am Advanced maternal age (AMA) in February 16, 2025 3:37pm February 16, 2025 3 :37pm Supervision of high-risk Octob er 2024 3:37pm Family History No Family History Records Found Relationship Condition Age at Onset Recorded Date/T mirella grandfather Diabetes mellitus Unknown Cardiac disease Unknown Relationship Condition Age at Onset Recorded Date/T mirella grandfather Diabetes mellitus Unknown Cardiac disease Unknown Dementia Unknown father Cardiac disease Unknown Advance Directives No Advanced Directives Records Found Advance Directive Response Recorded Date/ Time Living Will No December 14 0 8:44am Power of Orchid Hand No December 14 020 8:44am Advance Directive Response Recorded Date/ Time Living Will No October 20, 2021 11:53am Power of Orchid Hand No October 20 2 11:53am Advance Directive Response Recorded Date/ Time Living Will No October 20, 2021 10:53am Power of Orchid Hand No October 20 2 10:53am Advance Directive Response Recorded Date/ Time Living Will No April 27 4 12:56pm Power of Orchid Hand No April 27, 024 12:56pm Advance Directive Response Recorded Date/ Time Living Will No April 27 4 1:56pm Power of Orchid Hand No April 27 024 1:56pm Summary Purpose Additional Source Comments Goals (unrecognized section and content) Type Care Experience svdLabor Preferences - CB BF cllabor support person: Ryanpain management options preferred: trying for natural labor, but open to epidural epiduralcut cord/dad catch: maybebreastfeeding: yesPP control planned: unsure discussed possible routes of delivery and associated risks: discussed possible delivery modalities and possible indications for each including R/B/A of , VAVD, and CS. questions answered.special requests: none Care Experience svdLabor Preferences -CB/BF classes: nolabor support person: Ryanlabor intervention preferences: []pain management options preferred: limited intervention, ok w epidural if neededcut cord/dad catch: cordbreastfeeding: yesPP control planned: discusseddiscussed possible routes of delivery and associated risks: []special requests: [] Care Experience Labor Preferences-CB /BF classes: []labor support person: []labor intervention preferences: []pain management options preferred: []cut cord/dad catch: []: []PP control planned: []discussed possible routes of delivery and associated risks: []special requests: [] Care Experience svdLabor Preferences -CB/BF classes: []labor support person: []labor intervention preferences: []pain management options preferred: []cut cord/dad catch: []: []PP control planned: []discussed possible routes of delivery and associated risks: []special requests: [] Type Detail Care Experience svdLabor Preferences - CB BF cllabor support person: Ryanpain management options preferred: trying for natural labor, but open to epidural epiduralcut cord/dad catch: maybebreastfeeding: yesPP control planned: unsure discussed possible routes of delivery and associated risks: discussed possible delivery modalities and possible indications for each including R/B/A of , VAVD, and CS. questions answered.special requests: none Care Experience svdLabor Preferences -CB/BF classes: nolabor support person: Ryanlabor intervention preferences: []pain management options preferred: limited intervention, ok w epidural if neededcut cord/dad catch: cordbreastfeeding: yesPP control planned: discusseddiscussed possible routes of delivery and associated risks: []special requests: [] Care Experience Labor Preferences-CB /BF classes: []labor support person: []labor intervention preferences: []pain management options preferred: []cut cord/dad catch: []: []PP control planned: []discussed possible routes of delivery and associated risks: []special requests: [] Care Experience svdLabor Preferences -CB/BF classes: nolabor support person: Ryanlabor intervention preferences: []pain management options preferred: limitedcut cord/dad catch: cordbreastfeeding: yesPP control planned: discusseddiscussed possible routes of delivery and associated risks: []special requests: [] Source Comments (unrecognize d section and content) In the event this informatio n is protected by the Federal Confidentiality of Alcohol and Drug Abuse Patient Records regulations: The Federal rules restrict any use of the information to criminally investigate or prosecute any alcohol or drug abuse patient.[facility] the event this information is protected by the Federal Confidentiality of Alcohol and Drug Abuse Patient Records regulations: The Federal rules restrict any use of the information to criminally investigate or prosecute any alcohol or drug abuse patient.[facility] the event this information is protected by the Federal Confidentiality of Alcohol and Drug Abuse Patient Records regulations: The Federal rules restrict any use of the information to criminally investigate or prosecute any alcohol or drug abuse patient.[facility] the event this information is protected by the Federal Confidentiality of Alcohol and Drug Abuse Patient Records regulations: The Federal rules restrict any use of the information to criminally investigate or prosecute any alcohol or drug abuse patient.[facility] the event this information is protected by the Federal Confidentiality of Alcohol and Drug Abuse Patient Records regulations: The Federal rules restrict any use of the information to criminally investigate or prosecute any alcohol or drug abuse patient.[facility] Center[facility] the event this information is protected by the Federal Confidentiality of Alcohol and Drug Abuse Patient Records regulations: The Federal rules restrict any use of the information to criminally investigate or prosecute any alcohol or drug abuse patient.[facility] CenterIn the event this information is protected by the Federal Confidentiality of Alcohol and Drug Abuse Patient Records regulations: The Federal rules restrict any use of the information to criminally investigate or prosecute any alcohol or drug abuse patient.[facility] CenterIn the event this information is protected by the Federal Confidentiality of Alcohol and Drug Abuse Patient Records regulations: The Federal rules restrict any use of the information to criminally investigate or prosecute any alcohol or drug abuse patient.[facility] Care Teams (unrecognized sec tion and content) Furniture And Bedding Inspector Relationship Specialty Start Date End Date Suzanne Guallpa APRN.THERMOPLASTIC TECHNICIAN [address] [place] [address] PCP - General Family Medicine 11/29/21 Furniture And Bedding Inspector Relationship Specialty Start Date End Date Suzanne Guallpa, SALES PLANNING COORDINATOR.THERMOPLASTIC TECHNICIAN [address] [place] [address] PCP - General Family Medicine 11/29/21 Furniture And Bedding Inspector Relationship Specialty Start Date End Date Suzanne Guallpa, SALES PLANNING COORDINATOR.THERMOPLASTIC TECHNICIAN [address] [place], [place] [id number] PCP - General Family Medicine 11/29/21 Team Status: Active Member Role Status Dates Suzanne Guallpa COMMERCIAL ROOFER, COMMERCIAL ROOFER-C Primary Care Provider Active Team Status: Inactive Member Role Status Dates No Primary Care Physician Referring Provider Active Dr. Dominique Patten MD Attending Provider Active Team Status: Inactive Member Role Status Dates Suzanne Guallpa COMMERCIAL ROOFER, COMMERCIAL ROOFER-C Primary Care Provider Active Noelle Sexton CNM Attending Provider, Referring Pr ovider Active Team Status: Active Member Role Status Dates Suzanne Guallpa COMMERCIAL ROOFER, COMMERCIAL ROOFER-C Primary Care Provider Active Noelle Sexton CNM Attending Provider, Referring Pr ovider Active Team Status: Inactive Member Role Status Dates Noelle Sexton CNM Attending Provider Active Suzanne Guallpa NP, COMMERCIAL ROOFER-C Primary Care Provider, Referri ng Provider Active Team Status: Inactive Member Role Status Dates Suzanne Guallpa COMMERCIAL ROOFER, COMMERCIAL ROOFER-C Primary Care Provider, Referri ng Provider Active Carmita Sierra CNM Attending Provider Active Team Status: Active Member Role Status Dates Suzanne Guallpa COMMERCIAL ROOFER, COMMERCIAL ROOFER-C Primary Care Provider Active Dr. Dominique Patten MD Attending Pr ovider, Referring Provider, Other Provider Active Team Status: Inactive Member Role Status Dates Suzanne Guallpa COMMERCIAL ROOFER, COMMERCIAL ROOFER-C Primary Care Provider Active Dr. Dominique Patten MD Attending Provider, Referr ing Provider Active Team Status: Inactive Member Role Status Dates Suzanne Guallpa COMMERCIAL ROOFER, COMMERCIAL ROOFER-C Primary Care Provider, Referri ng Provider Active Dr. Dominique Patten MD Attending Provider Active Furniture And Bedding Inspector Relationship Specialty Start Date End Date Suzanne Guallpa, SALES PLANNING COORDINATOR.THERMOPLASTIC TECHNICIAN [address] [place] [address] PCP - General Family Medicine 11/29/21 Furniture And Bedding Inspector Relationship Specialty Start Date End Date Suzanne Guallpa, SALES PLANNING COORDINATOR.THERMOPLASTIC TECHNICIAN [address] [place], [place] [id number] PCP - General Family Medicine 11/29/21 Furniture And Bedding Inspector Relationship Specialty Start Date End Date Suzanne Guallpa, SALES PLANNING COORDINATOR.THERMOPLASTIC TECHNICIAN [address] [facility], [place] [id number] PCP - General Family Medicine 11/29/21 Team Status: Inactive Member Role Status Dates Suzanne Guallpa NP, COMMERCIAL ROOFER-C Primary Care Provider Active Start: August 27, 2024 End: August 27, 2024 FRANKI Francis Attending Provider Active Start: August 27, 2024 End: August 27, 2024 FRANKI Francis Referring Provider Active Start: August 27, 2024 End: August 27, 2024 Team Status: Active Member Role Status Dates Suzanne Guallpa NP, COMMERCIAL ROOFER-C Primary Care Provider Active Start: August 29, 2024 Dr. Jenna Hartley , DO Attending Provider Activ e Start: August 29, 2024 Dr. Jenna Hartley , DO Referring Provider Activ e Start: August 29, 2024 Team Status: Inactive Member Role Status Dates Suzanne Guallpa NP, COMMERCIAL ROOFER-C Primary Care Provider Active Start: August 29, 2024 End: August 29, 2024 Dr. Jenna Hartley , DO Attending Provider Activ e Start: August 29, 2024 End: August 29, 2024 Dr. Jenna Hartley , DO Referring Provider Activ e Start: August 29, 2024 End: August 29, 2024 Team Status: Active Member Role Status Dates Suzanne Guallpa NP, COMMERCIAL ROOFER-C Primary Care Provider Active Start: September 01, 2024 Carmita Sierra CNM Attending Provider Active S tart: September 01, 2024 Carmita Sierra CNM Referring Provider Active S tart: September 01, 2024 Team Status: Active Member Role Status Dates Suzanne Guallpa COMMERCIAL ROOFER, COMMERCIAL ROOFER-C Primary Care Provider Active Start: September 02, 2024 Carmita Sierra CNM Attending Provider Active S tart: September 02, 2024 Carmita Sierra CNM Referring Provider Active S tart: September 02, 2024 Team Status: Inactive Member Role Status Dates Suzanne Guallpa COMMERCIAL ROOFER, COMMERCIAL ROOFER-C Primary Care Provider Active Start: September 04, 2024 End: September 04, 2024 Suzanne Guallpa COMMERCIAL ROOFER, COMMERCIAL ROOFER-C Referring Provider Active Start: September 04, 2024 End: September 04, 2024 Dr. Dominique Patten MD Attending Provider Active Start: September 04, 2024 End: September 04, 2024 Team Status: Inactive Member Role Status Dates Suzanne Guallpa COMMERCIAL ROOFER, COMMERCIAL ROOFER-C Primary Care Provider Active Start: September 01, 2024 End: September 01, 2024 Carmita Sierra CNM Attending Provider Active S tart: September 01, 2024 End: September 01, 2024 Carmita Sierra CNM Referring Provider Active S tart: September 01, 2024 End: September 01, 2024 Team Status: Active Member Role Status Dates Suzanne Guallpa COMMERCIAL ROOFER, COMMERCIAL ROOFER-C Primary Care Provider Active Start: September 04, 2024 Dr. Dominique Patten MD Attending Provider Active Start: September 04, 2024 Dr. Dominique Patten MD Referring Provider Active Start: September 04, 2024 Team Status: Inactive Member Role Status Dates Suzanne Guallpa COMMERCIAL ROOFER, COMMERCIAL ROOFER-C Primary Care Provider Active Start: September 04, 2024 End: September 04, 2024 Dr. Dominique Patten MD Attending Provider Active Start: September 04, 2024 End: September 04, 2024 Dr. Dominique Patten MD Referring Provider Active Start: September 04, 2024 End: September 04, 2024 Team Status: Inactive Member Role Status Dates Suzanne Guallpa COMMERCIAL ROOFER, COMMERCIAL ROOFER-C Primary Care Provider Active Start: September 02, 2024 End: September 02, 2024 Carmita Sierra CNM Attending Provider Active S tart: September 02, 2024 End: September 02, 2024 Carmita Sierra CNM Referring Provider Active S tart: September 02, 2024 End: September 02, 2024 Team Status: Inactive Member Role Status Dates Suzanne Guallpa COMMERCIAL ROOFER, COMMERCIAL ROOFER-C Primary Care Provider Active Start: September 18, 2024 End: September 18, 2024 Suzanne Guallpa COMMERCIAL ROOFER, COMMERCIAL ROOFER-C Referring Provider Active Start: September 18, 2024 End: September 18, 2024 Dr. Dominique Patten MD Attending Provider Active Start: September 18, 2024 End: September 18, 2024 Furniture And Bedding Inspector Relationship Specialty Start Date End Date Suzanne Guallpa APRN.THERMOPLASTIC TECHNICIAN [address] [place] [address] PCP - General Family Medicine 11/29/21 Team Status: Inactive Member Role Status Dates Suzanne Guallpa COMMERCIAL ROOFER, COMMERCIAL ROOFER-C Primary Care Provider Active Start: October 01, 2024 End: October 01, 2024 Suzanne Guallpa COMMERCIAL ROOFER, COMMERCIAL ROOFER-C Referring Provider Active Start: October 01, 2024 End: October 01, 2024 Dr. Jenna Hartley , Attending Provider Activ e Start: October 01, 2024 End: October 01, 2024 Team Status: Active Member Role Status Dates Suzanne Guallpa NP, COMMERCIAL ROOFER-C Primary Care Provider Active Start: October 01, 2024 Dr. Jenna Hartley DO Attending Provider Activ e Start: October 01, 2024 Dr. Jnena Hartley DO Referring Provider Activ e Start: October 01, 2024 Team Status: Inactive Member Role Status Dates Suzanne Guallpa COMMERCIAL ROOFER, COMMERCIAL ROOFER-C Primary Care Provider Active Start: October 01, 2024 End: October 01, 2024 Dr. Jenna Hartley DO Attending Provider Activ e Start: October 01, 2024 End: October 01, 2024 Dr. Jenna Hartley DO Referring Provider Activ e Start: October 01, 2024 End: October 01, 2024 Team Status: Active Member Role/Relationship Status Dates Suzanne Guallpa COMMERCIAL ROOFER, COMMERCIAL ROOFER-C Primary Care Provider Active Team Status: Inactive Member Role/Relationship Status Dates Suzanne Guallpa COMMERCIAL ROOFER, COMMERCIAL ROOFER-C Primary Care Provider Active Start: August 27, 2024 End: August 27, 2024 Jessica Barkman , COMMERCIAL ROOFER-C Attending Provider Active Start: August 27, 2024 End: August 27, 2024 Jessica Toure , COMMERCIAL ROOFER-C Referring Provider Active Start: August 27, 2024 End: August 27, 2024 Team Status: Inactive Member Role/Relationship Status Dates Suzanne Guallpa COMMERCIAL ROOFER, COMMERCIAL ROOFER-C Primary Care Provider Active Start: August 29, 2024 End: August 29, 2024 Dr. Jenna Hartley , DO Attending Provider Activ e Start: August 29, 2024 End: August 29, 2024 Dr. Jenna Hartley , DO Referring Provider Activ e Start: August 29, 2024 End: August 29, 2024 Team Status: Inactive Member Role/Relationship Status Dates Suzanne Guallpa COMMERCIAL ROOFER, COMMERCIAL ROOFER-C Primary Care Provider Active Start: September 01, 2024 End: September 01, 2024 Carmita Sierra CNM Attending Provider Active S tart: September 01, 2024 End: September 01, 2024 Carmita Sierra CNM Referring Provider Active S tart: September 01, 2024 End: September 01, 2024 Team Status: Inactive Member Role/Relationship Status Dates Suzanne Guallpa COMMERCIAL ROOFER, COMMERCIAL ROOFER-C Primary Care Provider Active Start: September 02, 2024 End: September 02, 2024 Carmita Sierra CNM Attending Provider Active S tart: September 02, 2024 End: September 02, 2024 Carmita Sierra CNM Referring Provider Active S tart: September 02, 2024 End: September 02, 2024 Team Status: Inactive Member Role/Relationship Status Dates Suzanne Guallpa COMMERCIAL ROOFER, COMMERCIAL ROOFER-C Primary Care Provider Active Start: September 04, 2024 End: September 04, 2024 Suzanne Guallpa NP, COMMERCIAL ROOFER-C Referring Provider Active Start: September 04, 2024 End: September 04, 2024 Dr. Dominique Patten MD Attending Provider Active Start: September 04, 2024 End: September 04, 2024 Team Status: Inactive Member Role/Relationship Status Dates Suzanne Guallpa COMMERCIAL ROOFER, COMMERCIAL ROOFER-C Primary Care Provider Active Start: September 04, 2024 End: September 04, 2024 Dr. Dominique Patten MD Attending Provider Active Start: September 04, 2024 End: September 04, 2024 Dr. Dominique Patten MD Referring Provider Active Start: September 04, 2024 End: September 04, 2024 Team Status: Inactive Member Role/Relationship Status Dates Suzanne Guallpa COMMERCIAL ROOFER, COMMERCIAL ROOFER-C Primary Care Provider Active Start: September 18, 2024 End: September 18, 2024 Suzanne Guallpa COMMERCIAL ROOFER, COMMERCIAL ROOFER-C Referring Provider Active Start: September 18, 2024 End: September 18, 2024 Dr. Dominique Patten MD Attending Provider Active Start: September 18, 2024 End: September 18, 2024 Team Status: Inactive Member Role/Relationship Status Dates Suzanne Guallpa COMMERCIAL ROOFER, COMMERCIAL ROOFER-C Primary Care Provider Active Start: October 01, 2024 End: October 01, 2024 Suzanne Guallpa COMMERCIAL ROOFER, COMMERCIAL ROOFER-C Referring Provider Active Start: October 01, 2024 End: October 01, 2024 Dr. Jenna Hartley DO Attending Provider Activ e Start: October 01, 2024 End: October 01, 2024 Team Status: Inactive Member Role/Relationship Status Dates Suzanne Guallpa COMMERCIAL ROOFER, COMMERCIAL ROOFER-C Primary Care Provider Active Start: October 01, 2024 End: October 01, 2024 Dr. Jenna Hartley DO Attending Provider Activ e Start: October 01, 2024 End: October 01, 2024 Dr. Jenna Hartley DO Referring Provider Activ e Start: October 01, 2024 End: October 01, 2024 Team Status: Inactive Member Role/Relationship Status Dates Suzanne Guallpa COMMERCIAL ROOFER, COMMERCIAL ROOFER-C Primary Care Provider Active Start: October 27, 2024 End: October 27, 2024 Suzanne Guallpa COMMERCIAL ROOFER, COMMERCIAL ROOFER-C Referring Provider Active Start: October 27, 2024 End: October 27, 2024 Fidelia Otoole COMMERCIAL ROOFER, COMMERCIAL ROOFER-C Attending Provider Active Start: October 27, 2024 End: October 27, 2024 Team Status: Inactive Member Role/Relationship Status Dates Suzanne Guallpa COMMERCIAL ROOFER, COMMERCIAL ROOFER-C Primary Care Provider Active Start: November 28, 2024 End: November 28, 2024 Suzanne Guallpa COMMERCIAL ROOFER, COMMERCIAL ROOFER-C Referring Provider Active Start: November 28, 2024 End: November 28, 2024 Carmita Sierra CNM Attending Provider Active S tart: November 28, 2024 End: November 28, 2024 Furniture And Bedding Inspector Relationship Specialty Start Date End Date Suzanne Guallpa APRN.THERMOPLASTIC TECHNICIAN [address] [place] [address] PCP - General Family Medicine 11/29/21 Team Status: Inactive Member Role/Relationship Status Dates Suzanne Guallpa COMMERCIAL ROOFER, COMMERCIAL ROOFER-C Primary Care Provider Active Start: August 29, 2024 End: August 29, 2024 Dr. Jenna Hartley , DO Attending Provider Activ e Start: August 29, 2024 End: August 29, 2024 Dr. Jenna Hartley , DO Referring Provider Activ e Start: August 29, 2024 End: August 29, 2024 Team Status: Inactive Member Role/Relationship Status Dates Suzanne Guallpa COMMERCIAL ROOFER, COMMERCIAL ROOFER-C Primary Care Provider Active Start: September 01, 2024 End: September 01, 2024 Carmita Sierra CNM Attending Provider Active S tart: September 01, 2024 End: September 01, 2024 Carmita Sierra CNM Referring Provider Active S tart: September 01, 2024 End: September 01, 2024 Team Status: Inactive Member Role/Relationship Status Dates Suzanne Guallpa COMMERCIAL ROOFER, COMMERCIAL ROOFER-C Primary Care Provider Active Start: September 02, 2024 End: September 02, 2024 Carmita Sierra CNM Attending Provider Active S tart: September 02, 2024 End: September 02, 2024 Carmita Sierra CNM Referring Provider Active S tart: September 02, 2024 End: September 02, 2024 Team Status: Inactive Member Role/Relationship Status Dates Suzanne Guallpa COMMERCIAL ROOFER, COMMERCIAL ROOFER-C Primary Care Provider Active Start: September 04, 2024 End: September 04, 2024 Suzanne Guallpa COMMERCIAL ROOFER, COMMERCIAL ROOFER-C Referring Provider Active Start: September 04, 2024 End: September 04, 2024 Dr. Dominique Patten MD Attending Provider Active Start: September 04, 2024 End: September 04, 2024 Team Status: Inactive Member Role/Relationship Status Dates Suzanne Guallpa COMMERCIAL ROOFER, COMMERCIAL ROOFER-C Primary Care Provider Active Start: September 04, 2024 End: September 04, 2024 Dr. Dominique Patten MD Attending Provider Active Start: September 04, 2024 End: September 04, 2024 Dr. Dominique Patten MD Referring Provider Active Start: September 04, 2024 End: September 04, 2024 Team Status: Inactive Member Role/Relationship Status Dates Suzanne Guallpa COMMERCIAL ROOFER, COMMERCIAL ROOFER-C Primary Care Provider Active Start: September 18, 2024 End: September 18, 2024 Suzanne Guallpa COMMERCIAL ROOFER, COMMERCIAL ROOFER-C Referring Provider Active Start: September 18, 2024 End: September 18, 2024 Dr. Dominique Patten MD Attending Provider Active Start: September 18, 2024 End: September 18, 2024 Team Status: Inactive Member Role/Relationship Status Dates Suzanne Guallpa COMMERCIAL ROOFER, COMMERCIAL ROOFER-C Primary Care Provider Active Start: October 01, 2024 End: October 01, 2024 Suzanne Guallpa COMMERCIAL ROOFER, COMMERCIAL ROOFER-C Referring Provider Active Start: October 01, 2024 End: October 01, 2024 Dr. Jenna Hartley DO Attending Provider Activ e Start: October 01, 2024 End: October 01, 2024 Team Status: Inactive Member Role/Relationship Status Dates Suzanne Guallpa COMMERCIAL ROOFER, COMMERCIAL ROOFER-C Primary Care Provider Active Start: October 01, 2024 End: October 01, 2024 Dr. Jenna Hartley DO Attending Provider Activ e Start: October 01, 2024 End: October 01, 2024 Dr. Jenna Hartley DO Referring Provider Activ e Start: October 01, 2024 End: October 01, 2024 Team Status: Inactive Member Role/Relationship Status Dates Suzanne Guallpa COMMERCIAL ROOFER, COMMERCIAL ROOFER-C Primary Care Provider Active Start: October 27, 2024 End: October 27, 2024 Suzanne Guallpa COMMERCIAL ROOFER, COMMERCIAL ROOFER-C Referring Provider Active Start: October 27, 2024 End: October 27, 2024 Fidelia Otoole COMMERCIAL ROOFER, COMMERCIAL ROOFER-C Attending Provider Active Start: October 27, 2024 End: October 27, 2024 Team Status: Inactive Member Role/Relationship Status Dates Suzanne Guallpa COMMERCIAL ROOFER, COMMERCIAL ROOFER-C Primary Care Provider Active Start: November 28, 2024 End: November 28, 2024 Suzanne Guallpa COMMERCIAL ROOFER, COMMERCIAL ROOFER-C Referring Provider Active Start: November 28, 2024 End: November 28, 2024 Carmita Sierra CNM Attending Provider Active S tart: November 28, 2024 End: November 28, 2024 Team Status: Inactive Member Role/Relationship Status Dates Suzanne Haagen COMMERCIAL ROOFER, COMMERCIAL ROOFER-C Referring Provider Active Start: December 26, 2024 End: December 26, 2024 Dr. Dominique Patten MD Attending Provider Active Start: December 26, 2024 End: December 26, 2024 Team Status: Inactive Member Role/Relationship Status Dates Suzanne Haagen COMMERCIAL ROOFER, COMMERCIAL ROOFER-C Primary care physician Active Start: October 01, 2024 End: October 01, 2024 Suzanne Guallpa COMMERCIAL ROOFER, COMMERCIAL ROOFER-C Referring Provider Active Start: October 01, 2024 End: October 01, 2024 Dr. Jenna Hartley DO Attending physician Acti ve Start: October 01, 2024 End: October 01, 2024 Team Status: Inactive Member Role/Relationship Status Dates Suzanne Guallpa COMMERCIAL ROOFER, COMMERCIAL ROOFER-C Primary care physician Active Start: October 01, 2024 End: October 01, 2024 Dr. Jenna Hartley DO Attending physician Acti ve Start: October 01, 2024 End: October 01, 2024 Dr. Jenna Hartley DO Referring Provider Activ e Start: October 01, 2024 End: October 01, 2024 Team Status: Inactive Member Role/Relationship Status Dates Suzanne Guallpa COMMERCIAL ROOFER, COMMERCIAL ROOFER-C Primary care physician Active Start: October 27, 2024 End: October 27, 2024 Suzanne Guallpa COMMERCIAL ROOFER, COMMERCIAL ROOFER-C Referring Provider Active Start: October 27, 2024 End: October 27, 2024 Fidelia Otoole COMMERCIAL ROOFER, COMMERCIAL ROOFER-C Attending physician Active Start: October 27, 2024 End: October 27, 2024 Team Status: Inactive Member Role/Relationship Status Dates Suzanne Guerreroagen COMMERCIAL ROOFER, COMMERCIAL ROOFER-C Primary care physician Active Start: November 28, 2024 End: November 28, 2024 Suzanne Haagen COMMERCIAL ROOFER, COMMERCIAL ROOFER-C Referring Provider Active Start: November 28, 2024 End: November 28, 2024 Carmita Sierra CNM Attending physician Active Start: November 28, 2024 End: November 28, 2024 Team Status: Inactive Member Role/Relationship Status Dates Suzanne Haagen COMMERCIAL ROOFER, COMMERCIAL ROOFER-C Referring Provider Active Start: December 26, 2024 End: December 26, 2024 Dr. Dominique Patten MD Attending physician Active Start: December 26, 2024 End: December 26, 2024 Team Status: Inactive Member Role/Relationship Status Dates Suzanne Guallpa COMMERCIAL ROOFER, COMMERCIAL ROOFER-C Referring Provider Active Start: January 23, 2025 End: January 23, 2025 Carmita Sierra CNM Attending physician Active Start: January 23, 2025 End: January 23, 2025 Team Status: Active Member Role/Relationship Status Dates Dr. Dominique Patten MD Attending physician Active Start: January 23, 2025 Dr. Dominique Patten MD Referring Provider Active Start: January 23, 2025 Team Status: Inactive Member Role/Relationship Status Dates Suzanne Haagen COMMERCIAL ROOFER, COMMERCIAL ROOFER-C Primary care physician Active Start: October 27, 2024 End: October 27, 2024 Suzanne Haagen COMMERCIAL ROOFER, COMMERCIAL ROOFER-C Referring Provider Active Start: October 27, 2024 End: October 27, 2024 Fidelia Otoole COMMERCIAL ROOFER, COMMERCIAL ROOFER-C Attending physician Active Start: October 27, 2024 End: October 27, 2024 Team Status: Inactive Member Role/Relationship Status Dates Suzanne Haagen COMMERCIAL ROOFER, COMMERCIAL ROOFER-C Primary care physician Active Start: November 28, 2024 End: November 28, 2024 Suzanne Haagen COMMERCIAL ROOFER, COMMERCIAL ROOFER-C Referring Provider Active Start: November 28, 2024 End: November 28, 2024 Carmita Sierra CNM Attending physician Active Start: November 28, 2024 End: November 28, 2024 Team Status: Inactive Member Role/Relationship Status Dates Suzanne Hakayla COMMERCIAL ROOFER, COMMERCIAL ROOFER-C Referring Provider Active Start: December 26, 2024 End: December 26, 2024 Dr. Dominique Patten MD Attending physician Active Start: December 26, 2024 End: December 26, 2024 Team Status: Inactive Member Role/Relationship Status Dates Suzanne Guallpa COMMERCIAL ROOFER, COMMERCIAL ROOFER-C Referring Provider Active Start: January 23, 2025 End: January 23, 2025 Carmita Sierra CNM Attending physician Active Start: January 23, 2025 End: January 23, 2025 Team Status: Inactive Member Role/Relationship Status Dates Dr. Dominique Patten MD Attending physician Active Start: January 23, 2025 End: January 23, 2025 Dr. Dominique Patten MD Referring Provider Active Start: January 23, 2025 End: January 23, 2025 Team Status: Inactive Member Role/Relationship Status Dates Suzanne Guallpa COMMERCIAL ROOFER, COMMERCIAL ROOFER-C Referring Provider Active Start: February 06, 2025 End: February 06, 2025 Dr. Jenna Hartley DO Attending physician Acti ve Start: February 06, 2025 End: February 06, 2025 Team Status: Inactive Member Role/Relationship Status Dates Fidelia Otoole NP, COMMERCIAL ROOFER-C Attending physician Active Start: February 16, 2025 End: February 16, 2025 Reason for Visit (unrecogniz ed section and content) Reason Comments Sore Throat ST x 3 days Reason Comments Full Body Skin Check Reason Comments Physical INFORMATION SOURCE (unrecogn ized section and content) DATE CREATED AUTHOR 10/02/2024 [facility] DATE CREATED AUTHOR AUTHOR'S ORGANIZ ATION 11/25/2024 [facility] DATE CREATED AUTHOR AUTHOR'S ORGANIZ ATION 02/28/2025 [facility] FOR RECORDS PERTAINING TO PATIENTS WHO ARE [...] BE BASED ON THE PRIMARY CLINICAL RECORDS. The [facility]. provides no warranty or guarantee of the accuracy or completeness of information in this document.
== END | disposition home or self-care (01) ==
LOC: LABSPEC 15:42
PROVIDERS: PCP Registered Nurse; Visit Provider Student in an Organized Health Care Education/Training Program
DX: O09.92 Supervision of high risk pregnancy, unspecified, second trimester (principal); Z3A.00 Weeks of gestation of pregnancy not specified
CPT/HCPCS: 87081

== ENCOUNTER 2025-04-09 19:05 | Inpatient (IN) | payer OTHER, SELFPAY ==
[2025-04-09] VITALS (13 sets, daily range): BP systolic 115–142; BP diastolic 70–81; PULSE 75–94; RESP 16–18; TEMP 36.4–36.6; O2SAT 96–100; BMI 32.5
--- NOTE | 2025-04-09 19:12 | HP.PCM.OB_ITS ---
HPI - General General Date of Admission: 04/09/25 HPI Narrative LALITHA MONTERO, is a 34 F who presents at 38w5d from the office for rule out labor. She was admitted after her cervix made change to 6cm. She is GBS negative. is complicated by AMA with low risk NIPT. Maternal Data Information ALPHONSO Calculator Estimated Delivery Date Method Current WG Current Estimate 04/18/25 LMP (Certain) 38w 5d Other Estimates 04/20/25 Ultrasound #1 38w 3d PFSH PFSH Medical History COVID-19 vaccine series completed Home Medications ?Medication ?Instructions ?Recorded ?Last Taken ?Type multivitamin no.47-iron fum 27 1 cap PO DAILY pregnanc y 03/23/23 04/08/25 21:00 History mg-folate no.1 1 mg-dha 300 mg 1 cap capsule (PNV-DHA) famotidine 20 mg tablet (Pepcid) 20 mg PO BID #60 tabs 12/26/24 04/09/25 07:00 Rx 20 mg Allergy/AdvReac Type Severity Reaction Status Date / Time bee venom protein (honey bee) Allergy Severe Swelling Verified 04/09/25 14:53 Sulfa (Sulfonamide Allergy Mild Rash Verified 04/09/25 14:53 Antibiotics) Family History Grandfather Diabetes Maternal Heart disease Maternal Dementia Maternal Father Heart disease Surgical History S/P dilation and curettage [place] teeth extracted History of tonsillectomy Social History adopted: No household members: spouse and children housing: house number of children: 2 current occupational status: employed current occupation: [employer] current occupational exposures/hazards: No pets and animals: Yes (not managing litterbox) pets and animals: cat(s) and dog(s) history of recent travel: No sexually active: Yes Smoking Status: Never smoker alcohol intake: current alcohol intake frequency: holidays/special occasions only details: Not while substance use type: does not use well-balanced diet: daily or most days caffeine: Yes Type: other Number of servings: 2 eating out: 1-3 times/week during the past year weight has: remained stable what type of physical activity do you participate in: walking and weight training frequency: 5-6 times per week duration: 15-30 minutes/day kesha/baptism: Worship seatbelt use: always do you feel safe at home: Yes additional social history: - Benjie ([employer]) Patient works at [employer] History 4 Elective abortions Hx Para 2 Spontaneous abortions 1 Hx # Term Pregnancies 2 Ectopic pregnancies Hx # Pregnancies Multiple births # of living children 2 Past Pregnancies Del. Date Name GA/Weeks Outcome Route Bth Weight Gen Labor Lgth Anesthesia Del Locatn Provider FOB Unknown 2021 Jann 38 live - full term 7#4oz Male non e [facility] NONA [place] 12/15/19 Phong 38 live - full term 7lbs 9oz Male 7 hours none [facility] [place] 05/01/23 12 spontaneous Delivery Date: 05/01/23 Last Updated by: Trista Melgar, Visit Details Expected Delivery Route/Plan Labor Preferences- CB/BF classes: no labor support person: Benjie labor intervention preferences: minimal pain management options preferred: limited cut cord/dad catch: cord : yes PP control planned: discussed discussed possible routes of delivery and associated risks: special requests: [] Plans Covid status: [] Flu vaccine: given Tdap vaccine: given Rhogam: NA LARC form signed: yes Problem list reviewed and updated with the most current plan of care details and appropriate orders placed. Relevant counseling for the gestational age provided. Continue routine care and follow up unless otherwise noted in visit notes/problem list details OB Flowsheet Initial Weight: Not Recorded Date -?-?-?-?-?-?-?-?-?-?-?-?- EGA Weight BP Urine Prot -?-?-?-?-?-?-?-?-?-?-?-?- Glucose FHR FuHt Pres Dilation -?-?-?-?-?-?-?-?-?-?-?-?- Effaced St Visit Note 09/04/24 -?-?-?-?-?-?-?-?-?-?-?-?- 7w 5d 169 lb 115/74 -?-?-?-?-?-?-?-?-?-?-?-?- 145 -?-?-?-?-?-?-?-?-?-?-?-?- SM- CRL 1.2cm co ns with LMP SM- CRL 1.2cm cons with LMP 6 mm subchorionic hematoma 09/18/24 -?-?-?-?-?-?-?-?-?-?-?-?- 9w 5d 168 lb 112/68 Negative -?-?-?-?-?-?-?-?-?-?-?-?- Negative 160 -?-?-?-?-?-?-?-?-?-?-?-?- SM- had brown lyssa story eulalia, no clots. no cramping fatigue improving some nausea. 10/01/24 -?-?-?-?-?-?-?-?-?-?-?-?- 11w 4d 167 lb 110/78 -?-?-?-?-?-?-?-?-?-?-?-?- 160 -?-?-?-?-?-?-?-?-?-?-?-?- JV- CRL measurin g appropriately. desires NIPT today. no complaints. small JI seen vs placental goodson. 10/27/24 -?-?-?-?-?-?-?-?-?-?-?-?- 15w 2d 168 lb 8 oz 108/70 Nega tive -?-?-?-?-?-?-?-?-?-?-?-?- Negative 150 -?-?-?-?-?-?-?-?-?-?-?-?- MH-No VB. Brief US confirm FHT. Nausea resolved. 11/28/24 -?-?-?-?-?-?-?-?-?-?-?-?- 19w 6d 174 lb 3 oz 109/71 Nega tive -?-?-?-?-?-?-?-?-?-?-?-?- Negative 145 -?-?-?-?-?-?-?-?-?-?-?-?- KW- no vb/crampi ng. +flutters. had US on sunday. 12/26/24 -?-?-?-?-?-?-?-?-?-?-?-?- 23w 6d 178 lb 9 oz 106/70 Nega tive -?-?-?-?-?-?-?-?-?-?-?-?- Negative 140 -?-?-?-?-?-?-?-?-?-?-?-?- Sm- no vb lof go od fm no reuglar ctx 01/23/25 -?-?-?-?-?-?-?-?-?-?-?-?- 27w 6d 182 lb 6 oz 110/74 Nega tive -?-?-?-?-?-?-?--?-?-?-?-?- Negative 145 28 -?-?-?-?-?-?-?-?-?-?-?-?- KW- no vb/ctx/lo f. good fm. glucose today. 02/06/25 -?-?-?-?-?-?-?-?-?-?-?-?- 29w 6d 189 lb 114/75 Trace -?-?-?-?-?-?-?-?-?-?-?-?- Negative 140 29 -?-?-?-?-?-?-?-?-?-?-?-?- JV- wants to do flu and tdap next visit. no lof, vaginal bleeding, or dec fm. 02/16/25 -?-?-?-?-?-?-?-?-?-?-?-?- 31w 2d 192 lb 2 oz 109/72 Nega tive -?-?-?-?-?-?-?-?-?-?-?-?- Negative 147 31 -?-?-?-?-?-?-?-?-?-?-?-?- -No VB, LOF. G ood FM. Larc. Tdap and flu given 03/06/25 -?-?-?-?-?-?-?-?-?-?-?-?- 33w 6d 196 lb 5 oz 110/74 Nega tive -?-?-?-?--?-?-?-?-?-?-?-?- Negative 140 34 -?-?-?-?-?-?-?-?-?-?-?-?- KW- no vb/lof/ct x. good fm no concerns 03/18/25 -?-?-?-?-?-?-?-?-?-?-?-?- 35w 4d 198 lb 8 oz 104/73 Nega tive -?-?-?-?-?-?-?-?-?-?-?-?- Negative 134 36 -?-?-?-?-?-?-?-?-?-?-?-?- JV- no lof, vagi nal bleeding, or dec fm. interested in RSV vaccine. 03/27/25 -?-?-?-?-?-?-?-?-?-?-?-?- 36w 6d 202 lb 120/80 Negative -?-?-?-?-?-?-?-?-?-?-?-?- Negative 144 37 1 -?-?-?--?-?-?-?-?-?-?-?-?- 60 -2 KV- Good F M. Irregular ctx. No LOF/VB. Interested in getting induction scheduled for 39w. GBS today. 04/03/25 -?-?-?-?-?-?-?-?-?-?-?-?- 37w 6d 201 lb 2 oz 111/75 Nega tive -?-?-?-?-?-?-?-?-?-?-?-?- Negative 150 37 3 -?-?-?-?-?-?-?-?-?-?-?-?- 80 -2 KW- no vb/ lof/reg ctx. good fm but not feeling very well today. thinks baby has dropped. 04/09/25 -?-?-?-?-?-?-?-?-?-?-?-?- 38w 5d 201 lb 7 oz 116/80 Nega tive -?-?-?-?-?-?-?-?-?-?-?-?- Negative 135 38 5 -?-?-?-?-?-?-?-?-?-?-?-?- 80 -2 KV- Good F M. Unsure if ctx or baby rolling. No LOF/VB. Sent to for r/o labor. NST FHR Rate Baby A Baseline: 130 Variability:: Moderate Accelerations:: 15 x 15 Decelerations:: None NST Reactive:: Yes FHR Category:: Category I Uterine Activity:: q3-6 min Vital Signs Vital Signs Vital Signs: 04/09/25 18:45 04/09/25 18:45 Pulse Rate 92 Blood Pressure 116/75 BP Systolic 116 BP Diastolic 75 Weight Weight: 201 lb 11.567 oz Body Mass Index (BMI) 32.5 PRE- weight 169 lb PRE- Body Mass Index 27.1 (BMI) Physical Exam Const alert and no apparent distress HEENT normocephalic Head and Scalp: atraumatic Neck full ROM Resp normal respiratory effort GI soft to palpation and non-tender Manual OB Exam: dilated 6, effaced 80 and station -1 Labs Labs Labs: Blood Type O POSITIVE Antibody Screen NEGATIVE Hct, (37-47) 34.5 % L Hgb, (12.0-15.0) 11.9 g/dL L Obstetrics Ultrasound Syphilis Total Ab, (Nonreactive) Nonreactive Rubella IgG Antibody, (Nonreactive) REAC Hep Bs Antigen, (Nonreactive) Nonreactive Hepatitis C Antibody, (Nonreactive) Nonreactive Chlamydia DNA (NICOLAS), (Negative) Negative N.gonorrhoeae DNA (NICOLAS), (Negative) Negative HIV 1&2 Antibody, (Nonreactive) Nonreactive Glucose 1 Hr 50 gm, (70-140) 95 mg/dL Gest Glucose Tolerance MG/DL Rhogam given: No Assessment & Plan (1) Labor and delivery indication for care or intervention: PLAN: Patient presents IAL, plan expectant management for , pitocin/AROM PRN if needed. Pain management: minimal intervention, has not had epidural in past GBS negative Management of any complications: none I have reviewed the [facility] and made any clinically relevant updates. (2) Advanced maternal age (AMA) in : COMMENT: 36 week growth US: EFW 60%, AC 67% NIPT low risk
--- NOTE | 2025-04-09 19:12 | PCM.HP.OB ---
HPI - General General Date of Admission: 04/09/25 HPI Narrative LALITHA MONTERO, is a 34 F who presents at 38w5d from the office for rule out labor. She was admitted after her cervix made change to 6cm. She is GBS negative. is complicated by AMA with low risk NIPT. Maternal Data Information ALPHONSO Calculator Estimated Delivery Date Method Current WG Current Estimate 04/18/25 LMP (Certain) 38w 5d Other Estimates 04/20/25 Ultrasound #1 38w 3d PFSH PFS Medical History COVID-19 vaccine series completed Home Medications ?Medication ?Instructions ?Recorded ?Last Taken ?Type multivitamin no.47-iron fum 27 1 cap PO DAILY 03/23/23 04/08/25 21:00 History mg-folate no.1 1 mg-dha 300 mg 1 cap capsule (PNV-DHA) famotidine 20 mg tablet (Pepcid) 20 mg PO BID #60 tabs 12/26/24 04/09/25 07:00 Rx 20 mg Allergy/AdvReac Type Severity Reaction Status Date / Time bee venom protein (honey bee) Allergy Severe Swelling Verified 04/09/25 14:53 Sulfa (Sulfonamide Allergy Mild Rash Verified 04/09/25 14:53 Antibiotics) Family History Grandfather Diabetes Maternal Heart disease Maternal Dementia Maternal Father Heart disease Surgical History S/P dilation and curettage Denio teeth extracted History of tonsillectomy Social History adopted: No household members: spouse and children housing: house number of children: 2 current occupational status: employed current occupation: [employer] current occupational exposures/hazards: No pets and animals: Yes (not managing litterbox) pets and animals: cat(s) and dog(s) history of recent travel: No sexually active: Yes Smoking Status: Never smoker alcohol intake: current alcohol intake frequency: holidays/special occasions only details: Not while substance use type: does not use well-balanced diet: daily or most days caffeine: Yes Type: other Number of servings: 2 eating out: 1-3 times/week during the past year weight has: remained stable what type of physical activity do you participate in: walking and weight training frequency: 5-6 times per week duration: 15-30 minutes/day kesha/alevism: Orthodoxy seatbelt use: always do you feel safe at home: Yes additional social history: - Benjie ([employer]) Patient works at [employer] History 4 Elective abortions Hx Para 2 Spontaneous abortions 1 Hx # Term Pregnancies 2 Ectopic pregnancies Hx # Pregnancies Multiple births # of living children 2 Past Pregnancies Del. Date Name GA/Weeks Outcome Route Bth Weight Infant Gen Labor Lgth Anesthesia Del Locatn Provider FOB Unknown 2021 Jann 38 live - full term 7#4oz Male none [facility] NONA [place] 12/15/19 Phong 38 live - full term 7lbs 9oz Male 7 hours none [facility] Sandor 05/01/23 12 spontaneous Delivery Date: 05/01/23 Last Updated by: Trista Melgar, Visit Details Expected Delivery Route/Plan Labor Preferences- CB/BF classes: no labor support person: Benjie labor intervention preferences: minimal pain management options preferred: limited cut cord/dad catch: cord : yes PP control planned: discussed discussed possible routes of delivery and associated risks: special requests: [] Plans Covid status: [] Flu vaccine: given Tdap vaccine: given Rhogam: NA LARC form signed: yes Problem list reviewed and updated with the most current plan of care details and appropriate orders placed. Relevant counseling for the gestational age provided. Continue routine care and follow up unless otherwise noted in visit notes/problem list details OB Flowsheet Initial Weight: Not Recorded Date <del>?</del> EGA Weight BP Urine Prot <del>?</del> Glucose FHR FuHt Pres Dilation <del>?</del> Effaced St Visit Note 09/04/24 <del>?</del> 7w 5d 169 lb 115/74 <del>?</del> 145 <del>?</del> SM- CRL 1.2cm cons with LMP SM- CRL 1.2cm cons with LMP 6 mm subchorionic hematoma 09/18/24 <del>?</del> 9w 5d 168 lb 112/68 Negative <del>?</del> Negative 160 <del>?</del> SM- had brown discharge sunday, no clots. no cramping fatigue improving some nausea. 10/01/24 <del>?</del> 11w 4d 167 lb 110/78 <del>?</del> 160 <del>?</del> JV- CRL measuring appropriately. desires NIPT today. no complaints. small JI seen vs placental goodson. 10/27/24 <del>?</del> 15w 2d 168 lb 8 oz 108/70 Negative <del>?</del> Negative 150 <del>?</del> MH-No VB. Brief US confirm FHT. Nausea resolved. 11/28/24 <del>?</del> 19w 6d 174 lb 3 oz 109/71 Negative <del>?</del> Negative 145 <del>?</del> KW- no vb/cramping. +flutters. had US on sunday. 12/26/24 <del>?</del> 23w 6d 178 lb 9 oz 106/70 Negative <del>?</del> Negative 140 <del>?</del> Sm- no vb lof good fm no reuglar ctx 01/23/25 <del>?</del> 27w 6d 182 lb 6 oz 110/74 Negative <del>?</del> Negative 145 28 <del>?</del> KW- no vb/ctx/lof. good fm. glucose today. 02/06/25 <del>?</del> 29w 6d 189 lb 114/75 Trace <del>?</del> Negative 140 29 <del>?</del> JV- wants to do flu and tdap next visit. no lof, vaginal bleeding, or dec fm. 02/16/25 <del>?</del> 31w 2d 192 lb 2 oz 109/72 Negative <del>?</del> Negative 147 31 <del>?</del> MH-No VB, LOF. Good FM. Larc. Tdap and flu given 03/06/25 <del>?</del> 33w 6d 196 lb 5 oz 110/74 Negative <del>?</del> Negative 140 34 <del>?</del> KW- no vb/lof/ctx. good fm no concerns 03/18/25 <del>?</del> 35w 4d 198 lb 8 oz 104/73 Negative <del>?</del> Negative 134 36 <del>?</del> JV- no lof, vaginal bleeding, or dec fm. interested in RSV vaccine. 03/27/25 <del>?</del> 36w 6d 202 lb 120/80 Negative <del>?</del> Negative 144 37 1 <del>?</del> 60 -2 KV- Good FM. Irregular ctx. No LOF/VB. Interested in getting induction scheduled for 39w. GBS today. 04/03/25 <del>?</del> 37w 6d 201 lb 2 oz 111/75 Negative <del>?</del> Negative 150 37 3 <del>?</del> 80 -2 KW- no vb/lof/reg ctx. good fm but not feeling very well today. thinks baby has dropped. 04/09/25 <del>?</del> 38w 5d 201 lb 7 oz 116/80 Negative <del>?</del> Negative 135 38 5 <del>?</del> 80 -2 KV- Good FM. Unsure if ctx or baby rolling. No LOF/VB. Sent to for r/o labor. NST FHR Rate Baby A Baseline: 130 Variability:: Moderate Accelerations:: 15 x 15 Decelerations:: None NST Reactive:: Yes FHR Category:: Category I Uterine Activity:: q3-6 min Vital Signs Vital Signs Vital Signs: 04/09/25 18:45 04/09/25 18:45 Pulse Rate 92 Blood Pressure 116/75 BP Systolic 116 BP Diastolic 75 Weight Weight: 201 lb 11.567 oz Body Mass Index (BMI) 32.5 PRE- weight 169 lb PRE- Body Mass Index 27.1 (BMI) Physical Exam Const alert and no apparent distress HEENT normocephalic Head and Scalp: atraumatic Neck full ROM Resp normal respiratory effort GI soft to palpation and non-tender Manual OB Exam: dilated 6, effaced 80 and station -1 Labs Labs Labs: Blood Type O POSITIVE Antibody Screen NEGATIVE Hct, (37-47) 34.5 % L Hgb, (12.0-15.0) 11.9 g/dL L Obstetrics Ultrasound Syphilis Total Ab, (Nonreactive) Nonreactive Rubella IgG Antibody, (Nonreactive) REAC Hep Bs Antigen, (Nonreactive) Nonreactive Hepatitis C Antibody, (Nonreactive) Nonreactive Chlamydia DNA (NICOLAS), (Negative) Negative N.gonorrhoeae DNA (NICOLAS), (Negative) Negative HIV 1&2 Antibody, (Nonreactive) Nonreactive Glucose 1 Hr 50 gm, (70-140) 95 mg/dL Gest Glucose Tolerance MG/DL Rhogam given: No Assessment & Plan (1) Labor and delivery indication for care or intervention: PLAN: Patient presents IAL, plan expectant management for , pitocin/AROM PRN if needed. Pain management: minimal intervention, has not had epidural in past GBS negative Management of any complications: none I have reviewed the [facility] and made any clinically relevant updates. (2) Advanced maternal age (AMA) in : COMMENT: 36 week growth US: EFW 60%, AC 67% NIPT low risk
[2025-04-09] MEDS: 0.9% Saline Lock 10 ML Syringe IV (19:30)
[2025-04-09 19:46] LABS: Hematocrit 35.4 % (37-47); Hemoglobin 12.3 g/dL (12.0-15.0); Immature Granulocytes Count 0.120 X10^3/uL (0.0-0.0); Mean Corp Hgb Conc 34.7 g/dL (32-36); Mean Corpuscular Volume 94.9 fL (81-99); Mean Platelet Vol. 11.8 fl (6.2-12.0); NRBC Flagged by Analyzer 0 % (0-5); Platelet Count 215 K/mm3 (150-450); RBC Distribution Width CV 12.5 % (11.6-14.6); RBC Distribution Width SD 42.9 fl (35.1-43.9); Red Blood Count 3.73 M/mm3 (4.2-5.4); White Blood Count 11.4 K/mm3 (4.4-11.0)
[2025-04-09 20:16] LABS: Syphilis Antibodies Nonreactive (Nonreactive)
[2025-04-09] MEDS: Lactated Ringers 1,000 ML 999 ML IV (23:10)
[2025-04-09] MEDS: Oxytocin 15 Units/NS 250ml 15 UNITS/250 ML IV.SOLN 334 UNITS IV (23:41)
--- NOTE | 2025-04-09 23:54 | OB.VAGDELI_ITS ---
Maternal Data Information ALPHONSO Calculator Estimated Delivery Date Method Current WG Current Estimate 04/18/25 LMP (Certain) 38w 5d Other Estimates 04/20/25 Ultrasound #1 38w 3d Vaginal Delivery Maternal Presentation Maternal Presentation: Active Labor Type of Induction: Amniotomy Vaginal Delivery Information Procedure Performed: Spontaneous Vaginal Delivery Surgeon/Practitioner: Carmita Long Date of Procedure: 04/09/25 Pre-Procedure Diagnosis: active labor Post-Procedure Diagnosis: same as pre-procedure, spontaneous vaginal delivery Type of anesthesia: None Special Medications: IV pitocin Estimated Blood Loss: 50 cc Time of Delivery: 23:36 Findings Description of procedure: Lalitha Rea is a 34-year-old, now , who presented at 38w5d in active labor. She was GBS negative and was complicated by AMA with low risk NIPT. She had artificial rupture of membranes. She did not receive an epidural and progressed well to 10cm. Patient began pushing and delivered the head in the ADAM presentation. The head was delivered atraumatically and a loose nuchal and body cord ?1 was identified and easily reduced over the infant's head. The anterior and posterior shoulders delivered without complication followed by the rest of the infant and the infant was placed on the maternal abdomen. cord clamping was employed for approximately 60 seconds. Cord was clamped and cut and gentle traction was applied to the cord and the placenta delivered spontaneously immediately following it was noted to be intact with three-vessel cord. The perineum and vagina were inspected and noted to have a 1st degree laceration that was hemostatic after application of pressure. EBL was 50cc. Patient and tolerated delivery well. Procedure findings: liveborn male hemostatic 1st degree laceration Presentation: ADAM Amniotic Membrane Rupture Type: Artificial Amniotic Fluid Description: Clear Placental Delivery Description: Spontaneous Placenta Disposition: [facility] Specimen collected: No Cord Vessel Description: 3 Vessels Cord Entanglement: Around neck x 1, loose Nuchal Cord Compression: Without compression A Gender: Male (1 minute): 8 (5 minute): 9 Delayed Cord Clamping: Yes [employer] residence supervisor: No Post Vaginal Deli Medications given after delivery: IV Pitocin Episiotomy Description: None Laceration: 1st degree Complication Complications: No
[2025-04-10] VITALS (30 sets, daily range): BP systolic 108–140; BP diastolic 64–82; PULSE 73–101; RESP 16; TEMP 36.1–36.7; O2SAT 97–100
--- OUTSIDE RECORDS SUMMARY | 2025-04-10 00:07 | XMS RPT_ITS | CCD ---
Author Organization [facility] Care Team Providers Care Precision Honer Name Role Phone Care Physician, No Primary Primary Care Provider Unavailable Care Physician, No Primary Referring Provider Un available Dr. Jenna Hartley Attending Provider [phone] Dr. Dominique Patten Attending Provider [phone] Xiang AUDIT MACHINE OPERATOR, AUDIT MACHINE OPERATOR-C Fidelia Attending Provider [phone] Care Physician, No Primary Primary Care Provider Unavailable Care Physician, No Primary Referring Provider Un available Dr. Jenna Hartley Attending Provider [phone] Dr. Jenna Hartley Admit Provider Dr. Jenna Hartley Referring Provider [phone] Dr. Jenna Hartley Other Provider Haagen LAB AIDE.DIE SET UP WORKER, Suzanne Primary Care Provider Haagen LAB AIDE.DIE SET UP WORKER, Suzanne Primary Care Provider Care Physician, No Primary Referring Provider Un available Dr. Dominique Patten Attending Provider [phone] LUISANA Sexton Attending Provider Haagen AUDIT MACHINE OPERATOR, AUDIT MACHINE OPERATOR-C Suzanne Primary Care Provider Haagen AUDIT MACHINE OPERATOR, AUDIT MACHINE OPERATOR-C Suzanne Referring Provider LUISANA Sierra Attending Provider [phone] Dr. Dominique Patten Attending Provider [phone] Dr. Dominique Patten Referring Provider [phone] Dr. Dominique Patten Other Provider Haagen AUDIT MACHINE OPERATOR, AUDIT MACHINE OPERATOR-C Suzanne Primary Care Provider Haagen AUDIT MACHINE OPERATOR, AUDIT MACHINE OPERATOR-C Suzanne Referring Provider LUISANA Sierra Attending Provider [phone] Dr. Dominique Patten Attending Provider [phone] Dr. Dominique Patten Referring Provider [phone] Dr. Dominique Patten Other Provider Haagen LAB AIDE.DIE SET UP WORKER, [facility] Primary Care Provider Haagen AUDIT MACHINE OPERATOR-C, [facility] Primary Care Provider Mesfin AUDIT MACHINE OPERATOR-C, Jessica Attending Provider [phone] Mesfin AUDIT MACHINE OPERATOR-C, Jessica Referring Provider Dr. Jenna Hartley DO Attending Provider Dr. Jenna Hartley DO Referring Provider Carmita Sierra CNM Attending Provider [phone] Carmita Sierra CNM Referring Provider [phone] Haagen AUDIT MACHINE OPERATOR-C, Suzanne Referring Provider Dr. Dominique Patten MD Attending Provider Dr. Dominique Patten MD Referring Provider [phone] Haagen LAB AIDE.DIE SET UP WORKER, [facility] Primary Care Provider LILLI LEDBETTER Attending Unavailable HAAGEN, SUZANNE Primary Care Unavailable HAAGEN, SUZANNE Primary Care Unavailable HAAGEN, SUZANNE Attending Unavailable HAAGEN, SUZANNE Primary Care Unavailable [place] AUDIT MACHINE OPERATOR-C, Fidelia Attending Provider [phone] JENNA VARMA Referring Unavailab le HAAGEN, SUZANNE L Primary Care Unavailable AMADA MONTERO Attending Unavailable Haagen AUDIT MACHINE OPERATOR-C, [facility] Primary Care Provider Haagen AUDIT MACHINE OPERATOR-C, [facility] Primary Care Physician Haagen AUDIT MACHINE OPERATOR-C, Suzanne Referring Provider Dr. Jenna Hartley DO Attending Physician Dr. Jenna Hartley DO Referring Provider Xiang AUDIT MACHINE OPERATOR-C, Fidelia Attending Physician [phone] Carmita Sierra CNM Attending Physician [phone] Sandor CARL, Dr. Fox Attending Physician Sandor CARL, Dr. Fox Referring Provider Haagen AUDIT MACHINE OPERATOR-C, Suzanne Primary Care Physician Haagen AUDIT MACHINE OPERATOR-C, Suzanne Referring Provider Dr. Jenna Hartley DO Attending Physician Haagen AUDIT MACHINE OPERATOR, Suzanne Primary Care Unavailable Haagen AUDIT MACHINE OPERATOR, Suzanne Referring Unavailable Dominique Patten Attending Unavailable Haagen AUDIT MACHINE OPERATOR, Suzanne Primary Care Unavailable Haagen AUDIT MACHINE OPERATOR, Suzanne Referring Unavailable Dominique Patten Attending Unavailable Haagen AUDIT MACHINE OPERATOR, Suznane Referring Unavailable Carmita Sierra Attending Unavailable Haagen AUDIT MACHINE OPERATOR, Suzanne Primary Care Unavailable Haagen AUDIT MACHINE OPERATOR, Suzanne Referring Unavailable Jenna Hartley Attending Unavailabl e Haagen AUDIT MACHINE OPERATOR, Suzanne Primary Care Unavailable Haagen AUDIT MACHINE OPERATOR, Suzanne Referring Unavailable [place] AUDIT MACHINE OPERATOR, Fidelia Attending Unavailable Haagen AUDIT MACHINE OPERATOR, Suzanne Primary Care Unavailable Haagen AUDIT MACHINE OPERATOR, Suzanne Referring Unavailable Carmita Sierra Attending Unavailable Haagen AUDIT MACHINE OPERATOR, Suzanne Primary Care Unavailable Haagen AUDIT MACHINE OPERATOR, Suzanne Referring Unavailable Dominique Patten Attending Unavailable Jessica Toure Referring Unavailable Jessica Toure Attending Unavailable Haagen AUDIT MACHINE OPERATOR, Suzanne Primary Care Unavailable Jenna Hartley Attending Unavailabl e Haagen AUDIT MACHINE OPERATOR, Suzanne Referring Unavailable Haagen AUDIT MACHINE OPERATOR, Suzanne Primary Care Unavailable Carmita Sierra Attending Unavailable Haagen AUDIT MACHINE OPERATOR, Suzanne Primary Care Unavailable Dominique Patten Referring Unavailable Dominique Patten Attending Unavailable Haagen AUDIT MACHINE OPERATOR, Suzanne Primary Care Unavailable Jenna Hartley Referring Unavailabl Jenna Pulido Attending Unavailabl e Haagen AUDIT MACHINE OPERATOR, Suzanne Primary Care Unavailable Carmita Sierra Referring Unavailable Carmita Sierra Attending Unavailable Jenna Hartley Attending Unavailabl e Haagen AUDIT MACHINE OPERATOR, Suzanne Primary Care Unavailable Jenna Hartley Referring UnavailDominique Reeder Referring Unavailable Dominique Patten Attending Unavailable [place]agen AUDIT MACHINE OPERATOR, Suzanne Primary Care Unavailable [place] AUDIT MACHINE OPERATOR, Fidelia Referring Unavailable Xiang AUDIT MACHINE OPERATOR, Fidelia Attending Unavailable Suzanne Guallpa NP Primary Care Unavailable Carmita Sierra Referring Unavailable Carmita Sierra Attending Unavailable Fidelia Otoole NP Attending Unavailable Allergies Allergy Classification Reported Allergen(s) Allergy Type Date of Onset Reaction(s) Facility (20 sources) Sulfonamides (Antibiotic); Translations: [Sulfa (Sulfonamide Antibiotics)] Allergy to substance 2 Other, Rash [facility] (12 sources) bees; Translations: [BEES] Allergy to substance 8 Hives [facility] Work Phone: (9 sources) Sulfamethoxazole / Trimethoprim; Translations: [SULFAMETHOXAZOLE-TR IMETHOPRIM] Drug Allergy 5 Rash [facility] (20 sources) bee venom protein (honey bee) Allergy to substance 3 Swelling [facility] Comment on above: THROAT SWELLING AND RASH (1 source) bee venom protein (honey bee) Drug allergy (disorder) 5 [facility] Repository Medications Current Medications Medication Drug Class(es) Dates Sig (Normalized) Sig (Original) amoxicillin 500 mg oral capsule (1 source) Penicillin-class Antibacterial Start: 12-26-2022 End: 01-05-2023 take 1 capsule by mouth twice daily amoxicillin (AMOXIL) 500 mg capsule Take 1 capsule by mouth twice daily for 10 days. 20 capsule 0 12/26/2022 01/05/2023 Active Comment on above: Take 1 capsule by [facility] twice daily for 10 days. [id number] 0.3 ml EPINEPHrine 1 mg/ml auto-injector (9 [...] 2024 12:00am Complies with drug therapy Multivit 89-Rzhz-Flpjhz 1-Dha (Pnv-Dha) 27 mg iron-1 mg -300 mg capsule (20 sources) Start: 03-23-2023 Multivit 57-Apii-Glfirx 1-Dha (Pnv-Dha) 27 mg iron-1 mg -300 [...] Start: 05-29-2019 take 1 capsule by mo [facility] once daily vitamin#30 30 mg iron-10 mg [...] 12:00am November 16, 2017 8:29am Flucelvax Quad [id number] (flu vac qs 2020-(6 ms up) CD) [...] 1 dose, On Sun09/29/24 at 1000 Pnv #02-Urxi-Fdmcw Acid-Omeg a3 30 mg iron-10 mg iron-1 mg capsule (10 sources) Start: 05-29-2019 End: 11-30-2022 Pnv #41-Sddt-Dwrjv Acid-Omeg a3 30 mg iron-10 mg iron-1 mg capsule Discontinued 1 NMA PO DAILY May 29, 2019 1:00am November 30, 2022 11:30am Check with primary doctor Start: 05-29-2019 End: 11-30-2022 Pnv #52-Wmle-Engmb Acid-Omeg a3 30 mg iron-10 mg iron-1 mg capsule Discontinued 1 NMA PO DAILY May 29, 2019 1:00am November 30, 2022 11:30am Pnv 14-Aeys-Rgdsp Acid-Holl[place] -3 30 mg iron-10 mg iron-1 mg capsule (4 sources) Start: 05-29-2019 End: 11-30-2022 Pnv 51-Gcfx-Bkyzn Acid-[place]oll[place] -3 30 mg iron-10 mg iron-1 mg [...] Benjie PRR,, ALPHONSO 4, Jann Melgoza, Benjie [id number], ALPHONSO 5, Phong Nesbitt, Benjie Other complications [...] Otoole on 02-16-2025 Glucose Ql (U) Negative [facility] - UrinalysisOrder ed By: Fidelia Otoole on 02-16-2025 Protein Ql (U) Negative [facility] Meter Supervisor Office Visit Reporton 02-16-2025 Meter Supervisor Office Visit Report 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 Is patient in pain?: No [...] completed Surgical History S/P dilation and curettage [place] teeth extracted History of tonsillectomy Family History Grandfather Diabetes Maternal Heart disease Maternal Dementia Maternal Father Heart disease Social History adopted: No household members: spouse and children housing: house number of children: 2 current occupational status: employed current occupation: [employer] current occupational exposures/hazards: No pets and animals: [...] 5-6 times per week duration: 15-30 minutes/day kesha/judaism: Muslim seatbelt use: always do you feel safe at home: Yes 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 Date Name GA/Weeks Outcome Route Bth Weight Infant Gen Labor Lgth Anesthesia Del Locatn Provider FOB Unknown 2021 Jann 38 live - full term 7#4oz Male none [facility] NONA [place] 12/15/19 Phong 38 live - full term 7lbs 9oz Male 7 hours none [facility] Eddie jeronimo 05/01/23 12 spontaneous Delivery [...] LMP SM (more content not included)... Normal [facility] - Chemistry and C hemistry - challengeOrdered By: Jenna Hummel on 02-06-2025 Glucose Ql (U) Negative [facility] - UrinalysisOrder ed By: Jenna Hummel on 02-06-2025 Protein Ql (U) Trace [facility] Meter Supervisor Office Visit Reporton 02-06-2025 Meter Supervisor Office Visit Report [facility]'s [address], [address] [place] [address] OFFICE VISIT Date of Service: 02/06/25 MR#: [id number] Acct: [id number] Name: LALITHA MONTERO Rep #: [id number] : 1990 Provider: Dr. Jenna Ulloa, Age/Sex: 34/F Location: [facility] [place] Status: Signed Intake Vital Signs 11/28/24 14:39 01/23/25 08:03 02/06/25 10:12 02/06/25 10:12 Height 5 ft 5 in 5 ft 5 in 5 ft 5 in 5 ft 5 in Weight: 189 lb BMI 31.4 BP 114/75 Intake Visit Reasons: 29wk 6D ob Socket Welder Helper Required: No Is patient in pain?: No [...] completed Surgical History S/P dilation and curettage [place] teeth extracted History of tonsillectomy Family History Grandfather Diabetes Maternal Heart disease Maternal Dementia Maternal Father Heart disease Social History adopted: No household members: spouse and children housing: house number of children: 2 current occupational status: employed current occupation: [employer] current occupational exposures/hazards: No pets and animals: [...] 5-6 times per week duration: 15-30 minutes/day kesha/judaism: Muslim seatbelt use: always do you feel safe at home: Yes 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 Date Name GA/Weeks Outcome Route Bth Weight Infant Gen Labor Lgth Anesthesia Del Locatn Provider FOB Unknown 2021 Jann 38 live - full term 7#4oz Male none [facility] NONA [place] 12/15/19 Phong 38 live - full term 7lbs 9oz Male 7 hours none [facility] Eddie gauthierhoalexander 05/01/23 12 spontaneous Delivery [...] with LMP (more content not included)... Normal [facility] Absolute lymphocyte countOrd ered By: Dominique Patten on 01-23-2025 Lymphocytes Auto (Unsp spec) [#/Vol] 1.79 10*3/uL 0.83-4.51 [facility] Absolute neutrophil countOrd ered By: Dominique Patten on 01-23-2025 Neutrophils (Bld) [#/Vol] 5.9 10*3/uL 2.0-7.7 [facility] Automated lymphocyte count a s percentage of total leukocytesOrdered By: Dominique Patten on 01-23-2025 Lymphocytes/100 WBC Auto (Unsp spec) 21.8 % 19-41 [facility] Basophil percentageOrdered B y: Dominique Patten on 01-23-2025 Basophils/100 WBC (Bld) 0.4 % 0-1 [facility] CBC W/Diff, Automatedon Absolute Lymph 1.79 X10 3/uL Normal 0.83-4.51 [facility] Comment on above: Performed By: #### L 700.8000 #### [facility] [address] [place], [address] Absolute Neut 5.9 X10 3/uL Normal 2.0-7.7 [facility] Comment on above: Performed By: #### L 700.8000 #### [facility] [address] [place], [address] Basophils/100 WBC (Bld) 0.4 % Normal 0-1 [facility] Comment on above: Performed By: #### L 700.8000 #### [facility] [address] [place], [address] Eosinophils/100 WBC (Bld) 0.7 % Normal 0-5 [facility] Comment on above: Performed By: #### L 700.8000 #### [facility] [address] [place], [address] Erythrocyte distribution width (RBC) [Ratio] 13.2 % Normal 11.6-14.6 [facility] Comment on above: Performed By: #### L 700.8000 #### [facility] [address] [place], [address] Hematocrit (Bld) [Volume fraction] 34.5 % Low 37-47 [facility] Comment on above: Performed By: #### L 700.8000 #### [facility] [address] [place], [address] Hemoglobin (Bld) [Mass/Vol] 11.9 g/dL Low 12.0-15.0 [facility] Comment on above: Performed By: #### L 700.8000 #### [facility] [address] [place], [address] IG% 0.600 Normal 0.0-0.9 [facility] Comment on above: Result Comment: IG% - Immature Granulocytes (promyelocytes, myelocytes and metamyelocytes) > 1% indicates that a LEFT SHIFT is Present. Performed By: #### L 700.8000 #### [facility] [address] [place], [address] Lymphocytes/100 WBC (Bld) 21.8 % Normal 19-41 [facility] Comment on above: Performed By: #### L 700.8000 #### [facility] [address] [place], [address] MCH (RBC) [Entitic mass] 33.8 pg High 27.0-32.0 [facility] Comment on above: Performed By: #### L 700.8000 #### [facility] [address] [place], [address] MCHC (RBC) [Mass/Vol] 34.5 g/dL Normal 32-36 [facility] Comment on above: Performed By: #### L 700.8000 #### [facility] [address] [place], [address] MCV (RBC) [Entitic vol] 98.0 fL Normal 81-99 [facility] Comment on above: Performed By: #### L 700.8000 #### [facility] [address] [place], [address] Monocytes/100 WBC (Bld) 5.0 % Normal 0-10 [facility] Comment on above: Performed By: #### L 700.8000 #### [facility] [address] [place], [address] Neutrophils/100 WBC (Bld) 71.5 % High 47-70 [facility] Comment on above: Performed By: #### L 700.8000 #### [facility] [address] [place], [address] Nucleated RBC (Bld) [#/Vol] 0 10*3/uL Normal 0-5 [facility] Comment on above: Performed By: #### L 700.8000 #### [facility] [address] [place], [address] Platelet mean volume (Bld) [Entitic vol] 11.2 fL Normal 6.2-12.0 [facility] Comment on above: Performed By: #### L 700.8000 #### [facility] [address] [place], [address] Platelets (Bld) [#/Vol] 204 10*3/uL Normal 150-450 [facility] Comment on above: Performed By: #### L 700.8000 #### [facility] [address] [place], [address] RBC (Bld) [#/Vol] 3.52 10*6/uL Low 4.2-5.4 [facility] Comment on above: Performed By: #### L 700.8000 #### [facility] [address] [place], [address] RDW SD 46.8 fl High 35.1-43.9 [facility] Comment on above: Performed By: #### L 700.8000 #### [facility] [address] [place], [address] WBC (Bld) [#/Vol] 8.2 10*3/uL Normal 4.4-11.0 [facility] Comment on above: Performed By: #### L 700.8000 #### [facility] [address] [place], [place], [address] Eosinophil percentageOrdered By: Dominique Patten on 01-23-2025 Eosinophils/100 WBC (Bld) 0.7 % 0-5 [facility] Erythrocyte distribution wid th ratioOrdered By: Dominique Sandor on 01-23-2025 Erythrocyte distribution width (RBC) [Ratio] 13.2 % 11.6-14.6 [facility] Erythrocyte distribution wid th standard deviationOrdered By: Dominiquecesilia Patten on 01-23-2025 Erythrocyte distribution width (RBC) [Ratio] 46.8 fl High 35.1-43.9 [facility] Glucose Challenge Gest 1H 50 caity 01-23-2025 GLU GEST 50g 1H 95 mg/dL Normal 70-140 [facility] Comment on above: Result Comment: AMENDED REPORT 01/23/25 1318 GLU GEST 50g 1H previously reported as: 99 mg/dL Performed By: #### L 700.8000 #### [facility] [address] [facility] [place], [place], [address] Glucose measurement at 2 karime rs post-dose gestational glucose tolerance testOrdered By: Dominique Patten on 01-23-2025 Glucose [Mass/Vol] 95 mg/dL 70-140 [facility] Comment on above: Previous reported re sult: 99 mg/dLEdited by: AUTOINS on 01/23/25:1318 AMENDED REPORT 01/23/25 1318 GLU GEST 50g 1H previously reported as: 99 mg/dL HIVon 01-23-2025 HIV Non-Reactive Normal Nonreactive [facility] Comment on above: Result Comment: Non- Reactive Reactive Repeatedly reactive samples must be confirmed according to CDC recommended confirmatory algorithms. The subresults for either HIVAG or AHIV can be used as an aid in the selection of the confirmation algorithm for reactive samples. Send out specimens with Reactive results to [facility] for confirmation. Order the HIV antibody detection and differentiation: lc#[id number] Performed By: #### L 700.8000 #### [facility] [address] [place], [address] Hematocrit Auto (Bld) [Volum e fraction]Ordered By: Dominique Patten on 01-23-2025 Hematocrit (Bld) [Volume fraction] 34.5 % Low 37-47 [facility] Hemoglobin measurementOrdere d By: Dominique Patten on 01-23-2025 Hemoglobin (Bld) [Mass/Vol] 11.9 g/dL Low 12.0-15.0 [facility] Immature granulocytes/100 WB C Auto (Bld)Ordered By: Dominique Patten on 01-23-2025 Immature granulocytes/100 WBC (Bld) 0.600 % 0.0-0.9 [facility] Comment on above: IG% - Immature Granu locytes (promyelocytes, myelocytes and metamyelocytes) > 1% indicates that a LEFT SHIFT is Present. Laboratory - Chemistry and C hemistry - challengeOrdered By: Carmita Sierra on 01-23-2025 Glucose Ql (U) Negative [facility] - UrinalysisOrder ed By: Carmita Sierra on 01-23-2025 Protein Ql (U) Negative [facility] MCV (mean corpuscular volume ) determinationOrdered By: Dominique Patten on 01-23-2025 MCV (RBC) [Entitic vol] 98.0 fL 81-99 [facility] Mean corpuscular hemoglobin (MCH) determinationOrdered By: Dominique Patten on 01-23-2025 MCH (RBC) [Entitic mass] 33.8 pg High 27.0-32.0 [facility] Mean corpuscular hemoglobin concentration (MCHC) determinationOrdered By: Dominique Patten on 01-23-2025 MCHC (RBC) [Mass/Vol] 34.5 g/dL 32-36 [facility] Mean platelet volume determi nationOrdered By: Dominique Patten on 01-23-2025 Platelet mean volume (Bld) [Entitic vol] 11.2 fL 6.2-12.0 [facility] Monocyte percentageOrdered B y: Dominique Patten on 01-23-2025 Monocytes/100 WBC (Bld) 5.0 % 0-10 [facility] Neutrophil percentageOrdered By: Dominique Patten on 01-23-2025 Neutrophils/100 WBC (Bld) 71.5 % High 47-70 [facility] No Panel InformationOrdered By: Dominique Winchesternikolay on 01-23-2025 HIV (1&2) Antibody Non-Reactive Nonreactive [facility] Comment on above: Non-ReactiveReactive Repeatedly reactive samples must be confirmed according to CDC recommended confirmatory algorithms. The subresults for either HIVAG or AHIV can be used as an aid in the selection of the confirmation algorithm for reactive samples.Send out specimens with Reactive results to [facility] for confirmation.Order the HIV antibody detection and differentiation: #[id number] Nucleated red blood cell per centageOrdered By: Dominique Winchesterjenniferannia on 01-23-2025 Nucleated RBC/100 WBC (Bld) [Ratio] 0 % 0-5 [facility] Meter Supervisor Office Visit Reporton 01-23-2025 Meter Supervisor Office Visit Report 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 Is patient in pain?: No [...] completed Surgical History S/P dilation and curettage [place] teeth extracted History of tonsillectomy Family History Grandfather Diabetes Maternal Heart disease Maternal Dementia Maternal Father Heart disease Social History adopted: No household members: spouse and children housing: house number of children: 2 current occupational status: employed current occupation: [employer] current occupational exposures/hazards: No pets and animals: [...] 5-6 times per week duration: 15-30 minutes/day kesha/judaism: Muslim seatbelt use: always do you feel safe at home: Yes 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 Date Name GA/Weeks Outcome Route Bth Weight Infant Gen Labor Lgth Anesthesia Del Locatn Provider FOB Unknown 2021 Jann 38 live - full term 7#4oz Male none [facility] NONA [place] 12/15/19 Phong 38 live - full term 7lbs 9oz Male 7 hours none [facility] Ma rcanthoalexander 05/01/23 12 spontaneous Delivery [...] cons w (more content not included)... Normal [facility] Platelet countOrdered By: Brian Patten on 01-23-2025 Platelets (Bld) [#/Vol] 204 10*3/uL 150-450 [facility] RBC Auto (Bld) [#/Vol]Ordere d By: Dominique Patten on 01-23-2025 RBC (Bld) [#/Vol] 3.52 10*6/uL Low 4.2-5.4 [facility] Syphilis Antibodieson 2024 Syphilis Abs Non-Reactive Normal Nonreactive [facility] Comment on above: Performed By: #### L 700.8000 #### [facility] [address] [place], [place], [id number] White blood cell (WBC) count Ordered By: Dominique Patten on 01-23-2025 WBC (Bld) [#/Vol] 8.2 10*3/uL 4.4-11.0 [facility] - Chemistry and C hemistry - challengeOrdered By: Dominique Patten on 12-26-2024 Glucose Ql (U) Negative [facility] - UrinalysisOrder ed By: Dominique Patten on 12-26-2024 Protein Ql (U) Negative [facility] Meter Supervisor Office Visit Reporton 12-26-2024 Meter Supervisor Office Visit Report [facility]'[address], [address] [place] [address] OFFICE VISIT Date of Service: 12/26/24 MR#: [id number] Acct: [id number] Name: LALITHA MONTERON Rep #: [id number] : 1990 Provider: Dr. 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 Is patient in pain?: No [...] completed Surgical History S/P dilation and curettage [place] teeth extracted History of tonsillectomy Family History Grandfather Diabetes Maternal Heart disease Maternal Dementia Maternal Father Heart disease Social History adopted: No household members: spouse and children housing: house number of children: 2 current occupational status: employed current occupation: [employer] current occupational exposures/hazards: No pets and animals: [...] 5-6 times per week duration: 15-30 minutes/day kesha/judaism: Muslim seatbelt use: always do you feel safe at home: Yes 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 Date Name GA/Weeks Outcome Route Bth Weight Infant Gen Labor Lgth Anesthesia Del Locatn Provider FOB Unknown 2021 Jann 38 live - full term 7#4oz Male none [facility] NONA Waldrop 12/15/19 Phong 38 live - full term 7lbs 9oz Male 7 hours none [facility] Eddie jeronimo 05/01/23 12 spontaneous Delivery [...] mm s (more content not included)... Normal [facility] - Chemistry and C hemistry - challengeOrdered By: Carmita Sierra on 11-28-2024 Glucose Ql (U) Negative [facility] - UrinalysisOrder ed By: Carmita Sierra on 11-28-2024 Protein Ql (U) Negative [facility] Meter Supervisor Office Visit Reporton 11-28-2024 Meter Supervisor Office Visit Report 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 Is patient in pain?: No [...] completed Surgical History S/P dilation and curettage [place] teeth extracted History of tonsillectomy Family History Grandfather Diabetes Maternal Heart disease Maternal Dementia Maternal Father Heart disease Social History adopted: No household members: spouse and children housing: house number of children: 2 current occupational status: employed current occupation: [employer] current occupational exposures/hazards: No pets and animals: [...] 5-6 times per week duration: 15-30 minutes/day kesha/judaism: Muslim seatbelt use: always do you feel safe at home: Yes 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 Date Name GA/Weeks Outcome Route Bth Weight Infant Gen Labor Lgth Anesthesia Del Locatn Provider FOB Unknown 2021 Jann 38 live - full term 7#4oz Male none [facility] JCaron Benjie 12/15/19 Phong 38 live - full term 7lbs 9oz Male 7 hours none [facility] Eddie gauthiermarilualexander 05/01/23 12 spontaneous Delivery [...] 9w 5d (more content not included)... Normal [facility] - Chemistry and C hemistry - challengeOrdered By: Fidelia Otoole on 10-27-2024 Glucose Ql (U) Negative [facility] - UrinalysisOrder ed By: Fidelia Otoole on 10-27-2024 Protein Ql (U) Negative [facility] Meter Supervisor Office Visit Reporton 10-27-2024 Meter Supervisor Office Visit Report 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 Is patient in pain?: No [...] completed Surgical History S/P dilation and curettage [place] teeth extracted History of tonsillectomy Family History Grandfather Diabetes Maternal Heart disease Maternal Dementia Maternal Father Heart disease Social History adopted: No household members: spouse and children housing: house number of children: 2 current occupational status: employed current occupation: [employer] current occupational exposures/hazards: No pets and animals: [...] 5-6 times per week duration: 15-30 minutes/day kesha/judaism: Muslim seatbelt use: always do you feel safe at home: Yes 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 Date Name GA/Weeks Outcome Route Bth Weight Infant Gen Labor Lgth Anesthesia Del Locatn Provider FOB Unknown 2021 Jann 38 live - full term 7#4oz Male none [facility] JCaron Benjie 12/15/19 Phong 38 live - full term 7lbs 9oz Male 7 hours none [facility] Eddie jeronimo 05/01/23 12 spontaneous Delivery [...] hematoma 0 (more content not included)... Normal [facility] Absolute lymphocyte countOrd ered By: Dominique Patten on 10-01-2024 Lymphocytes Auto (Unsp spec) [#/Vol] 1.62 10*3/uL 0.83-4.51 [facility] Absolute neutrophil countOrd ered By: Dominique Patten on 10-01-2024 Neutrophils (Bld) [#/Vol] 5.2 10*3/uL 2.0-7.7 [facility] Automated lymphocyte count a s percentage of total leukocytesOrdered By: Dominique Patten on 10-01-2024 Lymphocytes/100 WBC Auto (Unsp spec) 21.9 % 19-41 [facility] Basophil percentageOrdered B y: Dominique Patten on 10-01-2024 Basophils/100 WBC (Bld) 0.4 % 0-1 [facility] CBC W/Diff, Automatedon 09-21 Absolute Lymph 1.62 X10 3/uL Normal 0.83-4.51 [facility] Comment on above: Performed By: #### L 3890.6006, L509.8002, BTS, L3890.6301, L3890.6102, L509.4006, L100.0100, L900.0098 #### [facility] [address] [place], [address] Absolute Neut 5.2 X10 3/uL Normal 2.0-7.7 [facility] Comment on above: Performed By: #### L 3890.6006, L509.8002, BTS, L3890.6301, L3890.6102, L509.4006, L100.0100, L900.0098 #### [facility] [address] [place], [address] Basophils/100 WBC (Bld) 0.4 % Normal 0-1 [facility] Comment on above: Performed By: #### L 3890.6006, L509.8002, BTS, L3890.6301, L3890.6102, L509.4006, L100.0100, L900.0098 #### [facility] [address] [facility] [place], [address] Eosinophils/100 WBC (Bld) 0.5 % Normal 0-5 [facility] Comment on above: Performed By: #### L 3890.6006, L509.8002, BTS, L3890.6301, L3890.6102, L509.4006, L100.0100, L900.0098 #### [facility] [address] [place], [address] Erythrocyte distribution width (RBC) [Ratio] 12.2 % Normal 11.6-14.6 [facility] Comment on above: Performed By: #### L 3890.6006, L509.8002, BTS, L3890.6301, L3890.6102, L509.4006, L100.0100, L900.0098 #### [facility] [address] [place], [address] Hematocrit (Bld) [Volume fraction] 38.8 % Normal 37-47 [facility] Comment on above: Performed By: #### L 3890.6006, L509.8002, BTS, L3890.6301, L3890.6102, L509.4006, L100.0100, L900.0098 #### [facility] [address] [place], [address] Hemoglobin (Bld) [Mass/Vol] 13.6 g/dL Normal 12.0-15.0 [facility] Comment on above: Performed By: #### L 3890.6006, L509.8002, BTS, L3890.6301, L3890.6102, L509.4006, L100.0100, L900.0098 #### [facility] [address] [place], [address] IG% 0.300 Normal 0.0-0.9 [facility] Comment on above: Result Comment: IG% - Immature Granulocytes (promyelocytes, myelocytes and metamyelocytes) > 1% indicates that a LEFT SHIFT is Present. Performed By: #### L 3890.6006, L509.8002, BTS, L3890.6301, L3890.6102, L509.4006, L100.0100, L900.0098 #### [facility] [address] [place], [address] Lymphocytes/100 WBC (Bld) 21.9 % Normal 19-41 [facility] Comment on above: Performed By: #### L 3890.6006, L509.8002, BTS, L3890.6301, L3890.6102, L509.4006, L100.0100, L900.0098 #### [facility] [address] [place], [address] MCH (RBC) [Entitic mass] 33.3 pg High 27.0-32.0 [facility] Comment on above: Performed By: #### L 3890.6006, L509.8002, BTS, L3890.6301, L3890.6102, L509.4006, L100.0100, L900.0098 #### [facility] [address] [place], [address] MCHC (RBC) [Mass/Vol] 35.1 g/dL Normal 32-36 [facility] Comment on above: Performed By: #### L 3890.6006, L509.8002, BTS, L3890.6301, L3890.6102, L509.4006, L100.0100, L900.0098 #### [facility] [address] [place], [address] MCV (RBC) [Entitic vol] 95.1 fL Normal 81-99 [facility] Comment on above: Performed By: #### L 3890.6006, L509.8002, BTS, L3890.6301, L3890.6102, L509.4006, L100.0100, L900.0098 #### [facility] [address] [place], [address] Monocytes/100 WBC (Bld) 6.1 % Normal 0-10 [facility] Comment on above: Performed By: #### L 3890.6006, L509.8002, BTS, L3890.6301, L3890.6102, L509.4006, L100.0100, L900.0098 #### [facility] [address] [place], [address] Neutrophils/100 WBC (Bld) 70.8 % High 47-70 [facility] Comment on above: Performed By: #### L 3890.6006, L509.8002, BTS, L3890.6301, L3890.6102, L509.4006, L100.0100, L900.0098 #### [facility] [address] [place], [address] Nucleated RBC (Bld) [#/Vol] 0 10*3/uL Normal 0-5 [facility] Comment on above: Performed By: #### L 3890.6006, L509.8002, BTS, L3890.6301, L3890.6102, L509.4006, L100.0100, L900.0098 #### [facility] [address] [place], [address] Platelet mean volume (Bld) [Entitic vol] 11.3 fL Normal 6.2-12.0 [facility] Comment on above: Performed By: #### L 3890.6006, L509.8002, BTS, L3890.6301, L3890.6102, L509.4006, L100.0100, L900.0098 #### [facility] [address] [place], [address] Platelets (Bld) [#/Vol] 239 10*3/uL Normal 150-450 [facility] Comment on above: Performed By: #### L 3890.6006, L509.8002, BTS, L3890.6301, L3890.6102, L509.4006, L100.0100, L900.0098 #### [facility] [address] [place], [address] RBC (Bld) [#/Vol] 4.08 10*6/uL Low 4.2-5.4 [facility] Comment on above: Performed By: #### L 3890.6006, L509.8002, BTS, L3890.6301, L3890.6102, L509.4006, L100.0100, L900.0098 #### [facility] [address] [place], [address] RDW SD 42.5 fl Normal 35.1-43.9 [facility] Comment on above: Performed By: #### L 3890.6006, L509.8002, BTS, L3890.6301, L3890.6102, L509.4006, L100.0100, L900.0098 #### [facility] [address] [place], [address] WBC (Bld) [#/Vol] 7.4 10*3/uL Normal 4.4-11.0 [facility] Comment on above: Performed By: #### L 3890.6006, L509.8002, BTS, L3890.6301, L3890.6102, L509.4006, L100.0100, L900.0098 #### [facility] [address] [place], [address] Eosinophil percentageOrdered By: Dominique Sandor on 10-01-2024 Eosinophils/100 WBC (Bld) 0.5 % 0-5 [facility] Erythrocyte distribution wid th ratioOrdered By: Dominique Patten on 10-01-2024 Erythrocyte distribution width (RBC) [Ratio] 12.2 % 11.6-14.6 [facility] Erythrocyte distribution wid th standard deviationOrdered By: Dominique Patten on 10-01-2024 Erythrocyte distribution width (RBC) [Ratio] 42.5 fl 35.1-43.9 [facility] HIVon 10-01-2024 HIV Non-Reactive Normal Nonreactive [facility] Comment on above: Result Comment: Non- Reactive Reactive Repeatedly reactive samples must be confirmed according to CDC recommended confirmatory algorithms. The subresults for either HIVAG or AHIV can be used as an aid in the selection of the confirmation algorithm for reactive samples. Send out specimens with Reactive results to [facility] for confirmation. Order the HIV antibody detection and differentiation: lc#[id number] Performed By: #### L 3890.6006, L509.8002, BTS, L3890.6301, L3890.6102, L509.4006, L100.0100, L900.0098 #### [facility] [address] [place], [place], [address] Hematocrit Auto (Bld) [Volum e fraction]Ordered By: Dominique Patten on 10-01-2024 Hematocrit (Bld) [Volume fraction] 38.8 % 37-47 [facility] Hemoglobin measurementOrdere d By: Dominique Patten on 10-01-2024 Hemoglobin (Bld) [Mass/Vol] 13.6 g/dL 12.0-15.0 [facility] Hepatitis C Antibodyon 10-01 Hepatitis C Ab Non-Reactive Normal Nonreactive [facility] Comment on above: Result Comment: Reac tive: Presumptive evidence of antibodies to HCV. Follow CDC recommendations for supplemental testing. Non-Reactive: Antibodies to HCV were not detected; does not exclude the possibility of exposure to HCV Reactive Results are presumptive evidence of antibodies to HCV. Follow CDC recommendations for supplemental testing. Order confirmation testing: HCV Quant by PCR testing - HCVPCR #[id number] Non Reactive: < 0.8 Equivocal: >/= 0.8 to < 1.0 Reactive: >/= 1.0 The CDC requires that a reactive/equivocal HCV antibody result be sent out for confirmation. HCV Quant by PCR testing. Performed By: #### L 700.8000 #### [facility] [address] [place], [address] Immature granulocytes/100 WB C Auto (Bld)Ordered By: Dominique Patten on 10-01-2024 Immature granulocytes/100 WBC (Bld) 0.300 % 0.0-0.9 [facility] Comment on above: IG% - Immature Granu locytes (promyelocytes, myelocytes and metamyelocytes) > 1% indicates that a LEFT SHIFT is Present. L3890.6102on 10-01-2024 HEP B Surf Ag Non-Reactive Normal Nonreactive [facility] Comment on above: Result Comment: Reac tive: Presumptive evidence of HBV. Repeatedly reactive samples must be confirmed using a neutralization test ([employer] HBsAg Confirmatory Test) Non-Reactive: HBsAg not detected; does not exclude the possibility of exposure to HBV Performed By: #### L 3890.6006, L509.8002, BTS, L3890.6301, L3890.6102, L509.4006, L100.0100, L900.0098 #### [facility] [address] [place], [address] L509.4006on 10-01-2024 Rubella IgG REAC Normal Nonreactive [facility] Comment on above: Result Comment: Anti body Result: Interpretation Non-Reactive: Non-Immune Reactive: Immune The following results were obtained with the [employer] Rubella IgG assay. Results from assays of other manufacturers cannot be used interchangeably. Performed By: #### L 3890.6006, L509.8002, BTS, L3890.6301, L3890.6102, L509.4006, L100.0100, L900.0098 #### [facility] [address] [place], [place], [address] Laboratory - Microbiology an d Antimicrobial susceptibilityOrdered By: Dominique Patten on 10-01-2024 HBV surface Ag Ql (S) Non-Reactive Nonreactive [facility] Comment on above: Reactive: Presumptiv e evidence of HBV. Repeatedly reactive samples must be confirmed using a neutralization test ([employer] HBsAg Confirmatory Test)Non-Reactive: HBsAg not detected; does not exclude the possibility of exposure to HBV MCV (mean corpuscular volume ) determinationOrdered By: Dominique Patten on 10-01-2024 MCV (RBC) [Entitic vol] 95.1 fL 81-99 [facility] Mean corpuscular hemoglobin (MCH) determinationOrdered By: Dominique Patten on 10-01-2024 MCH (RBC) [Entitic mass] 33.3 pg High 27.0-32.0 [facility] Mean corpuscular hemoglobin concentration (MCHC) determinationOrdered By: Dominique Patten on 10-01-2024 MCHC (RBC) [Mass/Vol] 35.1 g/dL 32-36 [facility] Mean platelet volume determi nationOrdered By: Dominique Montoyaannia on 10-01-2024 Platelet mean volume (Bld) [Entitic vol] 11.3 fL 6.2-12.0 [facility] Monocyte percentageOrdered B y: Dominique Patten on 10-01-2024 Monocytes/100 WBC (Bld) 6.1 % 0-10 [facility] NATERAon 10-01-2024 NATURA SEE SCANNED REPORT Normal [facility] Comment on above: Order Comment: Comme nts: NIPT with Gender Performed By: #### L 3890.6006, L509.8002, BTS, L3890.6301, L3890.6102, L509.4006, L100.0100, L900.0098 #### [facility] [address] [place], [address] Neutrophil percentageOrdered By: Dominique Sandor on 10-01-2024 Neutrophils/100 WBC (Bld) 70.8 % High 47-70 [facility] No Panel InformationOrdered By: Dominique Winchesternikolay on 10-01-2024 HIV (1&2) Antibody Non-Reactive Nonreactive [facility] Comment on above: Non-ReactiveReactive Repeatedly reactive samples must be confirmed according to CDC recommended confirmatory algorithms. The subresults for either HIVAG or AHIV can be used as an aid in the selection of the confirmation algorithm for reactive samples.Send out specimens with Reactive results to [facility] for confirmation.Order the HIV antibody detection and differentiation: #[id number] Nucleated red blood cell per centageOrdered By: Dominique Sandor on 10-01-2024 Nucleated RBC/100 WBC (Bld) [Ratio] 0 % 0-5 [facility] Meter Supervisor Office Visit Reporton 10-01-2024 Meter Supervisor Office Visit Report [facility] [address], [address] [place] [address] OFFICE VISIT Date of Service: 10/01/24 MR#: [id number] Acct: [id number] Name: LALITHA MONTERO Rep #: [id number] : 1990 Provider: Dr. 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 Is patient in pain?: No [...] completed Surgical History S/P dilation and curettage [place] teeth extracted History of tonsillectomy Family History Grandfather Diabetes Maternal Heart disease Maternal Dementia Maternal Father Heart disease Social History adopted: No household members: spouse and children housing: house number of children: 2 current occupational status: employed current occupation: [employer] current occupational exposures/hazards: No pets and animals: [...] 5-6 times per week duration: 15-30 minutes/day kesha/judaism: Muslim seatbelt use: always do you feel safe at home: Yes 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 Date Name GA/Weeks Outcome Route Bth Weight Gen Labor Lgth Anesthesia Del Locatn Provider FOB Unknown 2021 Jann 38 live - full term 7#4oz Male none [facility] JCaron Waldrop 12/15/19 Phong 38 live - full term 7lbs 9oz Male 7 hours none [facility] Eddie jeronimo 05/01/23 12 spontaneous Delivery [...] with LMP (more content not included)... Normal [facility] Platelet countOrdered By: Brian Patten on 10-01-2024 Platelets (Bld) [#/Vol] 239 10*3/uL 150-450 [facility] RBC Auto (Bld) [#/Vol]Ordere d By: Dominique Patten on 10-01-2024 RBC (Bld) [#/Vol] 4.08 10*6/uL Low 4.2-5.4 [facility] Syphilis Antibodieson 2024 Syphilis Abs Non-Reactive Normal Nonreactive [facility] Comment on above: Performed By: #### L 3890.6006, L509.8002, BTS, L3890.6301, L3890.6102, L509.4006, L100.0100, L900.0098 #### [facility] [place], [address] Type AND Screenon 10-01-2024 Ab SCREEN GEL Negative Normal [facility] Comment on above: Order Comment: PN Performed By: #### L 3890.6006, L509.8002, BTS, L3890.6301, L3890.6102, L509.4006, L100.0100, L900.0098 #### [facility] [address] [place], [address] White blood cell (WBC) count Ordered By: Dominique Patten on 10-01-2024 WBC (Bld) [#/Vol] 7.4 10*3/uL 4.4-11.0 [facility] CNOVon 09-29-2024 CNOV Office Visit (DERMTW ) -------- LALITHA MONTERO ([id number]) 1990 F Date Time Provider Department 09/29/24 9:00 AM LILLI LEDBETTER DERMTW During your visit today, we recorded the following information about you: Lilli Ledbetter PA-C 09/29/2024 9:56 AM Signed Lalitha Montero [...] digits, and nails. (Exam of nails deferred, omani in place; Exam of feet deferred, shoes [...] marked an (more content not included)... Normal [facility] Pathology biopsy report Sam (Tiss)on 09-29-2024 AP DISCLAIMER Normal [facility] Comment on above: Order Comment: Speci men Type: TISSUE SPECIMEN Ordering Facility: [facility] Address: [address] [place] [address] Result Comment: Bety conde Developed Test (LDT) Disclaimer: Performance characteristics of immunohistochemical, immunofluorescent, and chromogenic in-situ hybridization tests have been determined by the performing laboratory within [facility] ([facility], [facility], [facility], [facility], [facility], [facility], or [facility]) in a manner consistent with CLIA requirements. One or more of these tests may not have been cleared or approved by the FDA. [facility] is regulated under CLIA as qualified to perform high-complexity testing. These tests are used for clinical purposes. These should not be regarded as investigational or for research. Positive and negative controls stain appropriately. Performed By: #### 6 6121-5 #### [facility] CLIA [id number] [address] [place] [address] [place] CASE REPORT Normal [facility] Comment on above: Order Comment: Speci men Type: TISSUE SPECIMEN Ordering Facility: [facility] Address: [address] [place] [address] Result Comment: [facility] Path[facility] Report Case: [id number] Authorizing Provider: Lilli Ledbetter PA-C Collected: 09/29/2024 09:39 AM Ordering Location: Dermatology Received: 09/29/2024 12:56 PM Pathologist: Guicho Jeff MD Specimen: Skin, Shave Biopsy, A) left groin Performed By: #### 6 6121-5 #### [facility] CLIA [id number] [address] [place] [address] [place] CLINICAL HISTORY A) left groin r/o FE P vs other Normal [facility] [facility] Comment on above: Order Comment: Gracei men Type: TISSUE SPECIMEN Ordering Facility: [facility] Address: [address] [place] [address] Performed By: #### 6 6121-5 #### [facility] CLIA [id number] [address] [place] [address] [place] FINAL DIAGNOSIS Normal [facility] Comment on above: Order Comment: Speci men Type: TISSUE SPECIMEN Ordering Facility: [facility] Address: [address] [place] [address] Result Comment: A. S kin, left groin, shave biopsy: - Fibroepithelial polyp. SDB/NS/bs 09/30/2024 at 1551 EDT Performed By: #### 6 6121-5 #### [facility] CLIA [id number] [address] [place] [address] [place] FINAL PERFORMING LAB Normal [facility] Comment on above: Order Comment: Speci men Type: TISSUE SPECIMEN Ordering Facility: [facility] Address: [address] [place] [address] Result Comment: Diag nostic interpretation performed at: [facility], [address] [place] [address] CLIA# [id number] Supervisor Operations: Calos Valera MD Performed By: #### 6 6121-5 #### [facility] CLIA [id number] [address] [place] [address] [place] GROSS DESCRIPTION Normal [facility] Comment on above: Order Comment: Speci men Type: TISSUE SPECIMEN Ordering Facility: [facility] Address: [address] [place] [address] Result Comment: A. S kin, Shave Biopsy Received in formalin is an irregular shaped segment of [place]-pink, rubbery and wrinkled skin measuring 1.1 x 0.7 x 0.9 cm. The specimen is bisected. Totally submitted in one cassette. Gross examination performed at [facility], [address] [place] [address] September 29, 2024 5:45 PM Performed By: #### 6 6121-5 #### [facility] CLIA [id number] [address] [place] [address] [place] SKIN / NAIL BIOPSYon 025 Type of biopsy: tangential [facility] - Chemistry and C hemistry - challengeOrdered By: Dominique Patten on 09-18-2024 Glucose Ql (U) Negative [facility] - UrinalysisOrder ed By: Dominique Patten on 09-18-2024 Protein Ql (U) Negative [facility] Meter Supervisor Office Visit Reporton 09-18-2024 Meter Supervisor Office Visit Report [address], [address] [place] [address] OFFICE VISIT Date of Service: 09/18/24 MR#: [id number] Acct: [id number] Name: LALITHA MONTERO Rep #: [id number] : 1990 Provider: Dr. 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 Is patient in pain?: No [...] completed Surgical History S/P dilation and curettage [place] teeth extracted History of tonsillectomy Family History Grandfather Diabetes Maternal Heart disease Maternal Dementia Maternal Father Heart disease Social History adopted: No household members: spouse and children housing: house number of children: 2 current occupational status: employed current occupation: [employer] current occupational exposures/hazards: No pets and animals: [...] 5-6 times per week duration: 15-30 minutes/day kesha/judaism: Muslim seatbelt use: always do you feel safe at home: Yes 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 Date Name GA/Weeks Outcome Route Bth Weight Infant Gen Labor Lgth Anesthesia Del Locatn Provider FOB Unknown 2021 Jann 38 live - full term 7#4oz Male none [facility] NONA [place] 12/15/19 Phong 38 live - full term 7lbs 9oz Male 7 hours none [facility] Eddie jeronimo 05/01/23 12 spontaneous Delivery [...] 09/18/24 - (more content not included)... Normal [facility] Chlamydia/GC NICOLAS aptimaon CHLAMY,NUC ACID Negative Normal Negative [facility] Comment on above: Performed By: #### L 7000.1800 #### [facility] [address] [place], [place], [address] GC BY NUC ACID Negative Normal Negative [facility] Comment on above: Result Comment: Perf ormed at: =G - [facility] [address] [place] [id number] Bench Jeweler: Julia Storm MD, Phone: [phone] Performed By: #### L 9140.1800 #### [facility] [address] [place], [place], [id number] Urine Cultureon 09-05-2024 URC Culture exhibits no growth. Normal [facility] Comment on above: Performed By: #### L 7000.1800 #### [facility] [address] [place], [address] Chlamydia trachomatis rRNA d etection by probe and target amplification methodOrdered By: Dominique Patten on 09-04-2024 C. trachomatis rRNA NICOLAS+probe Ql (Unsp spec) Negative Negative [facility] Neisseria gonorrhoeae nuclei c acid detection by amplified probe techniqueOrdered By: Dominique Patten on 09-04-2024 N. gonorrhoeae DNA NICOLAS+probe Ql (Unsp spec) Negative Negative [facility] Comment on above: Performed at: =[address] [id number] Director: Julia Storm MD, Phone: [phone] Meter Supervisor Office Visit Reporton 09-04-2024 Meter Supervisor Office Visit Report [facility] [address], [address] [place] [address] OFFICE VISIT Date of Service: 09/04/24 MR#: [id number] Acct: [id number] Name: LALITHA MONTERO Rep #: [id number] : 1990 Provider: Dr. 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 Is patient in pain?: No Allergies bee venom protein (honey bee) Allergy (Severe, Verified 09/04/24 13:14) Swelling Sulfa (Sulfonamide Antibiotics) Allergy (Mild, Verified 09/04/24 13:14) Rash Medications ???Medication ???Instructions ???Recorded ???Confirmed ???Type multivitamin no.47-iron fum 27 cap PO 03/23/23 08/29/24 History mg-folate no.1 1 mg-dha 300 mg capsule (PNV-DHA) Last Menstrual Period: 07/12/24 Zika: Zika virus screening: Negative : No [facility] Medical History Contraception management Abnormal glucose affecting COVID-19 vaccine series completed Surgical History S/P dilation and curettage [place] teeth extracted History of tonsillectomy Family History Grandfather Diabetes Maternal Heart disease Maternal Dementia Maternal Father Heart disease Social History adopted: No household members: spouse and children housing: house number of children: 2 current occupational status: employed current occupation: [employer] current occupational exposures/hazards: No pets and animals: [...] 5-6 times per week duration: 15-30 minutes/day kesha/judaism: Muslim seatbelt use: always do you feel safe at home: Yes 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 Date Name GA/Weeks Outcome Route Bth Weight Infant Gen Labor Lgth Anesthesia Del Locatn Provider FOB Unknown 2021 Jann 38 live - full term 7#4oz Male none [facility] NONA [place] 12/15/19 Phong 38 live - full term 7lbs 9oz Male 7 hours none [facility] Eddie jeronimo 05/01/23 12 spontaneous Delivery [...] 145 -? (more content not included)... Normal [facility] Urine cultureOrdered By: Hector Montoyaannia on 09-04-2024 Bacteria identified Cx Nom (U) Culture exhibits no growth. [facility] Transvaginal w/Preg USon Transvaginal w/Preg US [facility] [address] [place], [place] [address] Transvaginal w/Preg US MR#: [id number] Acct: [id number] Name: LALITHA MONTERO Rep #: [id number] : 1990 F 33 From: Adam melgar MD PCP: FRANKI Moore Status: REG CLI Study: Transvaginal w/Preg US Date of Exam: 09/02/24 Exam# [id number] Ordering Dr: Carmita Sierra CNM PROCEDURE: TRANSVAGINAL [...] left ovary. DIMENSIONS: Parameter Measurement / EGA [place] Rump Length: 1 cm/7 weeks and 1 day Gestational Sac: 2.5 cm/7 weeks and 4 days Yolk Sac: 4 mm/ ESTIMATED GESTATIONAL AGE: By Ultrasound: 7 weeks and 3 days By LMP: 7 weeks and 3 days ESTIMATED DATE OF DELIVERY: By Ultrasound: April 18, 2025 By LMP: April 18, 2025. US/Transvaginal w/Preg US IMPRESSION: UNREMARKABLE FIRST TRIMESTER ULTRASOUND. Reading Location: [facility] CC: LUISAAN Sierra; FRANKI Guallpa Market Research Specialist: Signed Normal [facility] Serum human chorionic gonado tropin detection for pregnancyOrdered By: Carmita Sierra on 09-01-2024 HCG ( test) [place]l [address] mIU/mL High <9 [facility] Comment on above: Gestational Age0.2-1 Week: 5-50 mIU/mL1-2 Weeks: 50-500 mIU/mL2-3 Weeks: 100-5000 mIU/mL3-4 Weeks: 500-10,000 mIU/mL4-5 Weeks:1000-50,000 mIU/mL5-6 Weeks: 10,000-100,000 mIU/mL6-8 Weeks: 15,000-200,000 mIU/mL2-3 Months:10,000-100,000 mIU/mL hCG Titer Quant., Serumon HCG QUANT. 99881 mIU/mL High <9 non-preg [facility] Comment on above: Result Comment: Gest ational Age 0.2-1 Week: 5-50 mIU/mL 1-2 Weeks: 50-500 mIU/mL 2-3 Weeks: 100-5000 mIU/mL 3-4 Weeks: 500-10,000 mIU/mL 4-5 Weeks:1000-50,000 mIU/mL 5-6 Weeks: 10,000-100,000 mIU/mL 6-8 Weeks: 15,000-200,000 mIU/mL 2-3 Months:10,000-100,000 mIU/mL Performed By: #### L 700.8000 #### [facility] [address] [place] [address], [id number] Serum human chorionic gonado tropin detection for pregnancyOrdered By: Jessica Toure on 08-29-2024 HCG ( test) Ql [address] mIU/mL High <9 [facility] Comment on above: Gestational Age0.2-1 Week: 5-50 mIU/mL1-2 Weeks: 50-500 mIU/mL2-3 Weeks: 100-5000 mIU/mL3-4 Weeks: 500-10,000 mIU/mL4-5 Weeks:1000-50,000 mIU/mL5-6 Weeks: 10,000-100,000 mIU/mL6-8 Weeks: 15,000-200,000 mIU/mL2-3 Months:10,000-100,000 mIU/mL hCG Titer Quant., Serumon HCG QUANT. 95167 mIU/mL High <9 [facility] Comment on above: Result Comment: Gest ational Age 0.2-1 Week: 5-50 mIU/mL 1-2 Weeks: 50-500 mIU/mL 2-3 Weeks: 100-5000 mIU/mL 3-4 Weeks: 500-10,000 mIU/mL 4-5 Weeks:1000-50,000 mIU/mL 5-6 Weeks: 10,000-100,000 mIU/mL 6-8 Weeks: 15,000-200,000 mIU/mL 2-3 Months:10,000-100,000 mIU/mL Performed By: #### L 700.8000 #### [facility] [address] [place], [place] [address] [place], [address] Serum human chorionic gonado tropin detection for pregnancyOrdered By: Jessica Toure on 08-27-2024 HCG ( test) [place]l [address] mIU/mL High <9 [facility] Comment on above: Gestational Age0.2-1 Week: 5-50 mIU/mL1-2 Weeks: 50-500 mIU/mL2-3 Weeks: 100-5000 mIU/mL3-4 Weeks: 500-10,000 mIU/mL4-5 Weeks:1000-50,000 mIU/mL5-6 Weeks: 10,000-100,000 mIU/mL6-8 Weeks: 15,000-200,000 mIU/mL2-3 Months:10,000-100,000 mIU/mL hCG Titer Quant., Serumon HCG QUANT. 98456 mIU/mL High <9 non-preg [facility] Comment on above: Result Comment: Gest ational Age 0.2-1 Week: 5-50 mIU/mL 1-2 Weeks: 50-500 mIU/mL 2-3 Weeks: 100-5000 mIU/mL 3-4 Weeks: 500-10,000 mIU/mL 4-5 Weeks:1000-50,000 mIU/mL 5-6 Weeks: 10,000-100,000 mIU/mL 6-8 Weeks: 15,000-200,000 mIU/mL 2-3 Months:10,000-100,000 mIU/mL Performed By: #### L 7000.1800 #### [facility] 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 Normal [facility] Dilute Arnold's viper venom timeOrdered By: Dominique Patten on 07-30-2023 dRVVT Coag (PPP) [Time] 35.1 s 0.0-47.0 [facility] No Panel InformationOrdered By: Dominique Patten on 07-30-2023 Anti-Cardiolipin IgM Antibody < 9 MPL U/mL 0-12 [facility] Comment on above: Negative: <13 Indete rminate: 13 - 20 Low-Med Positive: >20 - 80 High Positive: >80 Serum beta 2 glycoprotein 1 IgA antibody detectionOrdered By: Dominique Patten on 07-30-2023 Beta 2 glycoprotein 1 IgA Ql (S) <9 0-25 [facility] Comment on above: Result Units: GPI Ig [...] glycoprotein 1 IgG Ql (S) <9 0-20 [facility] Comment on above: Result Units: GPI Ig [...] glycoprotein 1 IgM Ql (S) <9 0-32 [facility] Comment on above: Result Units: GPI Ig M unitsThe reference interval reflects a 3SD or 99th percentileinterval, which is thought to represent a potentiallyclinically significant result in accordance with theInternational Consensus Statement on the classificationcriteria for definitive antiphospholipid syndrome (APS). JThromb Haem 2006;4:295-306.Performed at: - [facility] [id number] Director: Anuradha Davis MD, Phone: [phone] at: [facility] [id number] Director: Adin Jeffers PhD, Phone: [phone] Serum cardiolipin IgG antibo dy assay by immunoassay (units/volume)Ordered By: Dominique Patten on 07-30-2023 Cardiolipin IgG IA Qn (S) < 9 GPL U/mL 0-14 [facility] Comment on above: Negative: <15 Indete rminate: 15 - 20 Low-Med Positive: >20 - 80 High Positive: >80 Serum or plasma cardiolipin IgA antibody assay (units/volume)Ordered By: Dominique Patten on 07-30-2023 Cardiolipin IgA Qn < 9 APL U/mL 0-11 [facility] Comment on above: Negative: <12 Indete rminate: 12 - 20 Low-Med Positive: >20 - 80 High Positive: >80 Thin prep Papanicolaou smear with manual screeningOrdered By: Dominique Patten on 07-30-2023 Thin prep Papanicolaou smear with manual screening 38.7 sec 0.0-47.6 [facility] Thin prep Papanicolaou smear with manual screening 0.94 Ratio 0.00-1.34 [facility] Thin prep Papanicolaou smear with manual screening 39.0 sec 0.0-43.5 [facility] Thin prep Papanicolaou smear with manual screening Comment: . [facility] Comment on above: No lupus anticoagula nt was detected. Thrombin time in platelet po or plasmaOrdered By: Dominique Patten on 07-30-2023 Thrombin time Coag (PPP) [Time] 18.2 sec 0.0-23.0 [facility] Absolute lymphocyte countOrd ered By: Carmita Sierra on 04-27-2023 Lymphocytes Auto (Unsp spec) [#/Vol] 2.14 10*3/uL 0.83-4.51 [facility] Basophil percentageOrdered B y: Carmita Sierra on 04-27-2023 Basophils/100 WBC (Bld) 0.7 % 0-1 [facility] Eosinophils/100 WBC (Bld) 0.6 % 0-5 [facility] Neutrophils (Bld) [#/Vol] 4.2 10*3/uL 2.0-7.7 [facility] Neutrophils/100 WBC (Bld) 60.5 % 47-70 [facility] WBC (Bld) [#/Vol] 6.9 10*3/uL 4.4-11.0 [facility] Blood erythrocytes count (nu mber/volume)Ordered By: Carmita Sierra on 04-27-2023 RBC (Bld) [#/Vol] 4.50 10*6/uL 4.2-5.4 [facility] Blood hemoglobin measurement (mass/volume)Ordered By: Carmita Sierra on 04-27-2023 Hemoglobin (Bld) [Mass/Vol] 13.9 g/dL 12.0-15.0 [facility] Blood lymphocytes/100 leukoc ytesOrdered By: Carmita Sierra on 04-27-2023 Lymphocytes/100 WBC (Bld) 31.0 % 19-41 [facility] Blood monocytes/100 leukocyt esOrdered By: Carmita Sierra on 04-27-2023 Monocytes/100 WBC (Bld) 7.1 % 0-10 [facility] Blood platelet mean volumeOr dered By: Carmita Sierra on 04-27-2023 Platelet mean volume (Bld) [Entitic vol] 11.2 fL 6.2-12.0 [facility] Confirmatory dilute Arnold' s viper venom time (DRVVT) testOrdered By: Carmita Sierra on 04-27-2023 dRVVT actual/normal Coag (PPP) [Relative time] 1.4 ratio 0.8-1.2 [facility] Determination of erythrocyte mean corpuscular volume (MCV)Ordered By: Carmita Sierra on 04-27-2023 MCV (RBC) [Entitic vol] 93.1 fL 81-99 [facility] Dilute Arnold's viper venom timeOrdered By: Carmita Sierra on 04-27-2023 dRVVT Coag (PPP) [Time] 48.3 s 0.0-47.0 [facility] dRVVT Coag (PPP) [Time] 42.4 s 0.0-40.4 [facility] Hematocrit Auto (Bld) [Volum e fraction]Ordered By: Carmita Sierra on 04-27-2023 Hematocrit (Bld) [Volume fraction] 41.9 % 37-47 [facility] - Chemistry and C hemistry - challengeon 04-27-2023 Glucose Ql (U) Negative [facility] - Hematology and Cell countsOrdered By: Carmita Sierra on 04-27-2023 Erythrocyte distribution width (RBC) [Entitic vol] 40.7 fL 35.1-43.9 [facility] Erythrocyte distribution width (RBC) [Ratio] 11.9 % 11.6-14.6 [facility] Immature granulocytes/100 WBC (Bld) 0.100 % 0.0-0.9 [facility] Comment on above: IG% - Immature Granu locytes (promyelocytes, myelocytes and metamyelocytes) > 1% indicates that a LEFT SHIFT is Present. MCH (RBC) [Entitic mass] 30.9 pg 27.0-32.0 [facility] Nucleated RBC/100 WBC (Bld) [Ratio] 0 % 0-5 [facility] - Urinalysison Protein Ql (U) Negative [facility] MCHC Auto (RBC) [Mass/Vol]Or dered By: Carmita Sierra on 04-27-2023 MCHC (RBC) [Mass/Vol] 33.2 g/dL 32-36 [facility] No Panel InformationOrdered By: Carmita Sierra on 04-27-2023 Anti-Cardiolipin IgM Antibody 16 MPL U/mL 0-12 [facility] Comment on above: Please Note: Specime n is hemolyzed. Negative: <13 Indeterminate: 13 - 20 Low-Med Positive: >20 - 80 High Positive: >80 Hexagonal Phase Phospholipid 26 sec 0-11 [facility] Thyroid Stimulating Hormone (TSH) 1.07 uIU/mL 0.358-3.74 [facility] Platelets bldOrdered By: Rinku Sierra on 04-27-2023 Platelets (Bld) [#/Vol] 234 10*3/uL 150-450 [facility] Serum beta 2 glycoprotein 1 IgA antibody detectionOrdered By: Carmita Sierra on 04-27-2023 Beta 2 glycoprotein 1 IgA Ql (S) <9 0-25 [facility] Comment on above: Result Units: GPI Ig [...] glycoprotein 1 IgG Ql (S) <9 0-20 [facility] Comment on above: Result Units: GPI Ig [...] glycoprotein 1 IgM Ql (S) <9 0-32 [facility] Comment on above: Result Units: GPI Ig M unitsThe reference interval reflects a 3SD or 99th percentileinterval, which is thought to represent a potentiallyclinically significant result in accordance with theInternational Consensus Statement on the classificationcriteria for definitive antiphospholipid syndrome (APS). JThromb Haem 2006;4:295-306.Performed at: - [facility] [id number] Director: Anuradha Davis MD, Phone: [phone] at: [facility] [id number] Director: Adin Jeffers PhD, Phone: [phone] Serum cardiolipin IgG antibo dy assay by immunoassay (units/volume)Ordered By: Carmita Sierra on 04-27-2023 Cardiolipin IgG IA Qn (S) < 9 GPL U/mL 0-14 [facility] Comment on above: Please Note: Specime n is hemolyzed. Negative: <15 Indeterminate: 15 - 20 Low-Med Positive: >20 - 80 High Positive: >80 Serum or plasma cardiolipin IgA antibody assay (units/volume)Ordered By: Carmita Sierra on 04-27-2023 Cardiolipin IgA Qn < 9 APL U/mL 0-11 [facility] Comment on above: Please Note: Specime n is hemolyzed. Negative: <12 Indeterminate: 12 - 20 Low-Med Positive: >20 - 80 High Positive: >80 Thin prep Papanicolaou smear with manual screeningOrdered By: Carmita Sierra on 04-27-2023 Thin prep Papanicolaou smear with manual screening 59.8 sec 0.0-47.6 [facility] Thin prep Papanicolaou smear with manual screening 1.53 Ratio 0.00-1.34 [facility] Thin prep Papanicolaou smear with manual screening 57.2 sec 0.0-43.5 [facility] Thin prep Papanicolaou smear with manual screening 59.3 sec 0.0-40.5 [facility] Thin prep Papanicolaou smear with manual screening Comment: . [facility] Comment on above: Results are consiste nt [...] time Coag (PPP) [Time] 17.6 sec 0.0-23.0 [facility] Whole blood hemoglobin A1c/t otal hemoglobin ratio (mass fraction)Ordered By: Carmita Sierra on 04-27-2023 HbA1c (Bld) [Mass fraction] 5.4 % 3.8-5.6 [facility] Comment on above: Normal < 5.7 % Predi abetic 5.7 - 6.4 % Diabetic >or= 6.5 % Please note range changes. Absolute lymphocyte countOrd ered By: Noelle Sexton on 04-09-2023 Lymphocytes Auto (Unsp spec) [#/Vol] 2.61 10*3/uL 0.83-4.51 [facility] Basophil percentageOrdered B y: Noelle Sexton on 04-09-2023 Basophils/100 WBC (Bld) 0.4 % 0-1 [facility] Eosinophils/100 WBC (Bld) 0.5 % 0-5 [facility] Neutrophils (Bld) [#/Vol] 4.7 10*3/uL 2.0-7.7 [facility] Neutrophils/100 WBC (Bld) 59.3 % 47-70 [facility] WBC (Bld) [#/Vol] 8.0 10*3/uL 4.4-11.0 [facility] Blood erythrocytes count (nu mber/volume)Ordered By: Noelle Sexton on 04-09-2023 RBC (Bld) [#/Vol] 4.40 10*6/uL 4.2-5.4 [facility] Blood hemoglobin measurement (mass/volume)Ordered By: Noelle Sexton on 04-09-2023 Hemoglobin (Bld) [Mass/Vol] 13.9 g/dL 12.0-15.0 [facility] Blood lymphocytes/100 leukoc ytesOrdered By: Noelle Sexton on 04-09-2023 Lymphocytes/100 WBC (Bld) 32.8 % 19-41 [facility] Blood monocytes/100 leukocyt esOrdered By: Noelle Sexton on 04-09-2023 Monocytes/100 WBC (Bld) 6.7 % 0-10 [facility] Blood platelet mean volumeOr dered By: Noelle Sexton on 04-09-2023 Platelet mean volume (Bld) [Entitic vol] 10.9 fL 6.2-12.0 [facility] Determination of erythrocyte mean corpuscular volume (MCV)Ordered By: Noelle Sexton on 04-09-2023 MCV (RBC) [Entitic vol] 95.0 fL 81-99 [facility] HIV 1 and HIV-2 antibody ass ay with HIV-1 p24 antigen detectionOrdered By: Noelle Sexton on 04-09-2023 HIV 1+2 Ab+HIV1 p24 Ag IA Ql Non-Reactive Nonreactive [facility] Hematocrit Auto (Bld) [Volum e fraction]Ordered By: Noelle Sexton on 04-09-2023 Hematocrit (Bld) [Volume fraction] 41.8 % 37-47 [facility] - Hematology and Cell countsOrdered By: Noelle Sexton on 04-09-2023 Erythrocyte distribution width (RBC) [Entitic vol] 42.9 fL 35.1-43.9 [facility] Erythrocyte distribution width (RBC) [Ratio] 12.2 % 11.6-14.6 [facility] Immature granulocytes/100 WBC (Bld) 0.300 % 0.0-0.9 [facility] Comment on above: IG% - Immature Granu locytes (promyelocytes, myelocytes and metamyelocytes) > 1% indicates that a LEFT SHIFT is Present. MCH (RBC) [Entitic mass] 31.6 pg 27.0-32.0 [facility] Nucleated RBC/100 WBC (Bld) [Ratio] 0 % 0-5 [facility] MCHC Auto (RBC) [Mass/Vol]Or dered By: Noelle Sexton on 04-09-2023 MCHC (RBC) [Mass/Vol] 33.3 g/dL 32-36 [facility] No Panel InformationOrdered By: Noelle Sexton on 04-09-2023 Hepatitis B Surface Antigen Non-Reactive Nonreactive [facility] Hepatitis C Antibody Non-Reactive Nonreactive [facility] Comment on above: Non Reactive: < 0.8 Equivocal: >/= 0.8 to < 1.0 Reactive: >/= 1.0The CDC recommends that a reactive/equivocal HCV antibody result be followed up by the HCV Nucleic Acid Amplificationtest (198120) Rubella IgG Antibody Reactive Nonreactive [facility] Comment on above: Antibody Results Int erpretation of Immune Status Non Reactive Presumed Non-Immune Equivocal Equivocal Reactive Presumed Immune Miscellaneous Test Comment MAILED SPECIMEN [facility] Platelets bldOrdered By: Shayy Sexton on 04-09-2023 Platelets (Bld) [#/Vol] 224 10*3/uL 150-450 [facility] Serum Treponema species anti body detectionOrdered By: Noelle Sexton on 04-09-2023 Treponema sp Ab Ql (S) Non-Reactive [facility] Chlamydia trachomatis rRNA d etection by probe and target amplification methodOrdered By: Noelle Sexton on 03-30-2023 C. trachomatis rRNA NICOLAS+probe Ql (Unsp spec) Negative Negative [facility] Culture, urineOrdered By: Carlie Sexton on 03-30-2023 Bacteria identified Cx Nom (U) Culture exhibits no growth. [facility] Laboratory - Microbiology an d Antimicrobial susceptibilityOrdered By: Noelle Sexton on 03-30-2023 N. gonorrhoeae DNA NICOLAS+probe Ql (Unsp spec) Negative Negative [facility] Comment on above: Performed at: =[address], [place] [id number] Director: Julia Storm MD, Phone: [phone] Serum or plasma choriogonado tropin detectionOrdered By: Noelle Sexton on 03-13-2023 HCG ( test) [place]l [address] mIU/mL <4 [facility] Comment on above: hCG levels with Gest ational AgeGestational Age hCG mIU/mL (IU/L)0.2 - 1 week 5 - 501-2 weeks 50 - 5002-3 weeks 100 - 52326-2 weeks 500 - 048660-2 weeks 1000 - 289797-5 weeks 38814 - 100,0006-8 weeks 38480 - 200,0002-3 months 14542 - 100,000 Serum or plasma choriogonado tropin detectionOrdered By: Noelle Sexton on 03-11-2023 HCG ( [place] [address] mIU/mL <4 [facility] Comment on above: hCG levels with Gest ational AgeGestational Age hCG mIU/mL (IU/L)0.2 - 1 week 5 - 501-2 weeks 50 - 5002-3 weeks 100 - 85156-7 weeks 500 - 038439-7 weeks 1000 - 309336-8 weeks 57308 - 100,0006-8 weeks 17732 - 200,0002-3 months 52395 - 100,000 STREP A MOLECULAR (POC)on Procedural Control Valid [facility] Strep A (POCT) Positive Abnormal Negative [facility] Absolute lymphocyte counton 10-20-2021 Lymphocytes Auto (Unsp spec) [#/Vol] 1.90 10*3/uL 0.83-4.51 [facility] Work Phone: Basophil percentageon 2021 Basophils/100 WBC (Bld) 0.3 % 0-1 [facility] Work Phone: Eosinophils/100 WBC (Bld) 0.3 % 0-5 [facility] Work Phone: Neutrophils (Bld) [#/Vol] 8.0 10*3/uL 2.0-7.7 [facility] Work Phone: Neutrophils/100 WBC (Bld) 74.3 % 47-70 [facility] Work Phone: WBC (Bld) [#/Vol] 10.8 10*3/uL 4.4-11.0 [facility] Work Phone: Blood erythrocytes count (nu mber/volume)on 10-20-2021 RBC (Bld) [#/Vol] 3.93 10*6/uL 4.2-5.4 [facility] Work Phone: [phone] Blood hemoglobin measurement (mass/volume)on 10-20-2021 Hemoglobin (Bld) [Mass/Vol] 12.8 g/dL 12.0-15.0 [facility] Work Phone: Blood lymphocytes/100 leukoc yteson 10-20-2021 Lymphocytes/100 WBC (Bld) 17.6 % 19-41 [facility] Work Phone: Blood monocytes/100 leukocyt eson 10-20-2021 Monocytes/100 WBC (Bld) 6.6 % 0-10 [facility] Work Phone: Blood platelet mean volumeon 10-20-2021 Platelet mean volume (Bld) [Entitic vol] 12.2 fL 6.2-12.0 [facility] Work Phone: [phone] Determination of erythrocyte mean corpuscular volume (MCV)on 10-20-2021 MCV (RBC) [Entitic vol] 95.2 fL 81-99 [facility] Work Phone: Hematocrit Auto (Bld) [Volum e fraction]on 10-20-2021 Hematocrit (Bld) [Volume fraction] 37.4 % 37-47 [facility] Work Phone: Laboratory - Hematology and Cell countson 10-20-2021 Erythrocyte distribution width (RBC) [Entitic vol] 43.7 fL 35.1-43.9 [facility] Work Phone: [phone] Erythrocyte distribution width (RBC) [Ratio] 12.7 % 11.6-14.6 [facility] Work Phone: Immature granulocytes/100 WBC (Bld) 0.900 % 0.0-0.9 [facility] Work Phone: [phone] Comment on above: IG% - Immature Granu locytes (promyelocytes, myelocytes and metamyelocytes) > 1% indicates that a LEFT SHIFT is Present. MCH (RBC) [Entitic mass] 32.6 pg 27.0-32.0 [facility] Work Phone: Nucleated RBC/100 WBC (Bld) [Ratio] 0 % 0-5 [facility] Work Phone: [phone] MCHC Auto (RBC) [Mass/Vol]on 10-20-2021 MCHC (RBC) [Mass/Vol] 34.2 g/dL 32-36 [facility] Work Phone: [phone] Platelets bldon 10-20-2021 Platelets (Bld) [#/Vol] 179 10*3/uL 150-450 [facility] Work Phone: Laboratory - Chemistry and C hemistry - challengeon 10-14-2021 Glucose Ql (U) Negative [facility] Work Phone: [phone] Laboratory - Urinalysison Protein Ql (U) Negative [facility] Work Phone: [phone] Laboratory - Chemistry and C hemistry - challengeon 10-06-2021 Glucose Ql (U) Negative [facility] Work Phone: [phone] Laboratory - Urinalysison Protein Ql (U) Negative [facility] Work Phone: [phone] Laboratory - Chemistry and C hemistry - challengeon 09-26-2021 Glucose Ql (U) Negative [facility] Work Phone: [phone] Laboratory - Urinalysison Protein Ql (U) Negative [facility] Work Phone: [phone] Laboratory - Chemistry and C hemistry - challengeon 09-09-2021 Glucose Ql (U) Negative [facility] Work Phone: [phone] Laboratory - Urinalysison Protein Ql (U) Negative [facility] Work Phone: [phone] Laboratory - Chemistry and C hemistry - challengeon 08-26-2021 Glucose Ql (U) Negative [facility] Work Phone: [phone] Laboratory - Urinalysison Protein Ql (U) Negative [facility] Work Phone: [phone] Quantitative serum or plasma 3 hour gestational glucose tolerance panelon 08-12-2021 Glucose tolerance 3 hours gestational panel See comment [facility] Work Phone: [phone] Comment on above: FASTING 82 Col: [...] Auto (Unsp spec) [#/Vol] 1.79 10*3/uL 0.83-4.51 [facility] Work Phone: Basophil percentageon 2021 Basophils/100 WBC (Bld) 0.3 % 0-1 [facility] Work Phone: Eosinophils/100 WBC (Bld) 0.1 % 0-5 [facility] Work Phone: Neutrophils (Bld) [#/Vol] 5.0 10*3/uL 2.0-7.7 [facility] Work Phone: Neutrophils/100 WBC (Bld) 69.4 % 47-70 [facility] Work Phone: WBC (Bld) [#/Vol] 7.2 10*3/uL 4.4-11.0 [facility] Work Phone: Blood erythrocytes count (nu mber/volume)on 08-04-2021 RBC (Bld) [#/Vol] 3.77 10*6/uL 4.2-5.4 [facility] Work Phone: Blood hemoglobin measurement (mass/volume)on 08-04-2021 Hemoglobin (Bld) [Mass/Vol] 12.4 g/dL 12.0-15.0 [facility] Work Phone: Blood lymphocytes/100 leukoc yteson 08-04-2021 Lymphocytes/100 WBC (Bld) 25.0 % 19-41 [facility] Work Phone: Blood monocytes/100 leukocyt eson 08-04-2021 Monocytes/100 WBC (Bld) 4.6 % 0-10 [facility] Work Phone: [phone] Blood platelet mean volumeon 08-04-2021 Platelet mean volume (Bld) [Entitic vol] 10.7 fL 6.2-12.0 [facility] Work Phone: Determination of erythrocyte mean corpuscular volume (MCV)on 08-04-2021 MCV (RBC) [Entitic vol] 96.0 fL 81-99 [facility] Work Phone: [phone] Gestational diabetes screen 1-hour screen with 50g oral glucose loadon 08-04-2021 Glucose 1 Hr post 50 g glucose PO [Mass/Vol] 136 mg/dL 70-140 [facility] Work Phone: Hematocrit Auto (Bld) [Volum e fraction]on 08-04-2021 Hematocrit (Bld) [Volume fraction] 36.2 % 37-47 [facility] Work Phone: Laboratory - Chemistry and C hemistry - challengeon 08-04-2021 Glucose Ql (U) Negative [facility] Work Phone: Laboratory - Hematology and Cell countson 08-04-2021 Erythrocyte distribution width (RBC) [Entitic vol] 45.3 fL 35.1-43.9 [facility] Work Phone: Erythrocyte distribution width (RBC) [Ratio] 12.8 % 11.6-14.6 [facility] Work Phone: [phone] Immature granulocytes/100 WBC (Bld) 0.600 % 0.0-0.9 [facility] Work Phone: Comment on above: IG% - Immature Granu locytes (promyelocytes, myelocytes and metamyelocytes) > 1% indicates that a LEFT SHIFT is Present. MCH (RBC) [Entitic mass] 32.9 pg 27.0-32.0 [facility] Work Phone: [phone] Nucleated RBC/100 WBC (Bld) [Ratio] 0 % 0-5 [facility] Work Phone: Laboratory - Urinalysison Protein Ql (U) Negative [facility] Work Phone: MCHC Auto (RBC) [Mass/Vol]on 08-04-2021 MCHC (RBC) [Mass/Vol] 34.3 g/dL 32-36 [facility] Work Phone: Platelets bldon 08-04-2021 Platelets (Bld) [#/Vol] 213 10*3/uL 150-450 [facility] Work Phone: Laboratory - Chemistry and C hemistry - challengeon 07-04-2021 Glucose Ql (U) Negative [facility] Work Phone: Laboratory - Urinalysison Protein Ql (U) Negative [facility] Work Phone: Laboratory - Chemistry and C hemistry - challengeon 06-09-2021 Glucose Ql (U) Negative [facility] Work Phone: Laboratory - Urinalysison Protein Ql (U) Negative [facility] Work Phone: Laboratory - Chemistry and C hemistry - challengeon 05-13-2021 Glucose Ql (U) Negative [facility] Work Phone: Laboratory - Urinalysison Protein Ql (U) Negative [facility] Work Phone: No Panel Information Group B Streptococcus Culture Group B Beta Streptococcus is not isolated. [facility] Work Phone: Vital Signs Date Time Vital Sign Value Performing Clinician Facility 02-16-2025 15:40-0400 Body height 165.1 cm Suzanne DOAN Work Phone: [facility] 02-16-2025 15:40-0400 Body mass index (BMI) [Ratio] 31.9 kg/m2 Suzanne DOAN Work Phone: [facility] 02-16-2025 15:40-0400 Body weight 87.14 kg Suzanne Haagen AUDIT MACHINE OPERATOR-C Work Phone: 2(315)[phone] [place] [address] 02-16-2025 15:40-0400 Diastolic blood pressure 72 mm[Hg] Suzanne Haagen AUDIT MACHINE OPERATOR-C Work Phone: 7(594)331-820102 [place] [address] 02-16-2025 15:40-0400 Systolic blood pressure 109 mm[Hg] Suzanne Haagen AUDIT MACHINE OPERATOR-C Work Phone: 2(341)582-673102 [place] [address] 02-06-2025 10:12-0400 Body mass index (BMI) [Ratio] 31.4 kg/m2 Suzanne Haagen AUDIT MACHINE OPERATOR-C Work Phone: 4(703)676-595502 [place] [address] 02-06-2025 10:12-0400 Body weight 85.72 kg Suzanne Haagen AUDIT MACHINE OPERATOR-C Work Phone: 1(662)238-407902 [place] [address] 02-06-2025 10:12-0400 Diastolic blood pressure 75 mm[Hg] Suzanne Haagen AUDIT MACHINE OPERATOR-C Work Phone: 5(475)955-710802 [place] [address] 02-06-2025 10:12-0400 Systolic blood pressure 114 mm[Hg] Suzanne Haagen AUDIT MACHINE OPERATOR-C Work Phone: 4(390)299-148002 [place] [address] 01-23-2025 08:03-0400 Body height 165.1 cm Suzanne Haagen AUDIT MACHINE OPERATOR-C Work Phone: 5(866)380-666702 [place] [address] 01-23-2025 08:03-0400 Body mass index (BMI) [Ratio] 30.3 kg/m2 Suzanne Haagen AUDIT MACHINE OPERATOR-C Work Phone: 7(340)253-627502 [place] [address] 01-23-2025 08:03-0400 Body weight 82.72 kg Suzanne Haagen AUDIT MACHINE OPERATOR-C Work Phone: 6(496)545-002502 [place] [address] 01-23-2025 08:03-0400 Diastolic blood pressure 74 mm[Hg] Suzanne Haagen AUDIT MACHINE OPERATOR-C Work Phone: 4(973)522-822102 [place] [address] 01-23-2025 08:03-0400 Systolic blood pressure 110 mm[Hg] Suzanne Haagen AUDIT MACHINE OPERATOR-C Work Phone: 7(734)430-757702 [place] [address] 12-26-2024 13:59-0400 Body height 165.1 cm Suzanne Haagen AUDIT MACHINE OPERATOR-C Work Phone: 7(471)840-724802 [place] [address] 12-26-2024 13:59-0400 Body mass index (BMI) [Ratio] 29.7 kg/m2 Suzanne Haagen AUDIT MACHINE OPERATOR-C Work Phone: 4(877)215-262802 [place] [address] 12-26-2024 13:59-0400 Body weight 80.99 kg Suzanne Haagen AUDIT MACHINE OPERATOR-C Work Phone: 1(860)738-219002 [place] [address] 12-26-2024 13:59-0400 Diastolic blood pressure 70 mm[Hg] Suzanne Haagen AUDIT MACHINE OPERATOR-C Work Phone: 3(017)815-420402 [place] [address] 12-26-2024 13:59-0400 Systolic blood pressure 106 mm[Hg] Suzanne Haagen AUDIT MACHINE OPERATOR-C Work Phone: 9(797)371-045602 [place] [address] 11-28-2024 14:39-0400 Body height 165.1 cm Suzanne Haagen AUDIT MACHINE OPERATOR-C Work Phone: 1(260)420-855202 [place] [address] 11-28-2024 14:39-0400 Body mass index (BMI) [Ratio] 29 kg/m2 Suzanne Haagen AUDIT MACHINE OPERATOR-C Work Phone: 6(350)753-654302 [place] [address] 11-28-2024 14:39-0400 Body weight 79.01 kg Suzanne Haagen AUDIT MACHINE OPERATOR-C Work Phone: 4(221)133-637902 [place] [address] 11-28-2024 14:39-0400 Diastolic blood pressure 71 mm[Hg] Suzanne Haagen AUDIT MACHINE OPERATOR-C Work Phone: 7(377)662-219402 [place] [address] 11-28-2024 14:39-0400 Systolic blood pressure 109 mm[Hg] Suzanne Haagen AUDIT MACHINE OPERATOR-C Work Phone: 5(788)338-009602 [place] [address] 10-27-2024 08:32-0400 Body height 165.1 cm Suzanne Haagen AUDIT MACHINE OPERATOR-C Work Phone: 3(043)839-541802 [place] [address] 10-27-2024 08:28-0400 Body mass index (BMI) [Ratio] 28 kg/m2 Suzanne Haagen AUDIT MACHINE OPERATOR-C Work Phone: 3(499)342-430102 [place] [address] 10-27-2024 08:28-0400 Body weight 76.43 kg Suzanne Haagen AUDIT MACHINE OPERATOR-C Work Phone: 8(701)555-275202 [place] [address] 10-27-2024 08:28-0400 Diastolic blood pressure 70 mm[Hg] Suzanne Haagen AUDIT MACHINE OPERATOR-C Work Phone: 0(610)955-861702 [place] [address] 10-27-2024 08:28-0400 Systolic blood pressure 108 mm[Hg] Suzanne Haagen AUDIT MACHINE OPERATOR-C Work Phone: 8(432)888-879102 [place] [address] 10-01-2024 10:20-0400 Body height 165.1 cm Suzanne Haagen AUDIT MACHINE OPERATOR-C Work Phone: 1(349)212-107202 [place] [address] 10-01-2024 10:18-0400 Body mass index (BMI) [Ratio] 27.8 kg/m2 Suzanne Haagen AUDIT MACHINE OPERATOR-C Work Phone: 6(660)268-519802 [place] [address] 10-01-2024 10:18-0400 Body weight 75.74 kg Suzanne Haagen AUDIT MACHINE OPERATOR-C Work Phone: 1(036)703-038002 [place] [address] 10-01-2024 10:18-0400 Diastolic blood pressure 78 mm[Hg] Suzanne Haagen AUDIT MACHINE OPERATOR-C Work Phone: 8(116)499-228902 [place] [address] 10-01-2024 10:18-0400 Systolic blood pressure 110 mm[Hg] Suzanne Haagen AUDIT MACHINE OPERATOR-C Work Phone: 1(470)584-321902 [place] [address] 09-18-2024 08:53-0400 Body height 165.1 cm Suzanne Haagen AUDIT MACHINE OPERATOR-C Work Phone: 6(580)487-430302 [place] [address] 09-18-2024 08:53-0400 Body mass index (BMI) [Ratio] 27.9 kg/m2 Suzanne Haagen AUDIT MACHINE OPERATOR-C Work Phone: 2(766)396-887502 [place] [address] 09-18-2024 08:53-0400 Body weight 76.2 kg Suzanne Haagen AUDIT MACHINE OPERATOR-C Work Phone: 0(103)854-415202 [place] [address] 09-18-2024 08:53-0400 Diastolic blood pressure 68 mm[Hg] Suzanne Haagen AUDIT MACHINE OPERATOR-C Work Phone: [facility] 09-18-2024 08:53-0400 Systolic blood pressure 112 mm[Hg] Suzanne Haagen AUDIT MACHINE OPERATOR-C Work Phone: [facility] 09-04-2024 13:13-0400 Body height 165.1 cm Suzanne Haagen AUDIT MACHINE OPERATOR-C Work Phone: [facility] 09-04-2024 13:13-0400 Body mass index (BMI) [Ratio] 28.1 kg/m2 Suzanne Haagen AUDIT MACHINE OPERATOR-C Work Phone: 0(134)914-673536 [place] [address] 09-04-2024 13:13-0400 Body weight 76.65 kg Suzanne Haagen AUDIT MACHINE OPERATOR-C Work Phone: 3(814)613-369202 [place] [address] 09-04-2024 13:13-0400 Diastolic blood pressure 74 mm[Hg] Suzanne Haagen AUDIT MACHINE OPERATOR-C Work Phone: 1(605)492-658502 [place] [address] 09-04-2024 13:13-0400 Systolic blood pressure 115 mm[Hg] Suzanne Haagen AUDIT MACHINE OPERATOR-C Work Phone: [facility] 11-30-2023 13:00-0400 Body height 166.4 cm Suzanne Haagen LAB AIDE.DIE SET UP WORKER Work Phone: [facility] 11-30-2023 13:00-0400 Body mass index (BMI) [Ratio] 28.35 kg/m2 Suzanne Haagen LAB AIDE.DIE SET UP WORKER Work Phone: [facility] 11-30-2023 13:00-0400 Body weight 78.47 kg Suzanne Haagen LAB AIDE.DIE SET UP WORKER Work Phone: [facility] 11-30-2023 13:00-0400 Diastolic blood pressure 74 mm[Hg] Suzanne Haagen LAB AIDE.DIE SET UP WORKER Work Phone: [facility] 11-30-2023 13:00-0400 Heart rate 72 /min Suzanne Haagen LAB AIDE.DIE SET UP WORKER Work Phone: [facility] 11-30-2023 13:00-0400 Respiratory rate 16 /min Suzanne Haagen LAB AIDE.DIE SET UP WORKER Work Phone: [facility] 11-30-2023 13:00-0400 Systolic blood pressure 118 mm[Hg] Suzanne Guallpa LAB AIDE.DIE SET UP WORKER Work Phone: [facility] 05-14-2023 16:00-0500 Body height 165.1 cm AUDIT MACHINE OPERATOR-C Suzanne Guallpa AUDIT MACHINE OPERATOR Work Phone: 6(925)938-727102 [place] [address] 05-14-2023 16:00-0500 Body mass index (BMI) [Ratio] 29.1 kg/m2 AUDIT MACHINE OPERATOR-C Suzanne Guallpa AUDIT MACHINE OPERATOR Work Phone: 4(993)588-507802 [place] [address] 05-14-2023 16:00-0500 Body weight 79.37 kg AUDIT MACHINE OPERATOR-C Suzanne Guallpa AUDIT MACHINE OPERATOR Work Phone: 1(857)148-626602 [place] [address] 05-14-2023 16:00-0500 Diastolic blood pressure 81 mm[Hg] AUDIT MACHINE OPERATOR-C Suzanne Guallpa AUDIT MACHINE OPERATOR Work Phone: 1(866)520-939502 [place] [address] 05-14-2023 16:00-0500 Systolic blood pressure 137 mm[Hg] AUDIT MACHINE OPERATOR-C Suzanne Guallpa AUDIT MACHINE OPERATOR Work Phone: 6(385)769-478502 [place] [address] 04-27-2023 15:40-0500 Body temperature 98.5 [degF] AUDIT MACHINE OPERATOR-C Suzanne Guallpa AUDIT MACHINE OPERATOR Work Phone: 9(242)875-088502 [place] [address] 04-27-2023 15:40-0500 Diastolic blood pressure 69 mm[Hg] AUDIT MACHINE OPERATOR-C Suzanne Guallpa AUDIT MACHINE OPERATOR Work Phone: 4(327)823-672002 [place] [address] 04-27-2023 15:40-0500 Heart rate 72 /min AUDIT MACHINE OPERATOR-C Suzanne Guallpa AUDIT MACHINE OPERATOR Work Phone: 0(236)862-572502 [place] [address] 04-27-2023 15:40-0500 Respiratory rate 16 /min AUDIT MACHINE OPERATOR-C Suzanne Guallpa AUDIT MACHINE OPERATOR Work Phone: 4(024)993-496702 [place] [address] 04-27-2023 15:40-0500 SaO2% (BldA) [Mass fraction] 96 % AUDIT MACHINE OPERATOR-C Suzanne Guallpa AUDIT MACHINE OPERATOR Work Phone: 3(026)817-979702 [place] [address] 04-27-2023 15:40-0500 Systolic blood pressure 97 mm[Hg] AUDIT MACHINE OPERATOR-C Suzanne Guerreroagen AUDIT MACHINE OPERATOR Work Phone: 6(231)085-295602 [place] [address] 04-27-2023 12:56-0500 Body height 165.1 cm AUDIT MACHINE OPERATOR-C Suzanne Haagen AUDIT MACHINE OPERATOR Work Phone: 8(712)090-429002 [place] [address] 04-27-2023 12:56-0500 Body mass index (BMI) [Ratio] 29.2 kg/m2 AUDIT MACHINE OPERATOR-C Suzanne Guerreroagen AUDIT MACHINE OPERATOR Work Phone: 1(831)894-763202 [place] [address] 04-27-2023 12:56-0500 Body weight 79.7 kg AUDIT MACHINE OPERATOR-C Suzanne Haagen AUDIT MACHINE OPERATOR Work Phone: 6(272)002-572402 [place] [address] 04-27-2023 08:33-0500 Body mass index (BMI) [Ratio] 29.5 kg/m2 AUDIT MACHINE OPERATOR-C Suzanne Guerreroagen AUDIT MACHINE OPERATOR Work Phone: 0(414)320-081902 [place] [address] 04-27-2023 08:33-0500 Body weight 80.34 kg AUDIT MACHINE OPERATOR-C Suzanne Guerreroagen AUDIT MACHINE OPERATOR Work Phone: 3(434)675-512302 [place] [address] 04-27-2023 08:33-0500 Diastolic blood pressure 76 mm[Hg] AUDIT MACHINE OPERATOR-C Suzanne Haagen AUDIT MACHINE OPERATOR Work Phone: 7(251)936-144602 [place] [address] 04-27-2023 08:33-0500 Systolic blood pressure 110 mm[Hg] AUDIT MACHINE OPERATOR-C Suzanne Guerreroagen AUDIT MACHINE OPERATOR Work Phone: 9(460)794-250802 [place] [address] 03-30-2023 08:28-0500 Body height 165.1 cm AUDIT MACHINE OPERATOR-C Suzanne Haagen AUDIT MACHINE OPERATOR Work Phone: 8(306)804-496202 [place] [address] 03-30-2023 08:25-0500 Body mass index (BMI) [Ratio] 29.7 kg/m2 AUDIT MACHINE OPERATOR-C Suzanne Haagen AUDIT MACHINE OPERATOR Work Phone: 1(094)153-934502 [place] [address] 03-30-2023 08:25-0500 Body weight 81.19 kg AUDIT MACHINE OPERATOR-C Suzanne Haagen AUDIT MACHINE OPERATOR Work Phone: 6(895)636-387702 [place] [address] 03-30-2023 08:25-0500 Diastolic blood pressure 78 mm[Hg] AUDIT MACHINE OPERATOR-C Suzanne Haagen AUDIT MACHINE OPERATOR Work Phone: [facility] 03-30-2023 08:25-0500 Systolic blood pressure 114 mm[Hg] FRANKI Guallpa AUDIT MACHINE OPERATOR Work Phone: [facility] 12-26-2022 08:35-0400 Body temperature 98.29 [degF] Justina Praisler-Wood LAB AIDE.DIE SET UP WORKER Work Phone: [facility] 12-26-2022 08:35-0400 Body weight 78.38 kg Justina Praisler-Wood LAB AIDE.DIE SET UP WORKER Work Phone: [facility] 12-26-2022 08:35-0400 Diastolic blood pressure 64 mm[Hg] Justina Praisler-Wood LAB AIDE.DIE SET UP WORKER Work Phone: [facility] 12-26-2022 08:35-0400 Heart rate 86 /min Justina Praisler-Wood LAB AIDE.DIE SET UP WORKER Work Phone: [facility] 12-26-2022 08:35-0400 Respiratory rate 18 /min Justina Praisler-Wood LAB AIDE.DIE SET UP WORKER Work Phone: [facility] 12-26-2022 08:35-0400 SaO2% (BldA) [Mass fraction] 98 % Justina Praisler-Wood LAB AIDE.DIE SET UP WORKER Work Phone: [facility] 12-26-2022 08:35-0400 Systolic blood pressure 112 mm[Hg] Justina Praisler-Wood LAB AIDE.DIE SET UP WORKER Work Phone: [facility] 11-30-2022 11:31-0400 Body height 165.1 cm No Primary Care Physician [facility] 11-30-2022 11:28-0400 Body mass index (BMI) [Ratio] 28.5 kg/m2 No Primary Care Physician [facility] 11-30-2022 11:28-0400 Body weight 77.62 kg No Primary Care Physician [facility] 11-30-2022 11:28-0400 Diastolic blood pressure 87 mm[Hg] No Primary Care Physician [facility] 11-30-2022 11:28-0400 Systolic blood pressure 125 mm[Hg] No Primary Care Physician [facility] 10-21-2021 12:58-0400 Diastolic blood pressure 76 mm[Hg] No Primary Care Physician [facility] Work Phone: 10-21-2021 12:58-0400 Heart rate 73 /min No Primary Care Physician [facility] Work Phone: 10-21-2021 12:58-0400 SaO2% (BldA) [Mass fraction] 98 % No Primary Care Physician [facility] Work Phone: 10-21-2021 12:58-0400 Systolic blood pressure 112 mm[Hg] No Primary Care Physician [facility] Work Phone: 10-21-2021 12:57-0400 Body temperature 97.3 [degF] No Primary Care Physician [facility] Work Phone: 10-21-2021 12:57-0400 Respiratory rate 14 /min No Primary Care Physician [facility] Work Phone: 10-20-2021 11:51-0400 Body height 165.1 cm No Primary Care Physician [facility] Work Phone: 10-20-2021 11:51-0400 Body mass index (BMI) [Ratio] 31.4 kg/m2 No Primary Care Physician [facility] Work Phone: 10-20-2021 11:51-0400 Body weight 85.8 kg No Primary Care Physician [facility] Work Phone: 10-14-2021 13:18-0400 Body mass index (BMI) [Ratio] 31.9 kg/m2 No Primary Care Physician [facility] Work Phone: 10-14-2021 13:18-0400 Body weight 87.08 kg No Primary Care Physician [facility] Work Phone: 10-14-2021 13:18-0400 Diastolic blood pressure 72 mm[Hg] No Primary Care Physician [facility] Work Phone: 10-14-2021 13:18-0400 Systolic blood pressure 102 mm[Hg] No Primary Care Physician [facility] Work Phone: 10-06-2021 09:18-0400 Body height 165.1 cm No Primary Care Physician [facility] Work Phone: 10-06-2021 09:18-0400 Body mass index (BMI) [Ratio] 31.4 kg/m2 No Primary Care Physician [facility] Work Phone: 10-06-2021 09:18-0400 Body weight 85.72 kg No Primary Care Physician [facility] Work Phone: 10-06-2021 09:18-0400 Diastolic blood pressure 68 mm[Hg] No Primary Care Physician [facility] Work Phone: 10-06-2021 09:18-0400 Systolic blood pressure 104 mm[Hg] No Primary Care Physician [facility] Work Phone: 09-26-2021 13:35-0400 Body mass index (BMI) [Ratio] 31.1 kg/m2 No Primary Care Physician [facility] Work Phone: 09-26-2021 13:35-0400 Body weight 84.87 kg No Primary Care Physician [facility] Work Phone: 09-26-2021 13:35-0400 Diastolic blood pressure 74 mm[Hg] No Primary Care Physician [facility] Work Phone: 09-26-2021 13:35-0400 Systolic blood pressure 114 mm[Hg] No Primary Care Physician [facility] Work Phone: 09-09-2021 10:41-0400 Body mass index (BMI) [Ratio] 30.2 kg/m2 No Primary Care Physician [facility] Work Phone: 09-09-2021 10:41-0400 Body weight 82.55 kg No Primary Care Physician [facility] Work Phone: 09-09-2021 10:41-0400 Diastolic blood pressure 71 mm[Hg] No Primary Care Physician [facility] Work Phone: 09-09-2021 10:41-0400 Systolic blood pressure 98 mm[Hg] No Primary Care Physician [facility] Work Phone: 08-26-2021 09:04-0400 Body mass index (BMI) [Ratio] 30.1 kg/m2 No Primary Care Physician [facility] Work Phone: 08-26-2021 09:04-0400 Body weight 83.46 kg No Primary Care Physician [facility] Work Phone: 08-26-2021 09:04-0400 Diastolic blood pressure 78 mm[Hg] No Primary Care Physician [facility] Work Phone: 08-26-2021 09:04-0400 Systolic blood pressure 120 mm[Hg] No Primary Care Physician [facility] Work Phone: 08-04-2021 08:27-0400 Body mass index (BMI) [Ratio] 29.6 kg/m2 No Primary Care Physician [facility] Work Phone: 08-04-2021 08:27-0400 Body weight 82.1 kg No Primary Care Physician [facility] Work Phone: 08-04-2021 08:27-0400 Diastolic blood pressure 78 mm[Hg] No Primary Care Physician [facility] Work Phone: 08-04-2021 08:27-0400 Systolic blood pressure 124 mm[Hg] No Primary Care Physician [facility] Work Phone: 08-04-2021 08:27-0400 Body height 166.37 cm No Primary Care Physician [facility] Work Phone: 08-04-2021 08:27-0400 Body mass index (BMI) [Ratio] 29.6 kg/m2 No Primary Care Physician [facility] Work Phone: 08-04-2021 08:27-0400 Body weight 82.1 kg No Primary Care Physician [facility] Work Phone: 08-04-2021 08:27-0400 Diastolic blood pressure 78 mm[Hg] No Primary Care Physician [facility] Work Phone: 08-04-2021 08:27-0400 Systolic blood pressure 124 mm[Hg] No Primary Care Physician [facility] Work Phone: 07-04-2021 10:21-0400 Body weight 82.1 kg No Primary Care Physician [facility] Work Phone: 07-04-2021 10:21-0400 Body weight 82.1 kg No Primary Care Physician [facility] Work Phone: 07-04-2021 09:42-0400 Body mass index (BMI) [Ratio] 47.8 kg/m2 No Primary Care Physician [facility] Work Phone: 07-04-2021 09:42-0400 Diastolic blood pressure 64 mm[Hg] No Primary Care Physician [facility] Work Phone: 07-04-2021 09:42-0400 Systolic blood pressure 110 mm[Hg] No Primary Care Physician [facility] Work Phone: 07-04-2021 09:42-0400 Body mass index (BMI) [Ratio] 47.8 kg/m2 No Primary Care Physician [facility] Work Phone: 07-04-2021 09:42-0400 Diastolic blood pressure 64 mm[Hg] No Primary Care Physician [facility] Work Phone: 07-04-2021 09:42-0400 Systolic blood pressure 110 mm[Hg] No Primary Care Physician [facility] Work Phone: 06-09-2021 08:02-0500 Body mass index (BMI) [Ratio] 29.4 kg/m2 No Primary Care Physician [facility] Work Phone: 06-09-2021 08:02-0500 Body weight 81.41 kg No Primary Care Physician [facility] Work Phone: 06-09-2021 08:02-0500 Diastolic blood pressure 80 mm[Hg] No Primary Care Physician [facility] Work Phone: 06-09-2021 08:02-0500 Systolic blood pressure 120 mm[Hg] No Primary Care Physician [facility] Work Phone: 05-13-2021 08:42-0500 Body mass index (BMI) [Ratio] 28.7 kg/m2 No Primary Care Physician [facility] Work Phone: 05-13-2021 08:42-0500 Body weight 79.49 kg No Primary Care Physician [facility] Work Phone: 05-13-2021 08:42-0500 Diastolic blood pressure 80 mm[Hg] No Primary Care Physician [facility] Work Phone: 05-13-2021 08:42-0500 Systolic blood pressure 116 mm[Hg] No Primary Care Physician [facility] Work Phone: Encounters Encounter Date Encounter Type Care Provider Facility Start: 03-23-2025 ambulatory Suzanne Guallpa NP Facil ity:[facility] Start: 03-06-2025 ambulatory Suzanne Guallpa AUDIT MACHINE OPERATOR Facil ity:[facility] Start: 02-16-2025 End: 02-16-2025 ambulatory Fidelia Otoole [place] [place]: 02-06-2025 End: 02-06-[address] Jenna Hartley DO -[facility] Work Phone: Start: 02-06-2025 End: 02-06-2025 ambulatory Suzanne Guallpa AUDIT MACHINE OPERATOR-C Work Phone: -[facility] Start: 01-23-2025 End: 01-23-2025 Patient encounter procedure Carmita Sierra CNM -[facility] Work Phone: Start: 01-23-2025 End: 01-23-2025 ambulatory Suzanne Guallpa AUDIT MACHINE OPERATOR-C Work Phone: -[facility] Start: 01-23-2025 End: 01-23-2025 ambulatory Dominique Patten Facility:[facility] Start: 12-26-2024 End: 12-26-[address] Dominique Patten MD -[facility] Work Phone: Start: 12-26-2024 End: 12-26-2024 ambulatory Suzanne Guallpa AUDIT MACHINE OPERATOR-C Work Phone: -[facility] Start: 11-28-2024 End: 11-28-2024 Patient encounter procedure Carmita Sierra CNM -[facility] Work Phone: Start: 11-28-2024 End: 11-28-2024 ambulatory Suzanne Guallpa AUDIT MACHINE OPERATOR-C Work Phone: -[facility] Start: 11-24-2024 End: 11-24-2024 ambulatory JENNA VARMA [facility] Start: 10-27-2024 End: 10-27-2024 Patient encounter procedure Fidelia Otoole AUDIT MACHINE OPERATOR-C -[facility] Work Phone: Start: 10-27-2024 End: 10-27-2024 ambulatory Suzanne Guallpa AUDIT MACHINE OPERATOR-C Work Phone: [facility] Start: 10-02-2024 End: 12-02-2024 Follow-up encounter Lilli Ledbetter PA-C Work Phone: Dermatology Start: 10-01-2024 End: 10-01-[address] Jenna Hartley DO -[facility] Work Phone: Start: 10-01-2024 End: 10-01-2024 ambulatory Suzanne Guallpa AUDIT MACHINE OPERATOR-C Work Phone: [facility] Work Phone: Start: 10-01-2024 End: 10-01-2024 ambulatory Jenna Hartley Facility:[facility] Start: 09-29-2024 End: 09-29-2024 Patient encounter procedure Lilli FELIX-Lamin Work Phone: Dermatology Comment on above: Multiple benign nevi of upper extremity, lower extremity, and trunk (Primary Dx); Melanocytic nevi of face; Lentigines; Holt angioma; Seborrheic keratoses; Neoplasm of unspecified behavior of bone, soft tissue, and skin Start: 09-29-2024 End: 09-29-2024 ambulatory [facility] Facility:[facility] Start: 09-18-2024 End: 09-18-[address] Dominique Patten MD -[facility] Work Phone: Start: 09-18-2024 End: 09-18-2024 ambulatory Suzanne Guallpa AUDIT MACHINE OPERATOR-C Work Phone: [facility] Work Phone: Start: 09-04-2024 End: 09-04-2024 ambulatory Suzanne Guallpa AUDIT MACHINE OPERATOR-C Work Phone: [facility] Work Phone: Start: 09-04-2024 End: 09-04-[address] Dominique Patten MD -[facility] Work Phone: Start: 09-04-2024 End: 09-04-[address] Dominique Patten MD -[facility] Work Phone: Start: 09-04-2024 End: 09-04-2024 ambulatory Suzanne Hakayla AUDIT MACHINE OPERATOR-C Work Phone: [facility] Work Phone: Start: 09-04-2024 End: 09-04-2024 ambulatory Suzanne Guallpa AUDIT MACHINE OPERATOR Facility:[facility] Start: 09-02-2024 End: 09-02-2024 Patient encounter procedure Carmita Sierra CNM -Ultrasound, [facility] Work Phone: Start: 09-01-2024 End: 09-02-2024 ambulatory Suzanne Guallpa AUDIT MACHINE OPERATOR-C Work Phone: [facility] Work Phone: Start: 09-01-2024 End: 09-01-2024 Patient encounter procedure Carmita Sierra CNM -Lab, [facility] Start: 09-01-2024 End: 09-01-2024 ambulatory Suzanne Guallpa AUDIT MACHINE OPERATOR Facility:[facility] Start: 08-29-2024 End: 08-29-2024 ambulatory Suzanne Guallpa AUDIT MACHINE OPERATOR-C Work Phone: [facility] Work Phone: Start: 08-29-2024 End: 08-29-[address] Jenna Hartley DO -Lab, [facility] Start: 08-29-2024 End: 08-29-2024 ambulatory Suzanne Guallpa AUDIT MACHINE OPERATOR Facility:[facility] Start: 08-27-2024 End: 08-27-2024 ambulatory Suzanne Guallpa AUDIT MACHINE OPERATOR-C Work Phone: [facility] Work Phone: Start: 08-27-2024 End: 08-27-2024 Patient encounter procedure Jessica Toure AUDIT MACHINE OPERATOR-C -Laboratory, [place] Start: 08-27-2024 End: 08-27-2024 ambulatory Jessica Toure Facility:[facility] Start: 02-02-2024 End: 02-02-2024 Patient encounter procedure [facility] Nurse Antony Work Phone: [facility] Start: 02-02-2024 End: 02-02-2024 ambulatory Immunization [facility] Nurse Antony Work Phone: [facility] [place] Start: 11-30-2023 End: 11-30-2023 ambulatory SUZANNE GUALLPA Facility:[facility] Start: 11-30-2023 End: 11-30-2023 Patient encounter procedure Suzanne Guallpa LAB AIDE.DIE SET UP WORKER Work Phone: [facility] Comment on above: Wellness examination (Primary Dx); Bee sting allergy Start: 11-30-2023 End: 11-30-2023 Patient encounter status Suzanne Guallpa APRN.DIE SET UP WORKER Work Phone: [facility] Start: 09-28-2023 End: 09-28-2023 Patient encounter procedure Lilli Ledbetter PA-C Work Phone: Dermatology Comment on above: Multiple benign nevi of upper extremity, lower extremity, and trunk (Primary Dx); Melanocytic nevi of face; Lentigines; Holt angioma; Seborrheic keratoses Start: 07-31-2023 Non-patient / Non-visit AUDIT MACHINE OPERATOR-Lamin Guallpa AUDIT MACHINE OPERATOR Work Phone: [facility] Start: 07-30-2023 End: 07-30-2023 ambulatory AUDIT MACHINE OPERATOR-Lamin Guallpa AUDIT MACHINE OPERATOR Work Phone: [facility] Work Phone: Start: 07-30-2023 End: 07-30-2023 Patient encounter procedure AUDIT MACHINE OPERATOR-Lamin Guallpa AUDIT MACHINE OPERATOR Work Phone: [facility] Work Phone: Start: 05-18-2023 End: 05-18-2023 ambulatory AUDIT MACHINE OPERATOR-Lamin Guallpa AUDIT MACHINE OPERATOR Work Phone: [facility] Work Phone: Start: 05-18-2023 End: 05-18-2023 Patient encounter procedure AUDIT MACHINE OPERATOR-Lamin Guallpa AUDIT MACHINE OPERATOR Work Phone: [facility]-Ultrasound, [facility] Work Phone: Start: 05-14-2023 End: 05-14-2023 Patient encounter procedure AUDIT MACHINE OPERATOR-Lamin Guallpa AUDIT MACHINE OPERATOR Work Phone: [facility] Work Phone: Start: 04-27-2023 Non-patient / Non-visit AUDIT MACHINE OPERATOR-Lamin Guallpa AUDIT MACHINE OPERATOR Work Phone: [facility] Start: 04-27-2023 End: 04-27-2023 Admission to same day surgery center AUDIT MACHINE OPERATOR-Lamin Guallpa AUDIT MACHINE OPERATOR Work Phone: [facility] Start: 04-27-2023 End: 04-27-2023 ambulatory AUDIT MACHINE OPERATOR-Lamin Guallpa AUDIT MACHINE OPERATOR Work Phone: [facility] Work Phone: Start: 04-27-2023 End: 04-27-2023 Patient encounter procedure AUDIT MACHINE OPERATOR-C Suzanne Guallpa AUDIT MACHINE OPERATOR Work Phone: [facility] Work Phone: Start: 04-09-2023 End: 04-09-2023 ambulatory AUDIT MACHINE OPERATOR-C Suzanne Guallpa AUDIT MACHINE OPERATOR Work Phone: [facility] Work Phone: Start: 04-09-2023 End: 04-09-2023 Patient encounter procedure AUDIT MACHINE OPERATOR-C Suzanne Guallpa AUDIT MACHINE OPERATOR Work Phone: [facility] Start: 03-30-2023 End: 03-30-2023 ambulatory AUDIT MACHINE OPERATOR-C Suzanne Guallpa AUDIT MACHINE OPERATOR Work Phone: [facility] Work Phone: Start: 03-30-2023 End: 03-30-2023 Patient encounter procedure AUDIT MACHINE OPERATOR-C Suzanne Guallpa AUDIT MACHINE OPERATOR Work Phone: [facility]-Laboratory, Specimen Work Phone: Start: 03-30-2023 End: 03-30-2023 Patient encounter procedure AUDIT MACHINE OPERATOR-C Suzanne Guallpa AUDIT MACHINE OPERATOR Work Phone: [facility] Work Phone: Start: 03-28-2023 End: 03-28-2023 ambulatory AUDIT MACHINE OPERATOR-C Suzanne Guallpa AUDIT MACHINE OPERATOR Work Phone: [facility] Work Phone: Start: 03-28-2023 End: 03-28-2023 Patient encounter procedure AUDIT MACHINE OPERATOR-C Suzanne Guallpa AUDIT MACHINE OPERATOR Work Phone: [facility] Ul[facility] Work Phone: Start: 03-19-2023 End: 03-19-2023 ambulatory No Primary Care Physician [facility] Work Phone: Start: 03-19-2023 End: 03-19-2023 Patient encounter procedure No Primary Care Physician [facility] Work Phone: Start: 03-13-2023 End: 03-13-2023 ambulatory No Primary Care Physician [facility] Work Phone: Start: 03-13-2023 End: 03-13-2023 Patient encounter procedure No Primary Care Physician [facility]-Laboratory Work Phone: Start: 03-11-2023 End: 03-11-2023 ambulatory No Primary Care Physician [facility] Work Phone: Start: 03-11-2023 End: 03-11-2023 Patient encounter procedure No Primary Care Physician [facility]Labor[facility] Work Phone: Start: 02-03-2023 End: 02-03-2023 ambulatory [facility] Nurse Antony Work Phone: [facility] [place] Start: 12-26-2022 End: 12-26-2022 Patient encounter procedure Justina Beach APRN.CNP Work Phone: [facility] Comment on above: Strep throat (Primar y Dx); Sore throat Start: 11-30-2022 End: 11-30-2022 Patient encounter procedure No Primary Care Physician [facility] Work Phone: Start: 02-11-2022 End: 02-11-2022 ambulatory [facility] Nurse [place] Work Phone: [facility] Comment on above: Arrived Start: 10-21-2021 Non-patient / Non-visit No Primary Care Physician [facility] Start: 10-20-2021 Non-patient / Non-visit No Primary Care Physician [facility] Start: 10-20-2021 End: 10-21-2021 Evaluation and management of inpatient No Primary Care Physician [facility] Start: 10-14-2021 End: 10-14-2021 Patient encounter procedure No Primary Care Physician [facility] Start: 10-07-2021 End: 10-07-2021 Patient encounter procedure No Primary Care Physician [facility], [facility] Start: 10-06-2021 End: 10-06-2021 Patient encounter procedure No Primary Care Physician [facility] Start: 09-26-2021 End: 09-26-2021 Patient encounter procedure No Primary Care Physician [facility] Start: 09-09-2021 End: 09-09-2021 Patient encounter procedure No Primary Care Physician [facility] Start: 08-26-2021 End: 08-26-2021 Patient encounter procedure No Primary Care Physician [facility] Start: 08-12-2021 End: 08-12-2021 Patient encounter procedure No Primary Care Physician [facility]Labor[facility] Start: 08-04-2021 End: 08-04-2021 Patient encounter procedure No Primary Care Physician [facility] Start: 07-04-2021 End: 07-04-2021 Patient encounter procedure No Primary Care Physician [facility] Start: 06-09-2021 End: 06-09-2021 Patient encounter procedure No Primary Care Physician [facility] Start: 05-13-2021 End: 05-13-2021 Patient encounter procedure No Primary Care Physician [facility] Procedures Date Procedure Procedure Detail Performing Clinician Start: 01-23-2025 Serologic test for syphilis Suzanne Guallpa AUDIT MACHINE OPERATOR-C Work Phone: Start: 10-01-2024 Hepatitis C antibody measurement Suzanne Xiaohongshu AUDIT MACHINE OPERATOR-C Work Phone: Comment on above: Reactive: Presumptiv e evidence of antibodies to HCV. Follow CDC recommendations for supplemental testing.Non-Reactive: Antibodies to HCV were not detected; does not exclude the possibility of exposure to HCVReactive Results are presumptive evidence of antibodies to HCV. Follow CDC recommendations for supplemental testing.Order confirmation testing: HCV Quant by PCR testing - HCVPCR #[id number] Non Reactive: < 0.8 Equivocal: >/= 0.8 to < 1.0 Reactive: >/= 1.0The CDC requires that a reactive/equivocal HCV antibody result be sent out for confirmation. HCV Quant by PCR testing. Start: 10-01-2024 Procedure Suzanne garza AUDIT MACHINE OPERATOR-C Work Phone: Start: 10-01-2024 Rubella IgG measurement Suzanne Guallpa AUDIT MACHINE OPERATOR-C Work Phone: Comment on above: Antibody Result: Int erpretationNon-Reactive: Non- ImmuneReactive: ImmuneThe following results were obtained with the [employer] Rubella IgG assay. Results from assays of other manufacturers cannot be used interchangeably. Start: 10-01-2024 Serologic test for syphilis Suzanne Guallpa AUDIT MACHINE OPERATOR-C Work Phone: Start: 09-29-2024 SKIN / NAIL BIOPSY Lilli Ledbetter PA-C Work Phone: Start: 09-04-2024 Urine culture Suzanne conn AUDIT MACHINE OPERATOR-C Work Phone: Start: 09-02-2024 Transvaginal obstetr ic ultrasonography Suzanne Guallpa AUDIT MACHINE OPERATOR-C Work Phone: Start: 07-30-2023 Salpingography AUDIT MACHINE OPERATOR-C Chr isty Saloni AUDIT MACHINE OPERATOR Work Phone: Start: 05-18-2023 Pelvic echography AUDIT MACHINE OPERATOR-C Suzanne Guallpa AUDIT MACHINE OPERATOR Work Phone: Start: 04-27-2023 Dilation and curetta ge of uterus AUDIT MACHINE OPERATOR-C Suzanne Guallpa AUDIT MACHINE OPERATOR Work Phone: Start: 03-30-2023 Urine culture AUDIT MACHINE OPERATOR-C Chri starmida Guallpa AUDIT MACHINE OPERATOR Work Phone: Start: 03-28-2023 Transvaginal obstetr ic ultrasonography AUDIT MACHINE OPERATOR-C Suzanne Guallpa AUDIT MACHINE OPERATOR Work Phone: Start: 03-19-2023 Transvaginal obstetr ic [...] P,Tdap,Td Vaccine (11 - Td or Tdap) [facility] Start: 02-13-2026 Urine microalbumin profile [facility] Start: 10-02-2025 End: 10-02-2025 Patient encounter procedure 10/02/2025 8:15 AM EDT Office Visit Dermatology [address] [place] [address] Lilli Ledbetter PA-C [id number] [place] [address] Annual FBSE Dermatology Comment on above: Annual FBSE Start: 02-16-2025 End: 02-16-2025 Patient encounter procedure Advanced maternal age (AMA) in -[place] [facility] Work Phone: Start: 01-23-2025 CBC W Auto Different ial panel - Blood [facility] Start: 01-23-2025 Measurement of gluco se 2 hours after glucose challenge for glucose tolerance test [facility] Start: 01-23-2025 Serologic test for syphilis [facility] Start: 01-23-2025 [facility] Start: 12-22-2024 Influenza vaccination Influenz a Vaccine (#1) [facility] Start: 11-29-2024 Anxiety Screening Anxiety Screening [facility] Comment on above: Postponed from 11/23 (Declined at this time) Start: 11-29-2024 Covid-19 Vaccine () Covid-19 Vaccine () [facility] Comment on above: Postponed from 12/22 (Declined at this time) Start: 2024 HPV TESTING HPV TESTING [facility] Start: 2024 PAP TESTING PAP TESTING [facility] Start: 2024 Screening for malign ant neoplasm of cervix [facility] Start: 11-21-2024 Screening for malign ant neoplasm of cervix Cervical Cancer Screening [facility] Comment on above: Postponed from 11/23 (Currently Scheduled) Start: 10-01-2024 CBC W Auto Different ial panel - Blood [facility] Start: 10-01-2024 Hepatitis C antibody measurement [facility] Start: 10-01-2024 Procedure [facility] Start: 10-01-2024 Rubella IgG measurement [facility] Start: 10-01-2024 Serologic test for syphilis [facility] Start: 10-01-2024 End: 10-01-2024 [facility] Start: 09-29-2024 End: 09-29-2024 Patient encounter procedure 09/29/2024 9:00 AM EDT Office Visit Dermatology [address] [place], [place] [id number] Lilli Ledbetter PA-C [id number] [place] [address] yearly full body skin check Dermatology Comment on above: yearly full body ski n check Start: 09-04-2024 Bacteria identified in Urine by Culture Urine Culture [facility] Start: 09-04-2024 Chlamydia deoxyribon ucleic acid detection [facility] Start: 09-04-2024 [facility] Start: 12-23-2023 Covid-19 Vaccine ( season) Covid-19 Vaccine ( season) [facility] Start: 12-23-2023 Influenza vaccination Influenz a Vaccine (#1) [facility] Start: 11-30-2023 Depression Screening Depression Scre ening [facility] Comment on above: Postponed from 11/23 (Declined at this time) Start: 04-27-2023 Patient discharge [facility] Start: 04-27-2023 Ambulation without limitation [facility] Start: 04-27-2023 Medical regimen orde rs management [facility] Start: 04-27-2023 Medication education [facility] Start: 04-27-2023 Procedure discontinued [facility] Start: 04-27-2023 Taking patient vital signs [facility] Start: 04-27-2023 Vital signs measurements [facility] Start: 04-27-2023 [facility] Start: 04-27-2023 Anesthesia incomplete/missed ANES INCOMPL/MISSED AB PX [facility] Start: 04-27-2023 Tx incomplete aborti on any trimester surgical TREATMENT OF MISCARRIAGE [facility] Start: 04-27-2023 Beta 2 glycoprotein 1 Ab IgA and IgG and IgM panel - Serum [facility] Start: 04-27-2023 Cardiolipin IgA and IgG and IgM panel - Serum [facility] Start: 04-27-2023 Cardiolipin IgG and IgM panel - Serum [facility] Start: 04-27-2023 Lupus anticoagulant assay [facility] Start: 04-23-2023 Behavioral Health Screening Behavioral Health Screening [facility] Start: 03-30-2023 Chlamydia deoxyribon ucleic acid detection [facility] Start: 12-22-2022 Covid-19 Vaccine ( season) Covid-19 Vaccine () [facility] Start: 12-22-2022 Influenza vaccination INFLUENZA (#1) [facility] Start: 2022 Screening for malign ant neoplasm of cervix Cervical Cancer Screening [facility] Start: 04-23-2022 DEPRESSION ASSESSMENT DEPRESSION ASS ESSMENT [facility] Start: 10-21-2021 Patient discharge [facility] Work Phone: Start: 10-20-2021 Administration of medication [facility] Work Phone: Start: 10-20-2021 Application of ice c ollar, cap or bag [facility] Work Phone: Start: 10-20-2021 Catheterization of vein [facility] Work Phone: Start: 10-20-2021 Introduction of urin chuck catheter [facility] Work Phone: Start: 10-20-2021 Measuring intake and output [facility] Work Phone: Start: 10-20-2021 Notification of physician [facility] Work Phone: Start: 10-20-2021 Procedure discontinued [facility] Work Phone: Start: 10-20-2021 Provision of activit y privileges [facility] Work Phone: Start: 10-20-2021 Vital signs measurements [facility] Work Phone: Start: 10-20-2021 [facility] Work Phone: Start: 10-20-2021 [facility] Start: 10-20-2021 Verification routine [facility] Work Phone: Start: 04-23-2021 DEPRESSION ASSESSMENT DEPRESSION ASS ESSMENT [facility] Start: 03-30-2021 COVID-19 VACCINE (4 - Booster for Pfizer series) COVID-19 VACCINE (4 - Booster for Pfizer series) [facility] Start: 03-30-2021 COVID-19 VACCINE (4 - Pfizer series) COVID-19 VACCINE (4 - Pfizer series) [facility] Start: 11-24-2007 Anxiety Screening Anxiety Screening [facility] Start: 11-24-2007 Depression Screening Depression Scre ening [facility] Beta 2 glycoprotein 1 Ab IgA and IgG and IgM panel - Serum [facility] Beta 2 glycoprotein 1 IgA Ab [Presence] in Serum [facility] Beta 2 glycoprotein 1 IgG Ab [Presence] in Serum [facility] Beta 2 glycoprotein 1 IgM Ab [Presence] in Serum [facility] Cardiolipin IgA Ab [Units/volume] in Serum by Immunoassay [facility] Cardiolipin IgA and IgG and IgM panel - Serum [facility] Cardiolipin IgG Ab [Units/volume] in Serum or Plasma [facility] Cardiolipin IgG and IgM panel - Serum [facility] Cardiolipin IgM Ab [Units/volume] in Serum or Plasma [facility] CBC W Auto Different ial panel - Blood [facility] CBC W Auto Different ial panel - Blood [facility] CBC W Auto Different ial panel - Blood [facility] Chlamydia deoxyribon ucleic acid detection [facility] Erythrocyte mean corpuscular volume determination [facility] Erythrocyte mean corpuscular volume determination [facility] Hematocrit [Volume Fraction] of Blood [facility] Hematocrit [Volume Fraction] of Blood [facility] Hemoglobin [Mass/vol ume] in Blood [facility] Hemoglobin [Mass/vol ume] in Blood [facility] Hepatitis B surface antigen measurement [facility] Hepatitis B virus tenorio rface Ag [Presence] in Serum [facility] Hepatitis C antibody measurement [facility] Hepatitis C antibody measurement [facility] HIV 1+2 Ab+HIV1 p24 Ag [Presence] in Serum or Plasma by Immunoassay [facility] Leukocytes [#/volume ] in Blood [facility] Leukocytes [#/volume ] in Blood [facility] Lupus anticoagulant assay [facility] Lupus anticoagulant neutralization platelet [Time] in Platelet poor plasma by Coagulation assay [facility] Mean corpuscular hemoglobin concentration determination [facility] Mean corpuscular hemoglobin concentration determination [facility] Mean corpuscular hemoglobin determination [facility] Mean corpuscular hemoglobin determination [facility] Measurement of gluco se 2 hours after glucose challenge for glucose tolerance test [facility] Neisseria gonorrhoea e rRNA [Presence] in Unspecified specimen by NICOLAS with probe detection [facility] Neisseria gonorrhoea e rRNA [Presence] in Unspecified specimen by NICOLAS with probe detection [facility] Neutrophil count [facility] Neutrophil count [facility] Neutrophil percent differential count [facility] Neutrophil percent differential count [facility] Partial thromboplast in time ratio [facility] Patient Education After a Vaginal [facility] Work Phone: Patient referral [facility] Work Phone: PCR test for Chlamyd ia trachomatis [facility] PCR test for Chlamyd ia trachomatis [facility] Platelets [#/volume] in Blood [facility] Platelets [#/volume] in Blood [facility] Procedure [facility] Red blood cell count [facility] Red blood cell count [facility] Red cell distributio n width determination [facility] Red cell distributio n width determination [facility] Rubella IgG measurement [facility] Rubella IgG measurement [facility] Serologic test for syphilis [facility] Serologic test for syphilis [facility] Thrombin time [facility] Tissue Pathology bio psy report SURGICAL PATHOLOGY Lab Routine Neoplasm of unspecified behavior of bone, soft tissue, and skin 09/29/2024 9:39 AM EDT [facility] Work Phone: Treponema sp Ab [Pre sence] in Serum [facility] Ultrasound scan for growth [facility] [place]rine culture [facility] Immunization Date Immunization Notes Care Provider Annamaria garcia 02-16-2025 influenza, injectabl e, madin austin canine kidney, preservative free Suzanne Haagen AUDIT MACHINE OPERATOR-C Work Phone: [facility] 02-16-2025 tetanus toxoid, reduced diphtheria toxoid, and acellular pertussis vaccine, adsorbed Suzanne Haagen AUDIT MACHINE OPERATOR-C Work Phone: [facility] 02-02-2024 influenza, seasonal, injectable Immunization [place] Work Phone: [facility] 02-02-2024 influenza virus vaccine, unspecified formulation Lilli Ledbetter PA-C Work Phone: [facility] 02-03-2023 influenza, injectabl e, quadrivalent, contains preservative Immunization [place] Work Phone: [facility] 02-03-2023 influenza virus vaccine, unspecified formulation Suzanne Haagen LAB AIDE.DIE SET UP WORKER Work Phone: [facility] 02-11-2022 influenza, injectabl e, quadrivalent, contains preservative Immunization [place] Work Phone: [facility] 08-26-2021 tetanus toxoid, reduced diphtheria toxoid, and acellular pertussis vaccine, adsorbed No Primary Care Physician [facility] 06-06-2020 Covid (Pfizer) No Primary Ca re Physician [facility] 09-19-2019 tetanus toxoid, reduced diphtheria toxoid, and acellular pertussis vaccine, adsorbed No Primary Care Physician [facility] 09-19-2019 diphtheria, tetanus toxoids and acellular pertussis vaccine, unspecified formulation No Primary Care Physician [facility] Work Phone: 05-29-2019 Flucelvax Quad [id number] (PF) (flu vac qs 2019(4 yr up)CD(PF)) 60 mcg (15 mcg x No Primary Care Physician [facility] Work Phone: 02-14-2016 influenza, injectabl e, quadrivalent, contains preservative Immunization [place] Work Phone: [facility] Work Phone: 02-14-2016 tetanus toxoid, reduced diphtheria toxoid, and acellular pertussis vaccine, adsorbed Immunization [place] Work Phone: [facility] Work Phone: 10-31-2007 hepatitis A vaccine, unspecified formulation Immunization [place] Work Phone: [facility] Work Phone: 09-26-2007 human papilloma viru s vaccine, quadrivalent Immunization [place] Work Phone: [facility] Work Phone: 05-01-2007 human papilloma viru s vaccine, quadrivalent Immunization [place] Work Phone: [facility] Work Phone: 02-23-2007 human papilloma viru s vaccine, quadrivalent Immunization [place] Work Phone: [facility] Work Phone: 10-31-2006 hepatitis A vaccine, unspecified formulation Immunization [place] Work Phone: [facility] 11-02-2004 Meningococcal, MCV4, unspecified conjugate formulation(groups A, C, Y and W-135) Immunization [place] Work Phone: [facility] 10-29-2002 measles, mumps and rubella virus vaccine Immunization [place] Work Phone: [facility] Work Phone: 10-29-2002 tetanus and diphther ia toxoids, adsorbed, preservative free, for adult use (2 Lf of tetanus toxoid and 2 Lf of diphtheria toxoid) Immunization [place] Work Phone: [facility] 06-30-1998 hepatitis B vaccine, pediatric or pediatric/adolescent dosage Immunization [place] Work Phone: [facility] Work Phone: 01-08-1998 hepatitis B vaccine, pediatric or pediatric/adolescent dosage Immunization [place] Work Phone: [facility] Work Phone: 12-09-1997 hepatitis B vaccine, pediatric or pediatric/adolescent dosage Immunization [place] Work Phone: [facility] Work Phone: 06-23-1995 tuberculin skin test ; purified protein derivative solution, intradermal Immunization [place] Work Phone: [facility] 11-30-1994 diphtheria, tetanus toxoids and acellular pertussis vaccine Immunization [place] Work Phone: [facility] Work Phone: 11-30-1994 trivalent poliovirus vaccine, live, oral Immunization [place] Work Phone: [facility] Work Phone: 05-26-1991 diphtheria, tetanus toxoids and pertussis vaccine Immunization [place] Work Phone: [facility] Work Phone: 05-26-1991 trivalent poliovirus vaccine, live, oral Immunization [place] Work Phone: [facility] Work Phone: 02-26-1991 haemophilus influenz ae type b vaccine, conjugate unspecified formulation Immunization [place] Work Phone: [facility] Work Phone: 02-26-1991 measles, mumps and rubella virus vaccine Immunization [place] Work Phone: [facility] Work Phone: 11-27-1990 tuberculin skin test ; purified protein derivative solution, intradermal Immunization [place] Work Phone: [facility] 05-09-1990 diphtheria, tetanus toxoids and pertussis vaccine Immunization [place] Work Phone: [facility] Work Phone: 05-09-1990 haemophilus influenz ae type b vaccine, conjugate unspecified formulation Immunization [place] Work Phone: [facility] Work Phone: 04-15-1990 Chicken Pox (disease) Immuni zation [place] Work Phone: [facility] Work Phone: 03-11-1990 diphtheria, tetanus toxoids and pertussis vaccine Immunization [place] Work Phone: [facility] Work Phone: 03-11-1990 haemophilus influenz ae type b vaccine, conjugate unspecified formulation Immunization [place] Work Phone: [facility] Work Phone: 03-11-1990 trivalent poliovirus vaccine, live, oral Immunization [place] Work Phone: [facility] Work Phone: 01-18-1990 diphtheria, tetanus toxoids and pertussis vaccine Immunization [place] Work Phone: [facility] Work Phone: 01-18-1990 trivalent poliovirus vaccine, live, oral Immunization [place] Work Phone: [facility] Work Phone: Payers Date Payer Category Payer Self-pay [id number] 2018 Private Health Insurance [id number] 2018 Private Health Insurance [id number] 1989 Unknown [id number] Unknown [id number] Unknown [facility] PACKAGE PLAN [id number] Unknown [id number] Unknown [id number] Unknown [id number] Unknown [id number] Unknown [id number] Unknown [id number] Unknown [id number] Unknown [id number] Unknown [id number] Unknown [id number] Unknown [id number] Unknown [id number] Unknown [id number] Unknown [id number] Unknown [id number] Unknown [id number] Unknown [id number] Unknown [id number] Social History Date Type Detail Facility Start: 08-04-2021 End: 05-14-2023 Tobacco smoking status NHIS Unknown if ever smoked [facility] Start: 1990 Sex Assigned At Female [facility] Start: 11-29-2021 End: 08-29-2024 Tobacco smoking status NHIS Never smoked tobacco [facility] Start: 11-29-2021 Tobacco use and exposure Smokeless tobacco non-user [facility] Start: 11-29-2021 End: 11-30-2023 Alcohol intake Current drinker of alcohol (finding) [facility] Start: 11-22-2021 History SDOH Alcohol Frequency 2 [facility] Start: 11-22-2021 History SDOH Alcohol Std Drinks 1 [facility] Start: 11-22-2021 History SDOH Social Connections Phone 5 [facility] Start: 11-22-2021 History SDOH Social Connections Meetings 3 [facility] Start: 02-14-2016 Alcohol Comment Sometimes [facility] Start: 1990 Sex Assigned At Not on file [facility] Start: 11-22-2021 End: 02-02-2024 History of Social function [facility] Start: 11-22-2021 End: 02-02-2024 Social connection and isolation panel [facility] Do you belong to any clubs or organizations such as shinto groups, unions, fraternal or athletic groups, or school groups? Yes [facility] Are you now , , , , never or living with a partner? [facility] How often to you hav e a drink containing alcohol? Monthly or less [facility] How many standard dr inks containing alcohol do you have on a typical day? 1 or 2 [facility] How often do you hav e 6 or more drinks on 1 occasion? Less than monthly [facility] Start: 03-24-2012 How hard is it for you to pay for the very basics like food, housing, medical care, and heating Not hard at all [facility] Do you feel stress - tense, restless, nervous, or anxious, or unable to sleep at night because your mind is troubled all the time - these days [OSQ] Not at all [facility] (I/We) worried mario er (my/our) food would run out before (I/we) got money to buy more. Never true [facility] In the past 12 month s, was there a time when you were not able to pay the mortgage or rent on time? No [facility] Start: 02-19-2020 Gender identity Identifies as female gender (finding) [facility] Start: 11-22-2021 Sexual orientation Heterosexual (finding) [facility] Goals Date Patient Goal Desired Activity /State Functional Status Date Assessment Result Facility 10-19-2014 Are you deaf, or do you have serious difficulty hearing No 10/19/2014 3:38 PM EDT Camilo Das LPN No [facility] 10-19-2014 Are you blind, or do you have serious difficulty seeing, even when wearing glasses No 10/19/2014 3:38 PM ARACELIST Camilo Das LPN No [facility] 10-19-2014 Do you have serious difficulty walking or climbing stairs No 10/19/2014 3:38 PM EDT Camilo Das LPN No [facility] 10-19-2014 Do you have difficul ty dressing or bathing No 10/19/2014 3:38 PM EDT Camilo Das LPN No [facility] 10-19-2014 Because of a physica l, mental, or emotional condition, do you have difficulty doing errands alone such as visiting a physician's office or shopping No 10/19/2014 3:38 PM EDT Camilo Das LPN No [facility] Mental Status Date Assessment Result Facility 04-27-2023 Cognitive function Voice/Name;To [facility]Elyssa newell [facility] Work Phone: 10-19-2014 Because of a physica l, mental, or emotional condition, do you have serious difficulty concentrating, remembering, or making decisions No 10/19/2014 3:38 PM EDT Camilo Das LPN No [facility] Clinical Notes 12-26-2022 to 02-06-2025 Note Date & Type Note Facility 02-06-2025 Progress note [facility] 01-23-2025 Progress note [facility] 12-26-2024 Progress note [facility] 12-26-2024 Progress note Note Date/Time December 26, 2024 2:23pm [facility] [address], [address] [place] [address] OFFICE VISIT Date of Service: 12/26/24 MR#: [id number] Acct: [id number] Name: LALITHA MONTERO Rep #: [id number] : 1990 Provider: Dr. 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 Required: No Is patient in pain?: No [...] completed Surgical History S/P dilation and curettage [place] teeth extracted History of tonsillectomy Family History Grandfather Diabetes Maternal Heart disease Maternal Dementia Maternal Father Heart disease Social History adopted: No household members: spouse and children housing: house number of children: 2 current occupational status: employed current occupation: [employer] current occupational exposures/hazards: No pets and animals: [...] 5-6 times per week duration: 15-30 minutes/day kesha/judaism: Muslim seatbelt use: always do you feel safe at home: Yes 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 Date Name GA/Weeks Outcome Route Bth Weight Gen Labor Lgth Anesthesia Del Locatn Provider FOB Unknown 2021 Jann 38 live - full term 7#4oz Male non e [facility] NONA [place] 12/15/19 Phong 38 live - full term 7lbs 9oz Male 7 hours none [facility] Sandor 05/01/23 12 spontaneous Delivery Date: [...] high risk , unspecified, second trimester Comment: [id number], ALPHONSO 04/18/25, [place] Nesbitt, Benjie (3) : [...] mg PO BID 60 tabs 6RF 12/26/24 9903 <Electronically signed by Dominique freeman MD> Date _ Dominique Patten MD [facility] Signature: Date (if applicable) CC: ~ [facility] [employer] [facility] Work Phone: 1(968) 130-257708-08-2025 Progress [facility] [address] [place] [address], [address] [place] [id number] OFFICE VISIT Date of Service: 11/28/24 MR#: [id number] Acct: [id number] Name: LALITHA MONTERO Rep #: [id number] : 1990 Provider: LUISANA Sierra Age/Sex: 34/F Location: [facility] Status: Signed Intake Vital Signs 09/18/24 08:53 10/01/24 10:20 10/27/24 08:32 11/28/24 14:39 Height 5 ft 5 in 5 ft 5 in 5 ft 5 in 5 ft 5 in Weight: 174 lb 3 oz BMI 29.0 BP 109/71 Intake Visit Reasons: 19wk ob Chief Complaint: 19wk ob Socket Welder Helper Required: No Is patient in pain?: No [...] completed Surgical History S/P dilation and curettage [place] teeth extracted History of tonsillectomy Family History Grandfather Diabetes Maternal Heart disease Maternal Dementia Maternal Father Heart disease Social History adopted: No household members: spouse and children housing: house number of children: 2 current occupational status: employed current occupation: [employer] current occupational exposures/hazards: No pets and animals: [...] 5-6 times per week duration: 15-30 minutes/day kesha/judaism: Muslim seatbelt use: always do you feel safe at home: Yes 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 Date Name GA/Weeks Outcome Route Bth Weight Gen Labor Lgth Anesthesia Del Locatn Provider FOB Unknown 2021 Jann 38 live - full term 7#4oz Male non e [facility] NONA [place] 12/15/19 Phong 38 live - full term 7lbs 9oz Male 7 hours none [facility] Sandor 05/01/23 12 spontaneous Delivery Date: [...] high risk , unspecified, second trimester Comment: [id number], ALPHONSO 04/18/25, Phong Nesbitt, Benjie (3) : [...] Cosigner Signature: Date (if applicable) CC: ~ [facility]08-08-2025 Progress note Author Carmita Sierra [facility] Note Date/Time November 28, 2024 2:5 7pm [facility] [address] [place] [address], [address] [place] [address] OFFICE VISIT Date of Service: 11/28/24 MR#: [id number] Acct: [id number] Name: LALITHA MONTERO Rep #: [id number] : 1990 Provider: LUISANA Sierra Age/Sex: 34/F Location: [facility] Status: Signed Intake Vital Signs 09/18/24 08:53 10/01/24 10:20 10/27/24 08:32 11/28/24 14:39 Height 5 ft 5 in 5 ft 5 in 5 ft 5 in 5 ft 5 in Weight: 174 lb 3 oz BMI 29.0 BP 109/71 Intake Visit Reasons: 19wk ob Chief Complaint: 19wk ob Socket Welder Helper Required: No Is patient in pain?: No [...] completed Surgical History S/P dilation and curettage [place] teeth extracted History of tonsillectomy Family History Grandfather Diabetes Maternal Heart disease Maternal Dementia Maternal Father Heart disease Social History adopted: No household members: spouse and children housing: house number of children: 2 current occupational status: employed current occupation: [employer] current occupational exposures/hazards: No pets and animals: [...] 5-6 times per week duration: 15-30 minutes/day kesha/judaism: Muslim seatbelt use: always do you feel safe at home: Yes 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 Date Name GA/Weeks Outcome Route Bth Weight Infant Gen Labor Lgth Anesthesia Del Locatn Provider FOB Unknown 2021 Jann 38 live - full term 7#4oz Male non e [facility] NON[facility] [place] 12/15/19 Phong 38 live - full term 7lbs 9oz Male 7 hours none [facility] Sandor 05/01/23 12 spontaneous Delivery Date: [...] high risk , unspecified, second trimester Comment: [id number], ALPHONSO 04/18/25, Phong Nesbitt, Benjie (3) : [...] this visit. GA appropriate handout given. 11/28/24 [id number] <Electronically signed by Carmita block CNM> Date _ Carmita Sierra CNM Cosigner Signature: Date (if applicable) CC: ~ [facility] Work Phone: 1(494) 911-899107-07-2025 Evaluation note* Diagnosis Onset Date Resolution Status [...] Supervision of high-risk acute January 23 8:01am [facility] Work Phone: 1(685) 970-603507-07-2025 Evaluation note* Diagnosis Onset Date Resolution Status [...] Supervision of high-risk acute February 16 3:37pm [facility] Work Phone: 1(177) 534-726106-11-2025 Evaluation note* Diagnosis Onset Date Resolution Status [...] Supervision of high-risk acute January 23 8:01am [facility] Work Phone: 1(302) 356-755706-11-2025 Progress [facility] [address] [facility], [address] [place] [id number] OFFICE VISIT Date of Service: 10/01/24 MR#: [id number] Acct: [id number] Name: LALITHA MONTERO Rep #: [id number] : 1990 Provider: Dr. 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: No Is patient in pain?: No [...] completed Surgical History S/P dilation and curettage [place] teeth extracted History of tonsillectomy Family History Grandfather Diabetes Maternal Heart disease Maternal Dementia Maternal Father Heart disease Social History adopted: No household members: spouse and children housing: house number of children: 2 current occupational status: employed current occupation: [employer] current occupational exposures/hazards: No pets and animals: [...] 5-6 times per week duration: 15-30 minutes/day kesha/judaism: Muslim seatbelt use: always do you feel safe at home: Yes 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 Date Name GA/Weeks Outcome Route Bth Weight Infant Gen Labor Lgth Anesthesia Del Locatn Provider FOB Unknown 2021 Jann 38 live - full term 7#4oz Male non e [facility] NONA [place] 12/15/19 Phong 38 live - full term 7lbs 9oz Male 7 hours none [facility] Sandor 05/01/23 12 spontaneous Delivery Date: [...] Shaheed DO> Date _ Jenna Hartley DO [facility] Signature: Date (if applicable) CC: ~ [facility]06-09-2025 NoteHNO ID: [id number] Author: MELLY DARNELL RN Service: ? Author [...] Contact information provided to patient. [facility] History of Present illness Narrative* Melly Darnell [...] digits, and nails. (Exam of nails deferred, omani in place; Exam offeet deferred, shoes in [...] symptoms Lilli Ledbetter PA-C [facility] Instructions* Patient Instructions* Melly Darnell RN - [...] symptoms occur, please call the office at [phone]. [facility]2025 NoteHNO ID: [id number] Author: LILLI LEDBETTER PA-C Service: ? Author Type: Physician Postdoctoral Research Fellow Type: Progress Notes Filed: 09/29/2024 09:56 Note [...] digits, and nails. (Exam of nails deferred, omani in place; Exam of feet deferred, shoes [...] Sign Out: Specimens ar (more content not included)...[facility]05-15-20[facility] Evaluation note* Diagnosis Onset Date Resolution Status Admit Date Advanced maternal age (AMA) in acute September 04, 2024 1 :06pm acute September 04, 2024 1:06pm Supervision of high-risk a cute September 04, 2024 1:06pm [facility] Work Phone: 1(304) 573-796905-15-2025 Evaluation note* Diagnosis Onset Date Resolution Status Admit Date Advanced maternal age (AMA) in acute September 04, 2024 1 :06pm acute September 04, 2024 1:06pm Supervision of high-risk a cute September 04, 2024 1:06pm Advanced maternal age (AMA) in acute September 18, 2024 8 :47am acute September 18, 2024 8:47am Supervision of high-risk a cute September 18, 2024 8:47am [facility] Work Phone: 1([phone]) 802-586805-15-2025 Evaluation note* Diagnosis Onset Date Resolution Status [...] of high-risk acute October 01, 2024 10:06am [facility] Work Phone: 1([phone]) 147-671205-15-2025 Evaluation note* Diagnosis Onset Date Resolution Status [...] high-risk acute October 27, 2024 8 :24am [facility] Work Phone: 1([phone]) 146-146405-15-2025 Evaluation note* Diagnosis Onset Date Resolution Status [...] of high-risk acute November 28, 2024 2:37pm [facility] [employer] [facility] Work Phone: 1(891) 684-219505-15-2025 Evaluation note* Diagnosis Onset Date Resolution Status [...] of high-risk acute December 26 025 1:56pm [facility] Work Phone: 1(750) 425-660705-15-2025 [facility] Women's Care [address] [place] [address], [address] [place] [address] OFFICE VISIT Date of Service: 09/04/24 MR#: [id number] Acct: [id number] Name: LALITHA MONTERO Rep #: [id number] : 1990 Provider: Dr. Damaso Patten MD Age/Sex: 33/F Location: [facility] Status: Signed Intake Vital Signs 12/03/23 08:53 09/04/24 13:13 Height 5 ft 5 in 5 ft 5 in Weight: 169 lb BMI 28.1 BP 115/74 Intake Visit Reasons: New OB, LMP 07/12, ALPHONSO 04/18 Chief Complaint: NOB Socket Welder Helper Required: No Is patient in pain?: No [...] completed Surgical History S/P dilation and curettage [place] teeth extracted History of tonsillectomy Family History Grandfather Diabetes Maternal Heart disease Maternal Dementia Maternal Father Heart disease Social History adopted: No household members: spouse and children housing: house number of children: 2 current occupational status: employed current occupation: [employer] current occupational exposures/hazards: No pets and animals: [...] 5-6 times per week duration: 15-30 minutes/day kesha/judaism: Muslim seatbelt use: always do you feel safe at home: Yes 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 Date Name GA/Weeks Outcome Route Bth Weight Gen Labor Lgth Anesthesia Del Locatn Provider FOB Unknown 2021 Jann 38 live - full term 7#4oz Male non e [facility] NONA [place] 12/15/19 Phong 38 live - full term 7lbs 9oz Male 7 hours none [facility] Sandor 05/01/23 12 spontaneous Delivery Date: [...] History: Positive: Drug/latex allergies/reactions (Sulfa, Bee venom), Agile Coach surgery (D&C)and Uterine anomaly/kosta (heart shaped uterus) [...] comfortable and no acute distress Orientation: alert [facility] Head: normal to inspection, normocephalic and atraumatic [...] Cosigner Signature: Date (if applicable) CC: ~ [facility]05-15-2025 Progress note Author Dominique Patten [facility] Note Date/Time September 04, 2024 2:11p [facility] [address] [place] [address], [address] [place] [address] OFFICE VISIT Date of Service: 09/04/24 MR#: [id number] Acct: [id number] Name: LALITHA MONTERO Rep #: [id number] : 1990 Provider: Dr. Damaso Patten MD Age/Sex: 33/F Location: [facility] Status: Signed Intake Vital Signs 12/03/23 08:53 09/04/24 13:13 Height 5 ft 5 in 5 ft 5 in Weight: 169 lb BMI 28.1 BP 115/74 Intake Visit Reasons: New OB, LMP 07/12, ALPHONSO 04/18 Chief Complaint: NOB Socket Welder Helper Required: No Is patient in pain?: No [...] completed Surgical History S/P dilation and curettage [place] teeth extracted History of tonsillectomy Family History Grandfather Diabetes Maternal Heart disease Maternal Dementia Maternal Father Heart disease Social History adopted: No household members: spouse and children housing: house number of children: 2 current occupational status: employed current occupation: [employer] current occupational exposures/hazards: No pets and animals: [...] 5-6 times per week duration: 15-30 minutes/day kesha/judaism: Muslim seatbelt use: always do you feel safe at home: Yes 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 Date Name GA/Weeks Outcome Route Bth Weight Gen Labor Lgth Anesthesia Del Locatn Provider FOB Unknown 2021 Jann 38 live - full term 7#4oz Male non e [facility] NONA [place] 12/15/19 Phong 38 live - full term 7lbs 9oz Male 7 hours none [facility] Sandor 05/01/23 12 spontaneous Delivery Date: [...] History: Positive: Drug/latex allergies/reactions (Sulfa, Bee venom), Agile Coach surgery (D&C) and Uterine anomaly/kosta (heart shaped [...] comfortable and no acute distress Orientation: alert [facility] Head: normal to inspection, normocephalic and [...] Cosigner Signature: Date (if applicable) CC: ~ [facility] [employer] Work Phone: 1([phone]) 550-600308-09-2024 Instructions* Patient Instructions* Suzanne Guallpa APRN.[facility] - 11/30/2023 1:22 PM EDT Health Promotion: - Eat healthy -- go to [email or web address]gov to get started - Have a yearly [...] drive - Wear sunscreen documented in this encounterMemorial Hospital08-09-2024 NoteHNO ID: [id number] Author: SUZANNE GUALLPA APRN.[facility] Service: ? Author [...] Promotion: - Eat healthy -- go to [employer] to get started - Have a yearly [...] as needed for worsening/no improvement. Suzanne Guallpa APRN.[facility]08-09-2024 History of Present illness Narrative* Suzanne Guallpa APRN.[facility] - 11/30/2023 12:49 PM EDT Chief [...] Promotion: - Eat healthy -- go to [employer] to get started - Have a yearly [...] as needed for worsening/no improvement. Suzanne Guallpa APRN.DIE SET UP WORKER documented in this encounterMemorial Hospital06-07-2024 Instructions* Patient Instructions* Lilli Ledbetter PA-C - [...] size, shape or color. documented in this encounterMemorial Hospital06-07-2024 History of Present illness Narrative* Lilli Ledbetter [...] digits, and nails. (Exam of nails deferred, omani in place) was significant for: Items identified [...] symptoms Lilli Ledbetter PA-C documented in this encounterMemorial Hospital04-12-2024 Evaluation note* Diagnosis Onset Date Resolution Status Miscarriage at 8 to 28 weeks gestation acute Bleeding in early resolved resolved Status post vaginal delivery resolved Supervision of high-risk resolved Miscarriage at 8 to 28 weeks gestation acute Abnormal coagulation profile acute Anticardiolipin antibody positive acute Miscarriage at 8 to 28 weeks gestation acute [facility] Work Phone: 1(395) 350-438104-09-2024 Procedure [facility] 05-23-2023 Evaluation note* Diagnosis Onset Date Resolution Status Bleeding in early resolved resolved Supervision of high-risk resolved Miscarriage at 8 to 28 weeks gestation acute Bleeding in early resolved resolved Status post vaginal delivery resolved Supervision of high-risk resolved Miscarriage at 8 to 28 weeks gestation acute Abnormal coagulation profile acute Anticardiolipin antibody positive acute Miscarriage at 8 to 28 weeks gestation [facility] Work Phone: 1([phone]) 538-253801-05-2024 History and physical note Author Dominique Patten [facility] April 27, 2023 2:07pm Note Date/Time April 27, 2023 2: 03pm [facility] Medical Records Department [address] [place] [address] History & Physical Exam 04/27/23 1401 MR#: [id number] Acct: [id number] Name: LALITHA MONTERO Rep #:[id number] : 1990 32 From: Dominique milner MD PCP: FRANKI Moore Status:[facility] Location: [place] [address] History and Physical Date of Admission: 04/27/23 [facility] [address] [place] [address] OFFICE VISIT Date of Service: 04/27/23 MR#: [id number] Acct: [id number] Name: LALITHA MONTERO Rep #: [id number] : 1990 Provider: LUISANA Sierra Age/Sex: 32/F Location: [facility] Status: Signed Intake Vital Signs 03/30/2308:28 04/27/2407:33 Height 5 ft 5 in 5 ft 5 in Weight: 177 lb 2 oz BMI 29.5 BP 110/76 Intake Visit Reasons: 12 WK OB Socket Welder Helper Required: No Is patient in pain?: No [...] series completed Surgical History History of tonsillectomy [place] teeth extracted Family History Grandfather Diabetes Heart disease Social History adopted: No household members: spouse and children number of children: 2 current occupational status: employed current occupation: [employer] current occupational exposures/hazards: No pets and animals: Yes (not managing litterbox) pets and animals: cat(s) and dog(s) history of recent travel: Yes ([facility]- Feb, [place]-Feb) out of state: Yes out of country: [...] 3-4 times per week duration: 15-30 minutes/day kesha/judaism: Muslim seatbelt use: always do you feel safe at home: Yes additional social history: - 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 Date Name GA/Weeks Outcome Route Bth Weight Gen Labor Lgth Anesthesia Del Locatn Provider FOB Unknown 2021 Jann live - full term Male [facility] 12/15/19 Phong 38 live - full term 7lbs 9oz Male 7 hours none [facility] Sandor HPI 12 WK OB Details: [...] FRANKI Guallpa; Dr. Dominique Patten MD~ Signed [facility] Work Phone: 1([phone]) 399-315801-05-2024 [facility]-27-20[facility] Evaluation note* Diagnosis Onset Date Resolution Status Bleeding in early resolved resolved Supervision of high-risk resolved Miscarriage at 8 to 28 weeks gestation acute Bleeding in early resolved resolved Status post vaginal delivery resolved Supervision of high-risk resolved Miscarriage at 8 to 28 weeks gestation acute [facility] Work Phone: 1([phone]) 569-460609-05-2023 Instructions* Patient Instructions* Justina Beach APRN.DIE SET UP WORKER - 12/26/2022 9:03 AM EDT ASSESSMENT/PLAN: 1. [...] INFLUENZA A/B NAAT, ROUTINE E Satya [employer] SPECIAL EDUCATION PROFESSOR Student TEACHING PROVIDER (Physician/PA/LAB AIDE) NOTE OF PERSONAL INVOLVEMENT IN CARE: I have personally seen and examined the patient and performed the medical decision-making components. I have reviewed the Advanced Practice Registered Nurse (LAB AIDE) Student's documentation and verified the findings in [...] or inability to swallow. documented in this encounterMemorial Hospital09-05-2023 History of Present illness Narrative* Justina Beach APRN.[facility]ILL[facility] - 12/26/2022 8:55 AM EDT This note was created using [employer]. Subjective Lalitha Montero is a 32 year [...] INFLUENZA A/B NAAT, ROUTINE E Satya [employer] SPECIAL EDUCATION PROFESSOR Student TEACHING PROVIDER (Physician/PA/LAB AIDE) NOTE OF PERSONAL INVOLVEMENT IN CARE: I have personally seen and examined the patient and performed the medical decision-making components. I have reviewed the Advanced Practice Registered Nurse (LAB AIDE) Student's documentation and verified the findings in the note as written. Any additions or changes are noted in bold/italics. Signature: Justina Beach Date: 12/26/2022 Time: 9:02 AM documented in this encounterMemorial HospitalDischar summary Author Dominique Patten [facility] April 27, 2023 3:19pm Note Date/Time April 27, 2023 3: 19pm [facility] Medical Records Department [address] [place] [address] Instructions for Home/Discharge Instructions 04/27/23 1518 MR#: [id number] Acct: [id number] Name: LALITHA MONTERO Rep #:[id number] : 1990 32 From: Dominique milner MD PCP: FRANKI Moore Status:REG S [...] Up With: Dominique Patten MD When: Call [phone] to schedule appointment. Test Results: Test results [...] can be placed): Home, Self Care 04/27/23 1780<Electronically signed by Dominique Patten MD>Dominique Patten MD CC: AUDIT MACHINE OPERATOR-C Suzanne Guallpa ~ Signed [facility] Work Phone: evaluation note* Diagnosis Onset Date Resolution Status acute Supervision of other normal acute acute Supervision of other normal acute acute Supervision of other normal [facility] Work Phone: evaluation note* Diagnosis Onset Date Resolution Status acute Supervision of other normal acute acute Supervision of other normal acute Abnormal glucose affecting acute acute Supervision of other normal acute Abnormal glucose affecting acute acute Supervision of other normal acute Abnormal glucose affecting acute acute Supervision of other normal acute Abnormal glucose affecting acute acute Supervision of other normal [facility] Work Phone: Evaluation note* Diagnosis Onset Date [...] vaginal delivery acute Supervision of other normal [facility] Work Phone: Evaluation note* Diagnosis Strep throat- Primary Streptococcal sore throat Sore throat Acute pharyngitis documented in this encounter [facility] HospitalEvaluation note* Diagnosis Onset Date Resolution Status Encounter for routine gynecological examination noneactive [facility] Work Phone: Evaluation note* Diagnosis Onset Date Resolution Status Bleeding in early acute acute Supervision of high-risk acute [facility] Work Phone: Evaluation note* Diagnosis Multiple benign nevi of upper extremity, lower extremity, and trunk- Primary Melanocytic nevi of face Benign neoplasm of skin of other and unspecified parts of face Lentigines Other dyschromia Holt angioma Nevus, non-neoplastic Seborrheic keratoses Other seborrheic keratosis documented in this encounter [facility] HospitalEvaluation note* Diagnosis Wellness examination- Primary 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 documented in this encounter [facility] HospitalEvalubeebe healthcare noteNo assessment information availableWPremier [facility] Work Phone: Evaluation note* Diagnosis Onset Date Resolution Status Admit Date Advanced maternal age (AMA) in acute September 04, 2024 1 :06pm acute September 04, 2024 1:06pm Supervision of high-risk a cute September 04, 2024 1:06pm [facility] Work Phone: Evaluation note* Diagnosis Multiple benign nevi of upper extremity, lower extremity, and trunk- Primary Melanocytic nevi of face Benign neoplasm of skin of other and unspecified parts of face Lentigines Other dyschromia Holt angioma Nevus, non-neoplastic Seborrheic keratoses Other seborrheic keratosis Neoplasm of unspecified behavior of bone, soft tissue, and skin documented in this encounter Memorial HospitalProgress note Author Jenna Hummel [facility] Note Date/Time October 01, 2024 10:5 2am [facility]'s [address], [address] [place] [address] OFFICE VISIT Date of Service: 10/01/24 MR#: [id number] Acct: [id number] Name: LALITHA MONTERO Rep #: [id number] : 1990 Provider: Dr. 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: No Is patient in pain?: No [...] completed Surgical History S/P dilation and curettage [place] teeth extracted History of tonsillectomy Family History Grandfather Diabetes Maternal Heart disease Maternal Dementia Maternal Father Heart disease Social History adopted: No household members: spouse and children housing: house number of children: 2 current occupational status: employed current occupation: [employer] current occupational exposures/hazards: No pets and animals: [...] 5-6 times per week duration: 15-30 minutes/day kesha/judaism: Muslim seatbelt use: always do you feel safe at home: Yes 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 Date Name GA/Weeks Outcome Route Bth Weight Gen Labor Lgth Anesthesia Del Locatn Provider FOB Unknown 2021 Jann 38 live - full term 7#4oz Male non e [facility] NONA [place] 12/15/19 Phong 38 live - full term 7lbs 9oz Male 7 hours none [facility] Sandor 05/01/23 12 spontaneous Delivery Date: [...] Cosigner Signature: Date (if applicable) CC: ~ [facility] Work Phone: Progress note Author Carmita Sierra [facility] Note Date/Time January 23, 2025 8: 20am [facility] Women's Care [address] [place] [address], [address] [place] [address] OFFICE VISIT Date of Service: 01/23/25 MR#: [id number] Acct: [id number] Name: LALITHA MONTERO Rep #: [id number] : 1990 Provider: LUISANA Sierra Age/Sex: 34/F Location: [facility] Status: Signed Intake Vital Signs 11/28/24 14:39 12/26/24 13:59 01/23/25 08:03 Height 5 ft 5 in 5 ft 5 in 5 ft 5 in Weight: 182 lb 6 oz BMI 30.3 BP 110/74 Intake Visit Reasons: 27wk 6D ob/glucose Socket Welder 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 Required: No Is patient in pain?: No [...] completed Surgical History S/P dilation and curettage [place] teeth extracted History of tonsillectomy Family History Grandfather Diabetes Maternal Heart disease Maternal Dementia Maternal Father Heart disease Social History adopted: No household members: spouse and children housing: house number of children: 2 current occupational status: employed current occupation: [employer] current occupational exposures/hazards: No pets and animals: [...] 5-6 times per week duration: 15-30 minutes/day kesha/judaism: Muslim seatbelt use: always do you feel safe at home: Yes 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 Date Name GA/Weeks Outcome Route Bth Weight Infant Gen Labor Lgth Anesthesia Del Locatn Provider FOB Unknown 2021 Jann 38 live - full term 7#4oz Male non e [facility] NONA [place] 12/15/19 Phong 38 live - full term 7lbs 9oz Male 7 hours none [facility] Sandor 05/01/23 12 spontaneous Delivery Date: [...] high risk , unspecified, second trimester Comment: [id number], ALPHONSO 04/18/25, Phong Nesbitt, Benjie (3) : [...] Cosigner Signature: Date (if applicable) CC: ~ [facility] Work Phone: Progrcyp note Author Jenna Hummel [facility] Note Date/Time February 06, 2025 1 0:24am [facility] [address] [place] [address], [address] [place] [address] OFFICE VISIT Date of Service: 02/06/25 MR#: [id number] Acct: [id number] Name: LALITHA MONTERO Rep #: [id number] : 1990 Provider: Dr. 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 Required: No Is patient in pain?: No [...] completed Surgical History S/P dilation and curettage [place] teeth extracted History of tonsillectomy Family History Grandfather Diabetes Maternal Heart disease Maternal Dementia Maternal Father Heart disease Social History adopted: No household members: spouse and children housing: house number of children: 2 current occupational status: employed current occupation: [employer] current occupational exposures/hazards: No pets and animals: [...] 5-6 times per week duration: 15-30 minutes/day kesha/judaism: Muslim seatbelt use: always do you feel safe at home: Yes 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 Date Name GA/Weeks Outcome Route Bth Weight Gen Labor Lgth Anesthesia Del Locatn Provider FOB Unknown 2021 Jann 38 live - full term 7#4oz Male non e [facility] JCaron [place] 12/15/19 Phong 38 live - full term 7lbs 9oz Male 7 hours none [facility] Sandor 05/01/23 12 spontaneous Delivery Date: [...] high risk , unspecified, second trimester Comment: [id number], ALPHONSO 04/18/25, Phong Nesbitt, Benjie (3) : Status: Acute Qualifiers: Weeks of gestation: 29 weeks Qualified Code(s): Z3A.29 - 29 weeks gestation of Comment: NIPT low risk,male Orders: Orders POC Urinalysis 2 Dip (Clinic) Today 02/06/25 1024 <Electronically signed by Jenna Diggs DO> Date _ Jenna Catalanign Signature: Date (if applicable) CC: ~ [facility] [employer] [facility] Work Phone: Reason for referral (narrative)No reason for referral information availableWPremier Health [facility] Work Phone: Chief Complaint and Reason for [...] Supervision of other normal Chief Complaint Annual (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 SECRETARY) E ORDER E-ORDER Reason for Visit Encounter for routin e gynecological examination Chief Complaint Annual (ASSISTANT SECRETARY) E ORDER E-ORDER HEMORRHAGE IN Reason for [...] No December 14 0 8:44am Power of Process Control Programmer No December 14 020 8:44am Advance Directive Response Recorded Date/ Time Living Will No October 20, 2021 11:53am Power of Process Control Programmer No October 20 2 11:53am Advance Directive Response Recorded Date/ Time Living Will No October 20, 2021 10:53am Power of Process Control Programmer No October 20 2 10:53am Advance Directive Response Recorded Date/ Time Living Will No April 27 4 12:56pm Power of Process Control Programmer No April 27, 024 12:56pm Advance Directive Response Recorded Date/ Time Living Will No April 27 4 1:56pm Power of Process Control Programmer No April 27 024 1:56pm Summary Purpose [...] or prosecute any alcohol or drug abuse patient.Memorial HospitalIn the event this information is protected by the Federal Confidentiality of Alcohol and Drug Abuse Patient Records regulations: The Federal rules restrict any use of the information to criminally investigate or prosecute any alcohol or drug abuse patient.Memorial HospitalIn the event this information is protected by the Federal Confidentiality of Alcohol and Drug Abuse Patient Records regulations: The Federal rules restrict any use of the information to criminally investigate or prosecute any alcohol or drug abuse patient.Memorial HospitalIn the event this information is protected by the Federal Confidentiality of Alcohol and Drug Abuse Patient Records regulations: The Federal rules restrict any use of the information to criminally investigate or prosecute any alcohol or drug abuse patient.Memorial HospitalIn the event this information is protected by the Federal Confidentiality of Alcohol and Drug Abuse Patient Records regulations: The Federal rules restrict any use of the information to criminally investigate or prosecute any alcohol or drug abuse patient.Memorial HospitalIn the event this information is protected by the Federal Confidentiality of Alcohol and Drug Abuse Patient Records regulations: The Federal rules restrict any use of the information to criminally investigate or prosecute any alcohol or drug abuse patient.[facility] Hospital[facility] the event this information is protected by the Federal Confidentiality of Alcohol and Drug Abuse Patient Records regulations: The Federal rules restrict any use of the information to criminally investigate or prosecute any alcohol or drug abuse patient.[facility] HospitalIn the event this information is protected by the Federal Confidentiality of Alcohol and Drug Abuse Patient Records regulations: The Federal rules restrict any use of the information to criminally investigate or prosecute any alcohol or drug abuse patient.[facility] Care Teams (unrecognized sec tion and content) [employer]er Relationship Specialty Start Date End Date Suzanne Guallpa APRN.DIE SET UP WORKER [address] [place] [address] PCP - General Family Medicine 11/29/21 Precision Honer Relationship Specialty Start Date End Date Suzanne Guallpa, LAB AIDE.DIE SET UP WORKER [address] [place] [address] PCP - General Family Medicine 11/29/21 Precision Honer Relationship Specialty Start Date End Date Suzanne Guallpa, LAB AIDE.DIE SET UP WORKER [address] [place], [place] [id number] PCP - General Family Medicine 11/29/21 Team Status: Active Member Role Status Dates Suzanne Guallpa AUDIT MACHINE OPERATOR, AUDIT MACHINE OPERATOR-C Primary Care Provider Active Team Status: Inactive Member Role Status Dates No Primary Care Physician Referring Provider Active Dr. Dominique Patten MD Attending Provider Active Team Status: Inactive Member Role Status Dates Suzanne Guallpa AUDIT MACHINE OPERATOR, AUDIT MACHINE OPERATOR-C Primary Care Provider Active Noelle Sexton CNM Attending Provider, Referring Pr ovider Active Team Status: Active Member Role Status Dates Suzanne Guallpa AUDIT MACHINE OPERATOR, AUDIT MACHINE OPERATOR-C Primary Care Provider Active Noelle Sexton CNM Attending Provider, Referring Pr ovider Active Team Status: Inactive Member Role Status Dates Noelle Sexton CNM Attending Provider Active Suzanne Guallpa NP, AUDIT MACHINE OPERATOR-C Primary Care Provider, Referri ng Provider Active Team Status: Inactive Member Role Status Dates Suzanne Guallpa AUDIT MACHINE OPERATOR, AUDIT MACHINE OPERATOR-C Primary Care Provider, Referri ng Provider Active Carmita Sierra CNM Attending Provider Active Team Status: Active Member Role Status Dates Suzanne Guallpa AUDIT MACHINE OPERATOR, AUDIT MACHINE OPERATOR-C Primary Care Provider Active Dr. Dominique Patten MD Attending Pr ovider, Referring Provider, Other Provider Active Team Status: Inactive Member Role Status Dates Suzanne Guallpa AUDIT MACHINE OPERATOR, AUDIT MACHINE OPERATOR-C Primary Care Provider Active Dr. Dominique Patten MD Attending Provider, Referr ing Provider Active Team Status: Inactive Member Role Status Dates Suzanne Guallpa AUDIT MACHINE OPERATOR, AUDIT MACHINE OPERATOR-C Primary Care Provider, Referri ng Provider Active Dr. Dominique Patten MD Attending Provider Active Prec[employer] Honer Relationship Specialty Start Date End Date Suzanne Guallpa, LAB AIDE.DIE SET UP WORKER [address] [place] [address] PCP - General Family Medicine 11/29/21 Precision Honer Relationship Specialty Start Date End Date Suzanne Guallpa, LAB AIDE.DIE SET UP WORKER [address] [place], [place] [address] PCP - General Family Medicine 11/29/21 Precision Honer Relationship Specialty Start Date End Date Suzanne Guallpa, LAB AIDE.DIE SET UP WORKER [address] [facility], [place] [id number] PCP - General Family Medicine 11/29/21 Team Status: Inactive Member Role Status Dates Suzanne Guallpa NP, AUDIT MACHINE OPERATOR-C Primary Care Provider Active Start: August 27, 2024 End: August 27, 2024 FRANKI Francis Attending Provider Active Start: August 27, 2024 End: August 27, 2024 FRANKI Farncis Referring Provider Active Start: August 27, 2024 End: August 27, 2024 Team Status: Active Member Role Status Dates Suzanne Guallpa NP, AUDIT MACHINE OPERATOR-C Primary Care Provider Active Start: August 29, 2024 Dr. Jenna Hartley , DO Attending Provider Activ e Start: August 29, 2024 Dr. Jenna Hartley , DO Referring Provider Activ e Start: August 29, 2024 Team Status: Inactive Member Role Status Dates Suzanne Guallpa NP, AUDIT MACHINE OPERATOR-C Primary Care Provider Active Start: August 29, 2024 End: August 29, 2024 Dr. Jenna Hartley , DO Attending Provider Activ e Start: August 29, 2024 End: August 29, 2024 Dr. Jenna Hartley , DO Referring Provider Activ e Start: August 29, 2024 End: August 29, 2024 Team Status: Active Member Role Status Dates Suzanne Guallpa NP, AUDIT MACHINE OPERATOR-C Primary Care Provider Active Start: September 01, 2024 Carmita Sierra CNM Attending Provider Active S tart: September 01, 2024 Carmita Sierra CNM Referring Provider Active S tart: September 01, 2024 Team Status: Active Member Role Status Dates Suzanne Guallpa AUDIT MACHINE OPERATOR, AUDIT MACHINE OPERATOR-C Primary Care Provider Active Start: September 02, 2024 Carmita Sierra CNM Attending Provider Active S tart: September 02, 2024 Carmita Sierra CNM Referring Provider Active S tart: September 02, 2024 Team Status: Inactive Member Role Status Dates Suzanne Guallpa AUDIT MACHINE OPERATOR, AUDIT MACHINE OPERATOR-C Primary Care Provider Active Start: September 04, 2024 End: September 04, 2024 Suzanne Guallpa AUDIT MACHINE OPERATOR, AUDIT MACHINE OPERATOR-C Referring Provider Active Start: September 04, 2024 End: September 04, 2024 Dr. Dominique Patten MD Attending Provider Active Start: September 04, 2024 End: September 04, 2024 Team Status: Inactive Member Role Status Dates Suzanne Guallpa AUDIT MACHINE OPERATOR, AUDIT MACHINE OPERATOR-C Primary Care Provider Active Start: September 01, 2024 End: September 01, 2024 Carmita Sierra CNM Attending Provider Active S tart: September 01, 2024 End: September 01, 2024 Carmita Sierra CNM Referring Provider Active S tart: September 01, 2024 End: September 01, 2024 Team Status: Active Member Role Status Dates Suzanne Guallpa AUDIT MACHINE OPERATOR, AUDIT MACHINE OPERATOR-C Primary Care Provider Active Start: September 04, 2024 Dr. Dominique Patten MD Attending Provider Active Start: September 04, 2024 Dr. Dominique Patten MD Referring Provider Active Start: September 04, 2024 Team Status: Inactive Member Role Status Dates Suzanne Guallpa AUDIT MACHINE OPERATOR, AUDIT MACHINE OPERATOR-C Primary Care Provider Active Start: September 04, 2024 End: September 04, 2024 Dr. Dominique Patten MD Attending Provider Active Start: September 04, 2024 End: September 04, 2024 Dr. Dominique Patten MD Referring Provider Active Start: September 04, 2024 End: September 04, 2024 Team Status: Inactive Member Role Status Dates Suzanne Guallpa AUDIT MACHINE OPERATOR, AUDIT MACHINE OPERATOR-C Primary Care Provider Active Start: September 02, 2024 End: September 02, 2024 Carmita Sierra CNM Attending Provider Active S tart: September 02, 2024 End: September 02, 2024 Carmita Sierra CNM Referring Provider Active S tart: September 02, 2024 End: September 02, 2024 Team Status: Inactive Member Role Status Dates Suzanne Guallpa AUDIT MACHINE OPERATOR, AUDIT MACHINE OPERATOR-C Primary Care Provider Active Start: September 18, 2024 End: September 18, 2024 Suzanne Guallpa AUDIT MACHINE OPERATOR, AUDIT MACHINE OPERATOR-C Referring Provider Active Start: September 18, 2024 End: September 18, 2024 Dr. Dominique Patten MD Attending Provider Active Start: September 18, 2024 End: September 18, 2024 Precision Honer Relationship Specialty Start Date End Date Suzanne Guallpa APRN.DIE SET UP WORKER [address] [place] [address] PCP - General Family Medicine 11/29/21 Team Status: Inactive Member Role Status Dates Suzanne Guallpa AUDIT MACHINE OPERATOR, AUDIT MACHINE OPERATOR-C Primary Care Provider Active Start: October 01, 2024 End: October 01, 2024 Suzanne Guallpa AUDIT MACHINE OPERATOR, AUDIT MACHINE OPERATOR-C Referring Provider Active Start: October 01, 2024 End: October 01, 2024 Dr. Jenna Hartley , Attending Provider Activ e Start: October 01, 2024 End: October 01, 2024 Team Status: Active Member Role Status Dates Suzanne Guallpa NP, AUDIT MACHINE OPERATOR-C Primary Care Provider Active Start: October 01, 2024 Dr. Jenna Hartley DO Attending Provider Activ e Start: October 01, 2024 Dr. Jenna Hartley DO Referring Provider Activ e Start: October 01, 2024 Team Status: Inactive Member Role Status Dates Suzanne Guallpa AUDIT MACHINE OPERATOR, AUDIT MACHINE OPERATOR-C Primary Care Provider Active Start: October 01, 2024 End: October 01, 2024 Dr. Jenna Hartley DO Attending Provider Activ e Start: October 01, 2024 End: October 01, 2024 Dr. Jenna Hartley DO Referring Provider Activ e Start: October 01, 2024 End: October 01, 2024 Team Status: Active Member Role/Relationship Status Dates Suzanne Guallpa AUDIT MACHINE OPERATOR, AUDIT MACHINE OPERATOR-C Primary Care Provider Active Team Status: Inactive Member Role/Relationship Status Dates Suzanne Guallpa AUDIT MACHINE OPERATOR, AUDIT MACHINE OPERATOR-C Primary Care Provider Active Start: August 27, 2024 End: August 27, 2024 Jessica Barkman , AUDIT MACHINE OPERATOR-C Attending Provider Active Start: August 27, 2024 End: August 27, 2024 Jessica Toure , AUDIT MACHINE OPERATOR-C Referring Provider Active Start: August 27, 2024 End: August 27, 2024 Team Status: Inactive Member Role/Relationship Status Dates Suzanne Guallpa AUDIT MACHINE OPERATOR, AUDIT MACHINE OPERATOR-C Primary Care Provider Active Start: August 29, 2024 End: August 29, 2024 Dr. Jenna Hartley , DO Attending Provider Activ e Start: August 29, 2024 End: August 29, 2024 Dr. Jenna Hartley , DO Referring Provider Activ e Start: August 29, 2024 End: August 29, 2024 Team Status: Inactive Member Role/Relationship Status Dates Suzanne Guallpa AUDIT MACHINE OPERATOR, AUDIT MACHINE OPERATOR-C Primary Care Provider Active Start: September 01, 2024 End: September 01, 2024 Carmita Sierra CNM Attending Provider Active S tart: September 01, 2024 End: September 01, 2024 Carmita Sierra CNM Referring Provider Active S tart: September 01, 2024 End: September 01, 2024 Team Status: Inactive Member Role/Relationship Status Dates Suzanne Guallpa AUDIT MACHINE OPERATOR, AUDIT MACHINE OPERATOR-C Primary Care Provider Active Start: September 02, 2024 End: September 02, 2024 Carmita Sierra CNM Attending Provider Active S tart: September 02, 2024 End: September 02, 2024 Carmita Sierra CNM Referring Provider Active S tart: September 02, 2024 End: September 02, 2024 Team Status: Inactive Member Role/Relationship Status Dates Suzanne Guallpa AUDIT MACHINE OPERATOR, AUDIT MACHINE OPERATOR-C Primary Care Provider Active Start: September 04, 2024 End: September 04, 2024 Suzanne Guallpa NP, AUDIT MACHINE OPERATOR-C Referring Provider Active Start: September 04, 2024 End: September 04, 2024 Dr. Dominique Patten MD Attending Provider Active Start: September 04, 2024 End: September 04, 2024 Team Status: Inactive Member Role/Relationship Status Dates Suzanne Guallpa AUDIT MACHINE OPERATOR, AUDIT MACHINE OPERATOR-C Primary Care Provider Active Start: September 04, 2024 End: September 04, 2024 Dr. Dominique Patten MD Attending Provider Active Start: September 04, 2024 End: September 04, 2024 Dr. Dominique Patten MD Referring Provider Active Start: September 04, 2024 End: September 04, 2024 Team Status: Inactive Member Role/Relationship Status Dates Suzanne Guallpa AUDIT MACHINE OPERATOR, AUDIT MACHINE OPERATOR-C Primary Care Provider Active Start: September 18, 2024 End: September 18, 2024 Suzanne Guallpa AUDIT MACHINE OPERATOR, AUDIT MACHINE OPERATOR-C Referring Provider Active Start: September 18, 2024 End: September 18, 2024 Dr. Dominique Patten MD Attending Provider Active Start: September 18, 2024 End: September 18, 2024 Team Status: Inactive Member Role/Relationship Status Dates Suzanne Guallpa AUDIT MACHINE OPERATOR, AUDIT MACHINE OPERATOR-C Primary Care Provider Active Start: October 01, 2024 End: October 01, 2024 Suzanne Guallpa AUDIT MACHINE OPERATOR, AUDIT MACHINE OPERATOR-C Referring Provider Active Start: October 01, 2024 End: October 01, 2024 Dr. Jenna Hartley DO Attending Provider Activ e Start: October 01, 2024 End: October 01, 2024 Team Status: Inactive Member Role/Relationship Status Dates Suzanne Guallpa AUDIT MACHINE OPERATOR, AUDIT MACHINE OPERATOR-C Primary Care Provider Active Start: October 01, 2024 End: October 01, 2024 Dr. Jenna Hartley DO Attending Provider Activ e Start: October 01, 2024 End: October 01, 2024 Dr. Jenna Hartley DO Referring Provider Activ e Start: October 01, 2024 End: October 01, 2024 Team Status: Inactive Member Role/Relationship Status Dates Suzanne Guallpa AUDIT MACHINE OPERATOR, AUDIT MACHINE OPERATOR-C Primary Care Provider Active Start: October 27, 2024 End: October 27, 2024 Suzanne Guallpa AUDIT MACHINE OPERATOR, AUDIT MACHINE OPERATOR-C Referring Provider Active Start: October 27, 2024 End: October 27, 2024 Fidelia Otoole AUDIT MACHINE OPERATOR, AUDIT MACHINE OPERATOR-C Attending Provider Active Start: October 27, 2024 End: October 27, 2024 Team Status: Inactive Member Role/Relationship Status Dates Suzanne Guallap AUDIT MACHINE OPERATOR, AUDIT MACHINE OPERATOR-C Primary Care Provider Active Start: November 28, 2024 End: November 28, 2024 Suzanne Guallpa AUDIT MACHINE OPERATOR, AUDIT MACHINE OPERATOR-C Referring Provider Active Start: November 28, 2024 End: November 28, 2024 Carmita Sierra CNM Attending Provider Active S tart: November 28, 2024 End: November 28, 2024 Precision Honer Relationship Specialty Start Date End Date Suzanne Guallpa APRN.DIE SET UP WORKER [address] [place] [address] PCP - General Family Medicine 11/29/21 Team Status: Inactive Member Role/Relationship Status Dates Suzanne Guallpa AUDIT MACHINE OPERATOR, AUDIT MACHINE OPERATOR-C Primary Care Provider Active Start: August 29, 2024 End: August 29, 2024 Dr. Jenna Hartley , DO Attending Provider Activ e Start: August 29, 2024 End: August 29, 2024 Dr. Jenna Hartley , DO Referring Provider Activ e Start: August 29, 2024 End: August 29, 2024 Team Status: Inactive Member Role/Relationship Status Dates Suzanne Guallpa AUDIT MACHINE OPERATOR, AUDIT MACHINE OPERATOR-C Primary Care Provider Active Start: September 01, 2024 End: September 01, 2024 Carmita Sierra CNM Attending Provider Active S tart: September 01, 2024 End: September 01, 2024 Carmita Sierra CNM Referring Provider Active S tart: September 01, 2024 End: September 01, 2024 Team Status: Inactive Member Role/Relationship Status Dates Suzanne Guallpa AUDIT MACHINE OPERATOR, AUDIT MACHINE OPERATOR-C Primary Care Provider Active Start: September 02, 2024 End: September 02, 2024 aCrmita Sierra CNM Attending Provider Active S tart: September 02, 2024 End: September 02, 2024 Carmita Sierra CNM Referring Provider Active S tart: September 02, 2024 End: September 02, 2024 Team Status: Inactive Member Role/Relationship Status Dates Suzanne Guallpa AUDIT MACHINE OPERATOR, AUDIT MACHINE OPERATOR-C Primary Care Provider Active Start: September 04, 2024 End: September 04, 2024 Suzanne Guallpa AUDIT MACHINE OPERATOR, AUDIT MACHINE OPERATOR-C Referring Provider Active Start: September 04, 2024 End: September 04, 2024 Dr. Dominique Patten MD Attending Provider Active Start: September 04, 2024 End: September 04, 2024 Team Status: Inactive Member Role/Relationship Status Dates Suzanne Guallpa AUDIT MACHINE OPERATOR, AUDIT MACHINE OPERATOR-C Primary Care Provider Active Start: September 04, 2024 End: September 04, 2024 Dr. Dominique Patten MD Attending Provider Active Start: September 04, 2024 End: September 04, 2024 Dr. Dominique Patten MD Referring Provider Active Start: September 04, 2024 End: September 04, 2024 Team Status: Inactive Member Role/Relationship Status Dates Suzanne Guallpa AUDIT MACHINE OPERATOR, AUDIT MACHINE OPERATOR-C Primary Care Provider Active Start: September 18, 2024 End: September 18, 2024 Suzanne Guallpa AUDIT MACHINE OPERATOR, AUDIT MACHINE OPERATOR-C Referring Provider Active Start: September 18, 2024 End: September 18, 2024 Dr. Dominique Patten MD Attending Provider Active Start: September 18, 2024 End: September 18, 2024 Team Status: Inactive Member Role/Relationship Status Dates Suzanne Guallpa AUDIT MACHINE OPERATOR, AUDIT MACHINE OPERATOR-C Primary Care Provider Active Start: October 01, 2024 End: October 01, 2024 Suzanne Guallpa AUDIT MACHINE OPERATOR, AUDIT MACHINE OPERATOR-C Referring Provider Active Start: October 01, 2024 End: October 01, 2024 Dr. Jenna Hartley DO Attending Provider Activ e Start: October 01, 2024 End: October 01, 2024 Team Status: Inactive Member Role/Relationship Status Dates Suzanne Guallpa AUDIT MACHINE OPERATOR, AUDIT MACHINE OPERATOR-C Primary Care Provider Active Start: October 01, 2024 End: October 01, 2024 Dr. Jenna Hartley DO Attending Provider Activ e Start: October 01, 2024 End: October 01, 2024 Dr. Jenna Hartley DO Referring Provider Activ e Start: October 01, 2024 End: October 01, 2024 Team Status: Inactive Member Role/Relationship Status Dates Suzanne Guallpa AUDIT MACHINE OPERATOR, AUDIT MACHINE OPERATOR-C Primary Care Provider Active Start: October 27, 2024 End: October 27, 2024 Suzanne Guallpa AUDIT MACHINE OPERATOR, AUDIT MACHINE OPERATOR-C Referring Provider Active Start: October 27, 2024 End: October 27, 2024 Fidelia Otoole AUDIT MACHINE OPERATOR, AUDIT MACHINE OPERATOR-C Attending Provider Active Start: October 27, 2024 End: October 27, 2024 Team Status: Inactive Member Role/Relationship Status Dates Suzanne Guallpa AUDIT MACHINE OPERATOR, AUDIT MACHINE OPERATOR-C Primary Care Provider Active Start: November 28, 2024 End: November 28, 2024 Suzanne Guallpa AUDIT MACHINE OPERATOR, AUDIT MACHINE OPERATOR-C Referring Provider Active Start: November 28, 2024 End: November 28, 2024 Carmita Sierra CNM Attending Provider Active S tart: November 28, 2024 End: November 28, 2024 Team Status: Inactive Member Role/Relationship Status Dates Suzanne Haagen AUDIT MACHINE OPERATOR, AUDIT MACHINE OPERATOR-C Referring Provider Active Start: December 26, 2024 End: December 26, 2024 Dr. Dominique Patten MD Attending Provider Active Start: December 26, 2024 End: December 26, 2024 Team Status: Inactive Member Role/Relationship Status Dates Suzanne Haagen AUDIT MACHINE OPERATOR, AUDIT MACHINE OPERATOR-C Primary care physician Active Start: October 01, 2024 End: October 01, 2024 Suzanne Guallpa AUDIT MACHINE OPERATOR, AUDIT MACHINE OPERATOR-C Referring Provider Active Start: October 01, 2024 End: October 01, 2024 Dr. Jenna Hartley DO Attending physician Acti ve Start: October 01, 2024 End: October 01, 2024 Team Status: Inactive Member Role/Relationship Status Dates Suzanne Guallpa AUDIT MACHINE OPERATOR, AUDIT MACHINE OPERATOR-C Primary care physician Active Start: October 01, 2024 End: October 01, 2024 Dr. Jenna Hartley DO Attending physician Acti ve Start: October 01, 2024 End: October 01, 2024 Dr. Jenna Hartley DO Referring Provider Activ e Start: October 01, 2024 End: October 01, 2024 Team Status: Inactive Member Role/Relationship Status Dates Suzanne Guallpa AUDIT MACHINE OPERATOR, AUDIT MACHINE OPERATOR-C Primary care physician Active Start: October 27, 2024 End: October 27, 2024 Suzanne Guallpa AUDIT MACHINE OPERATOR, AUDIT MACHINE OPERATOR-C Referring Provider Active Start: October 27, 2024 End: October 27, 2024 Fidelia Otoole AUDIT MACHINE OPERATOR, AUDIT MACHINE OPERATOR-C Attending physician Active Start: October 27, 2024 End: October 27, 2024 Team Status: Inactive Member Role/Relationship Status Dates Suzanne Guerreroagen AUDIT MACHINE OPERATOR, AUDIT MACHINE OPERATOR-C Primary care physician Active Start: November 28, 2024 End: November 28, 2024 Suzanne Haagen AUDIT MACHINE OPERATOR, AUDIT MACHINE OPERATOR-C Referring Provider Active Start: November 28, 2024 End: November 28, 2024 Carmita Sierra CNM Attending physician Active Start: November 28, 2024 End: November 28, 2024 Team Status: Inactive Member Role/Relationship Status Dates Suzanne Haagen AUDIT MACHINE OPERATOR, AUDIT MACHINE OPERATOR-C Referring Provider Active Start: December 26, 2024 End: December 26, 2024 Dr. Dominique Patten MD Attending physician Active Start: December 26, 2024 End: December 26, 2024 Team Status: Inactive Member Role/Relationship Status Dates Suzanne Guallpa AUDIT MACHINE OPERATOR, AUDIT MACHINE OPERATOR-C Referring Provider Active Start: January 23, 2025 End: January 23, 2025 Carmita Sierra CNM Attending physician Active Start: January 23, 2025 End: January 23, 2025 Team Status: Active Member Role/Relationship Status Dates Dr. Dominique Patten MD Attending physician Active Start: January 23, 2025 Dr. Dominique Patten MD Referring Provider Active Start: January 23, 2025 Team Status: Inactive Member Role/Relationship Status Dates Suzanne Haagen AUDIT MACHINE OPERATOR, AUDIT MACHINE OPERATOR-C Primary care physician Active Start: October 27, 2024 End: October 27, 2024 Uszanne Haagen AUDIT MACHINE OPERATOR, AUDIT MACHINE OPERATOR-C Referring Provider Active Start: October 27, 2024 End: October 27, 2024 Fidelia Otoole AUDIT MACHINE OPERATOR, AUDIT MACHINE OPERATOR-C Attending physician Active Start: October 27, 2024 End: October 27, 2024 Team Status: Inactive Member Role/Relationship Status Dates Suzanne Haagen AUDIT MACHINE OPERATOR, AUDIT MACHINE OPERATOR-C Primary care physician Active Start: November 28, 2024 End: November 28, 2024 Suzanne Haagen AUDIT MACHINE OPERATOR, AUDIT MACHINE OPERATOR-C Referring Provider Active Start: November 28, 2024 End: November 28, 2024 Carmita Sierra CNM Attending physician Active Start: November 28, 2024 End: November 28, 2024 Team Status: Inactive Member Role/Relationship Status Dates Suzanne Hakayla AUDIT MACHINE OPERATOR, AUDIT MACHINE OPERATOR-C Referring Provider Active Start: December 26, 2024 End: December 26, 2024 Dr. Dominique Patten MD Attending physician Active Start: December 26, 2024 End: December 26, 2024 Team Status: Inactive Member Role/Relationship Status Dates Suzanne Guallpa AUDIT MACHINE OPERATOR, AUDIT MACHINE OPERATOR-C Referring Provider Active Start: January 23, 2025 [...] Inactive Member Role/Relationship Status Dates Suzanne Guallpa AUDIT MACHINE OPERATOR, AUDIT MACHINE OPERATOR-C Referring Provider Active Start: February 06, 2025 End: February 06, 2025 Dr. Jenna Hartley DO Attending physician Acti ve Start: February 06, 2025 End: February 06, 2025 Team Status: Inactive Member Role/Relationship Status Dates Fidelia Otoole NP, AUDIT MACHINE OPERATOR-C Attending physician Active Start: February 16, 2025 End: February 16, 2025 Reason for Visit (unrecogniz ed section and content) Reason Comments Sore Throat ST x 3 days Reason Comments Full Body Skin Check Reason Comments Physical INFORMATION SOURCE (unrecogn ized section and content) DATE CREATED AUTHOR 10/02/2024 [facility] DATE CREATED AUTHOR AUTHOR'S ORGANIZ ATION 11/25/2024 [facility] DATE CREATED AUTHOR AUTHOR'S ORGANIZ ATION 02/28/2025 [facility] FOR RECORDS PERTAINING TO PATIENTS [...] BE BASED ON THE PRIMARY CLINICAL RECORDS. [employer] [facility]. provides no warranty or guarantee of the accuracy or completeness of information in this document.
[2025-04-10] MEDS: Oxytocin 15 Units/NS 250ml 15 UNITS/250 ML IV.SOLN 83 UNITS IV (00:14)
--- NOTE | 2025-04-10 06:51 | PCM.PN.BLA ---
Progress Note Patient doing well without complaints. Tolerating PO. Ambulating and voiding without difficulty. Feeding well. Denies chest pain, shortness of breath, calf pain/swelling, fevers, chills, lightheadedness. Some cramping but ibuprofen is starting to kick in. Had some cookies last night after delivery. Physical Exam Const alert, oriented x3 and no apparent distress HEENT Head and Scalp: normocephalic and atraumatic Resp normal respiratory effort Effort and Inspection: able to speak in complete sentences and symmetric chest movement Cardio regular rate and regular rhythm GI soft to palpation and non-tender Bimanual Exam - Vag & Uterus: uterus non-tender Uterus Palpation: uterus fundus firm (below Umbilicus) Assessment & Plan Assessment/Plan (1) Spontaneous vaginal delivery: PLAN: s/p PPD # 1 1. routine post delivery care 2. breast feeding- support given 3. rh positive 4. rubella immune 5. d/c tomorrow morning
--- NOTE | 2025-04-10 06:53 | PCM.DC ---
Discharge Instructions DC O2, CPAP, BIPAP needs Home O2 Discharge instructions: No Dressing / Incision Discharge Activity: Return to Normal Activity, May Not Drive (while taking narcotic pain medications.) and May Shower May resume sexual activity in: 4-6 weeks Dressing / Incision Call your doctor if your incision/area has: Continuous Slow Oozing, Sudden Increased Bleeding and Foul Smelling Discharge Call your doctor if you observe: Fever of 101 or Higher and Chest pain Follow Up Care When: Call [phone] to make an appointment with your doctor in 6 weeks. If you had elevated blood pressure or 4th degree laceration, you will need to be seen in 2 weeks. Test Results: Test results from this visit will be discussed in further detail at your follow-up appointment, if applicable. Discharge Plan Admission Admit Date/Time: 04/09/25 23:51 Primary Reason for Your Visit: labor and delivery Attending Provider: Jenna Hartley Primary Care Provider: Suzanne Guallpa NP Discharge Orders/Prescriptions Prescriptions: New ibuprofen 600 mg tablet 600 mg PO Q6H PRN PRN (Reason: fever or pain) Qty: 30 0RF Continued PNV-DHA 27 mg iron-1 mg -300 mg capsule 1 cap PO DAILY famotidine [Pepcid] 20 mg tablet 20 mg PO BID Qty: 60 6RF Referrals / Follow Up: Suzanne Guallpa NP, [employer] S[employer] INSTALLER-C [Primary Care Provider, Medical] Disposition Disposition (needs filled in before D/C Order can be placed): Home, Self Care
[2025-04-10] MEDS: SELF ADMINISTRATION OF MEDS 1 EACH NOTE (14:34)
[2025-04-11 02:35] VITALS: BP 109/74; PULSE 85; RESP 16; TEMP 36.1; O2SAT 97
[2025-04-11 08:37] VITALS: BP 117/76; PULSE 79; RESP 16; TEMP 36.6
--- NOTE | 2025-04-11 10:52 | PCM.DC.SUM ---
Providers Date of Admission: 04/09/25 Primary Care Physician: Suzanne Guallpa NP-C Reason For Visit: VAGINAL DELIVERY Diagnosis Discharge Diagnosis (1) Spontaneous vaginal delivery: Status: Acute Code(s): O80 - Encounter for full-term uncomplicated delivery Medications at Discharge Home Medications multivitamin no.47-iron fum 27 mg-folate no.1 1 mg-dha 300 mg capsule (PNV-DHA) 1 cap PO DAILY 03/23/23 famotidine 20 mg tablet (Pepcid) 20 mg PO BID #60 tabs 12/26/24 ibuprofen 600 mg tablet 600 mg PO Q6H PRN PRN fever or pain #30 tabs 04/10/25 Hospital Course Summary of Care Provided Hospital Course: This is a 34-year-old patient who delivered her third boy 2 days ago and is doing well. She is breast-feeding. Minimal vaginal bleeding reported ready to go home. Weight / BMI Weight Weight: 201 lb 11.567 oz Body Mass Index (BMI) 32.5 PRE- weight 169 lb PRE- Body Mass Index 27.1 (BMI) ABG / Lab / Microbiology Data 04/09/25 19:30 D/C Instructions May resume sexual activity in: 4-6 weeks Call your doctor if your incision/area has: Continuous Slow Oozing, Sudden Increased Bleeding and Foul Smelling Discharge Call your doctor if you observe: Fever of 101 or Higher and Chest pain DC O2, CPAP, BIPAP Needs Home O2 Discharge instructions: No When: Call [phone] to make an appointment with your doctor in 6 weeks. If you had elevated blood pressure or 4th degree laceration, you will need to be seen in 2 weeks. Meaningful Use Info Meaningful Use Meaningful Use Diagnoses (Choose all that apply): None applicable Discharge Plan Admission Admit Date/Time: 04/09/25 19:05 Primary Reason for Your Visit: labor and delivery Attending Provider: Jenna Hartley Primary Care Provider: Suzanne Guallpa NP Discharge Orders/Prescriptions Prescriptions: New ibuprofen 600 mg tablet 600 mg PO Q6H PRN PRN (Reason: fever or pain) Qty: 30 0RF Continued PNV-DHA 27 mg iron-1 mg -300 mg capsule 1 cap PO DAILY famotidine [Pepcid] 20 mg tablet 20 mg PO BID Qty: 60 6RF Referrals / Follow Up: Haagen,Suzanne DYNAMO REPAIRER, DYNA[employer] REPAIRER-C [Primary Care Provider, Medical] Disposition Disposition (needs filled in before D/C Order can be placed): Home, Self Care
[2025-04-11 13:07] VITALS: BP 122/82; PULSE 77; RESP 16
== END 2025-04-11 13:50 | disposition home or self-care (01) | DRG 807 ==
LOC: WPOUT 19:09 → WP 23:40
PROVIDERS: Student in an Organized Health Care Education/Training Program; Admitting Provider Obstetrics & Gynecology; PCP Registered Nurse; Referring Provider Obstetrics & Gynecology; Visit Provider Obstetrics & Gynecology
DX: O69.81X0 Labor and delivery complicated by cord around neck, without compression, not applicable or unspecified (principal); Z37.0 Single live birth; O70.0 First degree perineal laceration during delivery; Z3A.38 38 weeks gestation of pregnancy
CPT/HCPCS: 59025; 59050; 85025; 86780; 86850; 86900; 86901; 99221; A4216; G0378